=== PATIENT | male | born 1950 | race Caucasian/White ===

== ENCOUNTER 2024-06-19 10:14 | Outpatient (AMB) | payer MEDICARE, MEDICAID, SELFPAY ==
--- NOTE | 2024-06-19 10:26 | A.OFFVIS_ITS ---
Intake Visit Reasons: HX Microhematuria/Hydroneph Intake Note: Patient is present for HX MICOHEMATURIA/HYRONEPH Urology Medication:NONE Antibiotic Allergy:NONE Blood Thinner:NONE Arc Air Operator Required: No Allergies No Known Allergies [No Known Allergies*] Allergy (Verified 06/19/24 10:27) HPI Comments Details: Stew is a pleasant Somali speaking male. He is a patient of . 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 on CT imaging Has upcoming surgery at [facility] later this month UA with persistent microscopic hematuria Stopped smoking in 1993 proximally 20 year pack per day history No known exposure to workplace chemical Plan office cystoscopy to complete evaluation [facility] Medical History (Updated 06/19/24 @ 11:05 by Delfino Mccarthy MD) Chronic kidney disease, stage 3 unspecified Unspecified hydronephrosis Paroxysmal atrial fibrillation Essential hypertension Lung mass Microscopic hematuria Surgical History (Updated 06/12/24 @ 13:39 by BARNEY Sims) History of lung biopsy Review of Systems Const Denies chills and Denies fever(s) Card Reports no additional complaints and Denies syncope Resp Denies cough GI Denies abdominal pain and Denies heartburn Reports as per HPI and Denies change in libido Neuro Denies syncope Psych Denies change in libido Endo Denies change in libido Physical Exam Const General: cooperative, healthy appearing, comfortable and no acute distress Orientation/consciousness: patient oriented x3 HEENT Face and sinus: Yes normal facial exam Mouth: moist mucous membranes Neck Neck: Yes normal visual inspection, Yes full ROM and Yes trachea midline Chest Chest palpation & inspection: normal inspection of the chest Resp Effort & Inspection: normal respiratory effort, able to speak in complete sentences and no respiratory distress GI Inspection: Yes normal to inspection Back/Spine/Pelvis Cervical Spine: normal cervical lordosis Thoracic/Lumbar Spine: thoracic and lumbar spine normal to inspection Skin General skin exam: no rashes or lesions noted Neuro General: patient oriented x3, gait normal, tone normal and moves all extremities Extrem General: Yes normal to inspection and Yes capillary refill normal Results AMB Urinalysis, Automated UA Leukoctes 0 Lan/uL Last Edit by JAZZ Abraham on 06/19/24 10:38 UA Nitrite Negative Last Edit by JAZZ Abraham on 06/19/24 10:38 UA Urobilinogen 0.2 mg/dL Last Edit by JAZZ Abraham on 06/19/24 10:3 8 UA Protein 100 mg/dL Last Edit by JAZZ Abraham on 06/19/24 10:38 UA pH 6.0 Last Edit by Zach Heck CCM on 06/19/24 10:38 UA Blood 10 Frederick/uL Last Edit by Zach Heck [facility] on 06/19/24 10:38 UA Specific [place] 1.020 Last Edit by Zach Heck [facility] on 06/19/24 10: 38 UA Ketone Negative Last Edit by JAZZ Abraham on 06/19/24 10:38 UA Bilirubin 0 mg/dL Last Edit by Zach Heck [facility] on 06/19/24 10:38 UA Glucose 0 mg/dL Last Edit by Zach Heck [facility] on 06/19/24 10:38 Results Reviewed Results Reviewed: Laboratory Last Values Urine pH (Auto) 6.0 06/19/24 10:37 Specific [place] (Auto) 1.020 06/19/24 10:37 Urine Protein (Auto) 100 mg/dL 06/19/24 10:37 Glucose (UA)(Auto) 0 mg/dL 06/19/24 10:37 Urine Ketones (Auto) Negative 06/19/24 10:37 Urine Blood (Auto) 10 Frederick/uL 06/19/24 10:37 Urine Nitrite (Auto) Negative 06/19/24 10:37 Urine Bilirubin (Auto) 0 mg/dL 06/19/24 10:37 Urine Urobilinogen (Auto) 0.2 mg/dL 06/19/24 10:37 Leukocyte Esterase (Auto) 0 Lan/uL 06/19/24 10:37 Assessment & Plan Assessment & Plan (1) Microscopic hematuria: Code(s): R31.29 - Other microscopic hematuria Category: Medical Plan Plan office cystoscopy Orders: Orders AMB Urinalysis Automated Today Z13.9 - Encounter for screening, unspecified Patient Instructions: Imaging studies, laboratory and physical exam results were discussed and review ed in detail. No major barriers to patient understanding were identified. An opportunity to ask questions regarding the treatment plan was provided. All questions were answered. The patient expressed understanding and agreement with the above treatment plan. The patient is aware they should contact our office by phone for worsening of their current condition or the appearance of new urologic symptoms. Compliance is encouraged with any medications and followup testing that is ordered. It is a privilege to participate in the urologic care of your patient. If you have any questions or concerns regarding treatment for the above conditions, or other urologic issues, please do not hesitate to contact me. The office telephone contact is [phone]. This note is constructed using voice recognition software. While every effort has been made to ensure accuracy outside medical sales representative errors may have been included. Yours sincerely, Dr Delfino Mccarthy MD, [facility] - Urology Providers of Expert, Compassionate Care for the Genitourinary System Coding Level of Care Code New Pt Level 4 (19490) Diagnoses Microscopic hematuria R31.29
== END 2024-06-19 11:07 | disposition home or self-care (01) ==
PROVIDERS: PCP Physician Assistant; Visit Provider Urology
DX: R31.29 Other microscopic hematuria (principal); Z13.9 Encounter for screening, unspecified
CPT/HCPCS: 99204

== ENCOUNTER → 2024-06-19 10:14 | Outpatient (BNVA) | payer MEDICARE, MEDICAID, SELFPAY | PROVIDERS: PCP Physician Assistant; Visit Provider Urology | DX: R31.29 Other microscopic hematuria (principal) | CPT/HCPCS: 81003; 99202 ==

== ENCOUNTER 2024-08-07 12:47 | Outpatient (AMB) | payer MEDICARE, MEDICAID, SELFPAY ==
--- NOTE | 2024-08-07 13:10 | A.OFFVIS_ITS ---
Intake Visit Reasons: cysto(Hematuria) Intake Note: Patient is present for Hematuria Urology Medication:NONE Antibiotic Allergy:NONE Blood Thinner:NONE Supervisor Dials Required: Yes Supervisor Dials Services: Supervisor Dials Present Information Interpreted: clinical only Allergies No Known Allergies [No Known Allergies*] Allergy (Verified 08/07/24 13:10) HPI Comments Details: Stew is a pleasant Tuvaluan speaking male. He is a patient of . He is seen for the following urologic conditions - retroperitoneal sarcoma Tuvaluan Translation provided by qualified biomedical service engineer ([id number]) Underwent left retroperitoneal sarcoma resection [facility] Included left nephro ureterectomy No longer with hematuria Incision appears to be healing well All things considered he is doing very well from his surgery 4 month follow-up office [facility] Medical History (Updated 06/19/24 @ 11:05 by Delfino Mccarthy MD) Chronic kidney disease, stage 3 unspecified Unspecified hydronephrosis Paroxysmal atrial fibrillation Essential hypertension Lung mass Microscopic hematuria Surgical History (Updated 06/12/24 @ 13:39 by BARNEY Sims) History of lung biopsy Review of Systems Const Denies chills and Denies fever(s) Card Reports no additional complaints and Denies syncope Resp Denies cough GI Denies abdominal pain and Denies heartburn Reports as per HPI and Denies change in libido Neuro Denies syncope Psych Denies change in libido Endo Denies change in libido Physical Exam Const General: cooperative, healthy appearing, comfortable and no acute distress Orientation/consciousness: patient oriented x3 HEENT Face and sinus: Yes normal facial exam Mouth: moist mucous membranes Neck Neck: Yes normal visual inspection, Yes full ROM and Yes trachea midline Chest Chest palpation & inspection: normal inspection of the chest Resp Effort & Inspection: normal respiratory effort, able to speak in complete sentences and no respiratory distress GI Inspection: Yes normal to inspection Back/Spine/Pelvis Cervical Spine: normal cervical lordosis Thoracic/Lumbar Spine: thoracic and lumbar spine normal to inspection Skin General skin exam: no rashes or lesions noted Neuro General: patient oriented x3, gait normal, tone normal and moves all extremities Extrem General: Yes normal to inspection and Yes capillary refill normal Assessment & Plan Assessment & Plan (1) Microscopic hematuria: Code(s): R31.29 - Other microscopic hematuria Category: Medical Plan Four month follow-up Orders: Orders AMB Urinalysis Automated Today R31.29 - Other microscopic hematuria Patient Instructions: This note is constructed using voice recognition software. While every effort diallo s been made to ensure accuracy car rental sales assistant errors may have been included. Imaging studies, laboratory and physical exam results were discussed and reviewed in detail. No major barriers to patient understanding were identified. An opportunity to ask questions regarding the treatment plan was provided. All questions were answered. The patient expressed understanding and agreement with the above treatment plan. The patient is aware they should contact our office by phone for worsening of their current condition or the appearance of new urologic symptoms. Compliance is encouraged with any medications and followup testing that is ordered. It is a privilege to participate in the urologic care of your patient. If you have any questions or concerns regarding treatment for the above conditions, or other urologic issues, please do not hesitate to contact me. The office telephone contact is [phone]. Sincerely, Dr Delfino Mccarthy MD, [facility] - Urology Compassionate Specialist Care for the Genitourinary System Coding Level of Care Code Est Pt Level 3 (41527) Diagnoses Microscopic hematuria R31.29
--- OUTSIDE RECORDS SUMMARY | 2024-08-07 15:49 | XMS_ITS | Clinical Summary ---
Author Organization Unknown Care Team Providers Care Environmental Officer Name Role Phone JONN WILITE, PETE Unavailable Kalani foster ARMSTRONG RN, AMIE Unavailable Unavailab charan PFEIFFER LPN, CHULA Unavailable Unavail able CODI PT, JAYJAY Unavailable Unavailable CHEIKH GENERAL COUNSELOR, HAIM Unavailable Unavailable Payers Payer Name Policy Type Policy Number Effective Date Expira tion Date MEDICARE.NGS.PDGM [id number] Problems Condition Name Condition Details Condition Category Status Onset Date Resolution Date Last Treatment Date Treating Clinician Comments AFTERCARE FOLLOWING SURGERY FOR NEOPLASM Active 07-13 00:00: 00 MALIGNANT NEOPLASM OF CONNECTIVE AND SOFT TISSUE, UNSP Active 07-13 00:00: 00 ENCNTR FOR SURGICAL AFTCR FOLLOWING SURGERY ON THE CIRC SYS Active 06-22 00:00: 00 PRESENCE OF CARDIAC PACEMAKER Active 06-22 00:00: 00 HYP HRT AND CHR KDNY DIS W HRT FAIL AND STG 1-4/UNSP CHR KDNY Active 07-13 00:00: 00 CHRONIC SYSTOLIC (CONGESTIVE) HEART FAILURE Active 07-13 00:00: 00 TYPE 2 DIABETES MELLITUS W DIABETIC CHRONIC KIDNEY DISEASE Active 07-13 00:00: 00 CHRONIC KIDNEY DISEASE, STAGE 4 (SEVERE) Active 07-13 00:00: 00 UNSPECIFIED ATRIAL FLUTTER Active - 00:00: 00 UNSPECIFIED ATRIAL FIBRILLATION Active - 00:00: 00 MIXED HYPERLIPIDEM IA Active - 00:00: 00 DEFICIENCY OF OTHER SPECIFIED B GROUP VITAMINS Active 07-13 00:00: 00 MAJOR DEPRESSIVE DISORDER, RECURRENT, MODERATE Active 07-13 00:00: 00 UNSPECIFIED OSTEOARTHRIT IS, UNSPECIFIED SITE Active 07-13 00:00: 00 GASTRO-ESOPH AGEAL REFLUX DISEASE WITHOUT ESOPHAGITIS Active 07-13 00:00: 00 PEPTIC ULC, SITE UNSP, UNSP AC OR CHR, W/O HEMOR OR PERF Active 07-13 00:00: 00 ACUTE INFARCTION OF INTESTINE, PART AND EXTENT UNSPECIFIED Active 07-13 00:00: 00 OBSTRUCTIVE SLEEP APNEA (ADULT) (PEDIATRIC) Active 07-13 00:00: 00 Obesity, class 1 Active 07-13 00:00: 00 RRT (CURRENT) USE OF ANTICOAGULAN TS Active 07-13 00:00: 00 ACQUIRED ABSENCE OF OTHER SPECIFIED PARTS OF DIGESTIVE TRACT Active 07-13 00:00: 00 PERSONAL HISTORY OF NICOTINE DEPENDENCE Active 07-13 00:00: 00 LNG TRM (CRNT) USE INJECTABLE NON-INSULIN ANTIDIABETIC DRUGS Active 07-13 00:00: 00 BODY MASS INDEX [BMI] 29.0-29.9, ADULT Active 07-13 00:00: 00 Allergies, Adverse Reactions, Alerts Allergy Name Allergy Type Status Severity Reaction(s) Onset Date Inactive Date Treating Clinician Comments NO KNOWN ALLERGIES Propensity to adverse reactions Active 07-13 10:47: 08 Medications Ordered Medication Name Filled Medication Name Start Date Stop Date Current Medication? Ordering Clinician Indication Dosage Frequency Signature (SIG) Comments Components pantoprazol e 40 mg tablet,brii yed release 10-17 00:00: 00 07-08 23:59 :00 No [id number] PROTON PUMP INHIBITOR 1 tablet DAILY 1 tablet DAILY (route: oral) Med Classific ation: Gastroint estinal Therapy Agents calcitriol 0.25 mcg capsule 13 00:00: 00 07-08 23:59 :00 No [id number] CALCIUM LEVEL 1 capsule EVERY DAY 1 capsule EVERY DAY (route: oral) Med Classific ation: Electroly te Balance-N utritiona l Products torsemide 10 mg tablet 13 00:00: 00 07-08 23:59 :00 No [id number] DIURETIC 1 tablet TWICE DAILY 1 tablet TWICE DAILY (route: oral) Med Classific ation: Cardiovas cular Therapy Agents Eliquis 5 mg tablet 10-14 00:00: 00 07-08 23:59 :00 No [id number] BLOOD THINNER 1 tablet TWICE DAILY 1 tablet TWICE DAILY (route: oral) Med Classific ation: Hematolog ical Agents Ozempic 0.25 mg or 0.5 mg (2 mg/3 mL) subcutaneou s pen injector 10-14 00:00: 00 10-23 10:33 :17.8 47 No [id number] BLOOD GLUCOSE 0.5 mg EVERY WEEK 0.5 mg EVERY WEEK (route: subcutaneo us) Med Classific ation: Endocrine rosuvastati n 5 mg tablet 10-14 00:00: 00 07-08 23:59 :00 No [id number] CHOLESTEROL 1 tablet EVERY NIGHT AT BEDTIME 1 tablet EVERY NIGHT AT BEDTIME (route: oral) Med Classific ation: Cardiovas cular Therapy Agents Vitamin B-1 100 mg tablet 10-14 00:00: 00 07-08 23:59 :00 No [id number] VITAMIN 1 tablet EVERY DAY 1 tablet EVERY DAY (route: oral) Med Classific ation: Electroly te Balance-N utritiona l Products metoprolol tartrate 25 mg tablet 10-19 00:00: 00 07-08 23:59 :00 No [id number] BLOOD PRESSURE 0.5 tablet TWICE DAILY 0.5 tablet TWICE DAILY (route: oral) Med Classific ation: Cardiovas cular Therapy Agents Ozempic 0.25 mg or 0.5 mg (2 mg/3 mL) subcutaneou s pen injector 10-23 00:00: 00 07-08 23:59 :00 No [id number] blood glucose 0.25 mg WEEKLY 0.25 mg WEEKLY (route: subcutaneo us) Med Classific ation: Endocrine cyanocobala min (vit B-12) 1,000 mcg/mL injection solution 5-20 00:00: 00 07-08 23:59 :00 No [id number] suplement Per instruc tions MONTHLY Per instructio ns MONTHLY (route: injection) Med Classific ation: Electroly te Balance-N utritiona l Products cephalexin 500 mg tablet 6-13 00:00: 00 11-23 23:59 :00 No [id number] WOUND 1 tablet EVERY 8 HOURS 1 tablet EVERY 8 HOURS (route: oral) Med Classific ation: Anti-Infe ctive Agents calcitriol 0.25 mcg capsule 07-13 00:00: 00 Yes [id number] SUPPLEMENT 1 capsule DAILY 1 capsule DAILY (route: oral) Med Classific ation: Electroly te Balance-N utritiona l Products Eliquis 5 mg tablet 07-13 00:00: 00 Yes [id number] IRREGULAR HEARTBEAT 1 tablet EVERY 12 HOURS 1 tablet EVERY 12 HOURS (route: oral) Med Classific ation: Hematolog ical Agents pantoprazol e 40 mg tablet,brii yed release 1- 00:00: 00 07-13 00:00 :00 No [id number] Per instruc tions Per instructio ns (route: oral) Med Classific ation: Gastroint estinal Therapy Agents rosuvastati n 5 mg tablet 07-13 00:00: 00 Yes [id number] HIGH LIPIDS 1 tablet BEDTIME 1 tablet BEDTIME (route: oral) Med Classific ation: Cardiovas cular Therapy Agents lisinopril 10 mg tablet - 00:00: 00 Yes [id number] HIGH BLOOD PRESSURE 1 tablet DAILY 1 tablet DAILY (route: oral) Med Classific ation: Cardiovas cular Therapy Agents metronidazo le 250 mg tablet - 00:00: 00 07-13 00:00 :00 No [id number] Per instruc tions Per instructio ns (route: oral) Med Classific ation: Anti-Infe ctive Agents neomycin 500 mg tablet - 00:00: 00 07-13 00:00 :00 No [id number] Per instruc tions AT AT Per instructio ns AT AT (route: oral) Med Classific ation: Anti-Infe ctive Agents Nutrisource Fiber packet 07-13 00:00: 00 Yes [id number] SUPPLEMENT 1 packet DAILY 1 packet DAILY (route: oral) Med Classific ation: Gastroint estinal Therapy Agents Ozempic 0.25 mg or 0.5 mg (2 mg/3 mL) subcutaneou s pen injector 07-13 00:00: 00 Yes [id number] DIABETES 0.25 mg WEEKLY 0.25 mg WEEKLY (route: subcutaneo us) Med Classific ation: Endocrine pantoprazol e 20 mg tablet,brii yed release 07-13 00:00: 00 Yes [id number] GERD, PEPTIC ULCER DISEASE 1 tablet 2 TIMES DAILY 1 tablet 2 TIMES DAILY (route: oral) Med Classific ation: Gastroint estinal Therapy Agents thiamine HCl (vitamin B1) 100 mg tablet 07-13 00:00: 00 Yes [id number] SUPPLEMENT 1 tablet DAILY 1 tablet DAILY (route: oral) Med Classific ation: Electroly te Balance-N utritiona l Products Vital Signs Vital Name Observation Time Observation Value Commen ts Temperature 2024-08-02 12:01:00.000 97.7 [degF] Temperature 2024-08-01 11:15:00.000 96.8 [degF] Temperature 2024-07-25 10:32:00.000 98.2 [degF] Temperature 2024-07-25 09:03:00.000 97.1 [degF] Temperature 2024-07-18 10:52:00.000 98.4 [degF] Temperature 2024-07-16 12:56:00.000 97.2 [degF] Temperature 2024-07-13 11:39:00.000 97.4 [degF] BMI (%) 2024-07-13 11:16:32.000 28 kg/m2 Height 2024-07-13 11:16:18.000 66 [in_us] Pulse 2024-08-02 12:01:00.000 61 /min Pulse 2024-08-01 11:15:00.000 60 /min Pulse 2024-07-25 10:32:00.000 68 /min Pulse 2024-07-25 09:03:00.000 60 /min Pulse 2024-07-18 10:52:00.000 64 /min Pulse 2024-07-16 12:56:00.000 60 /min Pulse 2024-07-13 11:39:00.000 63 /min O2 Saturation (%) 2024-08-01 11:15:00.000 100 % O2 Saturation (%) 2024-07-25 10:33:00.000 97 % O2 Saturation (%) 2024-07-25 09:03:00.000 99 % O2 Saturation (%) 2024-07-16 12:56:00.000 99 % O2 Saturation (%) 2024-07-13 11:39:00.000 99 % Respirations 2024-08-02 12:01:00.000 17 /min Respirations 2024-08-01 11:15:00.000 18 /min Respirations 2024-07-25 10:32:00.000 17 /min Respirations 2024-07-25 09:03:00.000 16 /min Respirations 2024-07-18 10:52:00.000 16 /min Respirations 2024-07-16 12:56:00.000 17 /min Respirations 2024-07-13 11:39:00.000 18 /min Weight (lbs) 2024-08-02 12:11:00.000 170 [lb_av] Weight (lbs) 2024-07-25 10:32:00.000 187 [lb_av] Weight (lbs) 2024-07-13 11:16:32.000 179.1 [lb_av] Systolic Blood Pressure 2024-08-02 12:01:00.000 130 mm [Hg] Systolic Blood Pressure 2024-08-01 11:15:00.000 122 mm [Hg] Systolic Blood Pressure 2024-07-25 10:32:00.000 122 mm [Hg] Systolic Blood Pressure 2024-07-25 09:03:00.000 148 mm [Hg] Systolic Blood Pressure 2024-07-18 10:52:00.000 138 mm [Hg] Systolic Blood Pressure 2024-07-16 12:56:00.000 140 mm [Hg] Systolic Blood Pressure 2024-07-13 11:39:00.000 126 mm [Hg] Diastolic Blood Pressure 2024-08-02 12:01:00.000 62 mm [Hg] Diastolic Blood Pressure 2024-08-01 11:15:00.000 64 mm [Hg] Diastolic Blood Pressure 2024-07-25 10:32:00.000 67 mm [Hg] Diastolic Blood Pressure 2024-07-25 09:03:00.000 78 mm [Hg] Diastolic Blood Pressure 2024-07-18 10:52:00.000 68 mm [Hg] Diastolic Blood Pressure 2024-07-16 12:56:00.000 58 mm [Hg] Diastolic Blood Pressure 2024-07-13 11:39:00.000 50 mm [Hg] Plan of Treatment Planned Activity Planned Date Details Comments Future Scheduled Test RN TO OBSE RVE, ASSESS, EVALUATE, AND DEVELOP AN INDIVIDUALIZED PLAN OF CARE. AGENCY MAY ACCEPT ORDERS FROM CONSULTING PHYSICIANS. RN TO OBSERVE AND ASSESS, TREASURY ASSOCIATE/PEELED POTATO INSPECTOR TO OBSERVE FOR RISK FOR FALLS AND INSTRUCT IN FALL PREVENTION, HOME SAFETY, MEDICATION MANAGEMENT, INFECTION PREVENTION, AND NUTRITION MANAGEMENT. RN/TREASURY ASSOCIATE/PEELED POTATO INSPECTOR NURSE MAY PERFORM O2 SATURATION LEVEL ON ADMISSION AND PRN FOR RN TO ASSESS/TREASURY ASSOCIATE TO OBSERVE PATIENT, WITH NOTIFICATION TO THE PHYSICIAN IF SATURATION IS 90% IN THE ABSENCE OF MORE SPECIFIC PARAMETERS FROM THE PHYSICIAN. AGENCY MAY PERFORM A RESUMPTION OF CARE VISIT FOLLOWING ANY HOSPITAL ADMISSION. RN/TREASURY ASSOCIATE/PEELED POTATO INSPECTOR TO MONITOR CO-MORBID CONDITIONS LISTED ON THE PLAN OF CARE AND ANY NEW CONDITIONS THAT PRESENT THEMSELVES DURING THIS EPISODE TO IDENTIFY CHANGES AND INTERVENE TO MINIMIZE COMPLICATIONS. [code = RN TO OBSERVE, ASSESS, EVALUATE, AND DEVELOP AN INDIVIDUALIZED PLAN OF CARE. AGENCY MAY ACCEPT ORDERS FROM CONSULTING PHYSICIANS. RN TO OBSERVE AND ASSESS, TREASURY ASSOCIATE/PEELED POTATO INSPECTOR TO OBSERVE FOR RISK FOR FALLS AND INSTRUCT IN FALL PREVENTION, HOME SAFETY, MEDICATION MANAGEMENT, INFECTION PREVENTION, AND NUTRITION MANAGEMENT. RN/TREASURY ASSOCIATE/PEELED POTATO INSPECTOR NURSE MAY PERFORM O2 SATURATION LEVEL ON ADMISSION AND PRN FOR RN TO ASSESS/TREASURY ASSOCIATE TO OBSERVE PATIENT, WITH NOTIFICATION TO THE PHYSICIAN IF SATURATION IS 90% IN THE ABSENCE OF MORE SPECIFIC PARAMETERS FROM THE PHYSICIAN. AGENCY MAY PERFORM A RESUMPTION OF CARE VISIT FOLLOWING ANY HOSPITAL ADMISSION. RN/TREASURY ASSOCIATE/PEELED POTATO INSPECTOR TO MONITOR CO-MORBID CONDITIONS LISTED ON THE PLAN OF CARE AND ANY NEW CONDITIONS THAT PRESENT THEMSELVES DURING THIS EPISODE TO IDENTIFY CHANGES AND INTERVENE TO MINIMIZE COMPLICATIONS.] Future Scheduled Test MEDICATION MANAGEMENT; RN/TREASURY ASSOCIATE/PEELED POTATO INSPECTOR TO REVIEW MEDICATIONS FOR INTERACTIONS, EFFECTIVENESS OF DRUG THERAPY, AND SIGNS/SYMPTOMS OF ADVERSE REACTIONS. MAY INSTRUCT AND REINFORCE MEDICATION TEACHING RELATED TO THE USE OF MEDICATIONS, DOSAGE, FREQUENCY, PURPOSE, SIDE EFFECTS, AND TO REPORT COMPLICATIONS. [code = MEDICATION MANAGEMENT; RN/TREASURY ASSOCIATE/PEELED POTATO INSPECTOR TO REVIEW MEDICATIONS FOR INTERACTIONS, EFFECTIVENESS OF DRUG THERAPY, AND SIGNS/SYMPTOMS OF ADVERSE REACTIONS. MAY INSTRUCT AND REINFORCE MEDICATION TEACHING RELATED TO THE USE OF MEDICATIONS, DOSAGE, FREQUENCY, PURPOSE, SIDE EFFECTS, AND TO REPORT COMPLICATIONS.] Future Scheduled Test RISK FOR H OSPITALIZATION; RN TO ASSESS/TEACH, PEELED POTATO INSPECTOR/TREASURY ASSOCIATE TO OBSERVE/TEACH PATIENT/CAREGIVER ON RISK FOR HOSPITALIZATION/EMERGENCY ROOM VISITS, TEACH SIGNS AND SYMPTOMS THAT PUT PATIENT AT RISK, WHEN TO NOTIFY NURSE/PHYSICIAN OF COMPLICATIONS/DECLINE, AND WHEN TO CALL 911. [code = RISK FOR HOSPITALIZATION; RN TO ASSESS/TEACH, PEELED POTATO INSPECTOR/TREASURY ASSOCIATE TO OBSERVE/TEACH PATIENT/CAREGIVER ON RISK FOR HOSPITALIZATION/EMERGENCY ROOM VISITS, TEACH SIGNS AND SYMPTOMS THAT PUT PATIENT AT RISK, WHEN TO NOTIFY NURSE/PHYSICIAN OF COMPLICATIONS/DECLINE, AND WHEN TO CALL 911.] Future Scheduled Test CARDIOVASC ULAR SYSTEM; RN TO ASSESS/TEACH, TREASURY ASSOCIATE/PEELED POTATO INSPECTOR TO OBSERVE/TEACH RELATED TO ALTERED CARDIOVASCULAR STATUS TO MINIMIZE COMPLICATIONS AND REDUCE HOSPITALIZATION. [code = CARDIOVASCULAR SYSTEM; RN TO ASSESS/TEACH, TREASURY ASSOCIATE/PEELED POTATO INSPECTOR TO OBSERVE/TEACH RELATED TO ALTERED CARDIOVASCULAR STATUS TO MINIMIZE COMPLICATIONS AND REDUCE HOSPITALIZATION.] Future Scheduled Test PACEMAKER MANAGEMENT; RN/TREASURY ASSOCIATE/PEELED POTATO INSPECTOR TO PROVIDE SKILLED TEACHING AND ASSIST WITH MANAGEMENT OF PACEMAKER. NEWLY PLACED 06/22/24 [code = PACEMAKER MANAGEMENT; RN/TREASURY ASSOCIATE/PEELED POTATO INSPECTOR TO PROVIDE SKILLED TEACHING AND ASSIST WITH MANAGEMENT OF PACEMAKER. NEWLY PLACED 06/22/24] Future Scheduled Test HYPERTENSI ON MANAGEMENT; RN TO ASSESS AND TEACH, TREASURY ASSOCIATE/PEELED POTATO INSPECTOR TO OBSERVE AND TEACH WARNING SIGNS AND SYMPTOMS TO AVOID HOSPITALIZATION. [code = HYPERTENSION MANAGEMENT; RN TO ASSESS AND TEACH, TREASURY ASSOCIATE/PEELED POTATO INSPECTOR TO OBSERVE AND TEACH WARNING SIGNS AND SYMPTOMS TO AVOID HOSPITALIZATION.] Future Scheduled Test ARRHYTHMIA MANAGEMENT; RN TO ASSESS AND TEACH, TREASURY ASSOCIATE/PEELED POTATO INSPECTOR TO OBSERVE AND TEACH WARNING SIGNS AND SYMPTOMS TO AVOID HOSPITALIZATION. [code = ARRHYTHMIA MANAGEMENT; RN TO ASSESS AND TEACH, TREASURY ASSOCIATE/PEELED POTATO INSPECTOR TO OBSERVE AND TEACH WARNING SIGNS AND SYMPTOMS TO AVOID HOSPITALIZATION.] Future Scheduled Test HEART FAIL URE; RN TO ASSESS/TEACH, TREASURY ASSOCIATE/PEELED POTATO INSPECTOR TO OBSERVE/TEACH CARDIOPULMONARY SYSTEM TO IDENTIFY SIGNS OF DECOMPENSATION AND INTERVENE TO MINIMIZE THE SEVERITY OF FLUID OVERLOAD. OBSERVE PATIENT ABILITY TO MONITOR AND RECORD DAILY WEIGHTS AND VITAL SIGNS, INCLUDING PULSE AND BLOOD PRESSURE; RECORD PATIENT REPORTED WEIGHT, OR WEIGH PATIENT NEEDED. REPORT INCREASED EDEMA OR WEIGHT GAIN OF >2 LBS IN 1 DAY OR >5 LBS IN 1 WEEK OR 5LBS OR MORE OVER TARGET WEIGHT. MAY MEASURE ABDOMINAL GIRTH IF UNABLE TO WEIGH. [code = HEART FAILURE; RN TO ASSESS/TEACH, TREASURY ASSOCIATE/PEELED POTATO INSPECTOR TO OBSERVE/TEACH CARDIOPULMONARY SYSTEM TO IDENTIFY SIGNS OF DECOMPENSATION AND INTERVENE TO MINIMIZE THE SEVERITY OF FLUID OVERLOAD. OBSERVE PATIENT ABILITY TO MONITOR AND RECORD DAILY WEIGHTS AND VITAL SIGNS, INCLUDING PULSE AND BLOOD PRESSURE; RECORD PATIENT REPORTED WEIGHT, OR WEIGH PATIENT NEEDED. REPORT INCREASED EDEMA OR WEIGHT GAIN OF >2 LBS IN 1 DAY OR >5 LBS IN 1 WEEK OR 5LBS OR MORE OVER TARGET WEIGHT. MAY MEASURE ABDOMINAL GIRTH IF UNABLE TO WEIGH. ] Future Scheduled Test RESPIRATOR Y SYSTEM MANAGEMENT; RN TO ASSESS AND TEACH, TREASURY ASSOCIATE/PEELED POTATO INSPECTOR TO OBSERVE AND TEACH RELATED TO ALTERED RESPIRATORY STATUS TO MINIMIZE COMPLICATIONS AND REDUCE HOSPITALIZATION. CHRONIC RT PLEURAL EFFUSION [code = RESPIRATORY SYSTEM MANAGEMENT; RN TO ASSESS AND TEACH, TREASURY ASSOCIATE/PEELED POTATO INSPECTOR TO OBSERVE AND TEACH RELATED TO ALTERED RESPIRATORY STATUS TO MINIMIZE COMPLICATIONS AND REDUCE HOSPITALIZATION. CHRONIC RT PLEURAL EFFUSION] Future Scheduled Test SKIN INTEG RITY RN TO ASSESS AND TEACH, TREASURY ASSOCIATE/PEELED POTATO INSPECTOR TO OBSERVE AND TEACH INTEGUMENTARY STATUS TO IDENTIFY CHANGES AND INTERVENE TO MINIMIZE COMPLICATIONS. PROVIDE SKILLED TEACHING OF GENERAL WOUND AND SKIN CARE AND PREVENTION RELATED TO ACTUAL ALTERED SKIN INTEGRITY [code = SKIN INTEGRITY RN TO ASSESS AND TEACH, TREASURY ASSOCIATE/PEELED POTATO INSPECTOR TO OBSERVE AND TEACH INTEGUMENTARY STATUS TO IDENTIFY CHANGES AND INTERVENE TO MINIMIZE COMPLICATIONS. PROVIDE SKILLED TEACHING OF GENERAL WOUND AND SKIN CARE AND PREVENTION RELATED TO ACTUAL ALTERED SKIN INTEGRITY ] Future Scheduled Test RN/TREASURY ASSOCIATE/PEELED POTATO INSPECTOR TO PERFORM/TEACH INCISION CARE TO ABDOMINAL INCISION AREA: MONITOR INCIDION FOR SX OF INFECTION: REDNESS, WARMTH, DEHISCENCE AND DRAINAGE. NOTIFY DR LUNSFORD IMMEDIATELY [phone] [code = RN/TREASURY ASSOCIATE/PEELED POTATO INSPECTOR TO PERFORM/TEACH INCISION CARE TO ABDOMINAL INCISION AREA: MONITOR INCIDION FOR SX OF INFECTION: REDNESS, WARMTH, DEHISCENCE AND DRAINAGE. NOTIFY DR LUNSFORD IMMEDIATELY [phone]] Future Scheduled Test PAIN MANAG EMENT; RN TO ASSESS AND TEACH, PEELED POTATO INSPECTOR/TREASURY ASSOCIATE TO OBSERVE AND TEACH AND PROVIDE EDUCATION ON PAIN MANAGEMENT TECHNIQUES. [code = PAIN MANAGEMENT; RN TO ASSESS AND TEACH, PEELED POTATO INSPECTOR/TREASURY ASSOCIATE TO OBSERVE AND TEACH AND PROVIDE EDUCATION ON PAIN MANAGEMENT TECHNIQUES.] Future Scheduled Test DIABETES M ANAGEMENT; RN TO ASSESS AND TEACH, PEELED POTATO INSPECTOR/TREASURY ASSOCIATE TO OBSERVE AND TEACH INSTRUCTIONS OF DIABETIC CARE TO INCLUDE: DIET CCHO, HEART HEALTHY, LOW POTASSIUM SKIN CARE, SIGNS AND SYMPTOMS OF HYPO/HYPERGLYCEMIA, PROPER ADMINISTRATION OF DIABETIC MEDICATION. RN/PEELED POTATO INSPECTOR/TREASURY ASSOCIATE TO INSTRUCT ON DIABETIC FOOT CARE AND MONITOR FOR SKIN LESIONS ON LOWER EXTREMITIES. BLOOD GLUCOSE TESTING DAILY. RN TO ASSESS AND TEACH, PEELED POTATO INSPECTOR/TREASURY ASSOCIATE TO OBSERVE AND TEACH PATIENT/CAREGIVER ABILITY TO PERFORM AND RECORD BLOOD GLUCOSE TESTING ORDERED AND TO REPORT ABNORMAL FINDINGS TO PHYSICIAN. RN/PEELED POTATO INSPECTOR/TREASURY ASSOCIATE MAY PERFORM BLOOD GLUCOSE TEST NEEDED. RN/PEELED POTATO INSPECTOR/TREASURY ASSOCIATE TO REPORT TO PHYSICIAN BLOOD GLUCOSE READINGS GREATER THAN 200 OR LESS THAN 80 RN/PEELED POTATO INSPECTOR/TREASURY ASSOCIATE TO INSTRUCT PATIENT ON IMPORTANCE OF HGBA1C MONITORING, KIDNEY FUNCTION TEST, EYE AND FOOT EXAMS. [code = DIABETES MANAGEMENT; RN TO ASSESS AND TEACH, PEELED POTATO INSPECTOR/TREASURY ASSOCIATE TO OBSERVE AND TEACH INSTRUCTIONS OF DIABETIC CARE TO INCLUDE: DIET CCHO, HEART HEALTHY, LOW POTASSIUM SKIN CARE, SIGNS AND SYMPTOMS OF HYPO/HYPERGLYCEMIA, PROPER ADMINISTRATION OF DIABETIC MEDICATION. RN/PEELED POTATO INSPECTOR/TREASURY ASSOCIATE TO INSTRUCT ON DIABETIC FOOT CARE AND MONITOR FOR SKIN LESIONS ON LOWER EXTREMITIES. BLOOD GLUCOSE TESTING DAILY. RN TO ASSESS AND TEACH, PEELED POTATO INSPECTOR/TREASURY ASSOCIATE TO OBSERVE AND TEACH PATIENT/CAREGIVER ABILITY TO PERFORM AND RECORD BLOOD GLUCOSE TESTING ORDERED AND TO REPORT ABNORMAL FINDINGS TO PHYSICIAN. RN/PEELED POTATO INSPECTOR/TREASURY ASSOCIATE MAY PERFORM BLOOD GLUCOSE TEST NEEDED. RN/PEELED POTATO INSPECTOR/TREASURY ASSOCIATE TO REPORT TO PHYSICIAN BLOOD GLUCOSE READINGS GREATER THAN 200 OR LESS THAN 80 RN/PEELED POTATO INSPECTOR/TREASURY ASSOCIATE TO INSTRUCT PATIENT ON IMPORTANCE OF HGBA1C MONITORING, KIDNEY FUNCTION TEST, EYE AND FOOT EXAMS.] Future Scheduled Test CANCER MAN AGEMENT; RN TO ASSESS AND TEACH, PEELED POTATO INSPECTOR/TREASURY ASSOCIATE TO OBSERVE AND TEACH AND PROVIDE EDUCATION ON CANCER. [code = CANCER MANAGEMENT; RN TO ASSESS AND TEACH, PEELED POTATO INSPECTOR/TREASURY ASSOCIATE TO OBSERVE AND TEACH AND PROVIDE EDUCATION ON CANCER.] Future Scheduled Test FALL REDUC TION MANAGEMENT; RN TO ASSESS AND OBSERVE, TREASURY ASSOCIATE/PEELED POTATO INSPECTOR TO OBSERVE FALL RISK FACTORS AND EDUCATE PATIENT/CAREGIVER ON STRATEGIES TO MINIMIZE THE RISK OF FALLING. [code = FALL REDUCTION MANAGEMENT; RN TO ASSESS AND OBSERVE, TREASURY ASSOCIATE/PEELED POTATO INSPECTOR TO OBSERVE FALL RISK FACTORS AND EDUCATE PATIENT/CAREGIVER ON STRATEGIES TO MINIMIZE THE RISK OF FALLING.] Future Scheduled Test AGENCY MAY PERFORM A RESUMPTION OF CARE VISIT FOLLOWING ANY HOSPITAL ADMISSION. PT TO EVALUATE, OBSERVE / ASSESS, AND MONITOR, GENERAL COUNSELOR TO OBSERVE AND MONITOR, PROVIDE SKILLED THERAPEUTIC INTERVENTION, ACTIVITY, EDUCATION, AND TRAINING TO ADDRESS; PT/GENERAL COUNSELOR TO PROVIDE GAIT TRAINING FOR IMPROVED MOBILITY AND /OR TO NORMALIZE GAIT PATTERN NEUROMUSCULAR RE-EDUCATION / BALANCE / POSTURAL CONTROL (PT) THERAPEUTIC EXERCISES AND ESTABLISHING A HOME EXERCISE PROGRAM (PT/GENERAL COUNSELOR) PT/GENERAL COUNSELOR TO PROVIDE STAIR TRAINING SIT TO/FROM STAND TRANSFERS (PT/GENERAL COUNSELOR) PT / GENERAL COUNSELOR TO MONITOR AND EDUCATE ON OXYGEN SATURATION DURING ADLS/IADLS, NOTIFY PHYSICIAN AND/OR THE RN CLINICAL ENVIRONMENTAL SERVICES FLOOR TECH FOR PHYSICIAN NOTIFICATION AND IF O2 SATS BELOW PHYSICIAN ORDERED PARAMETERS AFTER 10 MIN OF REST PT / GENERAL COUNSELOR MAY EDUCATE ON PAIN MANAGEMENT CLINICALLY INDICATED, INCLUDING NON-PHARMACOLOGICAL PAIN REDUCTION TECHNIQUES [code = AGENCY MAY PERFORM A RESUMPTION OF CARE VISIT FOLLOWING ANY HOSPITAL ADMISSION. PT TO EVALUATE, OBSERVE / ASSESS, AND MONITOR, GENERAL COUNSELOR TO OBSERVE AND MONITOR, PROVIDE SKILLED THERAPEUTIC INTERVENTION, ACTIVITY, EDUCATION, AND TRAINING TO ADDRESS; PT/GENERAL COUNSELOR TO PROVIDE GAIT TRAINING FOR IMPROVED MOBILITY AND /OR TO NORMALIZE GAIT PATTERN NEUROMUSCULAR RE-EDUCATION / BALANCE / POSTURAL CONTROL (PT) THERAPEUTIC EXERCISES AND ESTABLISHING A HOME EXERCISE PROGRAM (PT/GENERAL COUNSELOR) PT/GENERAL COUNSELOR TO PROVIDE STAIR TRAINING SIT TO/FROM STAND TRANSFERS (PT/GENERAL COUNSELOR) PT / GENERAL COUNSELOR TO MONITOR AND EDUCATE ON OXYGEN SATURATION DURING ADLS/IADLS, NOTIFY PHYSICIAN AND/OR THE RN CLINICAL ENVIRONMENTAL SERVICES FLOOR TECH FOR PHYSICIAN NOTIFICATION AND IF O2 SATS BELOW PHYSICIAN ORDERED PARAMETERS AFTER 10 MIN OF REST PT / GENERAL COUNSELOR MAY EDUCATE ON PAIN MANAGEMENT CLINICALLY INDICATED, INCLUDING NON-PHARMACOLOGICAL PAIN REDUCTION TECHNIQUES ] Goal Patient Goal - GET STRONGER AND HEAL Goal Provider Goal - A PLAN OF CARE WILL BE ESTABLISHED THAT MEETS THE PATIENTS NEEDS. PATIENT WILL DEMONSTRATE OXYGEN SATURATION WITHIN NORMAL LIMITS OR PATIENTS OPTIMAL LEVEL ESTABLISHED BY THE PHYSICIAN THROUGHOUT CARE. CHANGES TO CO-MORBID CONDITIONS AND ANY NEW CONDITIONS WILL BE IDENTIFIED AND REPORTED TO THE PHYSICIAN. Goal Provider Goal - PATIENT/CAREGIVER TO VERBALIZE, AND CONSISTENTLY DEMONSTRATE EFFECTIVE, SAFE MANAGEMENT OF MEDICATION INCLUDING KNOWLEDGE OF EFFECTIVENESS, POTENTIAL SIDE EFFECTS AND DRUG REACTIONS AND WHEN TO CONTACT THE APPROPRIATE CARE PROVIDER. PATIENT/CAREGIVER WILL BE ABLE TO VERBALIZE UNDERSTANDING OF MEDICATION REGIMEN AND ACCURATELY TAKE MEDICATIONS PRESCRIBED WITHOUT ADVERSE EFFECTS BY EOE Goal Provider Goal - PATIENT/CAREGIVER WILL VERBALIZE UNDERSTANDING OF SIGNS AND SYMPTOMS THAT PUT THE PATIENT AT RISK FOR HOSPITALIZATION /EMERGENCY ROOM VISITS, WHEN TO NOTIFY NURSE/PHYSICIAN OF COMPLICATIONS/DECLINE AND WHEN TO CALL 911. Goal Provider Goal - PATIENT / CAREGIVER WILL VERBALIZE/DEMONSTRATE UNDERSTANDING OF MEASURES TO MANAGE ALTERED CARDIOVASCULAR STATUS BY EOE. Goal Provider Goal - PATIENT / CAREGIVER WILL VERBALIZE/DEMONSTRATE UNDERSTANDING OF CARE AND MANAGEMENT OF PACEMAKER BY END OF EPISODE. Goal Provider Goal - PATIENT / CAREGIVER WILL VERBALIZE/DEMONSTRATE AN ABILITY TO ADHERE TO SELF-MANAGEMENT OF HTN TO MINIMIZE COMPLICATIONS AND AVOID HOSPITALIZATION BY END OF EPISODE. Goal Provider Goal - PATIENT / CAREGIVER WILL VERBALIZE/DEMONSTRATE AN ABILITY TO ADHERE TO SELF-MANAGEMENT OF HEART ARRHYTHMIA TO MINIMIZE COMPLICATIONS AND AVOID HOSPITALIZATION BY END OF EPISODE. Goal Provider Goal - PATIENT / CAREGIVER WILL VERBALIZE/DEMONSTRATE AN ABILITY TO ADHERE TO SELF-MANAGEMENT OF HF TO MINIMIZE COMPLICATIONS AND AVOID HOSPITALIZATION BY END OF EPISODE. Goal Provider Goal - PATIENT / CAREGIVER WILL VERBALIZE/DEMONSTRATE UNDERSTANDING OF MEASURES TO MANAGE ALTERED RESPIRATORY STATUS BY END OF EPISODE. Goal Provider Goal - CHANGES IN SKIN [facility] STATUS WILL BE IDENTIFIED AND REPORTED TO THE PHYSICIAN FOR PROMPT INTERVENTION. PATIENT / CAREGIVER WILL VERBALIZE/DEMONSTRATE ADEQUATE KNOWLEDGE OF INTEGUMENTARY STATUS AND APPROPRIATE MEASURES TO PROMOTE SKIN INTEGRITY AND PREVENT INJURY BY EOE Goal Provider Goal - PATIENT / CAREGIVER WILL VERBALIZE / DEMONSTRATE ABILITY TO PERFORM WOUND CARE. WOUND STATUS WILL IMPROVE EVIDENCED BY A DECREASE IN SIZE, DRAINAGE, ABSENCE OF INFECTION, AND DECREASED PAIN BY EOE. Goal Provider Goal - PATIENT / CAREGIVER WILL VERBALIZE / DEMONSTRATE UNDERSTANDING OF PAIN CONTROL MEASURES BY EOE Goal Provider Goal - PATIENT / CAREGIVER WILL VERBALIZE / DEMONSTRATE AN ABILITY TO ADHERE TO SELF-MANAGEMENT OF DIABETES MANAGEMENT BY EOE. Goal Provider Goal - PATIENT / CAREGIVER WILL VERBALIZE/DEMONSTRATE UNDERSTANDING OF MEASURES TO MINIMIZE COMPLICATIONS AND REDUCE HOSPITALIZATION RELATED TO CANCER BY END OF EPISODE. Goal Provider Goal - PATIENT/CAREGIVER WILL VERBALIZE/DEMONSTRATE UNDERSTANDING OF FALL RISK FACTORS AND IMPLEMENT STRATEGIES TO MINIMIZE FALL RISK. PATIENT/CAREGIVER WILL VERBALIZE/DEMONSTRATE AN ABILITY TO ADHERE TO FALL REDUCTION SELF-MANAGEMENT AND LIFE-STYLE CHANGES BY EOE Goal Provider Goal - PT LTG: PATIENT WILL DEMONSTRATE REDUCED GAIT DEVIATIONS TO REDUCE THE RISK FOR FALLING AND MINIMIZE STRAIN ON KNEES/HIPS AND BACK EVIDENCED BY IMPROVED (HEEL STRIKE / STANCE PHASE / SWING PHASE ) USING LRAD TO WALK INDOORS INDEPENDENT INTO ORDER TO ACCESS [facility] OF HOME AND TRANSPORTATION WITHIN 9 WEEKS PT LTG: PATIENT WILL DEMONSTRATE IMPROVED POSTURAL CONTROL AND SENSORY INTEGRATION OF THEIR BALANCE SYSTEMS EVIDENCED BY MCTSIB IMPROVING FROM NOT TESTED TO 4/4 WITHIN 9 WEEKS. PT STG: PATIENT WILL BE INDEPENDENT WITH HEP FOR STRENGTHNING WITHIN 4 WEEKS PT LTG: PATIENT WILL DEMONSTRATE IMPROVED FUNCTIONAL STRENGTH EVIDENCED BY FIVE TIMES SIT TO STAND TEST (CUT SCORE >12 SECONDS INDICATES AN INCREASED FALL RISK) IMPROVING FROM NOT TESTED TO 18 SECONDS WITHIN 9 WEEKS PT LTG: PATIENT WILL DEMONSTRATE IMPROVED ABILITY TO SAFELY NEGOTIATE STAIRS FROM MIN ASSIST TO INDEPENDENT WITH FULL FLIGHT OF STAIRS USING RAILING IN ORDER TO INDEPENDENTLY ACCESS 2ND FLOOR BATHROOM WITHIN 9 WEEKS PT STG: PATIENT WILL DEMONSTRATE IMPROVED ABILITY TO PERFORM SIT TO/FROM STAND TRANSFERS FROM CGA TO INDEPENDENT TO REDUCE THE RISK OF SKIN BREAKDOWN AND REDUCE FALL RISK WITHIN 9 WEEKS PT LTG: PATIENT WILL MAINTAIN OXYGEN SATURATION WITHIN PHYSICIAN ORDERED PARAMETERS THROUGHOUT EPISODE OF CARE. PT GOAL: PATIENT WILL DEMONSTRATE UNDERSTANDING OF PAIN MANAGEMENT TECHNIQUES EVIDENCED BY REDUCED PAIN Encounters Start Date/Time End Date/Time Encounter Type Admission Type Attending [facility] Care Facility Care Department Encounter ID Discharge Date Discharge Status Discharge Condition Discharge Reason Percent Goals Met 2024-07-13 00:00:00 2024-09-10 00:00:00 Outpatient AMIE CARRERO [facility] [id number] 20.69
--- OUTSIDE RECORDS SUMMARY | 2024-08-07 15:50 | XMS_ITS | Clinical Summary ---
Author Organization [facility] Address [address] [place] [phone] Phone Care Team Providers Care Agile Scrum Coach Name Role Phone Brandi Eisenberg Primary Care Provider [phone] Allergies No known active allergies Medications apixaban (ELIQUIS) 5 mg tablet Take 1 tablet (5 mg total) by mouth every 12 (twelve) hours. Active calcitrioL (ROCALTROL) 0.25 mcg capsule Take 1 capsule (0.25 mcg total) by mouth daily. Active cyanocobalamin (VITAMIN B-12) 1,000 mcg tablet Take 100 mcg by mouth daily. Active metoprolol tartrate (LOPRESSOR) 25 mg tablet Route: Take 1 tablet (25 mg total) by mouth 2 (two) times a day. - Oral Patient not taking: Reported on 03/14/2024 Active pantoprazole (PROTONIX) 40 mg EC tablet Take 1 tablet (40 mg total) by mouth every morning on an empty stomach Active rosuvastatin (CRESTOR) 5 mg tablet Take 1 tablet (5 mg total) by mouth daily. Active semaglutide (OZEMPIC) 0.25 mg or 0.5 mg(2 mg/1.5 mL) injection pen Inject under the skin Active torsemide (DEMADEX) 20 mg tablet Take 1 tablet (20 mg total) by mouth daily. Active cyanocobalamin (VITAMIN B-12) 100 mcg tablet Take 0.5 tablets (50 mcg total) by mouth daily. 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/2024): MALIGNANT MESOTHELIOMA OF PLEURA Encounters Date Type Department Care Team Description 05/09/2024 11:45 AM EST Office Visit [facility] [address] [place] [phone] Rory Carmen MD Dedifferentiated liposarcoma (CMS/HCC) (Primary Dx); Mesothelioma (pleural) (CMS/HCC) from Last 3 Months Social History Tobacco Use Types Packs/Day Years Used Date Smoking Tobacco: Never Smokeless Tobacco: Never Alcohol Use Standard Drinks/Week Comments Never 0 (1 standard drink = 0.6 oz pur e alcohol) Sex and Gender Information Value Date Recorded Sex Assigned at Not on file Legal Sex Male 11:38 AM EST Gender Identity Not on file Sexual Orientation Not on file Obstetrics History Last Filed Vital Signs Vital Sign Reading Time Taken Comments Blood Pressure 153/48 03/14/2024 10:39 AM EDT Sitting Left arm Pulse 74 05/09/2024 11:42 AM EST Temperature 36.5 ??C (97.7 ??F) 05/09/2024 1 1:42 AM EST Respiratory Rate - - Oxygen Saturation 98% 05/09/2024 11: 42 AM EST Inhaled Oxygen Concentration - - Weight 88 kg (194 lb) 05/09/2024 11:42 AM EST Height 167.6 cm (5' 6 ) 02/01/2024 3:03 PM EDT Body Mass Index 31.31 02/01/2024 3:03 PM EDT Plan of Treatment Upcoming Encounters Date Type Department Care Team (Late st Contact Info) Description 08/09/2024 11:45 AM EST Office Visit [facility] [address] [place] [phone] Rory Carmen MD [address] [place] [phone] Health Maintenance Due Date Last Done Comments COVID-19 Vaccine (#1) 1954 Diabetes: Annual Foot Exam 09/09/1959 Diabetes: Annual Retina Eye Exam 09/09/1959 DTaP,Tdap,and Td Vaccines (1 - Tdap) 1968 Zoster Vaccines (1 of 2) 1968 RSV Immunization Patients 60+ Years Old (1 - Risk 60-74 years 1-dose series) 2009 Falls Risk Assessment 05/04/2022 Hepatitis C Screening 05/04/2022 Medicare Annual Wellness Visit 05/04/2022 Social Influencers of Health Screening 05/04/2022 Influenza Vaccine (#1) 2024 Diabetes: Annual Urine Albumin-Creatinine Ratio (uACR) 05/09/2024 10/27/2022, 10/27/2022, 07/02/2021, Additional history exists Diabetes: Blood Sugar Control Test (HGBA1C) 05/09/2024 07/21/2023, 07/20/2023 Diabetes: Annual GFR (Glomerular Filtration Rate) 01/05/2025 01/06/2024, 01/05/2024 Hypertension/CHF/CAD Annual BMP Blood Test 01/05/2025 01/06/2024, 01/05/2024 Depression Screening 04/23/2025 04/23/2024 Colorectal Cancer Screening: FIT-DNA (Cologuard) 04/05/2026 04/05/2023, 03/06/2023 Cholesterol Screening (Lipid Panel) 07/21/2028 07/21/2023, 07/20/2023, 07/20/2023, Additional history exists Pneumococcal Vaccine: 50+ Years Completed 01/25/2023, 06/05/2013 HIB Vaccines Aged Out No longer eligi ble based on patient's age to complete this topic HPV Vaccines Aged Out No longer eligi ble based on patient's age to complete this topic Hepatitis A Vaccines Aged Out No long er eligible based on patient's age to complete this topic Hepatitis B Vaccines Aged Out No long er eligible based on patient's age to complete this topic IPV Vaccines Aged Out No longer eligi ble based on patient's age to complete this topic MMR Vaccines Aged Out No longer eligi ble based on patient's age to complete this topic Meningococcal ACWY Vaccine Aged Out N o longer eligible based on patient's age to complete this topic Meningococcal B Vacine Aged Out No lo nger eligible based on patient's age to complete this topic RSV Immunization Patients Under 20 months Aged Out No longer eligible based on patient's age to complete this topic Varicella Vaccines Aged Out No longer eligible based on patient's age to complete this topic Procedures Procedure Name Priority Date/Time Associated Diagnosis Comments ANNUAL BMP BLOOD TEST Routine 01/06/2024 HEMOGLOBIN A1C Routine 07/21/2023 LIPID PANEL Routine 07/21/2023 FIT-DNA Routine 04/05/2023 URINE ALBUMIN CREATININE RATIO Routine 10/27/2022 from Last 3 Months or Most Recently Relevant to Health Maintenance Results * Annual BMP Blood Test (01/06/2024) [facility] Annual BMP Blood Test abstracted [facility] Provider HEALTH MAINTENANCE Final Result * Hemoglobin A1c (07/21/2023) [facility] Hemoglobin A1C 0.0 % Comment:no interpretation, a bstracted Blood Venous blood specimen / Unknown Result [facility] Provider LAB BLOOD ORDERABLES Dorothy l Result * Lipid panel (07/21/2023) [facility] LDL/HDL Ratio 0 Comment:no interpretation, a bstracted Triglycerides 0 mg/dL Comment:no interpretation, a bstracted Cholesterol 0 mg/dL Comment:no interpretation, a bstracted HDL 0 mg/dL Comment:no interpretation, a bstracted LDL Cholesterol 0 mg/dL Comment:no interpretation, a bstracted Blood Venous blood specimen / Unknown [facility] Provider LAB BLOOD ORDERABLES Dorothy l Result * FIT-DNA (Cologuard) (04/05/2023) [facility] Colorectal Cancer Screening: FIT-DNA (Cologuard) no interpretation , abstracted [facility] Provider HEALTH MAINTENANCE Final Result * Urine Albumin Creatinine Ratio (10/27/2022) [facility] Urine Albumin Creatinine Ratio abstracted us Historical Provider HEALTH MAINTENANCE Final Result from Last 3 Months or Most Recently Relevant to Health Maintenance Insurance MEDICARE MEDICAID - [place] Care Teams Agile Scrum Coach Relationship Specialty Start Date End Date Brandi Eisenberg PA [address] [place] [phone] PCP - General 11/23/23
--- OUTSIDE RECORDS SUMMARY | 2024-08-07 15:50 | XMS_ITS | Clinical Summary ---
Author Organization [facility] Address [address] [place] [address] Care Team Providers Care Men'S Designer Name Role Phone Brandi Eisenberg PA-C Primary Care Provider [phone] Allergies No known active allergies Medications Medication Sig Dispensed Refills Start Date End Date Status metoprolol tartrate (LOPRESSOR) 25 MG tablet Take 1 tablet (25 mg total) by mouth 2 (two) times a day. 0 Active apixaban (ELIQUIS) 5 MG TABS tablet Take 1 tablet (5 mg total) by mouth every 12 (twelve) hours. 0 Active calcitRIOL (ROCALTROL) capsule 0.25 mcg Take 1 capsule (0.25 mcg total) by mouth daily. 0 Active vitamin B-12 (CYANOCOBALAMIN) 100 MCG tablet Take 0.5 tablets (50 mcg total) by mouth daily. 0 Active cyanocobalamin 1000 MCG tablet Take 100 mcg by mouth daily. 0 Active torsemide (DEMADEX) 20 MG tablet Take 1 tablet (20 mg total) by mouth daily. 0 Active rosuvastatin (CRESTOR) tablet 5 mg Take 1 tablet (5 mg total) by mouth daily. 0 Active pantoprazole (PROTONIX) 40 MG tablet Take 1 tablet (40 mg total) by mouth every morning on an empty stomach. 0 Active Semaglutide,0.25 or 0.5MG/DOS, (Ozempic, 0.25 or 0.5 MG/DOSE,) 2 MG/1.5ML SOPN Inject under the skin. 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 Social History Tobacco Use Types Packs/Day Years Used Date Smoking Tobacco: Never Smokeless Tobacco: Never Tobacco Cessation:Counseling Given: Not Answered Alcohol Use Standard Drinks/Week Comments Never 0 (1 standard drink = 0.6 oz pur e alcohol) Sex and Gender Information Value Date Recorded Sex Assigned at Male 11/23/2023 11:43 AM EDT Gender Identity Not on file Sexual Orientation Not on file Job Start Date Occupation Industry Not on file Not on file Not on file Last Filed Vital Signs Vital Sign Reading Time Taken Comments Blood Pressure 153/48 03/14/2024 10:39 AM EDT Pulse 42 03/14/2024 10:39 AM EDT Temperature 36.6 ??C (97.9 ??F) 03/14/2024 10:39 AM E DT Respiratory Rate - - Oxygen Saturation 97% 03/14/2024 10:39 AM EDT Inhaled Oxygen Concentration - - Weight 86.6 kg (191 lb) 03/14/2024 10:39 AM EDT Height 167.6 cm (5' 6 ) 02/01/2024 3:03 PM EDT Body Mass Index 30.83 02/01/2024 3:03 PM EDT Plan of Treatment Health Maintenance Due Date Last Done Comments Hepatitis C Screening 1950 COVID-19 Vaccine (#1) 1954 Depression Screening 1961 Preventative Health Evaluation 09/09/1967 DTap / Tdap / Td (1 - Tdap) 1968 Shingrix-Zoster Vaccine (1 o f 2) 1968 Colon Cancer Screening (Colonoscopy) 1994 Fall Risk Assessment 2014 Influenza Vaccine (#1) 2024 RSV Adult > 60+ Yrs or (1 - 1-dose 75+ series) 2024 Pneumococcal Vaccine Completed 01/25/2023, 06/05/2013 Hepatitis B Vaccines Aged Out No long er eligible based on patient's age to complete this topic RSV Ped < 20 months Aged Out No longe r eligible based on patient's age to complete this topic Care Teams Men'S Designer Relationship Specialty Start Date End Date Brandi Eisenberg PA-C [address] [place] [address] PCP - General Physician Sociology Instructor 11/23/23
--- OUTSIDE RECORDS SUMMARY | 2024-08-07 15:50 | XMS_ITS | Clinical Summary ---
Author Organization [facility] Address [address] [place] [address] Phone Care Team Providers Care Medical Office Technician Name Role Phone Brandi Eisenberg PA-C Primary Care Provider Allergies No known active allergies Medications metoprolol tartrate 25 MG tablet Take 1 tablet by mouth 2 (two) times a day 9 Active cyanocobalamin (VITAMIN B-12) 1000 MCG/ML injection every 30 (thirty) days 2 Active rosuvastatin (CRESTOR) 5 MG tablet Take 5 mg by mouth at bed time 1 Active Semaglutide,0.2 5 or 0.5MG/DOS, (Ozempic, 0.25 or 0.5 MG/DOSE,) 2 MG/1.5ML solution pen-injector Ozempic 0.25 mg or 0.5 mg (2 mg/1.5 mL) subcutaneous pen injector 1 Active torsemide (DEMADEX) 20 MG tablet Take 20 mg by mouth in the morning and 20 mg in the evening. 2 Active thiamine (,VITAMIN B-1,) 100 MG tablet Take 100 mg by mouth 1 (one) time each day 2 Active sucralfate (CARAFATE) 1 g tablet Take 1 tablet by mouth at bed time 2 Active calcitriol (ROCALTROL) 0.25 MCG capsule Take 1 capsule by mouth 1 (one) time each day 2 Active Eliquis 5 MG tablet Take 5 mg by mouth 2 (two) times a day 2 Active midodrine (PROAMATINE) 10 MG tablet Take 10 mg by mouth in the morning and 10 mg at noon and 10 mg in the evening. 2 Active pantoprazole (PROTONIX) 40 MG EC tablet Take 40 mg by mouth in the morning and 40 mg in the evening. 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 Atrial fibrillation 06/24/2021 07/06/19 Chest pain 06/24/2021 07/06/2022 COVID-19 06/24/2021 07/06/2022 Electrocardiogram abnormal 06/24/2021 0 07/06/2022 Abnormal findings on diagnos tic imaging of urinary organs 07/23/2020 06/23/2021 Suspected COVID-19 09/27/2019 2 History of SARS-CoV-2 09/27/20192022 Bilateral hearing loss 01/15/201906/23 Other shoulder lesion of left shoulder 10/26/2017 06/23/2021 Mixed hyperlipidemia 03/11/2015 022 Obstructive sleep apnea syndrome 05/10/2014 06/23/2021 Overview (07/23/2020): Result type: Polysomnogram with CPAP Result date: 07 May 2014 17:40 Result status: Auth (Verified) Result title: Polysomnogram W/ CPAP Performed by: Matt Carmen MD on 07 May 2014 17:40 Verified by: Matt Carmen MD on 07 May 2014 19:39 Encounter info: [id number], [facility] [place] 04/29/2014 - 04/29/2014 Contributor system: NUANCE * Final Report * Polysomnogram W/ CPAP (Verified) POLYSOMNOGRAM DATE:04/29/2014 [facility] Accredited by the [place] [employer] CPAP STUDY Referring Provider: Matt Carmen M.D. Date of Study: 04/29/2014 Order ID: [id number] INTRODUCTION: This 63 year-old male with hypertension, diabetes, obesity is referred for a titration study with snoring and daytime fatigue. The sleep questionnaire noted snoring, witnessed apneas, wake gasping for air, urge to sleep, daytime fatigue/decreased energy, tired/unrefreshed on waking, nightmares, leg jerks during sleep, leg discomfort worse evening/improve with movement. Denies alcohol, reports 3 caffeinated drinks daily. Prior sleep study performed on 03/01/14, with Mild TONI, REM dominant, AHI of 5.4/hr, and lowest oxygenation of 85%. [place] sleepiness scale is 10/24. (Height: 5' 6 , Weight: 217.0 lbs, BMI: 35.3.) MASK TYPE: Standard/FX Nasal. MEDICATIONS: Sertraline, Naproxen, Metformin, Lisinopril, HCTZ, Amlodipine. DESCRIPTION: This overnight polysomnogram was done utilizing a [employer] digital polysomnograph machine. Four channels of EEG for sleep scoring, 2 channels for electrooculograms, left and right respectively, 1 for chin EMG, 2 channels for left and right anterior tibialis EMG, respectively, 1 for EKG, 1 for combined nasal and airflow monitoring, 1 for nasal pressure transducer, 1 for intercostal EMG, 1 channel for thoracic strain gauge, 1 for abdominal strain gauge, and oximetry on the last channel to monitor arterial oxygen saturation. The low linear filter setting was 1 Hz; high linear 70 Hz for the EEG channels and appropriate bandwidths were set for the other channels. Sleep was scored by 30-second epochs according to the AASM Manual for the Scoring of Sleep and Associated Events: Rules, Terminology, and Technical Specifications v. 2.0.3, 2014. The study was performed on CPAP titrated from 5 to 8. SLEEP ARCHITECTURE: Lights were turned out at 09:47:50 PM 04/29/2014. The total recording time was 470.2 minutes with a total sleep time of 382.5 minutes. The sleep efficiency was 81.4%. The sleep maintenance was 88.2%. The sleep latency was 8.3. The REM latency was 70.5 minutes. Sleep architecture revealed 14.9% of total sleep time in Stage 1, 63.5% in Stage 2, 0.7% in Stage 3, and 20.9% in REM sleep. POSITION: The patient spent 382.5 minutes of sleep time in supine position with 80.0 minutes of supine REM. RESPIRATORY MEASURES: PAP SUMMARY: CPAP Level: 5, Minutes of Sleep: 70.0, AHI: 0.0, REM AHI: 0.0, Lowest O2: 95.0 CPAP Level: 6, Minutes of Sleep: 149.0, AHI: 2.0, REM AHI: 6.3, Lowest O2: 90.0 CPAP Level: 7, Minutes of Sleep: 95.5, AHI: 3.8, REM AHI: 18.9, Lowest O2: 89.0 CPAP Level: 8, Minutes of Sleep: 68.0, AHI: 0.0, REM AHI: 0.0, Lowest O2: 93.0 Snoring: None noted. Bruxism: None. The average arterial saturation during wakefulness was 96.4% and during sleep was 95.9%. The lowest arterial oxygen saturation during sleep was 89.0%. The number of minutes with SaO2 less than 89% was 0.1 minutes. EKG: Sinus rhythm with an average heart rate of 70.2, range 56.9-96.1 bpm. Arrhythmia: Premature atrial contractions, supraventricular premature beats, and occasional PVC. LIMB MOVEMENTS: There were 0 periodic limb movements. PATIENT? S ASSESSMENT OF NIGHT: Did not fill out questionnaire. INTERPRETATION: The study was performed on CPAP titrated from 5 to 8. Sleep architecture and staging showed several awakenings of short duration, and little sleep after 4:50 AM. O2 saturations were generally 96 to 98% awake, dips to 92% on CPAP to 7 during REM, and 94-98% during supine REM on CPAP of 8. The heart rate was generally 65 to 80. The arousals were mainly related to obstructive respiratory events. The study demonstrated obstructive sleep apnea, mild from prior study, with some obstructive hypopneas during REM with lower CPAP on this study, well controlled with higher CPAP DIAGNOSTIC CLASSIFICATION: AXIS A: 1. Obstructive sleep apnea (327.23), mild, improved with CPAP. AXIS B: 1. Titration study. AXIS C: 1. Hypertension, diabetes, obesity. RECOMMENDATIONS: 1. Patient should be started on CPAP of 8 cm H2O with a heated humidifier. Recommend ordering a machine with compliance data capabilities and following residual AHI. I left message for patient 05/07/14 to call me to discuss results, then I will order PAP from [facility]. 2. Patient should sleep in non-supine position. A device such as Rematee or ZZoma could be considered if he does not use PAP. 3. Patient should avoid alcohol and sedative containing medications which may worsen sleep apnea. 4. Weight loss is recommended as weight loss of at least 10% can lead to significant improvements in sleep apnea. Dictated by: Matt Carmen M.D. Signing Clinician: Matt Carmen M.D. Dictated: 05/07/2014 17:40:01 Transcribed: 05/07/2014 18:37:55 Transcribed by: JANNETTE DocID: [id number] CC:Matt Carmen M.D. [facility] , Brandi Eisenberg [address], [phone] Osteoarthritis 03/29/2014 06/23/2021 Recurrent major depressive episodes, moderate 01/12/20 14 06/23/2021 Venous occlusion 06/05/2013 06/23/2021 Type 2 diabetes mellitus without complication 02/29/20 13 07/06/2022 Immunizations Name Administration Dates Next Due Pneumococcal Polysaccharide 06/05/2013 Social History Tobacco Use Types Packs/Day Years Used Date Smoking Tobacco: Never Smokeless Tobacco: Never Tobacco Cessation:Counseling Given: Not Answered Alcohol Use Standard Drinks/Week Comments No 0 (1 standard drink = 0.6 oz pur e alcohol) Sex and Gender Information Value Date Recorded Sex Assigned at Not on file Legal Sex Male 4:51 PM EST Gender Identity Not on file Sexual Orientation Not on file Last Filed Vital Signs Vital Sign Reading Time Taken Comments Blood Pressure 116/60 04/07/2022 3:07 PM EDT Pulse 51 04/07/2022 3:07 PM EDT Temperature - - Respiratory Rate - - Oxygen Saturation - - Inhaled Oxygen Concentration - - Weight 84.7 kg (186 lb 12.8 oz) 04/07/2022 3:07 PM EDT Height 167.6 cm (5' 6 ) 10/17/2019 12:0 0 PM EDT Body Mass Index 30.15 10/17/2019 12:00 PM EDT Plan of Treatment Health Maintenance Due Date Last Done Comments Colorectal Cancer Screening: Annual FOBT 1998 Colorectal Cancer Screening: Colonoscopy 1998 Colorectal Cancer Screening: Sigmoidoscopy 1998 Pneumococcal Vaccine: 65+ Ye ars (2 of 2 - PCV) 06/05/2014 06/05/2013 Influenza Vaccine (#1) 2024 Hepatitis B Vaccine Aged Out No longe r eligible based on patient's age to complete this topic Insurance [place] Care Teams Medical Office Technician Relationship Specialty Start Date End Date Brandi Eisenberg PA-C [address] [place] [phone] PCP - General 06/16/20
--- OUTSIDE RECORDS SUMMARY | 2024-08-07 15:50 | XMS_ITS | Encounter Summary ---
Author Organization [facility] Address [id number] [place] [id number] Care Team Providers Care Frame Changer Name Role Phone Brandi Eisenberg Primary Care Provider [phone] Encounter Details Date Type Department Care Team (Latest Contact Info) Description 03/30/2024 11:48 AM EDT Hospital Encounter TH HISTORIC ENCOUNTERS EASTERN CONVERSION ONLY Rory Walters MD [address] [place] [address] Other intra-abdominal and pelvic swelling, [...] Description 08/09/2024 11:45 AM EST Office Visit [facility] Hematology Oncology [address] [place] [address] Rory Walters MD [address] [place] [address] documented as of this encounter Procedures Procedure [...] exam (04/24/2024 12:00 AM EST) Case Results ? Reason: ? [id number]: This report is amended to change the diagnosis to reflect the ? result of the expert consultation. ? 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 Comment: The above diagnosis was rendered by Dr. Nigel Luther of [facility]. He additionally notes: ? Immunohistochemis try performed at [facility] demonstrates the following staining ? profile in lesional cells: ? Positive - MDM2, CDK4, SMA (multifocal), desmin (scattered cells) ? Negative - S100, WT-1, calretinin, AE1/AE3 ? FISH analysis performed at [facility] is positive for MDM2 amplification ? ([id number]). ? Dr. Cervantes will be notified of the expert consultaiton via secure text. ? - ? Prior diagnosis - please ignore ? 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 Comment: This malignant spindle cell neoplasm shows pleomorphic giant cells ? and atypical mitoses. The architecture appears somewhat storiform rather than ? fascicular. The neoplasm is distinctly different than the mesothelial ? proliferation noted in the patient's prior right pleural biopsy, [id number]. ? This case is being sent to Dr. Nigel Luther at [facility] ? for expert consultation. This report will be amended when the consult report ? is received. ? Immunohistochemica l staining with appropriate controls: ? Positive: Smooth muscle actin, desmin, calponin, D2-40 (patchy), WT1 (patchy), ? ERG (patchy), CD31 (patchy) ? Negative: Cytokeratin LORETTA, MCK AE1/AE3, PAX8, calretinin, SOX10, S100 ? Rachale Villareal M.D. , Pathologist ? (Case electronically signed 04 24 2024) ? Pre-Op/Clinical Diagnosis: ? Hx pleural mesothelioma ? Specimen and Site: ? SOFT TISSUE, LEFT RETROPERITONEAL-BI OPSY ? Gross Description: ? Labeled left retroperitoneal mass . ??Received in formalin are four soft, ? giang-white to pink-red tissue cores with minimal attached blood ranging from ? 0.25 x 0.1 cm to 1.55 x 0.1 cm, which are wrapped in paper and submitted in ? toto in two cassettes, two pieces each (one stained, +10 unstained slides and ? one stained; conserving tissue). ??A touch preparation is made. ? Left retroperitoneal mass, touch prep of core biopsy: ? -Blood and few atypical cells. ? Rachael Villareal 03/30/24 14:20 ? Dr. Rodriguez notified via Clinical Comms at 1422 on 03/30/2024 ? TS ? Physicians: ? DHEERAJ RODRIGUEZ M.D./[phone]/ ? RORY WALTERS MD/ x2/ ? HISTORICAL TESTING LAB RESULTING AGENCY 04/24/2024 us Laboratory Results Historical MD LAB PATHOLOGY O RDERABLES Final Result HISTORICAL TESTING LAB RESULTING AGENCY * Non-gynecologic cytology (04/09/2024 12:00 AM EST) Case Results ? Left retroperitoneal mass, fine needle aspiration (ThinPrep, direct smears and ? cell block): ?Malignant spindle cell neoplasm ? Comment: Please see the corresponding core biopsy, [id number], for the ? immunohistochemica l evaluation and expert consultation. ? Rachael Villareal M.D. , Pathologist ? (Case electronically signed 04 09 2024) ? CLINICAL INFORMATION: ? Hx pleural mesothelioma, lymphadenopathy, left flank mass. ? SOURCE: ? Retroperitoneal FNA, Left Mass ? Gross Description: ? Received in saline 30 ml pink cloudy fluid, 2 Alcohol Fixed and 2 Air Dried ? Direct Smears, 1 ThinPrep, Cell Block 03/30/24 ? CB in formalin @ 3:30-TFFT 53.5 hours ? Immediate read performed for adequacy. ? Preliminary diagnosis: ? Left retroperitoneal/ma ss, FNA: ? Malignant neoplasm. ? Rachael Villareal MD 03/30/24 14:20 ? Dr Rodriguez notified via Clinical Comms @ 14:22 on 03/30/24. ? Physicians ? DHEERAJ RDORIGUEZ M.D./[phone]/ ? RORY WALTERS MD/ x2/ ? HISTORICAL TESTING LAB RESULTING AGENCY 04/09/2024 us Laboratory Results Historical MD LAB CYTOLOGY OR DERABLES Final Result HISTORICAL TESTING LAB RESULTING AGENCY * Tissue exam (04/09/2024 12:00 AM EST) Case Results ? 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 Comment: This malignant spindle cell neoplasm shows pleomorphic giant cells ? and atypical mitoses. The architecture appears somewhat storiform rather than ? fascicular. The neoplasm is distinctly different than the mesothelial ? proliferation noted in the patient's prior right pleural biopsy, [id number]. ? This case is being sent to Dr. Nigel Luther at [facility] ? for expert consultation. This report will be amended when the consult report ? is received. ? Immunohistochemica l staining with appropriate controls: ? Positive: Smooth muscle actin, desmin, calponin, D2-40 (patchy), WT1 (patchy), ? ERG (patchy), CD31 (patchy) ? Negative: Cytokeratin LORETTA, MCK AE1/AE3, PAX8, calretinin, SOX10, S100 ? Rachael Villareal M.D. , Pathologist ? (Case electronically signed 04 09 2024) ? Pre-Op/Clinical Diagnosis: ? Hx pleural mesothelioma ? Specimen and Site: ? SOFT TISSUE, LEFT RETROPERITONEAL-BI OPSY ? Gross Description: ? Labeled left retroperitoneal mass . ??Received in formalin are four soft, ? giang-white to pink-red tissue cores with minimal attached blood ranging from ? 0.25 x 0.1 cm to 1.55 x 0.1 cm, which are wrapped in paper and submitted in ? toto in two cassettes, two pieces each (one stained, +10 unstained slides and ? one stained; conserving tissue). ??A touch preparation is made. ? Left retroperitoneal mass, touch prep of core biopsy: ? -Blood and few atypical cells. ? Rachael Villareal 03/30/24 14:20 ? Dr. Rodriguez notified via Clinical Comms at 1422 on 03/30/2024 ? TS ? Physicians: ? DHEERAJ RODRIGUEZ M.D./[phone]/ ? RORY WALTERS MD/ x2/ ? HISTORICAL TESTING LAB RESULTING AGENCY 04/09/2024 us Laboratory Results Historical MD LAB PATHOLOGY O RDERABLES Final Result HISTORICAL TESTING LAB RESULTING AGENCY * BX ABD RETRO MASS CT (04/02/2024 1:58 PM EDT) Anatomical Region Laterality Modality Interventional R adiology 03/30/2024 1:11 PM EDT Narrative 04/02/2024 1:58 PM EDT [facility] Diagnostic Imaging Department [address] [place] [id number] Patient: ??STEW WELLS ?/Age/Sex: 1950 - 73 - M Unit#: ??[id number] ? Location/Status: ??SPDIANGIO/REG CLI ? Mnemonic/Ordering Site: ??CTBXRETRO/SPIR Ordering Physician: ??RORY WALTERS MD BX ABD RETRO MASS CT - 03/30/24 - [id number] Report Status:Signed INDICATION: Previous pleural biopsy with atypical mesothelioma perforation suspicious but not diagnostic for mesothelioma. Metabolically active cervical and thoracic lymphadenopathy as well as pleural activity. Metabolically active mass in the left flank. CT-guided biopsy requested for further histological evaluation. PROCEDURE: Consent obtained for CT-guided biopsy of left flank/retroperitoneal mass corresponding to metabolic activity on prior PET scan. Consent obtained utilizing a [place]-speaking sign language interpreter. prior relevant studies: PET/CT from January [...] of fentanyl administered during the procedure. Scanner: Nourish [address] Dose reduction technique: AEC (automated exposure control) Dose: total exam DLP 467 mGY per cm TECHNIQUE: Patient placed prone ??on the CT table and multiple axial images [...] flank/retroperitoneal mass using coaxial technique. Dictating Physician: ??DHEERAJ RODRIGUEZ MD Electronically Signed by: ??DHEERAJ RODRIGUEZ MD Dic Date/Time: ??04/02/24 1337 Sign date/Time: ??04/02/24 1350 Procedure Note Dheeraj Rodriguez MD - 04/07/2024 [facility] Diagnostic Imaging Department [address] [place] [id number] Patient: VIOLETTASTEW /Age/Sex: 1950 - 73 - M Unit#: [id number] [facility] Mnemonic/Ordering Site: CTBXRETRO/[facility] Ordering Physician: RORY WALTERS MD BX ABD RETRO MASS CT - 03/30/24 - [id number] Report Status:Signed INDICATION: Previous pleural biopsy with atypical mesotheliomaperforation suspicious but not diagnostic for mesothelioma. Metabolically activecervical and thoracic lymphadenopathy as well as pleural activity. Metabolicallyactive mass in the left flank. CT-guided biopsy requested for furtherhistological evaluation. PROCEDURE: Consent obtained for CT-guided biopsy of leftflank/retroperitoneal mass corresponding to metabolic activity on prior PET scan. Consentobtained utilizing a [place]-speaking sign language interpreter. prior relevant studies: PET/CT from January 11, 2024 MEDICATIONS: Local anesthesia: 7 cc of 1% buffered lidocaine administeredsubcutaneously. Sedation: Moderate intravenous sedation was initiated and maintained for30 minutes while the patient was independently monitored by the radiologynurse under the supervision of the interventional radiologist. A total of 2 mgof Versed and 75 mcg of fentanyl administered during the procedure. Scanner: Nourish [address] Dose reduction technique: AEC [...] lump documented in this encounter Care Teams Frame Changer Relationship Specialty Start Date End Date Brandi Eisenberg PA [address] [place] [address] PCP - General 6/19/24 documented as of this encounter
--- OUTSIDE RECORDS SUMMARY | 2024-08-07 15:50 | XMS_ITS | Clinical Summary ---
Author Organization [facility] Address [address] [place] [address] Care Team Providers Care Tipple Tender Name Role Phone Brandi Eisenberg PA-C Primary Care Provider [phone] Source Comments PLEASE NOTE, if this patient is a minor, it may be UNLAWFUL to discuss sensitive information that is contained in these records (such as FAMILY PLANNING, MENTAL HEALTH or SUBSTANCE ABUSE) with the minor patient's parent or other person without the patient's specific authorization.[facility] Allergies No known active allergies Medications blood-glucose meter (FREESTYLE LITE METER) monitoring kitIndications:Ty pe 2 diabetes mellitus without complication, without long-term current use of insulin ([facility]) 2 (two) times daily Freestyle lite meter, use BID, Dx E11.9 1 Each 07/31/19 21 Active clotrimazole-beta methasone (LOTRISONE) 1-0.05 % creamIndications: Atopic dermatitis, unspecified type Apply topically 2 (two) times daily 30 g 2 11/21/19 21 Active carbamide peroxide (DEBROX) 6.5 % otic solutionIndicatio ns:Bilateral impacted cerumen Place 4 Drops into both ears 2 (two) times daily 15 mL 2 06/01/20 21 Active miscellaneous medical supply miscIndications:U ses wheelchair,Debili tated patient,Unintende d weight loss,Paroxysmal atrial fibrillation ([facility]) by miscellaneous route once daily Standard wheelchair, disp1,lifetime need, dx weakness s/p surgery, atrial fibrillation, anemia 1 Each 09/16/19 22 Active triamcinolone acetonide (KENALOG) 0.1 % creamIndications: Atopic dermatitis, unspecified type Apply topically once daily Combine with Eucerin Eczema Relief Cream 80 g 1 10/21/19 22 Active FREESTYLE LANCETS 28 gaugeIndications: Type 2 diabetes mellitus without complication, without long-term current use of insulin ([facility]) USE TO TEST ONCE DAILY 100 Each 10/25/19 22 Active calcium carbonate (OS-ISRAEL) 500 mg calcium (1,250 mg) tablet Take 1 Tablet by mouth once daily 90 Tablet 2 12/16/19 22 Active clotrimazole-beta methasone (LOTRISONE) 1-0.05 % cream Apply topically 2 (two) times daily 60 g 2 12/16/19 22 Active syringe with needle (BD LUER-NICOLE SYRINGE) 3 mL 25 gauge x 1 Indications:Low serum vitamin B12 USE 1 SYRINGE EVERY MONTH for b12 injection 1 Each 11 07/02/19 23 Active MISCELLANEOUS MEDICAL SUPPLY MISCIndications:R outine general medical examination at a health care facility by miscellaneous route once daily Abdominal binder, disp 1, lifetime need, diastasis recti 1 Each 07/02/19 23 Active silver sulfADIAZINE (SILVADENE) 1 % creamIndications: Venous insufficiency Apply topically once daily 20 g 01/26/20 23 Active semaglutide (OZEMPIC) 0.25 mg or 0.5 mg (2 mg/3 mL) pen injector INJECT 0.5MG UNDER THE SKIN DIRECTED 9 mL 6 08/16/19 24 Active ipratropium/albut raza sulfate (IPRATROPIUM-ALBU TEROL INHL) 1, vials, BAND Nebulizer, Every 6 hours, PRN, Refills 0, Maintenance, 12/04/21 16:59:00 EDT, Inhalation Solution 12/05/19 22 Active pantoprazole (PROTONIX) 40 mg EC tabletIndications :PUD (peptic ulcer disease) TAKE 1 TABLET BY MOUTH TWICE DAILY 180 Tablet 3 01/06/20 24 Active rosuvastatin (CRESTOR) 5 mg tabletIndications :Type 2 diabetes mellitus without complication, without long-term current use of insulin ([facility]) TAKE 1 TABLET BY MOUTH EVERY NIGHT AT BEDTIME 90 Tablet 2 04/07/20 24 Active calcitrioL (ROCALTROL) 0.25 mcg capsule TAKE 1 CAPSULE BY MOUTH EVERY DAY 90 Capsule 1 04/07/20 24 Active cyanocobalamin (VITAMIN B-12) 1,000 mcg tabletIndications :B12 deficiency due to diet Take 1 Tablet by mouth once daily 90 Tablet 3 04/23/20 24 Active torsemide (DEMADEX) 10 mg tabletIndications :Paroxysmal atrial fibrillation (HCC-CMS) Take 1 Tablet by mouth once daily 90 Tablet 1 04/23/20 24 Active ELIQUIS 5 mg tabIndications:Pa roxysmal atrial fibrillation (HCC-CMS) TAKE 1 TABLET BY MOUTH TWICE DAILY 180 Tablet 1 07/04/19 25 Active thiamine (VITAMIN B-1) 100 mg tablet Take 1 Tablet by mouth once daily 90 Tablet 2 08/01/19 25 Active VITAMIN B-1 100 mg tablet TAKE 1 TABLET BY MOUTH EVERY DAY 90 Tablet 2 03/03/20 23 025 Discontin ued(Reord er (E-Cancel Not Sent)) Active Problems Problem Noted Date Diagnosed Date B12 deficiency due to diet 04/23/2024 Pleural effusion 07/19/2023 Overview (01/10/2024): Recurrent pleural effusion on right s/p right VATS pleural biopsies, pleurodesis, and placement of Pleurx catheter- bronchoscopy with aspiration - [facility] CYTOPATHOLOGY REPORT Date: 10/25/2023 report: Pleural fluid, right washing (ThinPrep, cell block): NEGATIVE FOR MALIGNANT CELLS . PLEURA, RIGHT-BIOPSY: FLORID MESOTHELIAL PROLIFERATION Hematology and Oncology Note 12/28/2023: He underwent a right VATS with pleural biopsies, pleurodesis, placement of a Pleurx catheter on 10/18/[address] Santana and a biopsy of the right pleura was obtained and the pathology showed markedly atypical mesothelial proliferation, suspicious for but not diagnostic of mesothelioma, WT1-positive, [id number], calretinin- positive, MBF-1-iyhqvlum. 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 I recommended a mediastinoscopy and sampling of the subcarinal node to obtain a tissue diagnosis and for staging. I ordered a PET/CT for staging. A treatment plan will depend upon obtaining a tissue diagnosis and staging. Positive colorectal cancer s creening using Cologuard test 03/09/2023 03/30/2023 History of instinct hemoclip placement 01/2022 (METAL/eval MRI safety) 03/17/2022 History of echocardiogram 08/05/2021 11/12/2021 Overview (11/12/2021): Result type: Echocardiogram - Complete Result date: August 04, 2021 9:06 EST Result status: Modified Result title: Echo Complet Performed by: Kirsten Gibbons MD on August 04, 2021 9:06 EST Verified by: Kisrten Gibbons MD on August 04, 2021 9:06 EST Encounter info: [id number], [facility], Disch IP, 07/27/2021 - 08/16/2021 Contributor system: Xiimo Echo Complete-Doppler, Colorflow, M-Mode Transthoracic Echocardiography Report (TTE) Patient Demographics Patient Name VIOLETTA, Date of Study 08/04/2021 [facility] [place] Gender Male Facility Race Ethnicity Date of 1950 Height: 65.75 inches Age 70 year(s) Weight: 231.49 pounds Accession Number [id number] BSA: 2.12 m2 Room Number [id number] BMI: 37.65 kg/m2 Referring Physician Chadwick Gracia Interpreting Kirsten Gibbons MD, MD Physician Network Systems Administrator Dia Hannah [facility] Indications Atrial fibrillation. Clinical History Atrial fibrillation. Abnormal EKG. Hx of COVID Hypertension. Obesity Study Data Type of Study TTE procedure:Echo Complete-(Doppler, Colorflow) with Contrast. Procedure Information:Definity was administered by Paul WILLSON Study Date08/04/2021 Start Time: 09:06 AM Study Location: [facility] Adult Echo Study Status: Bedside Patient Status: Routine Technical Quality: Technically difficult due to body habitus. Blood Pressure:146/43 mmHg EKG: Atrial fibrillation HR: 88 bpm Contrast Medium: Definity to R/O clot. Amount - 2 ml 2D Measurements LV Diastolic Dimension: 5 cm LV Systolic Dimension: 3.1 cm LV Septum Diastolic: 1.02 cm LV PW Diastolic: 1.07 cm AO Root Dimension: 3.2 cm LA ESV (BP):88.7 ml LVOT Stroke Volume: 91.36 ml LA ESV Index: 42 ml/m2 Stroke Volume Index43.09 ml/m2 LVOT: 2.3 cm Cardiac Index:3.79 l/min/m2 Ascending Aorta:3.5 cm Doppler Measurements AV Peak Velocity: 202 cm/s MV Peak E-Wave: 119 cm/s AV Peak Gradient: 16.32 mmHg MV Peak A-Wave: 43.5 cm/s AV Mean Gradient: 8 mmHg MV E/A Ratio: 2.74 AV VTI:32.9 cm MV P1/2t: 52 msec LVOT Peak Velocity: 131 cm/s LVOT VTI22 cm MV Deceleration Time: 172 msec AV Area (Continuity):2.78 cm2 MV Area (PHT): 4.23 cm2 TR Velocity:282 cm/s PV Peak Velocity: 119 cm/s TR Gradient:31.81 mmHg PV Peak Gradient: 5.66 mmHg Cardiac Anatomy Left Ventricle/Interventricular Septum The left ventricular size is normal. The left ventricular wall thickness is mildly increased. False tendon is noted (normal variant). The left ventricular ejection fraction is 55-60 %. Focal inferoapical akinesis and small aneurysm, distal anteroseptal hypokinesis. Unable to assess diastolic function due to atrial fibrillation . There is no evidence of left ventricular thrombus. Left Atrium/Interatrial Septum The left atrium is mildly to moderately dilated. Aortic Valve Trileaflet aortic valve. The aortic valve appears mildly calcified. There is no aortic stenosis. There is no aortic regurgitation. Mitral Valve The mitral valve appears mildly thickened. There is trace to mild mitral regurgitation. Aorta The ascending aorta and aortic root are normal in size. Right Ventricle The right ventricle is normal in size and function. Right Atrium The right atrium is mildly dilated. Pulmonic Valve The pulmonic valve velocity is normal. Tricuspid Valve The tricuspid valve is grossly normal. Pumonary Artery An accurate pulmonary artery pressure could not be obtained. Venous Structures The inferior vena cava appears grossly normal. Pericardium/Extracardiac There is no significant pericardial effusion. Summary The left ventricular size is normal. The left ventricular wall thickness is mildly increased. False tendon is noted (normal variant). The left ventricular ejection fraction is 55-60 %. Focal inferoapical akinesis and small aneurysm, distal anteroseptal hypokinesis. Unable to assess diastolic function due to atrial fibrillation . Trileaflet aortic valve. The aortic valve appears mildly calcified. There is no aortic stenosis. There is no aortic regurgitation. There is no significant pericardial effusion. Comparison Comparison is made to the study of August 27, 2020. Images not available for review. 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 Peña 07/06/2017 Overview (01/16/2018): Result type: US Retroperitoneum Comp Result date: July 05, 2017 9:30 Result status: Auth (Verified) Result title: US Retroperitoneum Comp Performed by: Beatriz WHITTEN, Deonte on July 05, 2017 9:44 Verified by: Chico Villagran MD on July 05, 2017 9:49 Encounter info: [id number], [facility] [place], One Time OP, 07/05/2017 - * Final Report * Reason For Exam Worsening kidney function and HTN RESULT: US Retroperitoneum Comp US Retroperitoneum Comp INDICATION/CLINICAL QUESTION: Worsening kidney function and HTN / Other:. Patient Age 66 years COMPARISON: None. FINDINGS: Right kidney: 12.3 cm in length. No hydronephrosis, stone, scarring or mass. Normal parenchymal thickness and echotexture. Left kidney: 9.8 cm in length. There is moderate hydronephrosis with intrarenal ap pelvic diameter measuring up to 1.9 cm. Mild cortical thinning in the mid upper left kidney is noted. No stone, scarring or mass is identified. Bladder: Underdistended bladder limiting its evaluation. No stone, mass, wall thickening or debris. The bilateral ureteral jets were visualized. IMPRESSION: The left kidney measures small than the right kidney, and demonstrates at least moderate hydronephrosis with cortical thinning along the mid and upper kidney. No stone or focal lesion is identified. Clinical correlation recommended. Normal right kidney. A [place] message has been communicated via the Aibo system on 07/05/2017 9:43 AM, Message ID [id number]. I have personally reviewed the images and I agree with this report. WSN: [id number] Signature Line Dictated By: Deonte Henderson MD Dictated Date/Time: 07/05/17 9:44 am Reviewed By: Chico Villagran MD Signed By: Chico Villagran MD Signed Date/Time: 07/05/17 9:49 am Transcribed By: DESTINI Transcribed Date/Time: 07/05/17 9:44 am US Retroperitoneum Comp This document has an image CKD (chronic kidney disease) stage 3, GFR 30-59 ml/min ([facility]) 06/08/2017 Hyperlipidemia, mixed 03/11/2015 TONI (obstructive sleep apnea) 05/10/2014 Overview (05/10/2014): Result type: Polysomnogram with CPAP Result date: 07 May 2014 17:40 Result status: Auth (Verified) Result title: Polysomnogram W/ CPAP Performed by: Matt Carmen MD on 07 May 2014 17:40 Verified by: Matt Carmen MD on 07 May 2014 19:39 Encounter info: [id number], [facility] [place], One Time OP, 04/29/2014 - 04/29/2014 Contributor system: NUANCE * Final Report * Polysomnogram W/ CPAP (Verified) POLYSOMNOGRAM DATE:04/29/2014 [facility] SLEEP [facility] Accredited by the [place] [employer] CPAP STUDY Referring Provider: Matt Carmen M.D. Date of Study: 04/29/2014 Order ID: [id number] INTRODUCTION: This 63 year-old male with hypertension, [...] of 5.4/hr, and lowest oxygenation of 85%. [place] sleepiness scale is 10/24. (Height: 5' 6 , Weight: 217.0 lbs, BMI: 35.3.) MASK TYPE: Standard/FX Nasal. MEDICATIONS: Sertraline, Naproxen, Metformin, Lisinopril, HCTZ, Amlodipine. DESCRIPTION: This overnight polysomnogram was done utilizing a Any.DO digital polysomnograph machine. Four channels of EEG [...] results, then I will order PAP from [facility]. 2. Patient should sleep in non-supine position. [...] Transcribed: 05/07/2014 18:37:55 Transcribed by: JANNETTE DocID: [id number] CC:Matt Carmen M.D. [facility] , Brandi Eisenberg [address], [address] DJD (degenerative joint disease) 03/29/2014 Major depressive disorder, r ecurrent episode, moderate ([facility]) 01/11/2014 Essential hypertension, benign 06/05/2013 Left great saphenous vein reflux 06/05/2013 Diabetes mellitus type 2, uncomplicated ([facility] ) 02/28/2013 Immunizations Name Administration Dates Next Due PNEUMOCOCCAL CONJUGATE PCV 20 (Prevnar) 01/26/20 23 PNEUMOCOCCAL POLYSACCHARIDE PPV23 06/05/2013 Social History Tobacco Use Types Packs/Day Years Used Date Smoking Tobacco: Never Smokeless Tobacco: Never Tobacco Cessation:Counseling Given: Not Answered Alcohol Use Standard Drinks/Week Comments No 0 (1 standard drink = 0.6 oz pur e alcohol) Social Connections Answer Date Recorded Connectedness 1 04/23/2024 Financial Resource Strain Answer Date R ecorded Financial Resource Strain 1 2023 Stress Answer Date Recorded Stress 1 04/23/2024 Physical Activity Answer Date Recorded Physical Activity 0 01/27/2019 Food Insecurity Answer Date Recorded Food 1 04/23/2024 Transportation Needs Answer Date Record ed Transportation 1 04/23/2024 Housing Stability Answer Date Recorded Housing 1 04/23/2024 Safety and Environment Answer Date Vaibhav rded Safety 0 01/27/2019 Utilities Answer Date Recorded Utilities 1 04/23/2024 Employment Answer Date Recorded Stress 0 01/25/2023 Sex and Gender Information Value Date Recorded Sex Assigned at Male 04/11/2017 5:49 PM PST Legal Sex Male 11:36 AM PDT Gender Identity Male 04/11/2017 5:49 PM PST Sexual Orientation Straight 04/11/2017 5: 49 PM PST Last Filed Vital Signs Vital Sign Reading Time Taken Comments Blood Pressure 138/64 01/31/2024 2:51 PM EDT Pulse 48 01/31/2024 2:51 PM EDT Temperature 36.4 ??C (97.5 ??F) 01/31/2024 2:51 PM ED T Respiratory Rate 16 01/31/2024 2:51 PM EDT Oxygen Saturation 98% 01/31/2024 2:51 PM EDT Inhaled Oxygen Concentration - - Weight 86.2 kg (190 lb) 01/31/2024 2:51 PM EDT Height 167.6 cm (5' 6 ) 01/09/2024 11:12 AM EDT Body Mass Index 30.67 01/09/2024 11:12 AM EDT Plan of Treatment Health Maintenance Due Date Last Done Comments Imm-DTaP/Tdap/Td (1 - Tdap) 1968 CT Colonography 1994 Colonoscopy 1994 Flexible Sigmoidoscopy 1994 Falls Prevention 06/01/2022 06/01/2021 (Man aged by Outside Provider) Diabetes Microalbumin (w/Creatinine) 10/28/2023 10/27/2022, 07/02/2021, 11/20/2019, Additional history exists Retinopathy Screening 12/25/2023 12/24/2022 , 06/01/2021 (Managed by Outside Provider), 08/14/2018, Additional history exists Diabetes HbA1c 01/19/2024 07/21/2023, 07/07, 07/20/2023, Additional history exists [id number] ( season) 2024 FIT/gFOBT 03/06/2024 03/06/2023, 07/08 (Declined), 06/05/2013 (Declined) Alcohol and Drug Screen 06/06/2024 04/23/20, 01/09/2024, 07/19/2023, Additional history exists Lipid Screening 07/21/2024 07/21/2023, 07/07, 01/24/2023, Additional history exists Depression Monitoring 07/24/2024 04/23/2024 , 07/19/2023, 01/25/2023, Additional history exists Serum Creatinine 01/04/2025 01/05/2024, , 05/05/2023, Additional history exists Diabetes Foot Exam 01/30/2025 01/31/2024, 0 07/04/2022, 03/18/2022, Additional history exists Medicare Annual Wellness Visit 01/30/2025 01/31/2024 , 07/02/2022 Dental Examination 02/01/2025 01/31/2024 (M anaged by Outside Provider), 06/01/2021 (Managed by Outside Provider) Tobacco Screening 04/23/2025 04/23/2024 Colorectal Cancer Screening 03/06/2026 Fecal DNA 03/06/2026 03/06/2023 Hepatitis C Screening Completed 05/10/2014 Imm-Influenza Discontinued 05/10/2014 (Decl ined), 06/05/2013 (Declined) Imm-Pneumococcal 65+ Completed 01/25/2023, 06/05/20 13 Imm-Zoster, Recombinant Discontinued Procedures Procedure Name Priority Date/Time Associated Diagnosis Comments REFERRAL TO UROLOGY Urgent 06/19/2024 3 :00 AM EST Microhematuria REFERRAL SCANNED DOCUMENT 06/08/2024 3:00 AM EST REFERRAL SCANNED DOCUMENT 05/09/2024 3:00 AM EST COMPREHENSIVE METABOLIC PANEL Routine 01/05/2024 10:54 AM EDT Bradycardia LIPID PANEL Routine 07/20/2023 10:37 AM EST Type 2 diabetes mellitus without complication, without long-term current use of insulin ([facility]) Essential hypertension, benign Stage 3 chronic kidney disease, unspecified whether stage 3a or 3b CKD ([facility]) Hyperlipidemia, mixed Paroxysmal atrial fibrillation ([facility]) 08/2021 Pleural effusion HEMOGLOBIN GLYCOSYLATED A1C Routine 07/20/2023 10:37 AM EST Type 2 diabetes mellitus without complication, without long-term current use of insulin ([facility]) Essential hypertension, benign Stage 3 chronic kidney disease, unspecified whether stage 3a or 3b CKD ([facility]) Hyperlipidemia, mixed Paroxysmal atrial fibrillation ([facility]) 08/2021 Pleural effusion COLOGUARD Routine 03/06/2023 3:00 AM EDT Colon cancer screening EYE EXAM 12/24/2022 3:00 AM EDT MICROALBUMIN/CREATINI NE RATIO, URINE, RANDOM Routine 10/27/2022 9:09 AM EDT Type 2 diabetes mellitus without complication, without long-term current use of insulin ([facility]) Essential hypertension, benign Hyperlipidemia, mixed Stage 3 chronic kidney disease, unspecified whether stage 3a or 3b CKD ([facility]) Paroxysmal atrial fibrillation ([facility]) 08/2021 Leg edema PUD (peptic ulcer disease) HEPATITIS A,B,C PANEL Routine 05/10/2014 5:45 PM EST Diabetes mellitus, type II from Last 3 Months or Most Recently Relevant to Health Maintenance Results * REFERRAL TO UROLOGY (06/19/2024 3:00 AM EST) 06/19/2024 3:00 AM EST Brandi Eisenberg PA-C REFERRAL Final Result * REFERRAL SCANNED DOCUMENT (06/08/2024 3:00 AM EST) Only the most recent of2 resultswithin the time period is included. 06/08/2024 3:00 AM EST Brandi Eisenberg PA-C SCAN REFERRAL Final Result * (ABNORMAL) COMPREHENSIVE METABOLIC PANEL (01/05/2024 10:54 AM EDT) GLUCOSE 160(H) 65 - 139 mg/dL [employer] [facility] Comment: ?Non-fasting reference interval UREA NITROGEN (BUN) 42(H) 7 - 25 mg/dL [employer] CREATININE (blood) 2.16(H) 0.70 - 1.28 mg/dL [employer] [facility] EGFR 31(L) > OR = 60 mL/min/1. 73m2 [facility] BUN/CREATININE RATIO 19 6 - 22 (calc) [facility] SODIUM 136 135 - 146 mmol/L [facility] POTASSIUM 5.2 3.5 - 5.3 mmol/L [facility] CHLORIDE 107 98 - 110 mmol/L [facility] CARBON DIOXIDE 22 20 - 32 mmol/L [facility] CALCIUM 8.8 8.6 - 10.3 mg/dL [facility] PROTEIN, TOTAL 7.5 6.1 - 8.1 g/dL [facility] ALBUMIN 3.6 3.6 - 5.1 g/dL [facility] GLOBULIN 3.9(H) 1.9 - 3.7 g/dL (calc) [facility] ALBUMIN/GLOBULI N RATIO 0.9(L) 1.0 - 2.5 (calc) [facility] BILIRUBIN, TOTAL 0.6 0.2 - 1.2 mg/dL [facility] ALKALINE PHOSPHATASE 75 35 - 144 U/L [facility] AST 12 10 - 35 U/L [facility] ALT 8(L) 9 - 46 U/L [facility] Blood Blood / Unknown 01/05/2024 1 0:54 AM EDT 01/05/2024 10:54 AM EDT Narrative [employer] [facility] - 01/06/2024 3:53 AM EDT FASTING:NO us Justin Malloy PA-C LAB - BLOOD DRAW Final Result [facility] [address] [address], [facility] [address] [address] * (ABNORMAL) HEMOGLOBIN GLYCOSYLATED A1C (07/20/2023 10:37 AM EST) HEMOGLOBIN A1C 6.2(H) <5.7 % of total Hgb [facility] Comment: For someone without known diabetes, a hemoglobin A1c value between 5.7% and 6.4% is consistent with prediabetes and should be confirmed with a follow-up test. For someone with known diabetes, a value <7% indicates that their diabetes is well controlled. A1c targets should be individualized based on duration of diabetes, age, comorbid conditions, and other considerations. This assay result is consistent with an increased risk of diabetes. Currently, no consensus exists regarding use of hemoglobin A1c for diagnosis of diabetes for children. Blood Blood / Unknown 07/20/2023 1 0:37 AM EST 07/20/2023 10:40 AM EST Narrative [facility] [facility] - 07/21/2023 9:20 AM EST FASTING:YES PATIENT REFUSED SOME TESTING; PATIENT ENCOURAGED TO RETURN. us Brandi Eisenberg PA-C LAB - BLOOD DRAW Final Resul t [facility] [address] [address], [facility] [address] [address] * (ABNORMAL) LIPID PANEL (07/20/2023 10:37 AM EST) [facility] CHOLESTEROL, TOTAL 92 <200 mg/dL [facility] HDL CHOLESTEROL 28(L) > OR = 40 mg/dL [employer] [facility] TRIGLYCERIDES 101 <150 mg/dL [employer] [facility] LDL-CHOLESTEROL 46 99 mg/dL (calc) [facility] Comment: Reference range: <100 Desirable range <100 mg/dL for primary prevention; ?? <70 mg/dL for patients with CHD or diabetic patients with > or = 2 CHD risk factors. LDL-C is now calculated using the Neal-Zach calculation, which is a validated novel method providing better accuracy than the Friedewald equation in the estimation of LDL-C. Neal GONZALEZ et al. MI. 2013;310(19): 5399-5670 (http://education.[employer]Particle.[employer]/faq/YZP442) CHOL/HDLC RATIO 3.3 <5.0 (calc) [employer] NON-HDL CHOLESTEROL 64 <130 mg/dL (calc) [employer] [facility] Comment: For patients with diabetes plus 1 major ASCVD risk factor, treating to a non-HDL-C goal of <100 mg/dL (LDL-C of <70 mg/dL) is considered a therapeutic option. Blood Blood / Unknown 07/20/2023 1 0:37 AM EST 07/20/2023 10:40 AM EST Narrative [facility] - 07/21/2023 9:20 AM EST FASTING:YES PATIENT REFUSED SOME TESTING; PATIENT ENCOURAGED TO RETURN. Brandi Eisenberg PA-C LAB - BLOOD DRAW Final Resul t Performing Organization Address City/[facility]/ZIP Co de Phone Number [facility] [address] [address], [facility] [address] [phone] * [facility] (03/06/2023 3:00 AM EDT) Stool Stool specimen / Unknown 03/06/2023 3:00 AM EDT Brandi Eisenberg PA-C LAB - NO BLOOD DRAW Edited R esult - Final Performing Organization Address City/[facility]/ZIP Co de Phone Number [facility] [address] [place] [address], [address] [facility] [id number] [place] [address], * EYE EXAM (12/24/2022 3:00 AM EDT) 12/24/2022 3:00 AM EDT Brandi Sotomayor BRANDS EDITOR OTHER Final Result * (ABNORMAL) MICROALBUMIN/CREATININE RATIO, URINE, RANDOM (10/27/2022 9:09 AM EDT) CREATININE, RANDOM URINE 62 20 - 320 mg/dL [facility] MICROALBUMIN 26.5 mg/dL [facility] Comment: Reference Range Not established MICROALBUMIN/CREA TININE RATIO, RANDOM URINE 427(H) <30 mcg/mg creat [facility] Comment: The ADA defines abnormalities in albumin excretion as follows: Albuminuria Category ?Result (mcg/mg creatinine) Normal to Mildly increased ?? <30 Moderately increased ? 30-299 Severely increased ? > OR = 300 The ADA recommends that at least two of three specimens collected within a 3-6 month period be abnormal before considering a patient to be within a diagnostic category. Urine Urine specimen / Unknown 10/27/2022 9:09 AM EDT 10/27/2022 9:13 AM EDT Narrative [facility] - 10/27/2022 9:27 PM EDT FASTING:YES Brandi Eisenberg PA-C LAB - NO BLOOD DRAW Final Re sult [facility] [address] [address], [facility] [address] [phone] * (ABNORMAL) HEPATITIS A,B,C PANEL (05/10/2014 5:45 PM EST) HEPATITIS B SURFACE ANTIBODY POSITIVE(A) NEGATIVE [facility] HEPATITIS B SURFACE ANTIGEN NEGATIVE NEGATIVE [facility] HEPATITIS C VIRUS ANTIBODY NEGATIVE NEGATIVE [facility] HEPATITIS B CORE ANTIBODY NEGATIVE NEGATIVE [facility] HEPATITIS A ANTIBODY TOTAL POSITIVE(A) NEGATIVE [facility] Blood specimen (specimen) Blood / Unknown 05/10/2014 5:45 PM EST 05/10/2014 6:11 PM EST Narrative [facility] - 05/11/2014 5:12 PM EST [facility] [address] [place] [id number] [place] [id number] ORD# [id number] Brandi Eisenberg PA-C LAB - BLOOD DRAW Edited Resu lt - Final Performing Organization Address City/[facility]/ZIP Co de Phone Number [address] [address], from Last 3 Months or Most Recently Relevant to Health Maintenance Insurance [place] Care Teams Tipple Tender Relationship Specialty Start Date End Date Brandi Eisenberg PA-C [address] [place] [phone] PCP - General 02/28/13
== END 2024-08-07 14:12 | disposition home or self-care (01) ==
PROVIDERS: PCP Physician Assistant; Visit Provider Urology
DX: R31.29 Other microscopic hematuria (principal)
CPT/HCPCS: 99213

== ENCOUNTER → 2024-08-07 12:47 | Outpatient (BNVA) | payer MEDICARE, MEDICAID, SELFPAY | PROVIDERS: PCP Physician Assistant; Visit Provider Urology | DX: R31.29 Other microscopic hematuria (principal) | CPT/HCPCS: 81003; 99212 ==

== ENCOUNTER 2024-08-15 14:43 | Outpatient (REF) | payer MEDICARE, MEDICAID, SELFPAY ==
[2024-08-15 15:39] LABS: MANUAL DIFF FLAG NO
[2024-08-15 15:52] LABS: Basophils Absolute Auto 0.1 X10*3/uL (0.0-0.2); Basophils Percent Auto 0.9 % (0-2); Eosinophils Absolute Auto 0.3 X10*3/uL (0.0-0.4); Eosinophils Percent Auto 5.4 % (0-4); Hematocrit 36.7 % (42.0-52.0); Imm Gran Abs Auto 0.02 X10*3/uL (0.00-0.03); Imm Gran Pct Auto 0.4 % (0.0-0.4); Lymphocytes Absolute Auto 1.4 X10*3/uL (1.2-4.9); Lymphocytes Percent Auto 23.9 % (20-40); Mean Corpuscular HGB Conc 32.7 g/dl (31.0-36.0); Mean Corpuscular Hemoglobin 29.6 pg (27.0-33.0); Mean Corpuscular Volume 90.4 fL (80.0-98.0); Mean Platelet Volume 10.4 fL (9.4-12.4); Monocytes Absolute Auto 0.4 X10*3/uL (0.1-1.2); Monocytes Percent Auto 7.5 % (2-11); Neutrophils Absolute Auto 3.5 x10*3/uL (2.0-8.3); Neutrophils Percent Auto 61.9 % (45-73); Platelet Count 186 X10*3/uL (160-400); Red Blood Count 4.06 X10*6/uL (4.60-5.80); Red Cell Distribution Width 15.2 % (11.0-16.0); White Blood Count 5.7 X10*3/uL (4.8-10.8)
[2024-08-15 16:19] LABS: Anion Gap 12 (12-20); Blood Urea Nitrogen 25 mg/dL (9-16); Calcium 9.3 mg/dL (8.4-10.2); Carbon Dioxide 28 mmol/L (22-29); Chloride 107 mmol/L (96-108); Estimated Glomerular Filt Rate 39; Phosphorus 3.6 mg/dL (2.7-4.5); Potassium 4.7 mmol/L (3.3-5.1); Sodium 142 mmol/L (135-145)
[2024-08-15 16:36] LABS: Vitamin D 25-OH Total 13.4 ng/mL (>30)
--- OUTSIDE RECORDS SUMMARY | 2024-08-15 18:08 | XMS_ITS | Clinical Summary ---
Author Organization Unknown Care Team Providers Care Peeled Potato Inspector Name Role Phone JONN WILITE, PETE Unavailable Kalani foster ARMSTRONG RN, AMIE Unavailable Unavailab charan PFEIFFER LPN, CHULA Unavailable Unavail able CODI PT, JAYJAY Unavailable Unavailable CHEIKH NATIONAL SALES EXECUTIVE, HAIM Unavailable Unavailable Payers Payer Name Policy Type Policy Number Effective Date Expira tion Date MEDICARE.NGS.PDGM [id number] Problems Condition Name Condition Details Condition Category [...] Obesity, class 1 Active 07-13 00:00: 00 GROUP HOME (CURRENT) USE OF ANTICOAGULAN TS Active 07-13 [...] 10-17 00:00: 00 07-08 23:59 :00 No [id number] PROTON PUMP INHIBITOR 1 tablet DAILY 1 tablet DAILY (route: oral) Med Classific ation: Gastroint estinal Therapy Agents calcitriol 0.25 mcg capsule 13 00:00: 00 07-08 23:59 :00 No [id number] CALCIUM LEVEL 1 capsule EVERY DAY 1 capsule EVERY DAY (route: oral) Med Classific ation: Electroly te Balance-N utritiona l Products torsemide 10 mg tablet 13 00:00: 00 07-08 23:59 :00 No [id number] DIURETIC 1 tablet TWICE DAILY 1 tablet TWICE DAILY (route: oral) Med Classific ation: Cardiovas cular Therapy Agents Eliquis 5 mg tablet 10-14 00:00: 00 07-08 23:59 :00 No [id number] BLOOD THINNER 1 tablet TWICE DAILY 1 tablet TWICE DAILY (route: oral) Med Classific ation: Hematolog ical Agents Ozempic 0.25 mg or 0.5 mg (2 mg/3 mL) subcutaneou s pen injector 10-14 00:00: 00 10-23 10:33 :17.8 47 No [id number] BLOOD GLUCOSE 0.5 mg EVERY WEEK 0.5 mg EVERY WEEK (route: subcutaneo us) Med Classific ation: Endocrine rosuvastati n 5 mg tablet 10-14 00:00: 00 07-08 23:59 :00 No [id number] CHOLESTEROL 1 tablet EVERY NIGHT AT BEDTIME 1 tablet EVERY NIGHT AT BEDTIME (route: oral) Med Classific ation: Cardiovas cular Therapy Agents Vitamin B-1 100 mg tablet 10-14 00:00: 00 07-08 23:59 :00 No [id number] VITAMIN 1 tablet EVERY DAY 1 tablet EVERY DAY (route: oral) Med Classific ation: Electroly te Balance-N utritiona l Products metoprolol tartrate 25 mg tablet 10-19 00:00: 00 07-08 23:59 :00 No [id number] BLOOD PRESSURE 0.5 tablet TWICE DAILY 0.5 tablet TWICE DAILY (route: oral) Med Classific ation: Cardiovas cular Therapy Agents Ozempic 0.25 mg or 0.5 mg (2 mg/3 mL) subcutaneou s pen injector 10-23 00:00: 00 07-08 23:59 :00 No [id number] blood glucose 0.25 mg WEEKLY 0.25 mg WEEKLY (route: subcutaneo us) Med Classific ation: Endocrine cyanocobala min (vit B-12) 1,000 mcg/mL injection solution 5-20 00:00: 00 07-08 23:59 :00 No [id number] suplement Per instruc tions MONTHLY Per instructio ns MONTHLY (route: injection) Med Classific ation: Electroly te Balance-N utritiona l Products cephalexin 500 mg tablet 6-13 00:00: 00 11-23 23:59 :00 No [id number] WOUND 1 tablet EVERY 8 HOURS 1 tablet EVERY 8 HOURS (route: oral) Med Classific ation: Anti-Infe ctive Agents calcitriol 0.25 mcg capsule 07-13 00:00: 00 Yes [id number] SUPPLEMENT 1 capsule DAILY 1 capsule DAILY (route: oral) Med Classific ation: Electroly te Balance-N utritiona l Products Eliquis 5 mg tablet 07-13 00:00: 00 Yes [id number] IRREGULAR HEARTBEAT 1 tablet EVERY 12 HOURS 1 tablet EVERY 12 HOURS (route: oral) Med Classific ation: Hematolog ical Agents pantoprazol e 40 mg tablet,brii yed release 1- 00:00: 00 07-13 00:00 :00 No [id number] Per instruc tions Per instructio ns (route: oral) Med Classific ation: Gastroint estinal Therapy Agents rosuvastati n 5 mg tablet 07-13 00:00: 00 Yes [id number] HIGH LIPIDS 1 tablet BEDTIME 1 tablet BEDTIME (route: oral) Med Classific ation: Cardiovas cular Therapy Agents lisinopril 10 mg tablet - 00:00: 00 Yes [id number] HIGH BLOOD PRESSURE 1 tablet DAILY 1 tablet DAILY (route: oral) Med Classific ation: Cardiovas cular Therapy Agents metronidazo le 250 mg tablet - 00:00: 00 07-13 00:00 :00 No [id number] Per instruc tions Per instructio ns (route: oral) Med Classific ation: Anti-Infe ctive Agents neomycin 500 mg tablet - 00:00: 00 07-13 00:00 :00 No [id number] Per instruc tions AT AT Per instructio ns AT AT (route: oral) Med Classific ation: Anti-Infe ctive Agents Nutrisource Fiber packet 07-13 00:00: 00 Yes [id number] SUPPLEMENT 1 packet DAILY 1 packet DAILY (route: oral) Med Classific ation: Gastroint estinal Therapy Agents Ozempic 0.25 mg or 0.5 mg (2 mg/3 mL) subcutaneou s pen injector 07-13 00:00: 00 Yes [id number] DIABETES 0.25 mg WEEKLY 0.25 mg WEEKLY (route: subcutaneo us) Med Classific ation: Endocrine pantoprazol e 20 mg tablet,brii yed release 07-13 00:00: 00 Yes [id number] GERD, PEPTIC ULCER DISEASE 1 tablet 2 TIMES DAILY 1 tablet 2 TIMES DAILY (route: oral) Med Classific ation: Gastroint estinal Therapy Agents thiamine HCl (vitamin B1) 100 mg tablet 07-13 00:00: 00 Yes [id number] SUPPLEMENT 1 tablet DAILY 1 tablet DAILY [...] CONSULTING PHYSICIANS. RN TO OBSERVE AND ASSESS, ENTERPRISE DATA ARCHITECT/DIRECTOR OF EMPLOYEE DEVELOPMENT TO OBSERVE FOR RISK FOR FALLS AND INSTRUCT IN FALL PREVENTION, HOME SAFETY, MEDICATION MANAGEMENT, INFECTION PREVENTION, AND NUTRITION MANAGEMENT. RN/ENTERPRISE DATA ARCHITECT/DIRECTOR OF EMPLOYEE DEVELOPMENT NURSE MAY PERFORM O2 SATURATION LEVEL ON ADMISSION AND PRN FOR RN TO ASSESS/ENTERPRISE DATA ARCHITECT TO OBSERVE PATIENT, WITH NOTIFICATION TO THE PHYSICIAN IF SATURATION IS 90% IN THE ABSENCE OF MORE SPECIFIC PARAMETERS FROM THE PHYSICIAN. AGENCY MAY PERFORM A RESUMPTION OF CARE VISIT FOLLOWING ANY HOSPITAL ADMISSION. RN/ENTERPRISE DATA ARCHITECT/DIRECTOR OF EMPLOYEE DEVELOPMENT TO MONITOR CO-MORBID CONDITIONS LISTED ON THE PLAN OF CARE AND ANY NEW CONDITIONS THAT PRESENT THEMSELVES DURING THIS EPISODE TO IDENTIFY CHANGES AND INTERVENE TO MINIMIZE COMPLICATIONS. [code = RN TO OBSERVE, ASSESS, EVALUATE, AND DEVELOP AN INDIVIDUALIZED PLAN OF CARE. AGENCY MAY ACCEPT ORDERS FROM CONSULTING PHYSICIANS. RN TO OBSERVE AND ASSESS, ENTERPRISE DATA ARCHITECT/DIRECTOR OF EMPLOYEE DEVELOPMENT TO OBSERVE FOR RISK FOR FALLS AND INSTRUCT IN FALL PREVENTION, HOME SAFETY, MEDICATION MANAGEMENT, INFECTION PREVENTION, AND NUTRITION MANAGEMENT. RN/ENTERPRISE DATA ARCHITECT/DIRECTOR OF EMPLOYEE DEVELOPMENT NURSE MAY PERFORM O2 SATURATION LEVEL ON ADMISSION AND PRN FOR RN TO ASSESS/ENTERPRISE DATA ARCHITECT TO OBSERVE PATIENT, WITH NOTIFICATION TO THE PHYSICIAN IF SATURATION IS 90% IN THE ABSENCE OF MORE SPECIFIC PARAMETERS FROM THE PHYSICIAN. AGENCY MAY PERFORM A RESUMPTION OF CARE VISIT FOLLOWING ANY HOSPITAL ADMISSION. RN/ENTERPRISE DATA ARCHITECT/DIRECTOR OF EMPLOYEE DEVELOPMENT TO MONITOR CO-MORBID CONDITIONS LISTED ON THE PLAN OF CARE AND ANY NEW CONDITIONS THAT PRESENT THEMSELVES DURING THIS EPISODE TO IDENTIFY CHANGES AND INTERVENE TO MINIMIZE COMPLICATIONS.] Future Scheduled Test MEDICATION MANAGEMENT; RN/ENTERPRISE DATA ARCHITECT/DIRECTOR OF EMPLOYEE DEVELOPMENT TO REVIEW MEDICATIONS FOR INTERACTIONS, EFFECTIVENESS OF DRUG THERAPY, AND SIGNS/SYMPTOMS OF ADVERSE REACTIONS. MAY INSTRUCT AND REINFORCE MEDICATION TEACHING RELATED TO THE USE OF MEDICATIONS, DOSAGE, FREQUENCY, PURPOSE, SIDE EFFECTS, AND TO REPORT COMPLICATIONS. [code = MEDICATION MANAGEMENT; RN/ENTERPRISE DATA ARCHITECT/DIRECTOR OF EMPLOYEE DEVELOPMENT TO REVIEW MEDICATIONS FOR INTERACTIONS, EFFECTIVENESS OF DRUG THERAPY, AND SIGNS/SYMPTOMS OF ADVERSE REACTIONS. MAY INSTRUCT AND REINFORCE MEDICATION TEACHING RELATED TO THE USE OF MEDICATIONS, DOSAGE, FREQUENCY, PURPOSE, SIDE EFFECTS, AND TO REPORT COMPLICATIONS.] Future Scheduled Test RISK FOR H OSPITALIZATION; RN TO ASSESS/TEACH, DIRECTOR OF EMPLOYEE DEVELOPMENT/ENTERPRISE DATA ARCHITECT TO OBSERVE/TEACH PATIENT/CAREGIVER ON RISK FOR HOSPITALIZATION/EMERGENCY ROOM VISITS, TEACH SIGNS AND SYMPTOMS THAT PUT PATIENT AT RISK, WHEN TO NOTIFY NURSE/PHYSICIAN OF COMPLICATIONS/DECLINE, AND WHEN TO CALL 911. [code = RISK FOR HOSPITALIZATION; RN TO ASSESS/TEACH, DIRECTOR OF EMPLOYEE DEVELOPMENT/ENTERPRISE DATA ARCHITECT TO OBSERVE/TEACH PATIENT/CAREGIVER ON RISK FOR HOSPITALIZATION/EMERGENCY ROOM VISITS, TEACH SIGNS AND SYMPTOMS THAT PUT PATIENT AT RISK, WHEN TO NOTIFY NURSE/PHYSICIAN OF COMPLICATIONS/DECLINE, AND WHEN TO CALL 911.] Future Scheduled Test CARDIOVASC ULAR SYSTEM; RN TO ASSESS/TEACH, ENTERPRISE DATA ARCHITECT/DIRECTOR OF EMPLOYEE DEVELOPMENT TO OBSERVE/TEACH RELATED TO ALTERED CARDIOVASCULAR STATUS TO MINIMIZE COMPLICATIONS AND REDUCE HOSPITALIZATION. [code = CARDIOVASCULAR SYSTEM; RN TO ASSESS/TEACH, ENTERPRISE DATA ARCHITECT/DIRECTOR OF EMPLOYEE DEVELOPMENT TO OBSERVE/TEACH RELATED TO ALTERED CARDIOVASCULAR STATUS TO MINIMIZE COMPLICATIONS AND REDUCE HOSPITALIZATION.] Future Scheduled Test PACEMAKER MANAGEMENT; RN/ENTERPRISE DATA ARCHITECT/DIRECTOR OF EMPLOYEE DEVELOPMENT TO PROVIDE SKILLED TEACHING AND ASSIST WITH MANAGEMENT OF PACEMAKER. NEWLY PLACED 06/22/24 [code = PACEMAKER MANAGEMENT; RN/ENTERPRISE DATA ARCHITECT/DIRECTOR OF EMPLOYEE DEVELOPMENT TO PROVIDE SKILLED TEACHING AND ASSIST WITH MANAGEMENT OF PACEMAKER. NEWLY PLACED 06/22/24] Future Scheduled Test HYPERTENSI ON MANAGEMENT; RN TO ASSESS AND TEACH, ENTERPRISE DATA ARCHITECT/DIRECTOR OF EMPLOYEE DEVELOPMENT TO OBSERVE AND TEACH WARNING SIGNS AND SYMPTOMS TO AVOID HOSPITALIZATION. [code = HYPERTENSION MANAGEMENT; RN TO ASSESS AND TEACH, ENTERPRISE DATA ARCHITECT/DIRECTOR OF EMPLOYEE DEVELOPMENT TO OBSERVE AND TEACH WARNING SIGNS AND SYMPTOMS TO AVOID HOSPITALIZATION.] Future Scheduled Test ARRHYTHMIA MANAGEMENT; RN TO ASSESS AND TEACH, ENTERPRISE DATA ARCHITECT/DIRECTOR OF EMPLOYEE DEVELOPMENT TO OBSERVE AND TEACH WARNING SIGNS AND SYMPTOMS TO AVOID HOSPITALIZATION. [code = ARRHYTHMIA MANAGEMENT; RN TO ASSESS AND TEACH, ENTERPRISE DATA ARCHITECT/DIRECTOR OF EMPLOYEE DEVELOPMENT TO OBSERVE AND TEACH WARNING SIGNS AND SYMPTOMS TO AVOID HOSPITALIZATION.] Future Scheduled Test HEART FAIL URE; RN TO ASSESS/TEACH, ENTERPRISE DATA ARCHITECT/DIRECTOR OF EMPLOYEE DEVELOPMENT TO OBSERVE/TEACH CARDIOPULMONARY SYSTEM TO IDENTIFY SIGNS [...] [code = HEART FAILURE; RN TO ASSESS/TEACH, ENTERPRISE DATA ARCHITECT/DIRECTOR OF EMPLOYEE DEVELOPMENT TO OBSERVE/TEACH CARDIOPULMONARY SYSTEM TO IDENTIFY SIGNS [...] SYSTEM MANAGEMENT; RN TO ASSESS AND TEACH, ENTERPRISE DATA ARCHITECT/DIRECTOR OF EMPLOYEE DEVELOPMENT TO OBSERVE AND TEACH RELATED TO ALTERED RESPIRATORY STATUS TO MINIMIZE COMPLICATIONS AND REDUCE HOSPITALIZATION. CHRONIC RT PLEURAL EFFUSION [code = RESPIRATORY SYSTEM MANAGEMENT; RN TO ASSESS AND TEACH, ENTERPRISE DATA ARCHITECT/DIRECTOR OF EMPLOYEE DEVELOPMENT TO OBSERVE AND TEACH RELATED TO ALTERED RESPIRATORY STATUS TO MINIMIZE COMPLICATIONS AND REDUCE HOSPITALIZATION. CHRONIC RT PLEURAL EFFUSION] Future Scheduled Test SKIN INTEG RITY RN TO ASSESS AND TEACH, ENTERPRISE DATA ARCHITECT/DIRECTOR OF EMPLOYEE DEVELOPMENT TO OBSERVE AND TEACH INTEGUMENTARY STATUS TO IDENTIFY CHANGES AND INTERVENE TO MINIMIZE COMPLICATIONS. PROVIDE SKILLED TEACHING OF GENERAL WOUND AND SKIN CARE AND PREVENTION RELATED TO ACTUAL ALTERED SKIN INTEGRITY [code = SKIN INTEGRITY RN TO ASSESS AND TEACH, ENTERPRISE DATA ARCHITECT/DIRECTOR OF EMPLOYEE DEVELOPMENT TO OBSERVE AND TEACH INTEGUMENTARY STATUS TO IDENTIFY CHANGES AND INTERVENE TO MINIMIZE COMPLICATIONS. PROVIDE SKILLED TEACHING OF GENERAL WOUND AND SKIN CARE AND PREVENTION RELATED TO ACTUAL ALTERED SKIN INTEGRITY ] Future Scheduled Test RN/ENTERPRISE DATA ARCHITECT/DIRECTOR OF EMPLOYEE DEVELOPMENT TO PERFORM/TEACH INCISION CARE TO ABDOMINAL INCISION AREA: MONITOR INCIDION FOR SX OF INFECTION: REDNESS, WARMTH, DEHISCENCE AND DRAINAGE. NOTIFY DR LUNSFORD IMMEDIATELY [phone] [code = RN/ENTERPRISE DATA ARCHITECT/DIRECTOR OF EMPLOYEE DEVELOPMENT TO PERFORM/TEACH INCISION CARE TO ABDOMINAL INCISION AREA: MONITOR INCIDION FOR SX OF INFECTION: REDNESS, WARMTH, DEHISCENCE AND DRAINAGE. NOTIFY DR LUNSFORD IMMEDIATELY [phone]] Future Scheduled Test PAIN MANAG EMENT; RN TO ASSESS AND TEACH, DIRECTOR OF EMPLOYEE DEVELOPMENT/ENTERPRISE DATA ARCHITECT TO OBSERVE AND TEACH AND PROVIDE EDUCATION ON PAIN MANAGEMENT TECHNIQUES. [code = PAIN MANAGEMENT; RN TO ASSESS AND TEACH, DIRECTOR OF EMPLOYEE DEVELOPMENT/ENTERPRISE DATA ARCHITECT TO OBSERVE AND TEACH AND PROVIDE EDUCATION ON PAIN MANAGEMENT TECHNIQUES.] Future Scheduled Test DIABETES M ANAGEMENT; RN TO ASSESS AND TEACH, DIRECTOR OF EMPLOYEE DEVELOPMENT/ENTERPRISE DATA ARCHITECT TO OBSERVE AND TEACH INSTRUCTIONS OF DIABETIC CARE TO INCLUDE: DIET CCHO, HEART HEALTHY, LOW POTASSIUM SKIN CARE, SIGNS AND SYMPTOMS OF HYPO/HYPERGLYCEMIA, PROPER ADMINISTRATION OF DIABETIC MEDICATION. RN/DIRECTOR OF EMPLOYEE DEVELOPMENT/ENTERPRISE DATA ARCHITECT TO INSTRUCT ON DIABETIC FOOT CARE AND MONITOR FOR SKIN LESIONS ON LOWER EXTREMITIES. BLOOD GLUCOSE TESTING DAILY. RN TO ASSESS AND TEACH, DIRECTOR OF EMPLOYEE DEVELOPMENT/ENTERPRISE DATA ARCHITECT TO OBSERVE AND TEACH PATIENT/CAREGIVER ABILITY TO PERFORM AND RECORD BLOOD GLUCOSE TESTING ORDERED AND TO REPORT ABNORMAL FINDINGS TO PHYSICIAN. RN/DIRECTOR OF EMPLOYEE DEVELOPMENT/ENTERPRISE DATA ARCHITECT MAY PERFORM BLOOD GLUCOSE TEST NEEDED. RN/DIRECTOR OF EMPLOYEE DEVELOPMENT/ENTERPRISE DATA ARCHITECT TO REPORT TO PHYSICIAN BLOOD GLUCOSE READINGS GREATER THAN 200 OR LESS THAN 80 RN/DIRECTOR OF EMPLOYEE DEVELOPMENT/ENTERPRISE DATA ARCHITECT TO INSTRUCT PATIENT ON IMPORTANCE OF HGBA1C MONITORING, KIDNEY FUNCTION TEST, EYE AND FOOT EXAMS. [code = DIABETES MANAGEMENT; RN TO ASSESS AND TEACH, DIRECTOR OF EMPLOYEE DEVELOPMENT/ENTERPRISE DATA ARCHITECT TO OBSERVE AND TEACH INSTRUCTIONS OF DIABETIC CARE TO INCLUDE: DIET CCHO, HEART HEALTHY, LOW POTASSIUM SKIN CARE, SIGNS AND SYMPTOMS OF HYPO/HYPERGLYCEMIA, PROPER ADMINISTRATION OF DIABETIC MEDICATION. RN/DIRECTOR OF EMPLOYEE DEVELOPMENT/ENTERPRISE DATA ARCHITECT TO INSTRUCT ON DIABETIC FOOT CARE AND MONITOR FOR SKIN LESIONS ON LOWER EXTREMITIES. BLOOD GLUCOSE TESTING DAILY. RN TO ASSESS AND TEACH, DIRECTOR OF EMPLOYEE DEVELOPMENT/ENTERPRISE DATA ARCHITECT TO OBSERVE AND TEACH PATIENT/CAREGIVER ABILITY TO PERFORM AND RECORD BLOOD GLUCOSE TESTING ORDERED AND TO REPORT ABNORMAL FINDINGS TO PHYSICIAN. RN/DIRECTOR OF EMPLOYEE DEVELOPMENT/ENTERPRISE DATA ARCHITECT MAY PERFORM BLOOD GLUCOSE TEST NEEDED. RN/DIRECTOR OF EMPLOYEE DEVELOPMENT/ENTERPRISE DATA ARCHITECT TO REPORT TO PHYSICIAN BLOOD GLUCOSE READINGS GREATER THAN 200 OR LESS THAN 80 RN/DIRECTOR OF EMPLOYEE DEVELOPMENT/ENTERPRISE DATA ARCHITECT TO INSTRUCT PATIENT ON IMPORTANCE OF HGBA1C MONITORING, KIDNEY FUNCTION TEST, EYE AND FOOT EXAMS.] Future Scheduled Test CANCER MAN AGEMENT; RN TO ASSESS AND TEACH, DIRECTOR OF EMPLOYEE DEVELOPMENT/ENTERPRISE DATA ARCHITECT TO OBSERVE AND TEACH AND PROVIDE EDUCATION ON CANCER. [code = CANCER MANAGEMENT; RN TO ASSESS AND TEACH, DIRECTOR OF EMPLOYEE DEVELOPMENT/ENTERPRISE DATA ARCHITECT TO OBSERVE AND TEACH AND PROVIDE EDUCATION ON CANCER.] Future Scheduled Test FALL REDUC TION MANAGEMENT; RN TO ASSESS AND OBSERVE, ENTERPRISE DATA ARCHITECT/DIRECTOR OF EMPLOYEE DEVELOPMENT TO OBSERVE FALL RISK FACTORS AND EDUCATE PATIENT/CAREGIVER ON STRATEGIES TO MINIMIZE THE RISK OF FALLING. [code = FALL REDUCTION MANAGEMENT; RN TO ASSESS AND OBSERVE, ENTERPRISE DATA ARCHITECT/DIRECTOR OF EMPLOYEE DEVELOPMENT TO OBSERVE FALL RISK FACTORS AND EDUCATE PATIENT/CAREGIVER ON STRATEGIES TO MINIMIZE THE RISK OF FALLING.] Future Scheduled Test AGENCY MAY PERFORM A RESUMPTION OF CARE VISIT FOLLOWING ANY HOSPITAL ADMISSION. PT TO EVALUATE, OBSERVE / ASSESS, AND MONITOR, NATIONAL SALES EXECUTIVE TO OBSERVE AND MONITOR, PROVIDE SKILLED THERAPEUTIC INTERVENTION, ACTIVITY, EDUCATION, AND TRAINING TO ADDRESS; PT/NATIONAL SALES EXECUTIVE TO PROVIDE GAIT TRAINING FOR IMPROVED MOBILITY AND /OR TO NORMALIZE GAIT PATTERN NEUROMUSCULAR RE-EDUCATION / BALANCE / POSTURAL CONTROL (PT) THERAPEUTIC EXERCISES AND ESTABLISHING A HOME EXERCISE PROGRAM (PT/NATIONAL SALES EXECUTIVE) PT/NATIONAL SALES EXECUTIVE TO PROVIDE STAIR TRAINING SIT TO/FROM STAND TRANSFERS (PT/NATIONAL SALES EXECUTIVE) PT / NATIONAL SALES EXECUTIVE TO MONITOR AND EDUCATE ON OXYGEN SATURATION DURING ADLS/IADLS, NOTIFY PHYSICIAN AND/OR THE RN CLINICAL PAYABLE MANAGER FOR PHYSICIAN NOTIFICATION AND IF O2 SATS BELOW PHYSICIAN ORDERED PARAMETERS AFTER 10 MIN OF REST PT / NATIONAL SALES EXECUTIVE MAY EDUCATE ON PAIN MANAGEMENT CLINICALLY INDICATED, INCLUDING NON-PHARMACOLOGICAL PAIN REDUCTION TECHNIQUES [code = AGENCY MAY PERFORM A RESUMPTION OF CARE VISIT FOLLOWING ANY HOSPITAL ADMISSION. PT TO EVALUATE, OBSERVE / ASSESS, AND MONITOR, NATIONAL SALES EXECUTIVE TO OBSERVE AND MONITOR, PROVIDE SKILLED THERAPEUTIC INTERVENTION, ACTIVITY, EDUCATION, AND TRAINING TO ADDRESS; PT/NATIONAL SALES EXECUTIVE TO PROVIDE GAIT TRAINING FOR IMPROVED MOBILITY AND /OR TO NORMALIZE GAIT PATTERN NEUROMUSCULAR RE-EDUCATION / BALANCE / POSTURAL CONTROL (PT) THERAPEUTIC EXERCISES AND ESTABLISHING A HOME EXERCISE PROGRAM (PT/NATIONAL SALES EXECUTIVE) PT/NATIONAL SALES EXECUTIVE TO PROVIDE STAIR TRAINING SIT TO/FROM STAND TRANSFERS (PT/NATIONAL SALES EXECUTIVE) PT / NATIONAL SALES EXECUTIVE TO MONITOR AND EDUCATE ON OXYGEN SATURATION DURING ADLS/IADLS, NOTIFY PHYSICIAN AND/OR THE RN CLINICAL PAYABLE MANAGER FOR PHYSICIAN NOTIFICATION AND IF O2 SATS BELOW PHYSICIAN ORDERED PARAMETERS AFTER 10 MIN OF REST PT / NATIONAL SALES EXECUTIVE MAY EDUCATE ON PAIN MANAGEMENT CLINICALLY INDICATED, [...] WALK INDOORS INDEPENDENT INTO ORDER TO ACCESS [facility] HOME AND TRANSPORTATION WITHIN 9 [...] 2024-07-13 00:00:00 2024-09-10 00:00:00 Outpatient AMIE CARRERO [facility] [id number] 87.50
--- OUTSIDE RECORDS SUMMARY | 2024-08-15 18:09 | XMS_ITS | Encounter Summary ---
Author Organization [facility] Address [address] [place] [address] Care Team Providers Care Project Management Name Role Phone Brandi Eisenberg Primary Care Provider [phone] Encounter Details Date Type Department Care Team (Latest Contact Info) Description 03/30/2024 11:48 AM EDT Hospital Encounter TH HISTORIC ENCOUNTERS EASTERN CONVERSION ONLY Rory Walters MD [address] [place] [id number] Other intra-abdominal and pelvic swelling, mass [...] AM EST) Case Results ? Reason: ? [id number]: This report is amended to change the diagnosis to reflect the ? result of the expert consultation. ? 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 Comment: The above diagnosis was rendered by Dr. Nigel Luther of [facility] and ? [facility]. He additionally notes: ? Immunohistochemis try performed at [facility] demonstrates the following staining ? profile in lesional cells: ? Positive - MDM2, CDK4, SMA (multifocal), desmin (scattered cells) ? Negative - S100, WT-1, calretinin, AE1/AE3 ? FISH analysis performed at [facility] is positive for MDM2 amplification ? ([id number]). ? Dr. Cervantes will be notified of [...] in the patient's prior right pleural biopsy, [id number]. ? This case is being sent to Dr. Nigel Luther at [facility] and [facility] ? for expert consultation. This report will [...] ? TS ? Physicians: ? DHEERAJ RODRIGUEZ M.D./[phone] ? RORY WALTERS MD/ x2/ ? HISTORICAL TESTING LAB RESULTING AGENCY 04/24/2024 us Laboratory Results Historical MD LAB PATHOLOGY O RDERABLES Final Result HISTORICAL TESTING LAB RESULTING AGENCY * Non-gynecologic cytology (04/09/2024 12:00 AM EST) Case Results ? Left retroperitoneal mass, fine needle aspiration (ThinPrep, direct smears and ? cell block): ?Malignant spindle cell neoplasm ? Comment: Please see the corresponding core biopsy, [id number], for the ? immunohistochemica l evaluation and [...] on 03/30/24. ? Physicians ? DHEERAJ RODRIGUEZ M.D./[phone]/ ? RORY WALTERS MD/ x2/ ? HISTORICAL [...] in the patient's prior right pleural biopsy, [id number]. ? This case is being sent to [...] ? TS ? Physicians: ? DHEERAJ RODRIGUEZ M.D./[phone]/ ? RORY WALTERS MD/ x2/ ? HISTORICAL TESTING LAB RESULTING AGENCY 04/09/2024 us Laboratory Results Historical MD LAB PATHOLOGY O RDERABLES Final Result HISTORICAL TESTING LAB RESULTING AGENCY * BX ABD RETRO MASS CT (04/02/2024 1:58 PM EDT) Anatomical Region Laterality Modality Interventional R adiology 03/30/2024 1:11 PM EDT Narrative 04/02/2024 1:58 PM EDT [facility] Diagnostic Imaging Department [address] [place] [address] Patient: ??STEW WELLS ?/Age/Sex: 1950 - 73 - M Unit#: ??[id number] ? Location/Status: ??SPDIANGIO/REG CLI ? 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 Metabolically active cervical and thoracic lymphadenopathy as well as pleural activity. Metabolically active mass in the left flank. CT-guided biopsy requested for further histological evaluation. PROCEDURE: Consent obtained for CT-guided biopsy of left flank/retroperitoneal mass corresponding to metabolic activity on prior PET scan. Consent obtained utilizing a Niuean-speaking blood typer. prior relevant studies: PET/CT from January 11, [...] of fentanyl administered during the procedure. Scanner: Its Time Compliance [address] Dose reduction technique: AEC [...] MD Date/Time: ??04/02/24 1337 Sign date/Time: ??04/02/24 1352 Procedure Note Dheeraj Rodriguez MD - 04/07/2024 [facility] Diagnostic Imaging Department [address] [place] [id number] Patient: NILSA WELLSGEI /Age/Sex: 1950 73 - M Unit#: [id number] Location/Status: SPDIANGIO/REG CLI Mnemonic/Ordering Site: CTBXRETRO/SPIR Ordering Physician: RORY WALTERS MD BX ABD RETRO MASS CT - 03/30/24 - [id number] Report Status:Signed INDICATION: Previous pleural biopsy with atypical mesotheliomaperforation suspicious but not diagnostic for mesothelioma. Metabolically activecervical and thoracic lymphadenopathy as well as pleural activity. Metabolicallyactive mass in the left flank. CT-guided biopsy requested for furtherhistological evaluation. PROCEDURE: Consent obtained for CT-guided biopsy of leftflank/retroperitoneal mass corresponding to metabolic activity on prior PET scan. Consentobtained utilizing a Niuean-speaking blood typer. prior relevant studies: PET/CT from January 11, 2024 MEDICATIONS: Local anesthesia: 7 cc of 1% buffered lidocaine administeredsubcutaneously. Sedation: Moderate intravenous sedation was initiated and maintained for30 minutes while the patient was independently monitored by the radiologynurse under the supervision of the interventional radiologist. A total of 2 mgof Versed and 75 mcg of fentanyl administered during the procedure. Scanner: Its Time Compliance [address] Dose reduction technique: AEC [...] lump documented in this encounter Care Teams Project Management Relationship Specialty Start Date End Date Brandi Eisenberg PA [address] [place] [phone] PCP - General 11/23/23 documented as of this encounter
--- OUTSIDE RECORDS SUMMARY | 2024-08-15 18:09 | XMS_ITS | Clinical Summary ---
Author Organization Unknown Care Team Providers Care Rugby Union Footballer Name Role Phone JONN WILITE, PETE Unavailable Kalani foster ARMSTRONG RN, AMIE Unavailable Unavailab charan PFEIFFER LPN, CHULA Unavailable Unavail able CODI PT, JAYJAY Unavailable Unavailable CHEIKH FRANCHISE MANAGER, HAIM Unavailable Unavailable Payers Payer Name Policy Type Policy Number Effective Date Expira tion Date MEDICARE.NGS.PDGM [id number] Problems Condition Name Condition Details Condition Category [...] Obesity, class 1 Active 07-13 00:00: 00 SENIOR CARE (CURRENT) USE OF ANTICOAGULAN TS Active 07-13 [...] 10-17 00:00: 00 07-08 23:59 :00 No [id number] PROTON PUMP INHIBITOR 1 tablet DAILY 1 tablet DAILY (route: oral) Med Classific ation: Gastroint estinal Therapy Agents calcitriol 0.25 mcg capsule 13 00:00: 00 07-08 23:59 :00 No [id number] CALCIUM LEVEL 1 capsule EVERY DAY 1 capsule EVERY DAY (route: oral) Med Classific ation: Electroly te Balance-N utritiona l Products torsemide 10 mg tablet 13 00:00: 00 07-08 23:59 :00 No [id number] DIURETIC 1 tablet TWICE DAILY 1 tablet TWICE DAILY (route: oral) Med Classific ation: Cardiovas cular Therapy Agents Eliquis 5 mg tablet 10-14 00:00: 00 07-08 23:59 :00 No [id number] BLOOD THINNER 1 tablet TWICE DAILY 1 tablet TWICE DAILY (route: oral) Med Classific ation: Hematolog ical Agents Ozempic 0.25 mg or 0.5 mg (2 mg/3 mL) subcutaneou s pen injector 10-14 00:00: 00 10-23 10:33 :17.8 47 No [id number] BLOOD GLUCOSE 0.5 mg EVERY WEEK 0.5 mg EVERY WEEK (route: subcutaneo us) Med Classific ation: Endocrine rosuvastati n 5 mg tablet 10-14 00:00: 00 07-08 23:59 :00 No [id number] CHOLESTEROL 1 tablet EVERY NIGHT AT BEDTIME 1 tablet EVERY NIGHT AT BEDTIME (route: oral) Med Classific ation: Cardiovas cular Therapy Agents Vitamin B-1 100 mg tablet 10-14 00:00: 00 07-08 23:59 :00 No [id number] VITAMIN 1 tablet EVERY DAY 1 tablet EVERY DAY (route: oral) Med Classific ation: Electroly te Balance-N utritiona l Products metoprolol tartrate 25 mg tablet 10-19 00:00: 00 07-08 23:59 :00 No [id number] BLOOD PRESSURE 0.5 tablet TWICE DAILY 0.5 tablet TWICE DAILY (route: oral) Med Classific ation: Cardiovas cular Therapy Agents Ozempic 0.25 mg or 0.5 mg (2 mg/3 mL) subcutaneou s pen injector 10-23 00:00: 00 07-08 23:59 :00 No [id number] blood glucose 0.25 mg WEEKLY 0.25 mg WEEKLY (route: subcutaneo us) Med Classific ation: Endocrine cyanocobala min (vit B-12) 1,000 mcg/mL injection solution 5-20 00:00: 00 07-08 23:59 :00 No [id number] suplement Per instruc tions MONTHLY Per instructio ns MONTHLY (route: injection) Med Classific ation: Electroly te Balance-N utritiona l Products cephalexin 500 mg tablet 6-13 00:00: 00 11-23 23:59 :00 No [id number] WOUND 1 tablet EVERY 8 HOURS 1 tablet EVERY 8 HOURS (route: oral) Med Classific ation: Anti-Infe ctive Agents calcitriol 0.25 mcg capsule 07-13 00:00: 00 Yes [id number] SUPPLEMENT 1 capsule DAILY 1 capsule DAILY (route: oral) Med Classific ation: Electroly te Balance-N utritiona l Products Eliquis 5 mg tablet 07-13 00:00: 00 Yes [id number] IRREGULAR HEARTBEAT 1 tablet EVERY 12 HOURS 1 tablet EVERY 12 HOURS (route: oral) Med Classific ation: Hematolog ical Agents pantoprazol e 40 mg tablet,brii yed release 1- 00:00: 00 07-13 00:00 :00 No [id number] Per instruc tions Per instructio ns (route: oral) Med Classific ation: Gastroint estinal Therapy Agents rosuvastati n 5 mg tablet 07-13 00:00: 00 Yes [id number] HIGH LIPIDS 1 tablet BEDTIME 1 tablet BEDTIME (route: oral) Med Classific ation: Cardiovas cular Therapy Agents lisinopril 10 mg tablet - 00:00: 00 Yes [id number] HIGH BLOOD PRESSURE 1 tablet DAILY 1 tablet DAILY (route: oral) Med Classific ation: Cardiovas cular Therapy Agents metronidazo le 250 mg tablet - 00:00: 00 07-13 00:00 :00 No [id number] Per instruc tions Per instructio ns (route: oral) Med Classific ation: Anti-Infe ctive Agents neomycin 500 mg tablet - 00:00: 00 07-13 00:00 :00 No [id number] Per instruc tions AT AT Per instructio ns AT AT (route: oral) Med Classific ation: Anti-Infe ctive Agents Nutrisource Fiber packet 07-13 00:00: 00 Yes [id number] SUPPLEMENT 1 packet DAILY 1 packet DAILY (route: oral) Med Classific ation: Gastroint estinal Therapy Agents Ozempic 0.25 mg or 0.5 mg (2 mg/3 mL) subcutaneou s pen injector 07-13 00:00: 00 Yes [id number] DIABETES 0.25 mg WEEKLY 0.25 mg WEEKLY (route: subcutaneo us) Med Classific ation: Endocrine pantoprazol e 20 mg tablet,brii yed release 07-13 00:00: 00 Yes [id number] GERD, PEPTIC ULCER DISEASE 1 tablet 2 TIMES DAILY 1 tablet 2 TIMES DAILY (route: oral) Med Classific ation: Gastroint estinal Therapy Agents thiamine HCl (vitamin B1) 100 mg tablet 07-13 00:00: 00 Yes [id number] SUPPLEMENT 1 tablet DAILY 1 tablet DAILY [...] CONSULTING PHYSICIANS. RN TO OBSERVE AND ASSESS, WIRE ROLLER/FIELD SEISMOLOGIST TO OBSERVE FOR RISK FOR FALLS AND INSTRUCT IN FALL PREVENTION, HOME SAFETY, MEDICATION MANAGEMENT, INFECTION PREVENTION, AND NUTRITION MANAGEMENT. RN/WIRE ROLLER/FIELD SEISMOLOGIST NURSE MAY PERFORM O2 SATURATION LEVEL ON ADMISSION AND PRN FOR RN TO ASSESS/WIRE ROLLER TO OBSERVE PATIENT, WITH NOTIFICATION TO THE PHYSICIAN IF SATURATION IS 90% IN THE ABSENCE OF MORE SPECIFIC PARAMETERS FROM THE PHYSICIAN. AGENCY MAY PERFORM A RESUMPTION OF CARE VISIT FOLLOWING ANY HOSPITAL ADMISSION. RN/WIRE ROLLER/FIELD SEISMOLOGIST TO MONITOR CO-MORBID CONDITIONS LISTED ON THE PLAN OF CARE AND ANY NEW CONDITIONS THAT PRESENT THEMSELVES DURING THIS EPISODE TO IDENTIFY CHANGES AND INTERVENE TO MINIMIZE COMPLICATIONS. [code = RN TO OBSERVE, ASSESS, EVALUATE, AND DEVELOP AN INDIVIDUALIZED PLAN OF CARE. AGENCY MAY ACCEPT ORDERS FROM CONSULTING PHYSICIANS. RN TO OBSERVE AND ASSESS, WIRE ROLLER/FIELD SEISMOLOGIST TO OBSERVE FOR RISK FOR FALLS AND INSTRUCT IN FALL PREVENTION, HOME SAFETY, MEDICATION MANAGEMENT, INFECTION PREVENTION, AND NUTRITION MANAGEMENT. RN/WIRE ROLLER/FIELD SEISMOLOGIST NURSE MAY PERFORM O2 SATURATION LEVEL ON ADMISSION AND PRN FOR RN TO ASSESS/WIRE ROLLER TO OBSERVE PATIENT, WITH NOTIFICATION TO THE PHYSICIAN IF SATURATION IS 90% IN THE ABSENCE OF MORE SPECIFIC PARAMETERS FROM THE PHYSICIAN. AGENCY MAY PERFORM A RESUMPTION OF CARE VISIT FOLLOWING ANY HOSPITAL ADMISSION. RN/WIRE ROLLER/FIELD SEISMOLOGIST TO MONITOR CO-MORBID CONDITIONS LISTED ON THE PLAN OF CARE AND ANY NEW CONDITIONS THAT PRESENT THEMSELVES DURING THIS EPISODE TO IDENTIFY CHANGES AND INTERVENE TO MINIMIZE COMPLICATIONS.] Future Scheduled Test MEDICATION MANAGEMENT; RN/WIRE ROLLER/FIELD SEISMOLOGIST TO REVIEW MEDICATIONS FOR INTERACTIONS, EFFECTIVENESS OF DRUG THERAPY, AND SIGNS/SYMPTOMS OF ADVERSE REACTIONS. MAY INSTRUCT AND REINFORCE MEDICATION TEACHING RELATED TO THE USE OF MEDICATIONS, DOSAGE, FREQUENCY, PURPOSE, SIDE EFFECTS, AND TO REPORT COMPLICATIONS. [code = MEDICATION MANAGEMENT; RN/WIRE ROLLER/FIELD SEISMOLOGIST TO REVIEW MEDICATIONS FOR INTERACTIONS, EFFECTIVENESS OF DRUG THERAPY, AND SIGNS/SYMPTOMS OF ADVERSE REACTIONS. MAY INSTRUCT AND REINFORCE MEDICATION TEACHING RELATED TO THE USE OF MEDICATIONS, DOSAGE, FREQUENCY, PURPOSE, SIDE EFFECTS, AND TO REPORT COMPLICATIONS.] Future Scheduled Test RISK FOR H OSPITALIZATION; RN TO ASSESS/TEACH, FIELD SEISMOLOGIST/WIRE ROLLER TO OBSERVE/TEACH PATIENT/CAREGIVER ON RISK FOR HOSPITALIZATION/EMERGENCY ROOM VISITS, TEACH SIGNS AND SYMPTOMS THAT PUT PATIENT AT RISK, WHEN TO NOTIFY NURSE/PHYSICIAN OF COMPLICATIONS/DECLINE, AND WHEN TO CALL 911. [code = RISK FOR HOSPITALIZATION; RN TO ASSESS/TEACH, FIELD SEISMOLOGIST/WIRE ROLLER TO OBSERVE/TEACH PATIENT/CAREGIVER ON RISK FOR HOSPITALIZATION/EMERGENCY ROOM VISITS, TEACH SIGNS AND SYMPTOMS THAT PUT PATIENT AT RISK, WHEN TO NOTIFY NURSE/PHYSICIAN OF COMPLICATIONS/DECLINE, AND WHEN TO CALL 911.] Future Scheduled Test CARDIOVASC ULAR SYSTEM; RN TO ASSESS/TEACH, WIRE ROLLER/FIELD SEISMOLOGIST TO OBSERVE/TEACH RELATED TO ALTERED CARDIOVASCULAR STATUS TO MINIMIZE COMPLICATIONS AND REDUCE HOSPITALIZATION. [code = CARDIOVASCULAR SYSTEM; RN TO ASSESS/TEACH, WIRE ROLLER/FIELD SEISMOLOGIST TO OBSERVE/TEACH RELATED TO ALTERED CARDIOVASCULAR STATUS TO MINIMIZE COMPLICATIONS AND REDUCE HOSPITALIZATION.] Future Scheduled Test PACEMAKER MANAGEMENT; RN/WIRE ROLLER/FIELD SEISMOLOGIST TO PROVIDE SKILLED TEACHING AND ASSIST WITH MANAGEMENT OF PACEMAKER. NEWLY PLACED 06/22/24 [code = PACEMAKER MANAGEMENT; RN/WIRE ROLLER/FIELD SEISMOLOGIST TO PROVIDE SKILLED TEACHING AND ASSIST WITH MANAGEMENT OF PACEMAKER. NEWLY PLACED 06/22/24] Future Scheduled Test HYPERTENSI ON MANAGEMENT; RN TO ASSESS AND TEACH, WIRE ROLLER/FIELD SEISMOLOGIST TO OBSERVE AND TEACH WARNING SIGNS AND SYMPTOMS TO AVOID HOSPITALIZATION. [code = HYPERTENSION MANAGEMENT; RN TO ASSESS AND TEACH, WIRE ROLLER/FIELD SEISMOLOGIST TO OBSERVE AND TEACH WARNING SIGNS AND SYMPTOMS TO AVOID HOSPITALIZATION.] Future Scheduled Test ARRHYTHMIA MANAGEMENT; RN TO ASSESS AND TEACH, WIRE ROLLER/FIELD SEISMOLOGIST TO OBSERVE AND TEACH WARNING SIGNS AND SYMPTOMS TO AVOID HOSPITALIZATION. [code = ARRHYTHMIA MANAGEMENT; RN TO ASSESS AND TEACH, WIRE ROLLER/FIELD SEISMOLOGIST TO OBSERVE AND TEACH WARNING SIGNS AND SYMPTOMS TO AVOID HOSPITALIZATION.] Future Scheduled Test HEART FAIL URE; RN TO ASSESS/TEACH, WIRE ROLLER/FIELD SEISMOLOGIST TO OBSERVE/TEACH CARDIOPULMONARY SYSTEM TO IDENTIFY SIGNS [...] [code = HEART FAILURE; RN TO ASSESS/TEACH, WIRE ROLLER/FIELD SEISMOLOGIST TO OBSERVE/TEACH CARDIOPULMONARY SYSTEM TO IDENTIFY SIGNS [...] SYSTEM MANAGEMENT; RN TO ASSESS AND TEACH, WIRE ROLLER/FIELD SEISMOLOGIST TO OBSERVE AND TEACH RELATED TO ALTERED RESPIRATORY STATUS TO MINIMIZE COMPLICATIONS AND REDUCE HOSPITALIZATION. CHRONIC RT PLEURAL EFFUSION [code = RESPIRATORY SYSTEM MANAGEMENT; RN TO ASSESS AND TEACH, WIRE ROLLER/FIELD SEISMOLOGIST TO OBSERVE AND TEACH RELATED TO ALTERED RESPIRATORY STATUS TO MINIMIZE COMPLICATIONS AND REDUCE HOSPITALIZATION. CHRONIC RT PLEURAL EFFUSION] Future Scheduled Test SKIN INTEG RITY RN TO ASSESS AND TEACH, WIRE ROLLER/FIELD SEISMOLOGIST TO OBSERVE AND TEACH INTEGUMENTARY STATUS TO IDENTIFY CHANGES AND INTERVENE TO MINIMIZE COMPLICATIONS. PROVIDE SKILLED TEACHING OF GENERAL WOUND AND SKIN CARE AND PREVENTION RELATED TO ACTUAL ALTERED SKIN INTEGRITY [code = SKIN INTEGRITY RN TO ASSESS AND TEACH, WIRE ROLLER/FIELD SEISMOLOGIST TO OBSERVE AND TEACH INTEGUMENTARY STATUS TO IDENTIFY CHANGES AND INTERVENE TO MINIMIZE COMPLICATIONS. PROVIDE SKILLED TEACHING OF GENERAL WOUND AND SKIN CARE AND PREVENTION RELATED TO ACTUAL ALTERED SKIN INTEGRITY ] Future Scheduled Test RN/WIRE ROLLER/FIELD SEISMOLOGIST TO PERFORM/TEACH INCISION CARE TO ABDOMINAL INCISION AREA: MONITOR INCIDION FOR SX OF INFECTION: REDNESS, WARMTH, DEHISCENCE AND DRAINAGE. NOTIFY DR LUNSFORD IMMEDIATELY [phone] [code = RN/WIRE ROLLER/FIELD SEISMOLOGIST TO PERFORM/TEACH INCISION CARE TO ABDOMINAL INCISION AREA: MONITOR INCIDION FOR SX OF INFECTION: REDNESS, WARMTH, DEHISCENCE AND DRAINAGE. NOTIFY DR LUNSFORD IMMEDIATELY [phone]] Future Scheduled Test PAIN MANAG EMENT; RN TO ASSESS AND TEACH, FIELD SEISMOLOGIST/WIRE ROLLER TO OBSERVE AND TEACH AND PROVIDE EDUCATION ON PAIN MANAGEMENT TECHNIQUES. [code = PAIN MANAGEMENT; RN TO ASSESS AND TEACH, FIELD SEISMOLOGIST/WIRE ROLLER TO OBSERVE AND TEACH AND PROVIDE EDUCATION ON PAIN MANAGEMENT TECHNIQUES.] Future Scheduled Test DIABETES M ANAGEMENT; RN TO ASSESS AND TEACH, FIELD SEISMOLOGIST/WIRE ROLLER TO OBSERVE AND TEACH INSTRUCTIONS OF DIABETIC CARE TO INCLUDE: DIET CCHO, HEART HEALTHY, LOW POTASSIUM SKIN CARE, SIGNS AND SYMPTOMS OF HYPO/HYPERGLYCEMIA, PROPER ADMINISTRATION OF DIABETIC MEDICATION. RN/FIELD SEISMOLOGIST/WIRE ROLLER TO INSTRUCT ON DIABETIC FOOT CARE AND MONITOR FOR SKIN LESIONS ON LOWER EXTREMITIES. BLOOD GLUCOSE TESTING DAILY. RN TO ASSESS AND TEACH, FIELD SEISMOLOGIST/WIRE ROLLER TO OBSERVE AND TEACH PATIENT/CAREGIVER ABILITY TO PERFORM AND RECORD BLOOD GLUCOSE TESTING ORDERED AND TO REPORT ABNORMAL FINDINGS TO PHYSICIAN. RN/FIELD SEISMOLOGIST/WIRE ROLLER MAY PERFORM BLOOD GLUCOSE TEST NEEDED. RN/FIELD SEISMOLOGIST/WIRE ROLLER TO REPORT TO PHYSICIAN BLOOD GLUCOSE READINGS GREATER THAN 200 OR LESS THAN 80 RN/FIELD SEISMOLOGIST/WIRE ROLLER TO INSTRUCT PATIENT ON IMPORTANCE OF HGBA1C MONITORING, KIDNEY FUNCTION TEST, EYE AND FOOT EXAMS. [code = DIABETES MANAGEMENT; RN TO ASSESS AND TEACH, FIELD SEISMOLOGIST/WIRE ROLLER TO OBSERVE AND TEACH INSTRUCTIONS OF DIABETIC CARE TO INCLUDE: DIET CCHO, HEART HEALTHY, LOW POTASSIUM SKIN CARE, SIGNS AND SYMPTOMS OF HYPO/HYPERGLYCEMIA, PROPER ADMINISTRATION OF DIABETIC MEDICATION. RN/FIELD SEISMOLOGIST/WIRE ROLLER TO INSTRUCT ON DIABETIC FOOT CARE AND MONITOR FOR SKIN LESIONS ON LOWER EXTREMITIES. BLOOD GLUCOSE TESTING DAILY. RN TO ASSESS AND TEACH, FIELD SEISMOLOGIST/WIRE ROLLER TO OBSERVE AND TEACH PATIENT/CAREGIVER ABILITY TO PERFORM AND RECORD BLOOD GLUCOSE TESTING ORDERED AND TO REPORT ABNORMAL FINDINGS TO PHYSICIAN. RN/FIELD SEISMOLOGIST/WIRE ROLLER MAY PERFORM BLOOD GLUCOSE TEST NEEDED. RN/FIELD SEISMOLOGIST/WIRE ROLLER TO REPORT TO PHYSICIAN BLOOD GLUCOSE READINGS GREATER THAN 200 OR LESS THAN 80 RN/FIELD SEISMOLOGIST/WIRE ROLLER TO INSTRUCT PATIENT ON IMPORTANCE OF HGBA1C MONITORING, KIDNEY FUNCTION TEST, EYE AND FOOT EXAMS.] Future Scheduled Test CANCER MAN AGEMENT; RN TO ASSESS AND TEACH, FIELD SEISMOLOGIST/WIRE ROLLER TO OBSERVE AND TEACH AND PROVIDE EDUCATION ON CANCER. [code = CANCER MANAGEMENT; RN TO ASSESS AND TEACH, FIELD SEISMOLOGIST/WIRE ROLLER TO OBSERVE AND TEACH AND PROVIDE EDUCATION ON CANCER.] Future Scheduled Test FALL REDUC TION MANAGEMENT; RN TO ASSESS AND OBSERVE, WIRE ROLLER/FIELD SEISMOLOGIST TO OBSERVE FALL RISK FACTORS AND EDUCATE PATIENT/CAREGIVER ON STRATEGIES TO MINIMIZE THE RISK OF FALLING. [code = FALL REDUCTION MANAGEMENT; RN TO ASSESS AND OBSERVE, WIRE ROLLER/FIELD SEISMOLOGIST TO OBSERVE FALL RISK FACTORS AND EDUCATE PATIENT/CAREGIVER ON STRATEGIES TO MINIMIZE THE RISK OF FALLING.] Future Scheduled Test AGENCY MAY PERFORM A RESUMPTION OF CARE VISIT FOLLOWING ANY HOSPITAL ADMISSION. PT TO EVALUATE, OBSERVE / ASSESS, AND MONITOR, FRANCHISE MANAGER TO OBSERVE AND MONITOR, PROVIDE SKILLED THERAPEUTIC INTERVENTION, ACTIVITY, EDUCATION, AND TRAINING TO ADDRESS; PT/FRANCHISE MANAGER TO PROVIDE GAIT TRAINING FOR IMPROVED MOBILITY AND /OR TO NORMALIZE GAIT PATTERN NEUROMUSCULAR RE-EDUCATION / BALANCE / POSTURAL CONTROL (PT) THERAPEUTIC EXERCISES AND ESTABLISHING A HOME EXERCISE PROGRAM (PT/FRANCHISE MANAGER) PT/FRANCHISE MANAGER TO PROVIDE STAIR TRAINING SIT TO/FROM STAND TRANSFERS (PT/FRANCHISE MANAGER) PT / FRANCHISE MANAGER TO MONITOR AND EDUCATE ON OXYGEN SATURATION DURING ADLS/IADLS, NOTIFY PHYSICIAN AND/OR THE RN CLINICAL SUPERINTENDENT MECHANICAL FOR PHYSICIAN NOTIFICATION AND IF O2 SATS BELOW PHYSICIAN ORDERED PARAMETERS AFTER 10 MIN OF REST PT / FRANCHISE MANAGER MAY EDUCATE ON PAIN MANAGEMENT CLINICALLY INDICATED, INCLUDING NON-PHARMACOLOGICAL PAIN REDUCTION TECHNIQUES [code = AGENCY MAY PERFORM A RESUMPTION OF CARE VISIT FOLLOWING ANY HOSPITAL ADMISSION. PT TO EVALUATE, OBSERVE / ASSESS, AND MONITOR, FRANCHISE MANAGER TO OBSERVE AND MONITOR, PROVIDE SKILLED THERAPEUTIC INTERVENTION, ACTIVITY, EDUCATION, AND TRAINING TO ADDRESS; PT/FRANCHISE MANAGER TO PROVIDE GAIT TRAINING FOR IMPROVED MOBILITY AND /OR TO NORMALIZE GAIT PATTERN NEUROMUSCULAR RE-EDUCATION / BALANCE / POSTURAL CONTROL (PT) THERAPEUTIC EXERCISES AND ESTABLISHING A HOME EXERCISE PROGRAM (PT/FRANCHISE MANAGER) PT/FRANCHISE MANAGER TO PROVIDE STAIR TRAINING SIT TO/FROM STAND TRANSFERS (PT/FRANCHISE MANAGER) PT / FRANCHISE MANAGER TO MONITOR AND EDUCATE ON OXYGEN SATURATION DURING ADLS/IADLS, NOTIFY PHYSICIAN AND/OR THE RN CLINICAL SUPERINTENDENT MECHANICAL FOR PHYSICIAN NOTIFICATION AND IF O2 SATS BELOW PHYSICIAN ORDERED PARAMETERS AFTER 10 MIN OF REST PT / FRANCHISE MANAGER MAY EDUCATE ON PAIN MANAGEMENT CLINICALLY INDICATED, [...] INDOORS INDEPENDENT INTO ORDER TO ACCESS [facility] HOME AND TRANSPORTATION WITHIN [...] 2024-09-10 00:00:00 Outpatient AMIE CARRERO [facility] [id number] 87.50
--- OUTSIDE RECORDS SUMMARY | 2024-08-15 18:09 | XMS_ITS | Encounter Summary ---
Author Organization [facility] [place] [address] Care Team Providers Care Machine Shop Worker Name Role Phone Brandi Eisenberg Primary Care Provider [phone] Reason for Visit * Reason Comments Follow-up Encounter Details Date Type Department Care Team (Late st Contact Info) Description 08/09/2024 11:45 AM EST Office Visit [facility] Hematology Oncology [address] [place] [address] Rory Carmen MD [address] [place] [address] Social History Tobacco Use Types [...] on filedocumented in this encounter Care Teams Machine Shop Worker Relationship Specialty Start Date End Date Brandi Eisenberg PA [address] [place] [address] PCP - General 11/23/23 documented as of this encounter
--- OUTSIDE RECORDS SUMMARY | 2024-08-15 18:09 | XMS_ITS | Clinical Summary ---
Author Organization [facility] Address [address] [place] [address] Care Team Providers Care Purchasing Assistant Name Role Phone Brandi Eisenberg PA-C Primary [...] age to complete this topic Care Teams Purchasing Assistant Relationship Specialty Start Date End Date Brandi Eisenberg PA-C [address] [place] [address] PCP - General Physician Bag Press Operator 11/23/23
--- OUTSIDE RECORDS SUMMARY | 2024-08-15 18:09 | XMS_ITS | Clinical Summary ---
Author Organization [facility] Address [address] [place] [address] Care Team Providers Care House Furnishings Supervisor Name Role Phone Brandi Eisenberg PA-C Primary Care Provider [phone] Source Comments PLEASE NOTE, if this patient [...] complication, without long-term current use of insulin ([facility]) 2 (two) times daily Freestyle lite [...] tated patient,Unintende d weight loss,Paroxysmal atrial fibrillation ([facility]) by miscellaneous route once daily Standard wheelchair, disp1,lifetime need, dx weakness s/p surgery, atrial fibrillation, anemia 1 Each 09/16/19 22 Active triamcinolone acetonide (KENALOG) 0.1 % creamIndications: Atopic dermatitis, unspecified type Apply topically once daily Combine with Eucerin Eczema Relief Cream 80 g 1 10/21/19 22 Active FREESTYLE LANCETS 28 gaugeIndications: Type 2 diabetes mellitus without complication, without long-term current use of insulin ([facility]) USE TO TEST ONCE DAILY 100 Each [...] complication, without long-term current use of insulin ([facility]) TAKE 1 TABLET BY MOUTH EVERY NIGHT [...] of Pleurx catheter- bronchoscopy with aspiration - [facility] CYTOPATHOLOGY REPORT Date: 10/25/2023 report: Pleural [...] for but not diagnostic of mesothelioma, WT1-positive, T0-89-efhznojj, calretinin- positive, FSH-6-lupvwbch. Impression/recommendation: The patient is a 73-year-old gentleman [...] August 04, 2021 9:06 EST Encounter info: [id number], [facility] [place]ch [place], 07/27/2021 - 08/16/2021 Contributor system: XIPWIRE Echo Complete-Doppler, Colorflow, M-Mode Transthoracic Echocardiography Report (TTE) Patient Demographics Patient Name VIOLETTA, Date of Study 08/04/2021 [employer] Gender Male Facility Race Ethnicity Date of 1950 Height: 65.75 inches Age 70 year(s) Weight: 231.49 pounds Accession Number [id number] BSA: 2.12 m2 Room Number SW62 BMI: 37.65 kg/m2 Referring Physician Chadwick Gracia Interpreting Kirsten Gibbons MD, MD Physician Financial Analysis Consultant Dia Hannah [facility] Indications Atrial fibrillation. Clinical History Atrial fibrillation. Abnormal EKG. Hx of COVID Hypertension. Obesity Study Data Type of Study TTE procedure:Echo Complete-(Doppler, Colorflow) with Contrast. Procedure Information:Definity was administered by Paul WILLSON Study Date08/04/2021 Start Time: 09:06 AM Study Location: [facility] [place] Echo Study Status: Bedside Patient Status: [...] of superior mesent rj artery (HCC-CMS) 07/2021 [facility] 08/26/2021 Paroxysmal atrial fibrillation (HCC-CMS) 08/202108/10/2021 Non [...] on July 05, 2017 9:49 Encounter info: [id number], [facility] [place], One Time OP, 07/05/2017 - * Final [...] Clinical correlation recommended. Normal right kidney. A [place] message has been communicated via the Tabblo system on 07/05/2017 9:43 AM, Message ID [id number]. I have personally reviewed the images and I agree with this report. WSN: [id number] Signature Line Dictated By: Deonte Henderson MD Dictated Date/Time: 07/05/17 9:44 am Reviewed By: Chico Villagran MD Signed By: Chcio Villagran MD Signed Date/Time: 07/05/17 9:49 am Transcribed By: DESTINI Transcribed Date/Time: 07/05/17 9:44 am US Retroperitoneum Comp This document has an image CKD (chronic kidney disease) stage 3, GFR 30-59 ml/min ([facility]) 06/08/2017 Hyperlipidemia, mixed 03/11/2015 TONI (obstructive sleep apnea) 05/10/2014 Overview (05/10/2014): Result type: Polysomnogram with CPAP Result date: 07 May 2014 17:40 Result status: Auth (Verified) Result title: Polysomnogram W/ CPAP Performed by: Matt Carmen MD on 07 May 2014 17:40 Verified by: Matt Carmen MD on 07 May 2014 19:39 Encounter info: [id number], [facility] [place], One Time OP, 04/29/2014 - 04/29/2014 Contributor system: NUANCE * Final Report * Polysomnogram W/ CPAP (Verified) POLYSOMNOGRAM DATE:04/29/2014 [facility] SLEEP PROGRAM [facility] Accredited by the [employer] [employer] CPAP STUDY Referring Provider: Matt Carmen M.D. Date of Study: 04/29/2014 Order ID: [id number] INTRODUCTION: This 63 year-old male with hypertension, [...] of 5.4/hr, and lowest oxygenation of 85%. [place] sleepiness scale is 10/24. (Height: 5' 6 , Weight: 217.0 lbs, BMI: 35.3.) MASK TYPE: Standard/FX Nasal. MEDICATIONS: Sertraline, Naproxen, Metformin, Lisinopril, HCTZ, Amlodipine. DESCRIPTION: This overnight polysomnogram was done utilizing a Algramo digital polysomnograph machine. Four channels of EEG [...] results, then I will order PAP from [facility]. 2. Patient should sleep in [...] Transcribed: 05/07/2014 18:37:55 Transcribed by: JANNETTE DocID: [id number] CC:Matt Carmen M.D. [facility] Pulmonary , Brandi Eisenberg [address], [address] DJD (degenerative joint disease) 03/29/2014 Major depressive disorder, r ecurrent episode, moderate ([facility]) 01/11/2014 Essential hypertension, benign 06/05/2013 Left great saphenous vein reflux 06/05/2013 Diabetes mellitus type 2, uncomplicated ([facility] ) 02/28/2013 Immunizations Name Administration Dates [...] 01/19/2024 07/21/2023, 07/07, 07/20/2023, Additional history exists [id number] ( season) 2024 FIT/gFOBT 03/06/2024 03/06/2023, 07/08 [...] complication, without long-term current use of insulin ([facility]) Essential hypertension, benign Stage 3 chronic kidney disease, unspecified whether stage 3a or 3b CKD ([facility]) Hyperlipidemia, mixed Paroxysmal atrial fibrillation ([facility]) 08/2021 Pleural effusion HEMOGLOBIN GLYCOSYLATED A1C Routine 07/20/2023 10:37 AM EST Type 2 diabetes mellitus without complication, without long-term current use of insulin ([facility]) Essential hypertension, benign Stage 3 chronic kidney disease, unspecified whether stage 3a or 3b CKD ([facility]) Hyperlipidemia, mixed Paroxysmal atrial fibrillation ([facility]) 08/2021 Pleural effusion COLOGUARD Routine 03/06/2023 3:00 AM EDT Colon cancer screening EYE EXAM 12/24/2022 3:00 AM EDT MICROALBUMIN/CREATINI NE RATIO, URINE, RANDOM Routine 10/27/2022 9:09 AM EDT Type 2 diabetes mellitus without complication, without long-term current use of insulin ([facility]) Essential hypertension, benign Hyperlipidemia, mixed Stage 3 chronic kidney disease, unspecified whether stage 3a or 3b CKD ([facility]) Paroxysmal atrial fibrillation ([facility]) 08/2021 Leg edema PUD (peptic ulcer [...] EDT) GLUCOSE 160(H) 65 - 139 mg/dL [facility] Comment: ?Non-fasting reference interval UREA NITROGEN (BUN) 42(H) 7 - 25 mg/dL [facility] CREATININE (blood) 2.16(H) 0.70 - 1.28 mg/dL [facility] EGFR 31(L) > OR = 60 mL/min/1. 73m2 [facility] BUN/CREATININE RATIO 19 6 - 22 (calc) [facility] SODIUM 136 135 - 146 mmol/L [facility] POTASSIUM 5.2 3.5 - 5.3 mmol/L [facility] CHLORIDE 107 98 - 110 mmol/L [facility] CARBON DIOXIDE 22 20 - 32 mmol/L [facility] CALCIUM 8.8 8.6 - 10.3 mg/dL [facility] PROTEIN, TOTAL 7.5 6.1 - 8.1 g/dL [facility] ALBUMIN 3.6 3.6 - 5.1 g/dL [facility] GLOBULIN 3.9(H) 1.9 - 3.7 g/dL (calc) [facility] ALBUMIN/GLOBULI N RATIO 0.9(L) 1.0 - 2.5 (calc) [facility] BILIRUBIN, TOTAL 0.6 0.2 - 1.2 mg/dL [facility] ALKALINE PHOSPHATASE 75 35 - 144 U/L [facility] AST 12 10 - 35 U/L [facility] ALT 8(L) 9 - 46 U/L [facility] Blood Blood / Unknown 01/05/2024 1 0:54 AM EDT 01/05/2024 10:54 AM EDT Narrative [employer] [facility] - 01/06/2024 3:53 AM EDT FASTING:NO us Justin Malloy PA-C LAB - BLOOD DRAW Final Result [facility] [address] [address], [facility] [address] [address] * (ABNORMAL) HEMOGLOBIN GLYCOSYLATED A1C (07/20/2023 10:37 AM EST) HEMOGLOBIN A1C 6.2(H) <5.7 % of total Hgb [facility] Comment: For someone without known diabetes, [...] AM EST 07/20/2023 10:40 AM EST Narrative [facility] - 07/21/2023 9:20 AM EST FASTING:YES PATIENT REFUSED SOME TESTING; PATIENT ENCOURAGED TO RETURN. us Brandi Eisenberg PA-C LAB - BLOOD DRAW Final Resul t [facility] [address] [place] [phone], [facility] [address] [address] * (ABNORMAL) LIPID PANEL (07/20/2023 10:37 AM EST) [facility] CHOLESTEROL, TOTAL 92 <200 mg/dL [facility] HDL CHOLESTEROL 28(L) > OR = 40 mg/dL [facility] TRIGLYCERIDES 101 <150 mg/dL [facility] LDL-CHOLESTEROL 46 99 mg/dL (calc) [facility] Comment: Reference range: <100 Desirable range <100 mg/dL for primary prevention; ?? <70 mg/dL for patients with CHD or diabetic patients with > or = 2 CHD risk factors. LDL-C is now calculated using the Neal-Zcah calculation, which is a validated novel method providing better accuracy than the Friedewald equation in the estimation of LDL-C. Neal SS et al. MI. 2013;310(19): 0750-0080 (http://education.NewCell/faq/ZAF498) CHOL/HDLC RATIO 3.3 <5.0 (calc) [facility] NON-HDL CHOLESTEROL 64 <130 mg/dL (calc) [facility] Comment: For patients with diabetes plus 1 major ASCVD risk factor, treating to a non-HDL-C goal of <100 mg/dL (LDL-C of <70 mg/dL) is considered a therapeutic option. Blood Blood / Unknown 07/20/2023 1 0:37 AM EST 07/20/2023 10:40 AM EST Narrative [facility] - 07/21/2023 9:20 AM EST FASTING:YES PATIENT REFUSED SOME TESTING; PATIENT ENCOURAGED TO RETURN. us Brandi Eisenberg PA-C LAB - BLOOD DRAW Final Resul t [facility] [place] [email or web address] [address] [address], [facility] [address] [place] [address] * COLOGUARD (03/06/2023 3:00 AM EDT) Stool Stool specimen / Unknown 03/06/2023 3:00 AM EDT Brandi Eisenberg PA-C LAB - NO BLOOD DRAW Edited R esult - Final Performing Organization Address City/[facility] Co de Phone Number [employer] [address] [place] [address] [phone] [place] [address], * EYE EXAM (12/24/2022 3:00 AM EDT) 12/24/2022 3:00 AM EDT Brandi Sotomayor DIRECTOR CARDIOVASCULAR OTHER Final Result * (ABNORMAL) MICROALBUMIN/CREATININE RATIO, URINE, RANDOM (10/27/2022 9:09 AM EDT) CREATININE, RANDOM URINE 62 20 - 320 mg/dL [facility] MICROALBUMIN 26.5 mg/dL [facility] Comment: Reference Range Not established MICROALBUMIN/CREA TININE RATIO, RANDOM URINE 427(H) <30 mcg/mg creat [facility] Comment: The ADA defines abnormalities in [...] AM EDT 10/27/2022 9:13 AM EDT Narrative [facility] - 10/27/2022 9:27 PM EDT FASTING:YES Brandi Eisenberg PA-C LAB - NO BLOOD DRAW Final Re sult Performing Organization Address City/[facility]/ZIP Co de Phone Number [facility] [address] [address], [facility] [address] [place] [address] * (ABNORMAL) HEPATITIS A,B,C PANEL (05/10/2014 5:45 PM EST) HEPATITIS B SURFACE ANTIBODY POSITIVE(A) NEGATIVE [facility] HEPATITIS B SURFACE ANTIGEN NEGATIVE NEGATIVE [facility] HEPATITIS C VIRUS ANTIBODY NEGATIVE NEGATIVE [facility] HEPATITIS B CORE ANTIBODY NEGATIVE NEGATIVE [facility] HEPATITIS A ANTIBODY TOTAL POSITIVE(A) NEGATIVE [facility] Blood specimen (specimen) Blood / Unknown 05/10/2014 5:45 PM EST 05/10/2014 6:11 PM EST Narrative [facility] - 05/11/2014 5:12 PM EST [facility] [address] [place] [address] [place] [id number] ORD# [id number] Brandi Eisenberg PA-C LAB - BLOOD DRAW Edited Resu lt - Final Performing Organization Address [facility] Co de Phone Number [facility] [address] [place] [address], from Last 3 Months or Most Recently Relevant to Health Maintenance Insurance [place] - [place] Care Teams House Furnishings Supervisor Relationship Specialty Start Date End Date Brandi Eisenberg PA-C [address] [place] [phone] PCP - General 02/28/13
--- OUTSIDE RECORDS SUMMARY | 2024-08-15 18:09 | XMS_ITS | Clinical Summary ---
Author Organization [facility] Address [address] [place] [address] Phone Care Team Providers Care Cloth Seconds Sorter Name Role Phone Brandi Eisenberg PA-C Primary [...] on 07 May 2014 19:39 Encounter info: [id number], [facility] [place] One [place] OP, 04/29/2014 - 04/29/2014 Contributor system: NUANCE * Final Report * Polysomnogram W/ CPAP (Verified) POLYSOMNOGRAM DATE:04/29/2014 [facility] SLEEP PROGRAM [facility] Accredited by the [place] [employer] CPAP STUDY Referring Provider: Matt Carmen M.D. Date of Study: 04/29/2014 Order ID: [id number] INTRODUCTION: This 63 year-old male with hypertension, [...] of 5.4/hr, and lowest oxygenation of 85%. [place] sleepiness scale is 10/24. (Height: 5' 6 , Weight: 217.0 lbs, BMI: 35.3.) MASK TYPE: Standard/FX Nasal. MEDICATIONS: Sertraline, Naproxen, Metformin, Lisinopril, HCTZ, Amlodipine. DESCRIPTION: This overnight polysomnogram was done utilizing a [employer] digital polysomnograph machine. Four channels of EEG [...] results, then I will order PAP from [facility]. 2. Patient should sleep in [...] Transcribed: 05/07/2014 18:37:55 Transcribed by: JANNETTE DocID: [id number] CC:Matt Carmen M.D. [facility] Pulmonary , Brandi Eisenberg [address], [address] Osteoarthritis 03/29/2014 06/23/2021 Recurrent major depressive episodes, [...] [place] Care Teams Cloth Seconds Sorter Relationship Specialty Start Date End Date Brandi Eisenberg PA-C [address] [place] [phone] PCP - General 06/16/20
--- OUTSIDE RECORDS SUMMARY | 2024-08-15 18:09 | XMS_ITS | Clinical Summary ---
Author Organization [facility] Address [address] [place] [phone] Phone Care Team Providers Care Legal Aide Name Role Phone Brandi Eisenberg Primary Care Provider [phone] Allergies No known active allergies Medications apixaban [...] Description 08/09/2024 11:45 AM EST Office Visit [facility] Hematology Oncology [address] [place] [address] Rory Carmen MD from Last [...] Maintenance Results * Hemoglobin A1c (07/21/2023) Pathologist [facility] Hemoglobin A1C 0.0 % Comment:no interpretation, a bstracted Blood Venous blood specimen / Unknown [facility] Provider LAB BLOOD ORDERABLES Dorothy l Result * Lipid panel (07/21/2023) [facility] LDL/HDL Ratio 0 Comment:no interpretation, a bstracted Triglycerides 0 mg/dL Comment:no interpretation, a bstracted Cholesterol 0 mg/dL Comment:no interpretation, a bstracted HDL 0 mg/dL Comment:no interpretation, a bstracted LDL Cholesterol 0 mg/dL Comment:no interpretation, a bstracted Blood Venous blood specimen / Unknown [facility] Provider LAB BLOOD ORDERABLES Dorothy l Result * FIT-DNA (Cologuard) (04/05/2023) [facility] Colorectal Cancer Screening: FIT-DNA (Cologuard) no interpretation , abstracted [facility] Provider HEALTH MAINTENANCE Final Result from Last 3 Months or Most Recently Relevant to Health Maintenance Insurance MEDICARE MEDICAID - [place] Care Teams Legal Aide Relationship Specialty Start Date End Date Brandi Eisenberg PA [address] [place] [address] PCP - General 11/23/23
== END 2024-08-15 14:44 | disposition home or self-care (01) ==
LOC: HO.LAB 14:43
PROVIDERS: PCP Physician Assistant; Visit Provider Internal Medicine Nephrology
DX: N18.31 Chronic kidney disease, stage 3a (principal); I10 Essential (primary) hypertension; N25.81 Secondary hyperparathyroidism of renal origin; Z90.5 Acquired absence of kidney
CPT/HCPCS: 36415; 80051; 82306; 82310; 82565; 83970; 84100; 84520; 85025; 99212

== ENCOUNTER 2024-08-15 14:43 | Outpatient (AMB) | payer MEDICARE, MEDICAID, SELFPAY ==
--- NOTE | 2024-08-15 14:52 | HO.NEPHOV_ITS ---
Vital Signs 08/15/24 14:56 Height 5 ft 6 in Weight 174 lb 6 oz BMI 28.1 BP 120/60 Blood Pressure Location Rt brachial Position Sitting Pulse 60 Pulse Source Pulse Oximeter Pulse Oximetry (%) 100 Oxygen Delivery Method Room Air Intake Visit Reasons: Previous Pt from [facility] w/ Local Superintendent Required: Yes Local Superintendent Language: Cymraes Local Superintendent Name: Pepe [phone] Accompanied by: Spouse Allergies No Known Allergies [No Known Allergies*] Allergy (Verified 08/15/24 14:56) HPI Comments Details: I had the delight of seeing Stew in follow-up of his chronic kidney disease and hypertension. 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 Hernandez). 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 it was diagnosed following investigations for hematuria which he no longer has. His accompanied him during this visit and [employer] outside plant engineer was used.( Even remotely he had very little function of the left kidney prior to nephrectomy). His blood pressure is currently at goal. His weight is stable. He denies nausea, vomiting, diarrhea, abdominal pain, chest pain, shortness of breath, pedal edema or orthostatic symptoms. He does not take any nonsteroidal anti-inflammatories. He is tolerating TRICIA-inhibitor. There were no new specific complaints at the time of this office visit. [facility] Medical History (Updated 08/16/24 @ 09:31 by Edgar Kearney MD) Chronic kidney disease, stage 3 unspecified Unspecified hydronephrosis Paroxysmal atrial fibrillation Essential hypertension Lung mass Microscopic hematuria Surgical History History of lung biopsy Social History (Updated 08/15/24 @ 14:55 by Odalys Nick MA) Alcohol intake: never Patient Tobacco Use Status: Former Tobacco user Review of Systems Const All systems reviewed & are unremarkable except as noted in HPI and below Physical Exam Vital Signs: Last Vital Signs Pulse 60 08/15/24 14:56 BP 120/60 08/15/24 14:56 Pulse Ox 100 08/15/24 14:56 Oxygen Delivery Method Room Air 08/15/24 14:56 BMI result Body Mass Index 28.1 Const General: comfortable and no acute distress Orientation/consciousness: patient oriented x3 HEENT Head: Yes normocephalic Mouth: Normal oral and palatal mucosa present Eyes EOM: EOMs intact bilaterally Neck Neck: Yes supple Resp Auscultation: clear to auscultation bilaterally Cardio Jugular venous distension: no JVD Rate: regular rate GI Palpation (GI): Soft to palpation Auscultation: normal bowel sounds Skin General skin exam: no rashes or lesions noted Neuro General: patient oriented x3 and moves all extremities Extrem General: Yes no pedal edema Results Reviewed Nephrology Results: Hgb 12.0 g/dl (14.0-18.0) L 08/15/24 WBC 5.7 X10*3/uL (4.8-10.8) 08/15/24 Plt Count 186 X10*3/uL (160-400) 08/15/24 Sodium 142 mmol/L (135-145) 08/15/24 Potassium 4.7 mmol/L (3.3-5.1) 08/15/24 Chloride 107 mmol/L (96-108) 08/15/24 Carbon Dioxide 28 mmol/L (22-29) 08/15/24 BUN 25 mg/dL (9-16) H 08/15/24 Creatinine 1.74 mg/dL (0.5-1.4) H 08/15/24 Calcium 9.3 mg/dL (8.4-10.2) 08/15/24 Phosphorus 3.6 mg/dL (2.7-4.5) 08/15/24 PTH Intact 72.0 pg/mL (8.7-77.1) 08/15/24 Assessment & Plan Assessment & Plan (1) Chronic kidney disease, stage 3 unspecified: Code(s): N18.30 - Chronic kidney disease, stage 3 unspecified Category: Medical Qualifiers: Chronic kidney disease stage 3 subtype: stage 3a (GFR 45-59) Qualified Code(s): N18.31 - Chronic kidney disease, stage 3a (2) Hypertension: Code(s): I10 - Essential (primary) hypertension Category: Medical Qualifiers: Hypertension type: primary hypertension Qualified Code(s): I10 - Essential (primary) hypertension (3) Secondary hyperparathyroidism (of renal origin): Code(s): N25.81 - Secondary hyperparathyroidism of renal origin Category: Medical (4) Acquired solitary kidney: Code(s): Z90.5 - Acquired absence of kidney Category: Medical Plan Stew has acquired solitary kidney following nephrectomy. His serum creatinine is stable. His blood pressure is at goal. His urine output is good. He is tolerating TRICIA-inhibitor. He maintains good hydration and avoids nonsteroidal anti-inflammatories. He has no history of significant proteinuria. He will benefit from weight loss. I did not make any medication changes today. He follows up closely with Dr. Mccarthy. Further management is pending evolving data. Answered his and his 's questions. Orders: Orders Creatinine 08/15/24 N18.30 - Chronic kidney disease, stage 3 unspecified Calcium 08/15/24 N18.30 - Chronic kidney disease, stage 3 unspecified Complete Blood Count Auto Diff 08/15/24 N18.30 - Chronic kidney disease, stage 3 unspecified Blood Urea Nitrogen 08/15/24 N18.30 - Chronic kidney disease, stage 3 unspecified Electrolytes 08/15/24 N18.30 - Chronic kidney disease, stage 3 unspecified Phosphorus 08/15/24 N18.30 - Chronic kidney disease, stage 3 unspecified Vitamin D 25-OH Total 08/15/24 N18.30 - Chronic kidney disease, stage 3 unspecified Parathyroid Hormone Intact 08/15/24 N18.30 - Chronic kidney disease, stage 3 unspecified Coding Level of Care Code Est Pt Level 4 (06001) Diagnoses Stage 3a chronic kidney disease N18.31 Chronic kidney disease stage 3 subtype: stage 3a (GFR 45-59) Primary hypertension I10 Hypertension type: primary hypertension Secondary hyperparathyroidism (of renal origin) N25.81 Acquired solitary kidney Z90.5
[2024-08-15 14:56] VITALS: BP 120/60; PULSE 60; O2SAT 100; BMI 28.1
--- OUTSIDE RECORDS SUMMARY | 2024-08-15 17:23 | XMS_ITS | Clinical Summary ---
Author Organization Unknown Care Team Providers Care Library Services Dean Name Role Phone JONN WILITE, PETE Unavailable Kalani foster ARMSTRONG RN, AMIE Unavailable Unavailab charan PFEIFFER LPN, CHULA Unavailable Unavail able CODI PT, JAYJAY Unavailable Unavailable CHEIKH VETERINARIAN POULTRY, HAIM Unavailable Unavailable Payers Payer Name Policy Type Policy Number Effective Date Expira tion Date MEDICARE.NGS.PDGM [id number] Problems Condition Name Condition Details Condition Category [...] - 00:00: 00 UNSPECIFIED ATRIAL FIBRILLATION Active 2- 00:00: 00 MIXED HYPERLIPIDEM IA Active - [...] Obesity, class 1 Active 07-13 00:00: 00 DETENTION (CURRENT) USE OF ANTICOAGULAN TS Active 07-13 [...] 10-17 00:00: 00 07-08 23:59 :00 No [id number] PROTON PUMP INHIBITOR 1 tablet DAILY 1 tablet DAILY (route: oral) Med Classific ation: Gastroint estinal Therapy Agents calcitriol 0.25 mcg capsule 13 00:00: 00 07-08 23:59 :00 No [id number] CALCIUM LEVEL 1 capsule EVERY DAY 1 capsule EVERY DAY (route: oral) Med Classific ation: Electroly te Balance-N utritiona l Products torsemide 10 mg tablet 13 00:00: 00 07-08 23:59 :00 No [id number] DIURETIC 1 tablet TWICE DAILY 1 tablet TWICE DAILY (route: oral) Med Classific ation: Cardiovas cular Therapy Agents Eliquis 5 mg tablet 10-14 00:00: 00 07-08 23:59 :00 No [id number] BLOOD THINNER 1 tablet TWICE DAILY 1 tablet TWICE DAILY (route: oral) Med Classific ation: Hematolog ical Agents Ozempic 0.25 mg or 0.5 mg (2 mg/3 mL) subcutaneou s pen injector 10-14 00:00: 00 10-23 10:33 :17.8 47 No [id number] BLOOD GLUCOSE 0.5 mg EVERY WEEK 0.5 mg EVERY WEEK (route: subcutaneo us) Med Classific ation: Endocrine rosuvastati n 5 mg tablet 10-14 00:00: 00 07-08 23:59 :00 No [id number] CHOLESTEROL 1 tablet EVERY NIGHT AT BEDTIME 1 tablet EVERY NIGHT AT BEDTIME (route: oral) Med Classific ation: Cardiovas cular Therapy Agents Vitamin B-1 100 mg tablet 10-14 00:00: 00 07-08 23:59 :00 No [id number] VITAMIN 1 tablet EVERY DAY 1 tablet EVERY DAY (route: oral) Med Classific ation: Electroly te Balance-N utritiona l Products metoprolol tartrate 25 mg tablet 10-19 00:00: 00 07-08 23:59 :00 No [id number] BLOOD PRESSURE 0.5 tablet TWICE DAILY 0.5 tablet TWICE DAILY (route: oral) Med Classific ation: Cardiovas cular Therapy Agents Ozempic 0.25 mg or 0.5 mg (2 mg/3 mL) subcutaneou s pen injector 10-23 00:00: 00 07-08 23:59 :00 No [id number] blood glucose 0.25 mg WEEKLY 0.25 mg WEEKLY (route: subcutaneo us) Med Classific ation: Endocrine cyanocobala min (vit B-12) 1,000 mcg/mL injection solution 5-20 00:00: 00 07-08 23:59 :00 No [id number] suplement Per instruc tions MONTHLY Per instructio ns MONTHLY (route: injection) Med Classific ation: Electroly te Balance-N utritiona l Products cephalexin 500 mg tablet 6-13 00:00: 00 11-23 23:59 :00 No [id number] WOUND 1 tablet EVERY 8 HOURS 1 tablet EVERY 8 HOURS (route: oral) Med Classific ation: Anti-Infe ctive Agents calcitriol 0.25 mcg capsule 07-13 00:00: 00 Yes [id number] SUPPLEMENT 1 capsule DAILY 1 capsule DAILY (route: oral) Med Classific ation: Electroly te Balance-N utritiona l Products Eliquis 5 mg tablet 07-13 00:00: 00 Yes [id number] IRREGULAR HEARTBEAT 1 tablet EVERY 12 HOURS 1 tablet EVERY 12 HOURS (route: oral) Med Classific ation: Hematolog ical Agents pantoprazol e 40 mg tablet,biri yed release 1- 00:00: 00 07-13 00:00 :00 No [id number] Per instruc tions Per instructio ns (route: oral) Med Classific ation: Gastroint estinal Therapy Agents rosuvastati n 5 mg tablet 07-13 00:00: 00 Yes [id number] HIGH LIPIDS 1 tablet BEDTIME 1 tablet BEDTIME (route: oral) Med Classific ation: Cardiovas cular Therapy Agents lisinopril 10 mg tablet - 00:00: 00 Yes [id number] HIGH BLOOD PRESSURE 1 tablet DAILY 1 tablet DAILY (route: oral) Med Classific ation: Cardiovas cular Therapy Agents metronidazo le 250 mg tablet - 00:00: 00 07-13 00:00 :00 No [id number] Per instruc tions Per instructio ns (route: oral) Med Classific ation: Anti-Infe ctive Agents neomycin 500 mg tablet - 00:00: 00 07-13 00:00 :00 No [id number] Per instruc tions AT AT Per instructio ns AT AT (route: oral) Med Classific ation: Anti-Infe ctive Agents Nutrisource Fiber packet 07-13 00:00: 00 Yes [id number] SUPPLEMENT 1 packet DAILY 1 packet DAILY (route: oral) Med Classific ation: Gastroint estinal Therapy Agents Ozempic 0.25 mg or 0.5 mg (2 mg/3 mL) subcutaneou s pen injector 07-13 00:00: 00 Yes [id number] DIABETES 0.25 mg WEEKLY 0.25 mg WEEKLY (route: subcutaneo us) Med Classific ation: Endocrine pantoprazol e 20 mg tablet,brii yed release 07-13 00:00: 00 Yes [id number] GERD, PEPTIC ULCER DISEASE 1 tablet 2 TIMES DAILY 1 tablet 2 TIMES DAILY (route: oral) Med Classific ation: Gastroint estinal Therapy Agents thiamine HCl (vitamin B1) 100 mg tablet 07-13 00:00: 00 Yes [id number] SUPPLEMENT 1 tablet DAILY 1 tablet DAILY (route: oral) Med Classific ation: Electroly te Balance-N utritiona l Products Vital Signs Vital Name Observation Time Observation Value Commen ts Temperature 2024-08-14 09:07:00.000 97.3 [degF] Temperature 2024-08-09 10:34:00.000 97.2 [degF] Temperature 2024-08-08 12:00:00.000 97 [degF] Temperature 2024-08-02 12:01:00.000 97.7 [degF] Temperature 2024-08-01 11:15:00.000 96.8 [degF] Temperature 2024-07-25 10:32:00.000 98.2 [degF] Temperature 2024-07-25 09:03:00.000 97.1 [degF] Temperature 2024-07-18 10:52:00.000 98.4 [degF] Temperature 2024-07-16 12:56:00.000 97.2 [degF] Temperature 2024-07-13 11:39:00.000 97.4 [degF] BMI (%) 2024-07-13 11:16:32.000 28 kg/m2 Height 2024-07-13 11:16:18.000 66 [in_us] Pulse 2024-08-14 09:07:00.000 61 /min Pulse 2024-08-09 10:34:00.000 60 /min Pulse 2024-08-08 12:00:00.000 60 /min Pulse 2024-08-02 12:01:00.000 61 /min Pulse 2024-08-01 11:15:00.000 60 /min Pulse 2024-07-25 10:32:00.000 68 /min Pulse 2024-07-25 09:03:00.000 60 /min Pulse 2024-07-18 10:52:00.000 64 /min Pulse 2024-07-16 12:56:00.000 60 /min Pulse 2024-07-13 11:39:00.000 63 /min O2 Saturation (%) 2024-08-14 09:07:00.000 99 % O2 Saturation (%) 2024-08-09 10:34:00.000 98 % O2 Saturation (%) 2024-08-01 11:15:00.000 100 % O2 Saturation (%) 2024-07-25 10:33:00.000 97 % O2 Saturation (%) 2024-07-25 09:03:00.000 99 % O2 Saturation (%) 2024-07-16 12:56:00.000 99 % O2 Saturation (%) 2024-07-13 11:39:00.000 99 % Respirations 2024-08-14 09:07:00.000 17 /min Respirations 2024-08-09 10:34:00.000 17 /min Respirations 2024-08-08 12:00:00.000 17 /min Respirations 2024-08-02 12:01:00.000 17 /min Respirations 2024-08-01 11:15:00.000 18 /min Respirations 2024-07-25 10:32:00.000 17 /min Respirations 2024-07-25 09:03:00.000 16 /min Respirations 2024-07-18 10:52:00.000 16 /min Respirations 2024-07-16 12:56:00.000 17 /min Respirations 2024-07-13 11:39:00.000 18 /min Weight (lbs) 2024-08-14 09:11:00.000 171 [lb_av] Weight (lbs) 2024-08-02 12:11:00.000 170 [lb_av] Weight (lbs) 2024-07-25 10:32:00.000 187 [lb_av] Weight (lbs) 2024-07-13 11:16:32.000 179.1 [lb_av] Systolic Blood Pressure 2024-08-14 09:07:00.000 124 mm [Hg] Systolic Blood Pressure 2024-08-09 10:34:00.000 120 mm [Hg] Systolic Blood Pressure 2024-08-08 12:00:00.000 140 mm [Hg] Systolic Blood Pressure 2024-08-02 12:01:00.000 130 mm [Hg] Systolic Blood Pressure 2024-08-01 11:15:00.000 122 mm [Hg] Systolic Blood Pressure 2024-07-25 10:32:00.000 122 mm [Hg] Systolic Blood Pressure 2024-07-25 09:03:00.000 148 mm [Hg] Systolic Blood Pressure 2024-07-18 10:52:00.000 138 mm [Hg] Systolic Blood Pressure 2024-07-16 12:56:00.000 140 mm [Hg] Systolic Blood Pressure 2024-07-13 11:39:00.000 126 mm [Hg] Diastolic Blood Pressure 2024-08-14 09:07:00.000 60 mm [Hg] Diastolic Blood Pressure 2024-08-09 10:34:00.000 60 mm [Hg] Diastolic Blood Pressure 2024-08-08 12:00:00.000 64 mm [Hg] Diastolic Blood Pressure 2024-08-02 12:01:00.000 [...] CONSULTING PHYSICIANS. RN TO OBSERVE AND ASSESS, ALMOND PAN FINISHER/PRESS PULLER TO OBSERVE FOR RISK FOR FALLS AND INSTRUCT IN FALL PREVENTION, HOME SAFETY, MEDICATION MANAGEMENT, INFECTION PREVENTION, AND NUTRITION MANAGEMENT. RN/ALMOND PAN FINISHER/PRESS PULLER NURSE MAY PERFORM O2 SATURATION LEVEL ON ADMISSION AND PRN FOR RN TO ASSESS/ALMOND PAN FINISHER TO OBSERVE PATIENT, WITH NOTIFICATION TO THE PHYSICIAN IF SATURATION IS 90% IN THE ABSENCE OF MORE SPECIFIC PARAMETERS FROM THE PHYSICIAN. AGENCY MAY PERFORM A RESUMPTION OF CARE VISIT FOLLOWING ANY HOSPITAL ADMISSION. RN/ALMOND PAN FINISHER/PRESS PULLER TO MONITOR CO-MORBID CONDITIONS LISTED ON THE PLAN OF CARE AND ANY NEW CONDITIONS THAT PRESENT THEMSELVES DURING THIS EPISODE TO IDENTIFY CHANGES AND INTERVENE TO MINIMIZE COMPLICATIONS. [code = RN TO OBSERVE, ASSESS, EVALUATE, AND DEVELOP AN INDIVIDUALIZED PLAN OF CARE. AGENCY MAY ACCEPT ORDERS FROM CONSULTING PHYSICIANS. RN TO OBSERVE AND ASSESS, ALMOND PAN FINISHER/PRESS PULLER TO OBSERVE FOR RISK FOR FALLS AND INSTRUCT IN FALL PREVENTION, HOME SAFETY, MEDICATION MANAGEMENT, INFECTION PREVENTION, AND NUTRITION MANAGEMENT. RN/ALMOND PAN FINISHER/PRESS PULLER NURSE MAY PERFORM O2 SATURATION LEVEL ON ADMISSION AND PRN FOR RN TO ASSESS/ALMOND PAN FINISHER TO OBSERVE PATIENT, WITH NOTIFICATION TO THE PHYSICIAN IF SATURATION IS 90% IN THE ABSENCE OF MORE SPECIFIC PARAMETERS FROM THE PHYSICIAN. AGENCY MAY PERFORM A RESUMPTION OF CARE VISIT FOLLOWING ANY HOSPITAL ADMISSION. RN/ALMOND PAN FINISHER/PRESS PULLER TO MONITOR CO-MORBID CONDITIONS LISTED ON THE PLAN OF CARE AND ANY NEW CONDITIONS THAT PRESENT THEMSELVES DURING THIS EPISODE TO IDENTIFY CHANGES AND INTERVENE TO MINIMIZE COMPLICATIONS.] Future Scheduled Test MEDICATION MANAGEMENT; RN/ALMOND PAN FINISHER/PRESS PULLER TO REVIEW MEDICATIONS FOR INTERACTIONS, EFFECTIVENESS OF DRUG THERAPY, AND SIGNS/SYMPTOMS OF ADVERSE REACTIONS. MAY INSTRUCT AND REINFORCE MEDICATION TEACHING RELATED TO THE USE OF MEDICATIONS, DOSAGE, FREQUENCY, PURPOSE, SIDE EFFECTS, AND TO REPORT COMPLICATIONS. [code = MEDICATION MANAGEMENT; RN/ALMOND PAN FINISHER/PRESS PULLER TO REVIEW MEDICATIONS FOR INTERACTIONS, EFFECTIVENESS OF DRUG THERAPY, AND SIGNS/SYMPTOMS OF ADVERSE REACTIONS. MAY INSTRUCT AND REINFORCE MEDICATION TEACHING RELATED TO THE USE OF MEDICATIONS, DOSAGE, FREQUENCY, PURPOSE, SIDE EFFECTS, AND TO REPORT COMPLICATIONS.] Future Scheduled Test RISK FOR H OSPITALIZATION; RN TO ASSESS/TEACH, PRESS PULLER/ALMOND PAN FINISHER TO OBSERVE/TEACH PATIENT/CAREGIVER ON RISK FOR HOSPITALIZATION/EMERGENCY ROOM VISITS, TEACH SIGNS AND SYMPTOMS THAT PUT PATIENT AT RISK, WHEN TO NOTIFY NURSE/PHYSICIAN OF COMPLICATIONS/DECLINE, AND WHEN TO CALL 911. [code = RISK FOR HOSPITALIZATION; RN TO ASSESS/TEACH, PRESS PULLER/ALMOND PAN FINISHER TO OBSERVE/TEACH PATIENT/CAREGIVER ON RISK FOR HOSPITALIZATION/EMERGENCY ROOM VISITS, TEACH SIGNS AND SYMPTOMS THAT PUT PATIENT AT RISK, WHEN TO NOTIFY NURSE/PHYSICIAN OF COMPLICATIONS/DECLINE, AND WHEN TO CALL 911.] Future Scheduled Test CARDIOVASC ULAR SYSTEM; RN TO ASSESS/TEACH, ALMOND PAN FINISHER/PRESS PULLER TO OBSERVE/TEACH RELATED TO ALTERED CARDIOVASCULAR STATUS TO MINIMIZE COMPLICATIONS AND REDUCE HOSPITALIZATION. [code = CARDIOVASCULAR SYSTEM; RN TO ASSESS/TEACH, ALMOND PAN FINISHER/PRESS PULLER TO OBSERVE/TEACH RELATED TO ALTERED CARDIOVASCULAR STATUS TO MINIMIZE COMPLICATIONS AND REDUCE HOSPITALIZATION.] Future Scheduled Test PACEMAKER MANAGEMENT; RN/ALMOND PAN FINISHER/PRESS PULLER TO PROVIDE SKILLED TEACHING AND ASSIST WITH MANAGEMENT OF PACEMAKER. NEWLY PLACED 06/22/24 [code = PACEMAKER MANAGEMENT; RN/ALMOND PAN FINISHER/PRESS PULLER TO PROVIDE SKILLED TEACHING AND ASSIST WITH MANAGEMENT OF PACEMAKER. NEWLY PLACED 06/22/24] Future Scheduled Test HYPERTENSI ON MANAGEMENT; RN TO ASSESS AND TEACH, ALMOND PAN FINISHER/PRESS PULLER TO OBSERVE AND TEACH WARNING SIGNS AND SYMPTOMS TO AVOID HOSPITALIZATION. [code = HYPERTENSION MANAGEMENT; RN TO ASSESS AND TEACH, ALMOND PAN FINISHER/PRESS PULLER TO OBSERVE AND TEACH WARNING SIGNS AND SYMPTOMS TO AVOID HOSPITALIZATION.] Future Scheduled Test ARRHYTHMIA MANAGEMENT; RN TO ASSESS AND TEACH, ALMOND PAN FINISHER/PRESS PULLER TO OBSERVE AND TEACH WARNING SIGNS AND SYMPTOMS TO AVOID HOSPITALIZATION. [code = ARRHYTHMIA MANAGEMENT; RN TO ASSESS AND TEACH, ALMOND PAN FINISHER/PRESS PULLER TO OBSERVE AND TEACH WARNING SIGNS AND SYMPTOMS TO AVOID HOSPITALIZATION.] Future Scheduled Test HEART FAIL URE; RN TO ASSESS/TEACH, ALMOND PAN FINISHER/PRESS PULLER TO OBSERVE/TEACH CARDIOPULMONARY SYSTEM TO IDENTIFY SIGNS [...] [code = HEART FAILURE; RN TO ASSESS/TEACH, ALMOND PAN FINISHER/PRESS PULLER TO OBSERVE/TEACH CARDIOPULMONARY SYSTEM TO IDENTIFY SIGNS [...] SYSTEM MANAGEMENT; RN TO ASSESS AND TEACH, ALMOND PAN FINISHER/PRESS PULLER TO OBSERVE AND TEACH RELATED TO ALTERED RESPIRATORY STATUS TO MINIMIZE COMPLICATIONS AND REDUCE HOSPITALIZATION. CHRONIC RT PLEURAL EFFUSION [code = RESPIRATORY SYSTEM MANAGEMENT; RN TO ASSESS AND TEACH, ALMOND PAN FINISHER/PRESS PULLER TO OBSERVE AND TEACH RELATED TO ALTERED RESPIRATORY STATUS TO MINIMIZE COMPLICATIONS AND REDUCE HOSPITALIZATION. CHRONIC RT PLEURAL EFFUSION] Future Scheduled Test SKIN INTEG RITY RN TO ASSESS AND TEACH, ALMOND PAN FINISHER/PRESS PULLER TO OBSERVE AND TEACH INTEGUMENTARY STATUS TO IDENTIFY CHANGES AND INTERVENE TO MINIMIZE COMPLICATIONS. PROVIDE SKILLED TEACHING OF GENERAL WOUND AND SKIN CARE AND PREVENTION RELATED TO ACTUAL ALTERED SKIN INTEGRITY [code = SKIN INTEGRITY RN TO ASSESS AND TEACH, ALMOND PAN FINISHER/PRESS PULLER TO OBSERVE AND TEACH INTEGUMENTARY STATUS TO IDENTIFY CHANGES AND INTERVENE TO MINIMIZE COMPLICATIONS. PROVIDE SKILLED TEACHING OF GENERAL WOUND AND SKIN CARE AND PREVENTION RELATED TO ACTUAL ALTERED SKIN INTEGRITY ] Future Scheduled Test RN/ALMOND PAN FINISHER/PRESS PULLER TO PERFORM/TEACH INCISION CARE TO ABDOMINAL INCISION AREA: MONITOR INCIDION FOR SX OF INFECTION: REDNESS, WARMTH, DEHISCENCE AND DRAINAGE. NOTIFY DR LUNSFORD IMMEDIATELY [phone] [code = RN/ALMOND PAN FINISHER/PRESS PULLER TO PERFORM/TEACH INCISION CARE TO ABDOMINAL INCISION AREA: MONITOR INCIDION FOR SX OF INFECTION: REDNESS, WARMTH, DEHISCENCE AND DRAINAGE. NOTIFY DR LUNSFORD IMMEDIATELY [phone]] Future Scheduled Test PAIN MANAG EMENT; RN TO ASSESS AND TEACH, PRESS PULLER/ALMOND PAN FINISHER TO OBSERVE AND TEACH AND PROVIDE EDUCATION ON PAIN MANAGEMENT TECHNIQUES. [code = PAIN MANAGEMENT; RN TO ASSESS AND TEACH, PRESS PULLER/ALMOND PAN FINISHER TO OBSERVE AND TEACH AND PROVIDE EDUCATION ON PAIN MANAGEMENT TECHNIQUES.] Future Scheduled Test DIABETES M ANAGEMENT; RN TO ASSESS AND TEACH, PRESS PULLER/ALMOND PAN FINISHER TO OBSERVE AND TEACH INSTRUCTIONS OF DIABETIC CARE TO INCLUDE: DIET CCHO, HEART HEALTHY, LOW POTASSIUM SKIN CARE, SIGNS AND SYMPTOMS OF HYPO/HYPERGLYCEMIA, PROPER ADMINISTRATION OF DIABETIC MEDICATION. RN/PRESS PULLER/ALMOND PAN FINISHER TO INSTRUCT ON DIABETIC FOOT CARE AND MONITOR FOR SKIN LESIONS ON LOWER EXTREMITIES. BLOOD GLUCOSE TESTING DAILY. RN TO ASSESS AND TEACH, PRESS PULLER/ALMOND PAN FINISHER TO OBSERVE AND TEACH PATIENT/CAREGIVER ABILITY TO PERFORM AND RECORD BLOOD GLUCOSE TESTING ORDERED AND TO REPORT ABNORMAL FINDINGS TO PHYSICIAN. RN/PRESS PULLER/ALMOND PAN FINISHER MAY PERFORM BLOOD GLUCOSE TEST NEEDED. RN/PRESS PULLER/ALMOND PAN FINISHER TO REPORT TO PHYSICIAN BLOOD GLUCOSE READINGS GREATER THAN 200 OR LESS THAN 80 RN/PRESS PULLER/ALMOND PAN FINISHER TO INSTRUCT PATIENT ON IMPORTANCE OF HGBA1C MONITORING, KIDNEY FUNCTION TEST, EYE AND FOOT EXAMS. [code = DIABETES MANAGEMENT; RN TO ASSESS AND TEACH, PRESS PULLER/ALMOND PAN FINISHER TO OBSERVE AND TEACH INSTRUCTIONS OF DIABETIC CARE TO INCLUDE: DIET CCHO, HEART HEALTHY, LOW POTASSIUM SKIN CARE, SIGNS AND SYMPTOMS OF HYPO/HYPERGLYCEMIA, PROPER ADMINISTRATION OF DIABETIC MEDICATION. RN/PRESS PULLER/ALMOND PAN FINISHER TO INSTRUCT ON DIABETIC FOOT CARE AND MONITOR FOR SKIN LESIONS ON LOWER EXTREMITIES. BLOOD GLUCOSE TESTING DAILY. RN TO ASSESS AND TEACH, PRESS PULLER/ALMOND PAN FINISHER TO OBSERVE AND TEACH PATIENT/CAREGIVER ABILITY TO PERFORM AND RECORD BLOOD GLUCOSE TESTING ORDERED AND TO REPORT ABNORMAL FINDINGS TO PHYSICIAN. RN/PRESS PULLER/ALMOND PAN FINISHER MAY PERFORM BLOOD GLUCOSE TEST NEEDED. RN/PRESS PULLER/ALMOND PAN FINISHER TO REPORT TO PHYSICIAN BLOOD GLUCOSE READINGS GREATER THAN 200 OR LESS THAN 80 RN/PRESS PULLER/ALMOND PAN FINISHER TO INSTRUCT PATIENT ON IMPORTANCE OF HGBA1C MONITORING, KIDNEY FUNCTION TEST, EYE AND FOOT EXAMS.] Future Scheduled Test CANCER MAN AGEMENT; RN TO ASSESS AND TEACH, PRESS PULLER/ALMOND PAN FINISHER TO OBSERVE AND TEACH AND PROVIDE EDUCATION ON CANCER. [code = CANCER MANAGEMENT; RN TO ASSESS AND TEACH, PRESS PULLER/ALMOND PAN FINISHER TO OBSERVE AND TEACH AND PROVIDE EDUCATION ON CANCER.] Future Scheduled Test FALL REDUC TION MANAGEMENT; RN TO ASSESS AND OBSERVE, ALMOND PAN FINISHER/PRESS PULLER TO OBSERVE FALL RISK FACTORS AND EDUCATE PATIENT/CAREGIVER ON STRATEGIES TO MINIMIZE THE RISK OF FALLING. [code = FALL REDUCTION MANAGEMENT; RN TO ASSESS AND OBSERVE, ALMOND PAN FINISHER/PRESS PULLER TO OBSERVE FALL RISK FACTORS AND EDUCATE PATIENT/CAREGIVER ON STRATEGIES TO MINIMIZE THE RISK OF FALLING.] Future Scheduled Test AGENCY MAY PERFORM A RESUMPTION OF CARE VISIT FOLLOWING ANY HOSPITAL ADMISSION. PT TO EVALUATE, OBSERVE / ASSESS, AND MONITOR, VETERINARIAN POULTRY TO OBSERVE AND MONITOR, PROVIDE SKILLED THERAPEUTIC INTERVENTION, ACTIVITY, EDUCATION, AND TRAINING TO ADDRESS; PT/VETERINARIAN POULTRY TO PROVIDE GAIT TRAINING FOR IMPROVED MOBILITY AND /OR TO NORMALIZE GAIT PATTERN NEUROMUSCULAR RE-EDUCATION / BALANCE / POSTURAL CONTROL (PT) THERAPEUTIC EXERCISES AND ESTABLISHING A HOME EXERCISE PROGRAM (PT/VETERINARIAN POULTRY) PT/VETERINARIAN POULTRY TO PROVIDE STAIR TRAINING SIT TO/FROM STAND TRANSFERS (PT/VETERINARIAN POULTRY) PT / VETERINARIAN POULTRY TO MONITOR AND EDUCATE ON OXYGEN SATURATION DURING ADLS/IADLS, NOTIFY PHYSICIAN AND/OR THE RN CLINICAL HYDRAULIC ENGINEER FOR PHYSICIAN NOTIFICATION AND IF O2 SATS BELOW PHYSICIAN ORDERED PARAMETERS AFTER 10 MIN OF REST PT / VETERINARIAN POULTRY MAY EDUCATE ON PAIN MANAGEMENT CLINICALLY INDICATED, INCLUDING NON-PHARMACOLOGICAL PAIN REDUCTION TECHNIQUES [code = AGENCY MAY PERFORM A RESUMPTION OF CARE VISIT FOLLOWING ANY HOSPITAL ADMISSION. PT TO EVALUATE, OBSERVE / ASSESS, AND MONITOR, VETERINARIAN POULTRY TO OBSERVE AND MONITOR, PROVIDE SKILLED THERAPEUTIC INTERVENTION, ACTIVITY, EDUCATION, AND TRAINING TO ADDRESS; PT/VETERINARIAN POULTRY TO PROVIDE GAIT TRAINING FOR IMPROVED MOBILITY AND /OR TO NORMALIZE GAIT PATTERN NEUROMUSCULAR RE-EDUCATION / BALANCE / POSTURAL CONTROL (PT) THERAPEUTIC EXERCISES AND ESTABLISHING A HOME EXERCISE PROGRAM (PT/VETERINARIAN POULTRY) PT/VETERINARIAN POULTRY TO PROVIDE STAIR TRAINING SIT TO/FROM STAND TRANSFERS (PT/VETERINARIAN POULTRY) PT / VETERINARIAN POULTRY TO MONITOR AND EDUCATE ON OXYGEN SATURATION DURING ADLS/IADLS, NOTIFY PHYSICIAN AND/OR THE RN CLINICAL HYDRAULIC ENGINEER FOR PHYSICIAN NOTIFICATION AND IF O2 SATS BELOW PHYSICIAN ORDERED PARAMETERS AFTER 10 MIN OF REST PT / VETERINARIAN POULTRY MAY EDUCATE ON PAIN MANAGEMENT CLINICALLY INDICATED, [...] WALK INDOORS INDEPENDENT INTO ORDER TO ACCESS [facility] HOME AND TRANSPORTATION WITHIN 9 WEEKS [...] End Date/Time Encounter Type Admission Type Attending Clinicians Care Facility Care Department Encounter ID Discharge Date Discharge Status Discharge Condition Discharge Reason Percent Goals Met 2024-07-13 00:00:00 2024-09-10 00:00:00 Outpatient AMIE CARRERO [facility] [id number]
--- OUTSIDE RECORDS SUMMARY | 2024-08-15 17:23 | XMS_ITS | Clinical Summary ---
Author Organization [facility] Address [address] [place] [address] Care Team Providers Care Monkey Breeder Name Role Phone Brandi Eisenberg PA-C Primary Care Provider [phone] Source Comments PLEASE NOTE, if this patient [...] complication, without long-term current use of insulin ([facility]) 2 (two) times daily Freestyle lite [...] tated patient,Unintende d weight loss,Paroxysmal atrial fibrillation ([facility]) by miscellaneous route once daily Standard wheelchair, disp1,lifetime need, dx weakness s/p surgery, atrial fibrillation, anemia 1 Each 09/16/19 22 Active triamcinolone acetonide (KENALOG) 0.1 % creamIndications: Atopic dermatitis, unspecified type Apply topically once daily Combine with Eucerin Eczema Relief Cream 80 g 1 10/21/19 22 Active FREESTYLE LANCETS 28 gaugeIndications: Type 2 diabetes mellitus without complication, without long-term current use of insulin ([facility]) USE TO TEST ONCE DAILY 100 Each [...] complication, without long-term current use of insulin ([facility]) TAKE 1 TABLET BY MOUTH EVERY NIGHT [...] of Pleurx catheter- bronchoscopy with aspiration - [facility] CYTOPATHOLOGY REPORT Date: 10/25/2023 report: Pleural [...] for but not diagnostic of mesothelioma, WT1-positive, [id number], calretinin- positive, [id number]-7-ypzzsioa. Impression/recommendation: The patient is a 73-year-old gentleman [...] August 04, 2021 9:06 EST Verified by: Kirsten Gibbons MD on August 04, 2021 9:06 EST Encounter info: [id number], [facility], Disch IP, 07/27/2021 - 08/16/2021 Contributor system: MommyCoach Echo Complete-Doppler, Colorflow, M-Mode Transthoracic Echocardiography Report (TTE) Patient Demographics Patient Name VIOLETTA, Date of Study 08/04/2021 [employer] Gender Male Facility Race Ethnicity Date of 1950 Height: 65.75 inches Age 70 year(s) Weight: 231.49 pounds Accession Number [id number] BSA: 2.12 m2 Room Number SW62 BMI: 37.65 kg/m2 Referring Physician Chadwick Gracia Interpreting Kirsten Gibbons MD, MD Physician [employer] Dia Hannah [facility] Indications Atrial fibrillation. Clinical History Atrial fibrillation. Abnormal EKG. Hx of COVID Hypertension. Obesity Study Data Type of Study TTE procedure:Echo Complete-(Doppler, Colorflow) with Contrast. Procedure Information:Definity was administered by Paul WILLSON Study Date08/04/2021 Start Time: 09:06 AM Study Location: [facility] Adult Echo Study Status: Bedside Patient Status: [...] of superior mesent rj artery (HCC-CMS) 07/2021 [facility] 08/26/2021 Paroxysmal atrial fibrillation ([facility]CC-CMS) 08/202108/10/2021 Non [...] on July 05, 2017 9:49 Encounter info: [id number], [facility], One Time OP, 07/05/2017 - * Final [...] Clinical correlation recommended. Normal right kidney. A Friendship message has been communicated via the Nostalgia Bingo system on 07/05/2017 9:43 AM, Message ID [id number]. I have personally reviewed the images and I agree with this report. WSN: [id number] Signature Line Dictated By: Deonte Henderson MD Dictated Date/Time: 07/05/17 9:44 am Reviewed By: Chico Villagran MD Signed By: Chico Villagran MD Signed Date/Time: 07/05/17 9:49 am Transcribed By: DESTINI Transcribed Date/Time: 07/05/17 9:44 am US Retroperitoneum Comp This document has an image CKD (chronic kidney disease) stage 3, GFR 30-59 ml/min ([facility]) 06/08/2017 Hyperlipidemia, mixed 03/11/2015 TONI (obstructive sleep apnea) 05/10/2014 Overview (05/10/2014): Result type: Polysomnogram with CPAP Result date: 07 May 2014 17:40 Result status: Auth (Verified) Result title: Polysomnogram W/ CPAP Performed by: Matt Carmen MD on 07 May 2014 17:40 Verified by: Matt Carmen MD on 07 May 2014 19:39 Encounter info: [id number], [facility], One Time OP, 04/29/2014 - 04/29/2014 Contributor system: NUANCE * Final Report * Polysomnogram W/ CPAP (Verified) POLYSOMNOGRAM DATE:04/29/2014 [facility] SLEEP PROGRAM [facility] Accredited by the [place] [employer] CPAP STUDY Referring Provider: Mtat Carmen M.D. Date of Study: 04/29/2014 Order ID: [id number] INTRODUCTION: This 63 year-old male with hypertension, [...] of 5.4/hr, and lowest oxygenation of 85%. [place] sleepiness scale is 10/24. (Height: 5' 6 , Weight: 217.0 lbs, BMI: 35.3.) MASK TYPE: Standard/FX Nasal. MEDICATIONS: Sertraline, Naproxen, Metformin, Lisinopril, HCTZ, Amlodipine. DESCRIPTION: This overnight polysomnogram was done utilizing a [employer] digital polysomnograph machine. Four channels of EEG [...] I will order PAP from [facility]. 2. Patient should sleep in non-supine [...] Transcribed: 05/07/2014 18:37:55 Transcribed by: JANNETTE DocID: [id number] CC:Matt Carmen M.D. [facility] , Brandi Eisenberg [address], [address] DJD (degenerative joint disease) 03/29/2014 Major depressive disorder, r ecurrent episode, moderate ([facility]) 01/11/2014 Essential hypertension, benign 06/05/2013 Left great saphenous vein reflux 06/05/2013 Diabetes mellitus type 2, uncomplicated ([facility] ) 02/28/2013 Immunizations Name Administration Dates Next [...] 01/19/2024 07/21/2023, 07/07, 07/20/2023, Additional history exists Mar-RLITC-02 ( season) 2024 FIT/gFOBT 03/06/2024 03/06/2023, 07/08 [...] REFERRAL SCANNED DOCUMENT 06/08/2024 3:00 AM EST COMPREHENSIVE METABOLIC PANEL Routine 01/05/2024 10:54 AM EDT Bradycardia LIPID PANEL Routine 07/20/2023 10:37 AM EST Type 2 diabetes mellitus without complication, without long-term current use of insulin ([facility]) Essential hypertension, benign Stage 3 chronic kidney disease, unspecified whether stage 3a or 3b CKD ([facility]) Hyperlipidemia, mixed Paroxysmal atrial fibrillation ([facility]) 08/2021 Pleural effusion HEMOGLOBIN GLYCOSYLATED A1C Routine 07/20/2023 10:37 AM EST Type 2 diabetes mellitus without complication, without long-term current use of insulin ([facility]) Essential hypertension, benign Stage 3 chronic kidney disease, unspecified whether stage 3a or 3b CKD ([facility]) Hyperlipidemia, mixed Paroxysmal atrial fibrillation ([facility]) 08/2021 Pleural effusion COLOGUARD Routine 03/06/2023 3:00 AM EDT Colon cancer screening EYE EXAM 12/24/2022 3:00 AM EDT MICROALBUMIN/CREATINI NE RATIO, URINE, RANDOM Routine 10/27/2022 9:09 AM EDT Type 2 diabetes mellitus without complication, without long-term current use of insulin ([facility]) Essential hypertension, benign Hyperlipidemia, mixed Stage 3 chronic kidney disease, unspecified whether stage 3a or 3b CKD ([facility]) Paroxysmal atrial fibrillation ([facility]) 08/2021 Leg edema PUD (peptic ulcer disease) HEPATITIS A,B,C PANEL Routine 05/10/2014 5:45 PM EST Diabetes mellitus, type II from Last 3 Months or Most Recently Relevant to Health Maintenance Results * REFERRAL TO UROLOGY (06/19/2024 3:00 AM EST) 06/19/2024 3:00 AM EST us Brandi Eisenberg PA-C REFERRAL Final Result * REFERRAL SCANNED DOCUMENT (06/08/2024 3:00 AM EST) 06/08/2024 3:00 AM EST us Brandi Eisenberg PA-C SCAN REFERRAL Final Result * (ABNORMAL) COMPREHENSIVE METABOLIC PANEL (01/05/2024 10:54 AM EDT) GLUCOSE 160(H) 65 - 139 mg/dL [employer] [facility] Comment: ?Non-fasting reference interval UREA NITROGEN (BUN) 42(H) 7 - 25 mg/dL [employer] CREATININE (blood) 2.16(H) 0.70 - 1.28 mg/dL [employer] EGFR 31(L) > OR = 60 mL/min/1. 73m2 [employer] BUN/CREATININE RATIO 19 6 - 22 (calc) [facility] SODIUM 136 135 - 146 mmol/L [facility] POTASSIUM 5.2 3.5 - 5.3 mmol/L [facility] CHLORIDE 107 98 - 110 mmol/L [facility] CARBON DIOXIDE 22 20 - 32 mmol/L [facility] CALCIUM 8.8 8.6 - 10.3 mg/dL [facility] PROTEIN, TOTAL 7.5 6.1 - 8.1 g/dL [facility] ALBUMIN 3.6 3.6 - 5.1 g/dL [facility] GLOBULIN 3.9(H) 1.9 - 3.7 g/dL (calc) [facility] ALBUMIN/GLOBULI N RATIO 0.9(L) 1.0 - 2.5 (calc) [facility] BILIRUBIN, TOTAL 0.6 0.2 - 1.2 mg/dL [facility] ALKALINE PHOSPHATASE 75 35 - 144 U/L [facility] AST 12 10 - 35 U/L [facility] ALT 8(L) 9 - 46 U/L [facility] Blood Blood / Unknown 01/05/2024 1 0:54 AM EDT 01/05/2024 10:54 AM EDT Narrative [employer] [facility] - 01/06/2024 3:53 AM EDT FASTING:NO us Justin Malloy PA-C LAB - BLOOD DRAW Final Result [facility] [address] [address], [facility] [address] [address] * (ABNORMAL) HEMOGLOBIN GLYCOSYLATED A1C (07/20/2023 10:37 AM EST) HEMOGLOBIN A1C 6.2(H) <5.7 % of total Hgb [facility] Comment: For someone without known diabetes, a [...] AM EST 07/20/2023 10:40 AM EST Narrative [facility] - 07/21/2023 9:20 AM EST FASTING:YES PATIENT REFUSED SOME TESTING; PATIENT ENCOURAGED TO RETURN. us Brandi Eisenberg PA-C LAB - BLOOD DRAW Final Resul t [facility] [address] [place] [address], [facility] [address] [address] * (ABNORMAL) LIPID PANEL (07/20/2023 10:37 AM EST) [facility] CHOLESTEROL, TOTAL 92 <200 mg/dL [employer] [facility] HDL CHOLESTEROL 28(L) > OR = 40 mg/dL [employer] TRIGLYCERIDES 101 <150 mg/dL [employer] LDL-CHOLESTEROL 46 99 mg/dL (calc) [employer] Comment: Reference range: <100 Desirable range <100 mg/dL for primary prevention; ?? <70 mg/dL for patients with CHD or diabetic patients with > or = 2 CHD risk factors. LDL-C is now calculated using the Neal-Zach calculation, which is a validated novel method providing better accuracy than the Friedewald equation in the estimation of LDL-C. Neal SS et al. [place]. 2013;310(19): 4406-3443 (http://education.[employer]/faq/WLS471) CHOL/HDLC RATIO 3.3 <5.0 (calc) [facility] NON-HDL CHOLESTEROL 64 <130 mg/dL (calc) [employer] Comment: For patients with diabetes plus 1 major ASCVD risk factor, treating to a non-HDL-C goal of <100 mg/dL (LDL-C of <70 mg/dL) is considered a therapeutic option. Blood Blood / Unknown 07/20/2023 1 0:37 AM EST 07/20/2023 10:40 AM EST Narrative [facility] - 07/21/2023 9:20 AM EST FASTING:YES PATIENT REFUSED SOME TESTING; PATIENT ENCOURAGED TO RETURN. us Brandi Eisenberg PA-C LAB - BLOOD DRAW Final Resul t [facility] [place] [facility] [address] [address], [facility] [address] [place] [address] * COLOGUARD (03/06/2023 3:00 AM EDT) Stool Stool specimen / Unknown 03/06/2023 3:00 AM EDT Brandi Eisenberg PA-C LAB - NO BLOOD DRAW Edited R esult - Final Performing Organization Address City/[facility] Co de Phone Number [employer] [address] [place] [address] [id number] [place] [address], * EYE EXAM (12/24/2022 3:00 AM EDT) 12/24/2022 3:00 AM EDT Brandi Sotomayor ICE HOCKEY COACH OTHER Final Result * (ABNORMAL) MICROALBUMIN/CREATININE RATIO, URINE, RANDOM (10/27/2022 9:09 AM EDT) CREATININE, RANDOM URINE 62 20 - 320 mg/dL [employer] [facility] MICROALBUMIN 26.5 mg/dL [employer] [facility] Comment: Reference Range Not established MICROALBUMIN/CREA TININE RATIO, RANDOM URINE 427(H) <30 mcg/mg creat [employer] [facility] Comment: The ADA defines abnormalities in albumin [...] AM EDT 10/27/2022 9:13 AM EDT Narrative [facility] - 10/27/2022 9:27 PM EDT FASTING:YES Brandi Eisenberg PA-C LAB - NO BLOOD DRAW Final Re sult Performing Organization Address City/[facility]/ZIP Co de Phone Number [facility] [address] [address], [facility] [address] [place] [address] * (ABNORMAL) HEPATITIS A,B,C PANEL (05/10/2014 5:45 PM EST) HEPATITIS B SURFACE ANTIBODY POSITIVE(A) NEGATIVE [facility] HEPATITIS B SURFACE ANTIGEN NEGATIVE NEGATIVE [facility] HEPATITIS C VIRUS ANTIBODY NEGATIVE NEGATIVE [facility] HEPATITIS B CORE ANTIBODY NEGATIVE NEGATIVE [facility] HEPATITIS A ANTIBODY TOTAL POSITIVE(A) NEGATIVE [facility] Blood specimen (specimen) Blood / Unknown 05/10/2014 5:45 PM EST 05/10/2014 6:11 PM EST Narrative [facility] - 05/11/2014 5:12 PM EST [employer] [address] [place] [address] [place] [id number] ORD# [id number] Brandi Eisenberg PA-C LAB - BLOOD DRAW Edited Resu lt - Final Performing Organization Address [facility] Co de Phone Number [facility] [address] [place] [address], from Last 3 Months or Most Recently Relevant to Health Maintenance [place] - [place] Care Teams Monkey Breeder Relationship Specialty Start Date End Date Brandi Eisenberg PA-C [address] [place] [phone] PCP - General 02/28/13
--- OUTSIDE RECORDS SUMMARY | 2024-08-15 17:23 | XMS_ITS | Clinical Summary ---
Author Organization [facility] Address [address] [place] [address] Phone Care Team Providers Care Yarder Engineer Name Role Phone Brandi Eisenberg PA-C Primary Care Provider [phone] Allergies No known active allergies Medications metoprolol [...] on 07 May 2014 19:39 Encounter info: [id number], [facility], One Time OP, 04/29/2014 - 04/29/2014 Contributor system: NUANCE * Final Report * Polysomnogram W/ CPAP (Verified) POLYSOMNOGRAM DATE:04/29/2014 [facility] SLEEP PROGRAM [facility] Accredited by the [place] [employer] CPAP STUDY Referring Provider: Matt Carmen M.D. Date of Study: 04/29/2014 Order ID: [id number] INTRODUCTION: This 63 year-old male with hypertension, [...] of 5.4/hr, and lowest oxygenation of 85%. [place] sleepiness scale is 10/24. (Height: 5' 6 , Weight: 217.0 lbs, BMI: 35.3.) MASK TYPE: Standard/FX Nasal. MEDICATIONS: Sertraline, Naproxen, Metformin, Lisinopril, HCTZ, Amlodipine. DESCRIPTION: This overnight polysomnogram was done utilizing a [employer] digital polysomnograph machine. Four channels of EEG [...] results, then I will order PAP from [facility]. 2. Patient should sleep in non-supine [...] Transcribed: 05/07/2014 18:37:55 Transcribed by: JANNETTE DocID: [id number] CC:Matt Carmen M.D. [facility] , Brandi Eisenberg [address], [address] Osteoarthritis 03/29/2014 06/23/2021 Recurrent major depressive episodes, [...] [place] Care Teams Yarder Engineer Relationship Specialty Start Date End Date Brandi Eisenberg PA-C [address] [place] [phone] PCP - General 06/16/20
--- OUTSIDE RECORDS SUMMARY | 2024-08-15 17:23 | XMS_ITS | Clinical Summary ---
Author Organization [facility] Address [address] [place] [phone] Phone Care Team Providers Care Route Relief Driver Name Role Phone Brandi Eisenberg Primary Care Provider [phone] Allergies No known active allergies Medications apixaban [...] Encounters Date Type Department Care Team Description 08/09/2024 11:45 AM EST Office Visit [facility] Hematology Oncology [address] [place] [address] Rory Carmen MD from Last 3 Months Social History Tobacco [...] 10:39 AM EDT Sitting Left arm Pulse 59 08/09/2024 11:55 AM EST Temperature 36.4 ??C (97.6 ??F) 08/09/2024 1 1:55 AM EST Respiratory Rate - - Oxygen Saturation 100% 08/09/2024 11: 55 AM EST Inhaled Oxygen Concentration - - Weight 77.6 kg (171 lb) 08/09/2024 11:5 5 AM EST Height 167.6 cm (5' 6 ) 02/01/2024 3:03 PM EDT Body Mass Index 27.6 02/01/2024 3:03 PM EDT Plan of Treatment [...] Screening 05/04/2022 Influenza Vaccine (#1) 2024 Diabetes: Blood Sugar Control Test (HGBA1C) 05/09/2024 07/21/2023, 07/20/2023 Depression Screening 04/23/2025 04/23/2024 Diabetes: Annual GFR (Glomerular Filtration Rate) 06/12/2025 06/12/2024, 01/06/2024, 01/05/2024 Hypertension/CHF/CAD Annual BMP Blood Test 06/12/2025 06/12/2024, 01/06/2024, 01/05/2024 Diabetes: Annual Urine Albumin-Creatinine Ratio (uACR) 07/08/2025 07/08/2024, 06/24/2024, 06/24/2024, Additional history exists Colorectal Cancer Screening: FIT-DNA (Cologuard) 04/05/2026 04/05/2023, 03/06/2023 Cholesterol Screening (Lipid Panel) 06/20/2029 06/20/2024, 07/21/2023, 07/20/2023, Additional history exists Pneumococcal Vaccine: 50+ [...] Recently Relevant to Health Maintenance Results * Hemoglobin A1c (07/21/2023) Pathologist [facility] Hemoglobin A1C 0.0 % Comment:no interpretation, a bstracted Blood Venous blood specimen / Unknown [facility] Provider LAB BLOOD ORDERABLES Dorothy l Result * Lipid panel (07/21/2023) [facility] LDL/HDL Ratio 0 Comment:no interpretation, a bstracted Triglycerides 0 mg/dL Comment:no interpretation, a bstracted Cholesterol 0 mg/dL Comment:no interpretation, a bstracted HDL 0 mg/dL Comment:no interpretation, a bstracted LDL Cholesterol 0 mg/dL Comment:no interpretation, a bstracted Blood Venous blood specimen / Unknown [facility] Provider LAB BLOOD ORDERABLES Dorothy l Result * FIT-DNA (Cologuard) (04/05/2023) [facility] Colorectal Cancer Screening: FIT-DNA (Cologuard) no interpretation , abstracted [facility] Provider HEALTH MAINTENANCE Final Result from Last 3 Months or Most Recently Relevant to Health Maintenance Insurance MEDICARE MEDICAID - [place] Care Teams Route Relief Driver Relationship Specialty Start Date End Date Brandi Eisenberg PA [address] [place] [address] PCP - General 11/23/23
--- OUTSIDE RECORDS SUMMARY | 2024-08-15 17:23 | XMS_ITS | Clinical Summary ---
Author Organization [facility] Address [address] [place] [address] Care Team Providers Care Gas Meter Repair Supervisor Name Role Phone Brandi Eisenberg PA-C Primary Care Provider Allergies No known active allergies Medications Medication [...] age to complete this topic Care Teams Gas Meter Repair Supervisor Relationship Specialty Start Date End Date Brandi Eisenberg PA-C [address] [place] [address] PCP - General Physician Vice President Of Communications 11/23/23
--- OUTSIDE RECORDS SUMMARY | 2024-08-15 17:23 | XMS_ITS | Encounter Summary ---
Author Organization [facility] [place] [address] Care Team Providers Care Road Contractor Name Role Phone Brandi Eisenberg Primary Care Provider [phone] Reason for Visit * Reason Comments Follow-up Encounter Details Date Type Department Care Team (Late st Contact Info) Description 08/09/2024 11:45 AM EST Office Visit [facility] Hematology Oncology [address] [place] [address] Rory Carmen MD [address] [place] [address] Social History Tobacco Use Types Packs/Day Years [...] on file documented as of this encounter Last Filed Vital Signs Vital Sign Reading Time Taken Comments Blood Pressure - - Pulse 59 08/09/2024 11:55 AM EST Temperature 36.4 ??C (97.6 ??F) 08/09/2024 11:[address] Respiratory Rate - - Oxygen Saturation 100% 08/09/2024 11:55 AM EST Inhaled Oxygen Concentration - - Weight 77.6 kg (171 lb) 08/09/2024 11:55 AM EST Height - - Body Mass Index 27.6 02/01/2024 3:03 PM EDT documented in this encounter Plan of Treatment Not on file documented as of this encounter Visit Diagnoses Not on filedocumented in this encounter Care Teams Road Contractor Relationship Specialty Start Date End Date Brandi Eisenberg PA [address] [place] [phone] PCP - General 11/23/23 documented as of this encounter
--- OUTSIDE RECORDS SUMMARY | 2024-08-15 17:23 | XMS_ITS | Clinical Summary ---
Author Organization Unknown Care Team Providers Care Glass Wool Blanket Machine Feeder Name Role Phone JONN WILITE, PETE Unavailable Kalani foster ARMSTRONG RN, AMIE Unavailable Unavailab charan PFEIFFER LPN, CHULA Unavailable Unavail able CODI PT, JAYJAY Unavailable Unavailable CHEIKH MARBLE COPER, HAIM Unavailable Unavailable Payers Payer Name Policy Type Policy Number Effective Date Expira tion Date MEDICARE.NGS.PDGM [id number] Problems Condition Name Condition Details Condition Category [...] 10-17 00:00: 00 07-08 23:59 :00 No [id number] PROTON PUMP INHIBITOR 1 tablet DAILY 1 tablet DAILY (route: oral) Med Classific ation: Gastroint estinal Therapy Agents calcitriol 0.25 mcg capsule 13 00:00: 00 07-08 23:59 :00 No [id number] CALCIUM LEVEL 1 capsule EVERY DAY 1 capsule EVERY DAY (route: oral) Med Classific ation: Electroly te Balance-N utritiona l Products torsemide 10 mg tablet 13 00:00: 00 07-08 23:59 :00 No [id number] DIURETIC 1 tablet TWICE DAILY 1 tablet TWICE DAILY (route: oral) Med Classific ation: Cardiovas cular Therapy Agents Eliquis 5 mg tablet 10-14 00:00: 00 07-08 23:59 :00 No [id number] BLOOD THINNER 1 tablet TWICE DAILY 1 tablet TWICE DAILY (route: oral) Med Classific ation: Hematolog ical Agents Ozempic 0.25 mg or 0.5 mg (2 mg/3 mL) subcutaneou s pen injector 10-14 00:00: 00 10-23 10:33 :17.8 47 No [id number] BLOOD GLUCOSE 0.5 mg EVERY WEEK 0.5 mg EVERY WEEK (route: subcutaneo us) Med Classific ation: Endocrine rosuvastati n 5 mg tablet 10-14 00:00: 00 07-08 23:59 :00 No [id number] CHOLESTEROL 1 tablet EVERY NIGHT AT BEDTIME 1 tablet EVERY NIGHT AT BEDTIME (route: oral) Med Classific ation: Cardiovas cular Therapy Agents Vitamin B-1 100 mg tablet 10-14 00:00: 00 07-08 23:59 :00 No [id number] VITAMIN 1 tablet EVERY DAY 1 tablet EVERY DAY (route: oral) Med Classific ation: Electroly te Balance-N utritiona l Products metoprolol tartrate 25 mg tablet 10-19 00:00: 00 07-08 23:59 :00 No [id number] BLOOD PRESSURE 0.5 tablet TWICE DAILY 0.5 tablet TWICE DAILY (route: oral) Med Classific ation: Cardiovas cular Therapy Agents Ozempic 0.25 mg or 0.5 mg (2 mg/3 mL) subcutaneou s pen injector 10-23 00:00: 00 07-08 23:59 :00 No [id number] blood glucose 0.25 mg WEEKLY 0.25 mg WEEKLY (route: subcutaneo us) Med Classific ation: Endocrine cyanocobala min (vit B-12) 1,000 mcg/mL injection solution 5-20 00:00: 00 07-08 23:59 :00 No [id number] suplement Per instruc tions MONTHLY Per instructio ns MONTHLY (route: injection) Med Classific ation: Electroly te Balance-N utritiona l Products cephalexin 500 mg tablet 6-13 00:00: 00 11-23 23:59 :00 No [id number] WOUND 1 tablet EVERY 8 HOURS 1 tablet EVERY 8 HOURS (route: oral) Med Classific ation: Anti-Infe ctive Agents calcitriol 0.25 mcg capsule 07-13 00:00: 00 Yes [id number] SUPPLEMENT 1 capsule DAILY 1 capsule DAILY (route: oral) Med Classific ation: Electroly te Balance-N utritiona l Products Eliquis 5 mg tablet 07-13 00:00: 00 Yes [id number] IRREGULAR HEARTBEAT 1 tablet EVERY 12 HOURS 1 tablet EVERY 12 HOURS (route: oral) Med Classific ation: Hematolog ical Agents pantoprazol e 40 mg tablet,brii yed release 1- 00:00: 00 07-13 00:00 :00 No [id number] Per instruc tions Per instructio ns (route: oral) Med Classific ation: Gastroint estinal Therapy Agents rosuvastati n 5 mg tablet 07-13 00:00: 00 Yes [id number] HIGH LIPIDS 1 tablet BEDTIME 1 tablet BEDTIME (route: oral) Med Classific ation: Cardiovas cular Therapy Agents lisinopril 10 mg tablet - 00:00: 00 Yes [id number] HIGH BLOOD PRESSURE 1 tablet DAILY 1 tablet DAILY (route: oral) Med Classific ation: Cardiovas cular Therapy Agents metronidazo le 250 mg tablet - 00:00: 00 07-13 00:00 :00 No [id number] Per instruc tions Per instructio ns (route: oral) Med Classific ation: Anti-Infe ctive Agents neomycin 500 mg tablet - 00:00: 00 07-13 00:00 :00 No [id number] Per instruc tions AT AT Per instructio ns AT AT (route: oral) Med Classific ation: Anti-Infe ctive Agents Nutrisource Fiber packet 07-13 00:00: 00 Yes [id number] SUPPLEMENT 1 packet DAILY 1 packet DAILY (route: oral) Med Classific ation: Gastroint estinal Therapy Agents Ozempic 0.25 mg or 0.5 mg (2 mg/3 mL) subcutaneou s pen injector 07-13 00:00: 00 Yes [id number] DIABETES 0.25 mg WEEKLY 0.25 mg WEEKLY (route: subcutaneo us) Med Classific ation: Endocrine pantoprazol e 20 mg tablet,brii yed release 07-13 00:00: 00 Yes [id number] GERD, PEPTIC ULCER DISEASE 1 tablet 2 TIMES DAILY 1 tablet 2 TIMES DAILY (route: oral) Med Classific ation: Gastroint estinal Therapy Agents thiamine HCl (vitamin B1) 100 mg tablet 07-13 00:00: 00 Yes [id number] SUPPLEMENT 1 tablet DAILY 1 tablet DAILY [...] CONSULTING PHYSICIANS. RN TO OBSERVE AND ASSESS, GAS TORCH BRAZIER/SURVEYING TEACHER TO OBSERVE FOR RISK FOR FALLS AND INSTRUCT IN FALL PREVENTION, HOME SAFETY, MEDICATION MANAGEMENT, INFECTION PREVENTION, AND NUTRITION MANAGEMENT. RN/GAS TORCH BRAZIER/SURVEYING TEACHER NURSE MAY PERFORM O2 SATURATION LEVEL ON ADMISSION AND PRN FOR RN TO ASSESS/GAS TORCH BRAZIER TO OBSERVE PATIENT, WITH NOTIFICATION TO THE PHYSICIAN IF SATURATION IS 90% IN THE ABSENCE OF MORE SPECIFIC PARAMETERS FROM THE PHYSICIAN. AGENCY MAY PERFORM A RESUMPTION OF CARE VISIT FOLLOWING ANY HOSPITAL ADMISSION. RN/GAS TORCH BRAZIER/SURVEYING TEACHER TO MONITOR CO-MORBID CONDITIONS LISTED ON THE PLAN OF CARE AND ANY NEW CONDITIONS THAT PRESENT THEMSELVES DURING THIS EPISODE TO IDENTIFY CHANGES AND INTERVENE TO MINIMIZE COMPLICATIONS. [code = RN TO OBSERVE, ASSESS, EVALUATE, AND DEVELOP AN INDIVIDUALIZED PLAN OF CARE. AGENCY MAY ACCEPT ORDERS FROM CONSULTING PHYSICIANS. RN TO OBSERVE AND ASSESS, GAS TORCH BRAZIER/SURVEYING TEACHER TO OBSERVE FOR RISK FOR FALLS AND INSTRUCT IN FALL PREVENTION, HOME SAFETY, MEDICATION MANAGEMENT, INFECTION PREVENTION, AND NUTRITION MANAGEMENT. RN/GAS TORCH BRAZIER/SURVEYING TEACHER NURSE MAY PERFORM O2 SATURATION LEVEL ON ADMISSION AND PRN FOR RN TO ASSESS/GAS TORCH BRAZIER TO OBSERVE PATIENT, WITH NOTIFICATION TO THE PHYSICIAN IF SATURATION IS 90% IN THE ABSENCE OF MORE SPECIFIC PARAMETERS FROM THE PHYSICIAN. AGENCY MAY PERFORM A RESUMPTION OF CARE VISIT FOLLOWING ANY HOSPITAL ADMISSION. RN/GAS TORCH BRAZIER/SURVEYING TEACHER TO MONITOR CO-MORBID CONDITIONS LISTED ON THE PLAN OF CARE AND ANY NEW CONDITIONS THAT PRESENT THEMSELVES DURING THIS EPISODE TO IDENTIFY CHANGES AND INTERVENE TO MINIMIZE COMPLICATIONS.] Future Scheduled Test MEDICATION MANAGEMENT; RN/GAS TORCH BRAZIER/SURVEYING TEACHER TO REVIEW MEDICATIONS FOR INTERACTIONS, EFFECTIVENESS OF DRUG THERAPY, AND SIGNS/SYMPTOMS OF ADVERSE REACTIONS. MAY INSTRUCT AND REINFORCE MEDICATION TEACHING RELATED TO THE USE OF MEDICATIONS, DOSAGE, FREQUENCY, PURPOSE, SIDE EFFECTS, AND TO REPORT COMPLICATIONS. [code = MEDICATION MANAGEMENT; RN/GAS TORCH BRAZIER/SURVEYING TEACHER TO REVIEW MEDICATIONS FOR INTERACTIONS, EFFECTIVENESS OF DRUG THERAPY, AND SIGNS/SYMPTOMS OF ADVERSE REACTIONS. MAY INSTRUCT AND REINFORCE MEDICATION TEACHING RELATED TO THE USE OF MEDICATIONS, DOSAGE, FREQUENCY, PURPOSE, SIDE EFFECTS, AND TO REPORT COMPLICATIONS.] Future Scheduled Test RISK FOR H OSPITALIZATION; RN TO ASSESS/TEACH, SURVEYING TEACHER/GAS TORCH BRAZIER TO OBSERVE/TEACH PATIENT/CAREGIVER ON RISK FOR HOSPITALIZATION/EMERGENCY ROOM VISITS, TEACH SIGNS AND SYMPTOMS THAT PUT PATIENT AT RISK, WHEN TO NOTIFY NURSE/PHYSICIAN OF COMPLICATIONS/DECLINE, AND WHEN TO CALL 911. [code = RISK FOR HOSPITALIZATION; RN TO ASSESS/TEACH, SURVEYING TEACHER/GAS TORCH BRAZIER TO OBSERVE/TEACH PATIENT/CAREGIVER ON RISK FOR HOSPITALIZATION/EMERGENCY ROOM VISITS, TEACH SIGNS AND SYMPTOMS THAT PUT PATIENT AT RISK, WHEN TO NOTIFY NURSE/PHYSICIAN OF COMPLICATIONS/DECLINE, AND WHEN TO CALL 911.] Future Scheduled Test CARDIOVASC ULAR SYSTEM; RN TO ASSESS/TEACH, GAS TORCH BRAZIER/SURVEYING TEACHER TO OBSERVE/TEACH RELATED TO ALTERED CARDIOVASCULAR STATUS TO MINIMIZE COMPLICATIONS AND REDUCE HOSPITALIZATION. [code = CARDIOVASCULAR SYSTEM; RN TO ASSESS/TEACH, GAS TORCH BRAZIER/SURVEYING TEACHER TO OBSERVE/TEACH RELATED TO ALTERED CARDIOVASCULAR STATUS TO MINIMIZE COMPLICATIONS AND REDUCE HOSPITALIZATION.] Future Scheduled Test PACEMAKER MANAGEMENT; RN/GAS TORCH BRAZIER/SURVEYING TEACHER TO PROVIDE SKILLED TEACHING AND ASSIST WITH MANAGEMENT OF PACEMAKER. NEWLY PLACED 06/22/24 [code = PACEMAKER MANAGEMENT; RN/GAS TORCH BRAZIER/SURVEYING TEACHER TO PROVIDE SKILLED TEACHING AND ASSIST WITH MANAGEMENT OF PACEMAKER. NEWLY PLACED 06/22/24] Future Scheduled Test HYPERTENSI ON MANAGEMENT; RN TO ASSESS AND TEACH, GAS TORCH BRAZIER/SURVEYING TEACHER TO OBSERVE AND TEACH WARNING SIGNS AND SYMPTOMS TO AVOID HOSPITALIZATION. [code = HYPERTENSION MANAGEMENT; RN TO ASSESS AND TEACH, GAS TORCH BRAZIER/SURVEYING TEACHER TO OBSERVE AND TEACH WARNING SIGNS AND SYMPTOMS TO AVOID HOSPITALIZATION.] Future Scheduled Test ARRHYTHMIA MANAGEMENT; RN TO ASSESS AND TEACH, GAS TORCH BRAZIER/SURVEYING TEACHER TO OBSERVE AND TEACH WARNING SIGNS AND SYMPTOMS TO AVOID HOSPITALIZATION. [code = ARRHYTHMIA MANAGEMENT; RN TO ASSESS AND TEACH, GAS TORCH BRAZIER/SURVEYING TEACHER TO OBSERVE AND TEACH WARNING SIGNS AND SYMPTOMS TO AVOID HOSPITALIZATION.] Future Scheduled Test HEART FAIL URE; RN TO ASSESS/TEACH, GAS TORCH BRAZIER/SURVEYING TEACHER TO OBSERVE/TEACH CARDIOPULMONARY SYSTEM TO IDENTIFY SIGNS [...] [code = HEART FAILURE; RN TO ASSESS/TEACH, GAS TORCH BRAZIER/SURVEYING TEACHER TO OBSERVE/TEACH CARDIOPULMONARY SYSTEM TO IDENTIFY SIGNS [...] SYSTEM MANAGEMENT; RN TO ASSESS AND TEACH, GAS TORCH BRAZIER/SURVEYING TEACHER TO OBSERVE AND TEACH RELATED TO ALTERED RESPIRATORY STATUS TO MINIMIZE COMPLICATIONS AND REDUCE HOSPITALIZATION. CHRONIC RT PLEURAL EFFUSION [code = RESPIRATORY SYSTEM MANAGEMENT; RN TO ASSESS AND TEACH, GAS TORCH BRAZIER/SURVEYING TEACHER TO OBSERVE AND TEACH RELATED TO ALTERED RESPIRATORY STATUS TO MINIMIZE COMPLICATIONS AND REDUCE HOSPITALIZATION. CHRONIC RT PLEURAL EFFUSION] Future Scheduled Test SKIN INTEG RITY RN TO ASSESS AND TEACH, GAS TORCH BRAZIER/SURVEYING TEACHER TO OBSERVE AND TEACH INTEGUMENTARY STATUS TO IDENTIFY CHANGES AND INTERVENE TO MINIMIZE COMPLICATIONS. PROVIDE SKILLED TEACHING OF GENERAL WOUND AND SKIN CARE AND PREVENTION RELATED TO ACTUAL ALTERED SKIN INTEGRITY [code = SKIN INTEGRITY RN TO ASSESS AND TEACH, GAS TORCH BRAZIER/SURVEYING TEACHER TO OBSERVE AND TEACH INTEGUMENTARY STATUS TO IDENTIFY CHANGES AND INTERVENE TO MINIMIZE COMPLICATIONS. PROVIDE SKILLED TEACHING OF GENERAL WOUND AND SKIN CARE AND PREVENTION RELATED TO ACTUAL ALTERED SKIN INTEGRITY ] Future Scheduled Test RN/GAS TORCH BRAZIER/SURVEYING TEACHER TO PERFORM/TEACH INCISION CARE TO ABDOMINAL INCISION AREA: MONITOR INCIDION FOR SX OF INFECTION: REDNESS, WARMTH, DEHISCENCE AND DRAINAGE. NOTIFY DR LUNSFORD IMMEDIATELY [phone] [code = RN/GAS TORCH BRAZIER/SURVEYING TEACHER TO PERFORM/TEACH INCISION CARE TO ABDOMINAL INCISION AREA: MONITOR INCIDION FOR SX OF INFECTION: REDNESS, WARMTH, DEHISCENCE AND DRAINAGE. NOTIFY DR LUNSFORD IMMEDIATELY [phone]] Future Scheduled Test PAIN MANAG EMENT; RN TO ASSESS AND TEACH, SURVEYING TEACHER/GAS TORCH BRAZIER TO OBSERVE AND TEACH AND PROVIDE EDUCATION ON PAIN MANAGEMENT TECHNIQUES. [code = PAIN MANAGEMENT; RN TO ASSESS AND TEACH, SURVEYING TEACHER/GAS TORCH BRAZIER TO OBSERVE AND TEACH AND PROVIDE EDUCATION ON PAIN MANAGEMENT TECHNIQUES.] Future Scheduled Test DIABETES M ANAGEMENT; RN TO ASSESS AND TEACH, SURVEYING TEACHER/GAS TORCH BRAZIER TO OBSERVE AND TEACH INSTRUCTIONS OF DIABETIC CARE TO INCLUDE: DIET CCHO, HEART HEALTHY, LOW POTASSIUM SKIN CARE, SIGNS AND SYMPTOMS OF HYPO/HYPERGLYCEMIA, PROPER ADMINISTRATION OF DIABETIC MEDICATION. RN/SURVEYING TEACHER/GAS TORCH BRAZIER TO INSTRUCT ON DIABETIC FOOT CARE AND MONITOR FOR SKIN LESIONS ON LOWER EXTREMITIES. BLOOD GLUCOSE TESTING DAILY. RN TO ASSESS AND TEACH, SURVEYING TEACHER/GAS TORCH BRAZIER TO OBSERVE AND TEACH PATIENT/CAREGIVER ABILITY TO PERFORM AND RECORD BLOOD GLUCOSE TESTING ORDERED AND TO REPORT ABNORMAL FINDINGS TO PHYSICIAN. RN/SURVEYING TEACHER/GAS TORCH BRAZIER MAY PERFORM BLOOD GLUCOSE TEST NEEDED. RN/SURVEYING TEACHER/GAS TORCH BRAZIER TO REPORT TO PHYSICIAN BLOOD GLUCOSE READINGS GREATER THAN 200 OR LESS THAN 80 RN/SURVEYING TEACHER/GAS TORCH BRAZIER TO INSTRUCT PATIENT ON IMPORTANCE OF HGBA1C MONITORING, KIDNEY FUNCTION TEST, EYE AND FOOT EXAMS. [code = DIABETES MANAGEMENT; RN TO ASSESS AND TEACH, SURVEYING TEACHER/GAS TORCH BRAZIER TO OBSERVE AND TEACH INSTRUCTIONS OF DIABETIC CARE TO INCLUDE: DIET CCHO, HEART HEALTHY, LOW POTASSIUM SKIN CARE, SIGNS AND SYMPTOMS OF HYPO/HYPERGLYCEMIA, PROPER ADMINISTRATION OF DIABETIC MEDICATION. RN/SURVEYING TEACHER/GAS TORCH BRAZIER TO INSTRUCT ON DIABETIC FOOT CARE AND MONITOR FOR SKIN LESIONS ON LOWER EXTREMITIES. BLOOD GLUCOSE TESTING DAILY. RN TO ASSESS AND TEACH, SURVEYING TEACHER/GAS TORCH BRAZIER TO OBSERVE AND TEACH PATIENT/CAREGIVER ABILITY TO PERFORM AND RECORD BLOOD GLUCOSE TESTING ORDERED AND TO REPORT ABNORMAL FINDINGS TO PHYSICIAN. RN/SURVEYING TEACHER/GAS TORCH BRAZIER MAY PERFORM BLOOD GLUCOSE TEST NEEDED. RN/SURVEYING TEACHER/GAS TORCH BRAZIER TO REPORT TO PHYSICIAN BLOOD GLUCOSE READINGS GREATER THAN 200 OR LESS THAN 80 RN/SURVEYING TEACHER/GAS TORCH BRAZIER TO INSTRUCT PATIENT ON IMPORTANCE OF HGBA1C MONITORING, KIDNEY FUNCTION TEST, EYE AND FOOT EXAMS.] Future Scheduled Test CANCER MAN AGEMENT; RN TO ASSESS AND TEACH, SURVEYING TEACHER/GAS TORCH BRAZIER TO OBSERVE AND TEACH AND PROVIDE EDUCATION ON CANCER. [code = CANCER MANAGEMENT; RN TO ASSESS AND TEACH, SURVEYING TEACHER/GAS TORCH BRAZIER TO OBSERVE AND TEACH AND PROVIDE EDUCATION ON CANCER.] Future Scheduled Test FALL REDUC TION MANAGEMENT; RN TO ASSESS AND OBSERVE, GAS TORCH BRAZIER/SURVEYING TEACHER TO OBSERVE FALL RISK FACTORS AND EDUCATE PATIENT/CAREGIVER ON STRATEGIES TO MINIMIZE THE RISK OF FALLING. [code = FALL REDUCTION MANAGEMENT; RN TO ASSESS AND OBSERVE, GAS TORCH BRAZIER/SURVEYING TEACHER TO OBSERVE FALL RISK FACTORS AND EDUCATE PATIENT/CAREGIVER ON STRATEGIES TO MINIMIZE THE RISK OF FALLING.] Future Scheduled Test AGENCY MAY PERFORM A RESUMPTION OF CARE VISIT FOLLOWING ANY HOSPITAL ADMISSION. PT TO EVALUATE, OBSERVE / ASSESS, AND MONITOR, MARBLE COPER TO OBSERVE AND MONITOR, PROVIDE SKILLED THERAPEUTIC INTERVENTION, ACTIVITY, EDUCATION, AND TRAINING TO ADDRESS; PT/MARBLE COPER TO PROVIDE GAIT TRAINING FOR IMPROVED MOBILITY AND /OR TO NORMALIZE GAIT PATTERN NEUROMUSCULAR RE-EDUCATION / BALANCE / POSTURAL CONTROL (PT) THERAPEUTIC EXERCISES AND ESTABLISHING A HOME EXERCISE PROGRAM (PT/MARBLE COPER) PT/MARBLE COPER TO PROVIDE STAIR TRAINING SIT TO/FROM STAND TRANSFERS (PT/MARBLE COPER) PT / MARBLE COPER TO MONITOR AND EDUCATE ON OXYGEN SATURATION DURING ADLS/IADLS, NOTIFY PHYSICIAN AND/OR THE RN CLINICAL LOG HANDLING EQUIPMENT OPERATOR FOR PHYSICIAN NOTIFICATION AND IF O2 SATS BELOW PHYSICIAN ORDERED PARAMETERS AFTER 10 MIN OF REST PT / MARBLE COPER MAY EDUCATE ON PAIN MANAGEMENT CLINICALLY INDICATED, INCLUDING NON-PHARMACOLOGICAL PAIN REDUCTION TECHNIQUES [code = AGENCY MAY PERFORM A RESUMPTION OF CARE VISIT FOLLOWING ANY HOSPITAL ADMISSION. PT TO EVALUATE, OBSERVE / ASSESS, AND MONITOR, MARBLE COPER TO OBSERVE AND MONITOR, PROVIDE SKILLED THERAPEUTIC INTERVENTION, ACTIVITY, EDUCATION, AND TRAINING TO ADDRESS; PT/MARBLE COPER TO PROVIDE GAIT TRAINING FOR IMPROVED MOBILITY AND /OR TO NORMALIZE GAIT PATTERN NEUROMUSCULAR RE-EDUCATION / BALANCE / POSTURAL CONTROL (PT) THERAPEUTIC EXERCISES AND ESTABLISHING A HOME EXERCISE PROGRAM (PT/MARBLE COPER) PT/MARBLE COPER TO PROVIDE STAIR TRAINING SIT TO/FROM STAND TRANSFERS (PT/MARBLE COPER) PT / MARBLE COPER TO MONITOR AND EDUCATE ON OXYGEN SATURATION DURING ADLS/IADLS, NOTIFY PHYSICIAN AND/OR THE RN CLINICAL LOG HANDLING EQUIPMENT OPERATOR FOR PHYSICIAN NOTIFICATION AND IF O2 SATS BELOW PHYSICIAN ORDERED PARAMETERS AFTER 10 MIN OF REST PT / MARBLE COPER MAY EDUCATE ON PAIN MANAGEMENT CLINICALLY INDICATED, [...] WALK INDOORS INDEPENDENT INTO ORDER TO ACCESS [facility] WITHIN 9 WEEKS [...] CARRERO ROPER [facility] [id number] [phone]
--- OUTSIDE RECORDS SUMMARY | 2024-08-15 17:23 | XMS_ITS | Encounter Summary ---
Author Organization [facility] Address [address] [place] [address] Care Team Providers Care Manager Behavioral Name Role Phone Brandi Eisenberg Primary Care Provider [phone] Encounter Details Date Type Department Care Team (Latest Contact Info) Description 03/30/2024 11:48 AM EDT Hospital Encounter TH HISTORIC ENCOUNTERS EASTERN CONVERSION ONLY Rory Walters MD [address] [place] [phone] Other intra-abdominal and pelvic swelling, mass [...] AM EST) Case Results ? Reason: ? [id number]: This report is amended to change the diagnosis to reflect the ? result of the expert consultation. ? 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 Comment: The above diagnosis was rendered by Dr. Nigel Luther of [facility] and [facility]. He additionally notes: ? Immunohistochemis try performed at [facility] demonstrates the following staining ? profile in lesional cells: ? Positive - MDM2, CDK4, SMA (multifocal), desmin (scattered cells) ? Negative - S100, WT-1, calretinin, AE1/AE3 ? FISH analysis performed at [facility] is positive for MDM2 amplification ? ([id number]). ? Dr. Cervantes will be notified of [...] in the patient's prior right pleural biopsy, [id number]. ? This case is being sent to Dr. Nigel Luther at [facility] and [facility] ? for expert consultation. This report will [...] ? TS ? Physicians: ? DHEERAJ RODRIGUEZ M.D./[phone]/ ? RORY WALTERS MD/ x2/ ? HISTORICAL TESTING LAB RESULTING AGENCY 04/24/2024 us Laboratory Results Historical MD LAB PATHOLOGY O RDERABLES Final Result HISTORICAL TESTING LAB RESULTING AGENCY * Non-gynecologic cytology (04/09/2024 12:00 AM EST) Case Results ? Left retroperitoneal mass, fine needle aspiration (ThinPrep, direct smears and ? cell block): ?Malignant spindle cell neoplasm ? Comment: Please see the corresponding core biopsy, [id number], for the ? immunohistochemica l evaluation and [...] 14:22 on 03/30/24. ? Physicians ? DHEERAJ RODRIGUEZ M.D./[phone]/ ? RORY WALTERS MD/ x2/ ? HISTORICAL TESTING LAB RESULTING AGENCY 04/09/2024 us Laboratory Results Historical LAB CYTOLOGY OR DERABLES Final Result HISTORICAL [...] in the patient's prior right pleural biopsy, [id number]. ? This case is being sent to [...] ? TS ? Physicians: ? DHEERAJ RODRIGUEZ M.D./[phone]/ ? RORY WALTERS MD/ x2/ ? HISTORICAL TESTING LAB RESULTING AGENCY 04/09/2024 us Laboratory Results Historical MD LAB PATHOLOGY O RDERABLES Final Result HISTORICAL TESTING LAB RESULTING AGENCY * BX ABD RETRO MASS CT (04/02/2024 1:58 PM EDT) Anatomical Region Laterality Modality Interventional R adiology 03/30/2024 1:11 PM EDT Narrative 04/02/2024 1:58 PM EDT [facility] Diagnostic Imaging Department [address] [place] [address] Patient: ??STEW WELLS ?/Age/Sex: 1950 - 73 - M Unit#: ??[id number] ? Location/Status: ??SPDIANGIO/REG CLI ? 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 Metabolically active cervical and thoracic lymphadenopathy as well as pleural activity. Metabolically active mass in the left flank. CT-guided biopsy requested for further histological evaluation. PROCEDURE: Consent obtained for CT-guided biopsy of left flank/retroperitoneal mass corresponding to metabolic activity on prior PET scan. Consent obtained utilizing a Mongolian-speaking senior electrical estimator. prior relevant studies: PET/CT from January 11, [...] of fentanyl administered during the procedure. Scanner: [employer] [address] Dose reduction technique: AEC [...] MD Electronically Signed by: ??DHEERAJ RODRIGUEZ MD Date/Time: ??04/02/24 1337 Sign date/Time: ??04/02/24 1351 Procedure Note Dheeraj Rodriguez MD - 04/07/2024 [facility] Diagnostic Imaging Department [address] [place] [id number] Patient: NILSA WELLSGEI /Age/Sex: 1950 73 - M Unit#: [id number] Location/Status: SPDIANGIO/REG CLI Mnemonic/Ordering Site: CTBXRETRO/SPIR Ordering Physician: RORY WALTERS MD BX ABD RETRO MASS CT - 03/30/24 - [id number] Report Status:Signed INDICATION: Previous pleural biopsy with atypical mesotheliomaperforation suspicious but not diagnostic for mesothelioma. Metabolically activecervical and thoracic lymphadenopathy as well as pleural activity. Metabolicallyactive mass in the left flank. CT-guided biopsy requested for furtherhistological evaluation. PROCEDURE: Consent obtained for CT-guided biopsy of leftflank/retroperitoneal mass corresponding to metabolic activity on prior PET scan. Consentobtained utilizing a Mongolian-speaking senior electrical estimator. prior relevant studies: PET/CT from January 11, 2024 MEDICATIONS: Local anesthesia: 7 cc of 1% buffered lidocaine administeredsubcutaneously. Sedation: Moderate intravenous sedation was initiated and maintained for30 minutes while the patient was independently monitored by the radiologynurse under the supervision of the interventional radiologist. A total of 2 mgof Versed and 75 mcg of fentanyl administered during the procedure. Scanner: [employer] [address] Dose reduction technique: AEC [...] lump documented in this encounter Care Teams Manager Behavioral Relationship Specialty Start Date End Date Brandi Eisenberg PA [address] [place] [address] PCP - General 11/23/23 documented as of this encounter
== END 2024-08-15 15:13 | disposition home or self-care (01) ==
LOC: HO.HKA 14:44
PROVIDERS: PCP Physician Assistant; Visit Provider Internal Medicine Nephrology
DX: N18.31 Chronic kidney disease, stage 3a (principal); I10 Essential (primary) hypertension; N25.81 Secondary hyperparathyroidism of renal origin; Z90.5 Acquired absence of kidney
CPT/HCPCS: 99214

== ENCOUNTER 2024-11-07 15:01 | Outpatient (AMB) | payer MEDICARE, MEDICAID, SELFPAY ==
--- OUTSIDE RECORDS SUMMARY | 2024-11-07 15:11 | XMS_ITS | Encounter Summary ---
Author Organization [facility] Address [address] [place] [address] Care Team Providers Care Flag Football Coach Name Role Phone Xiomara Eisenberg PA-C Primary Care Provider + [phone] Reason for Referral * Otolaryngology (Routine) - Pending Review Specialty Diagnoses / Procedures Referred By Naheed t Referred To Contact Diagnoses Voice hoarseness Xiomara Eisenberg PA-C [address] [place] [phone] Phone: tel: fax: [place] [address] Phone: tel: fax: Referral ID Status Reason Start Date Expiration Date Visits Requested Visits Authorized [id number] Pending Review Evaluate and Treat 08/20/2024 08/20/2025 1 1 Comments Reason for Visit * Reason Comments Telehealth (Audio) Encounter Details Date Type Department Care Team (Latest Contact Info) Description 08/20/2024 9:00 AM EDT Telemedicine Visit [facility] [address] [place] [phone] Xiomara Eisenberg PA-C [address] [place] [phone] Voice hoarseness (Primary Dx); Liposarcoma (HCC-CMS); Type 2 diabetes mellitus without complication, without long-term current use of insulin (HCC-CMS); Essential hypertension, benign; Hyperkalemia Social History Tobacco Use Types Packs/Day Years Used Date Smoking Tobacco: Never Smokeless Tobacco: Never Alcohol Use Standard Drinks/Week Comments No 0 (1 standard drink = 0.6 oz pur e alcohol) Social Connections Answer Date Recorded Connectedness 1 08/20/2024 Financial Resource Strain Answer Date R ecorded Financial Resource Strain 1 2024 Stress Answer Date Recorded Stress 1 08/20/2024 Physical Activity Answer Date Recorded Physical Activity 0 01/27/2019 Food Insecurity Answer Date Recorded Food 1 08/20/2024 Transportation Needs Answer Date Record ed Transportation 1 08/20/2024 Housing Stability Answer Date Recorded Housing 1 08/20/2024 Safety and Environment Answer Date Vabihav rded Safety 0 01/27/2019 Utilities Answer Date Recorded Utilities 1 08/20/2024 Employment Answer Date Recorded Stress 0 01/25/2023 Sex and Gender Information Value Date Recorded Sex Assigned at Male 04/11/2017 5:49 PM PST Legal Sex Male 11:36 AM PDT Gender Identity Male 04/11/2017 5:49 PM PST Sexual Orientation Straight 04/11/2017 5: 49 PM PST documented as of this encounter Progress Notes * Xiomara Eisenberg PA-C - 11/06/2024 11:44 AM EDTAddended by: XIOMARA EISENBERG on: 11/06/2024 11:44 AM Modules accepted: Orders * Xiomara Eisenberg PA-C - 08/20/2024 9:41 AM EDT Images from the original note were not included. 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 He underwent a left RPS on 07/06/2024. The tumor extended to specimen edges including deep to schedule muscle. He is recovering well from surgery. He will undergo CTs in 10/2023 in [place]. Adjuvant radiation will be considered. [facility] 08/20/2024 9:44 AM Little interest or pleasure in doing things Not at all Feeling down, depressed or hopeless [include irritable if under 18] Not at all Trouble falling or staying asleep, or sleeping too much Not at all Feeling tired or having little energy Not at all Poor appetite or overeating Not at all Feeling bad about yourself - or that you are a failure or have let yourself or your family down Notat all Trouble concentrating on things like school work, reading or watching TV? Not at all Moving or speaking so slowly that other people could have noticed? Or the opposite - being so fidgety or restless that you have been moving around a lot more than usual Not at all Thoughts you would be better off or of hurting yourself in some way Not at all If you checked off any problems, how difficult have these problems made it for you to do your work,take care of things at home, or get along with other people? Not difficult at all PHQ-9 Total Score (Auto Calculated) 0 Depression Severity: None-minimal Objective Vitals: Last 3 Vitals Flowsheet Row Office Visit from 01/31/2024 in [facility] Office Visit from 01/09/2024 in [facility] Office Visit from 01/05/2024 in [facility] Temp 97.5 ??F (36.4 ??C) 97.5 ??F (36.4 ??C) 98.5 ??F (36.9 ??C) Pulse 48 77 48 BP 138/64 140/60 148/63 Resp 16 18 18 Weight 190 lb (86.2 kg) 181 lb (82.1 kg) 178 lb (80.7 kg) Assessment and Plan R49.0 Voice hoarseness (primary encounter diagnosis) Plan : REFERRAL TO EAR, NOSE AND THROAT C49.9 Liposarcoma ([facility]) --cont specialty follow up The patient is a 73-year-old gentleman who presented in 03/2024 with a 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 He underwent a left RPS on 07/06/2024. The tumor extended to specimen edges including deep to schedule muscle. He is recovering well from surgery. He will undergo CTsin 10/2023 in [place]. Adjuvant radiation will be considered. Lifestyle measures:BMI follow up plan: The patient was counseled regarding nutrition and physical activity. Depression screening:DEPRESSION FU PROVIDED ( CMS-2): Counseling / education in visit Health Maintenance Due Topic Date Due Diabetes Microalbumin (w/Creatinine) 10/28/2023 TELEHEALTH visit I identified myself as Xiomara Eisenberg PA-C from [facility]. The patient was identified using their name, , and insurance ID number. The following visit was conducted via TELEPHONE. I educated the patient on the terms of telehealth.The patient was located in a home setting in the [facility] during this telephone visit and gave consent to conduct the visit via telehealth. Provider was located in a home settingin the [facility]. This visit was conducted in a private space to protect HIPPA sensitive information. Precautions were taken to provide confidentiality, security and patient was made aware of privacy considerations. Time of direct telehealth encounter/medical discussion: 15 minutes. PHYSICAL EXAM is deferred due to visit being conducted over the telephone. Any patient reported physical exam findings are listed in the subjective portion of this note. ALL questions were answered to the patient's satisfaction. The patient was notified that they can see a clinician in person in the event of an emergency or if otherwise needed. Also encouraged to call back if any new health concerns arise. Persons other than patient involved in televisit included: none No care transition coordinator was used for this visit as I speak the patient's takotna language. documented in this encounter Plan of Treatment Scheduled Orders Name Type Priority Associated Diagnoses Orde r Schedule HEMOGLOBIN GLYCOSYLATED A1C Routine Lab Routine Voice hoarseness Liposarcoma (HCC-CMS) Type 2 diabetes mellitus without complication, without long-term current use of insulin (HCC-CMS) Essential hypertension, benign Hyperkalemia 1 Occurrences starting 11/06/2024 until 05/05/2025 TSH W/RFLX FREE T4 Routine Lab Routine Voice hoarseness Liposarcoma (HCC-CMS) Type 2 diabetes mellitus without complication, without long-term current use of insulin (HCC-CMS) Essential hypertension, benign Hyperkalemia 1 Occurrences starting 11/06/2024 until 05/05/2025 LIPID PANEL Routine Lab Routine Voice hoarseness Liposarcoma (HCC-CMS) Type 2 diabetes mellitus without complication, without long-term current use of insulin (HCC-CMS) Essential hypertension, benign Hyperkalemia 1 Occurrences starting 11/06/2024 until 05/05/2025 COMPREHENSIVE METABOLIC PANEL Routine Lab Routine Voice hoarseness Liposarcoma (HCC-CMS) Type 2 diabetes mellitus without complication, without long-term current use of insulin (HCC-CMS) Essential hypertension, benign Hyperkalemia 1 Occurrences starting 11/06/2024 until 05/05/2025 BLOOD COUNT COMPLETE AUTO&AUTO DIFRNTL WBC Routine Lab Routine Voice hoarseness Liposarcoma (HCC-CMS) Type 2 diabetes mellitus without complication, without long-term current use of insulin (HCC-CMS) Essential hypertension, benign Hyperkalemia 1 Occurrences starting 11/06/2024 until 05/05/2025 ASSAY OF MAGNESIUM Routine Lab Routine Voice hoarseness Liposarcoma (HCC-CMS) Type 2 diabetes mellitus without complication, without long-term current use of insulin (HCC-CMS) Essential hypertension, benign Hyperkalemia 1 Occurrences starting 11/06/2024 until 05/05/2025 Scheduled Referrals Name Type Priority Associated Diagnoses Orde r Schedule REFERRAL TO ENT Referral Routine Voice hoarseness Ordered: 08/20/2024 documented as of this encounter Visit Diagnoses Diagnosis Voice hoarseness- Primary Dysphonia Liposarcoma (HCC-CMS) Malignant neoplasm of connective and other soft tissue, site unspecified Type 2 diabetes mellitus without complication, without long-term current use of insulin (HCC-CMS) Essential hypertension, benign Hyperkalemia Hyperpotassemia documented in this encounter Additional Health Concerns Assessment Noted Time PHQ-9 Depression Total Score: 0 08/21/19 25 9:44 AM PDT documented as of this encounter Care Teams Flag Football Coach Relationship Specialty Start Date End Date Xiomara Eisenberg PA-C [facility] [place] [phone] PCP - General 02/28/13 documented as of this encounter
--- NOTE | 2024-11-07 15:19 | HO.NEPHOV ---
Vital Signs 11/07/24 15:20 Height 5 ft 6 in Weight 169 lb 8 oz BMI 27.4 BP 114/52 L Blood Pressure Location Lt brachial Position Sitting Pulse 60 Pulse Source Pulse Oximeter Pulse Oximetry (%) 96 Oxygen Delivery Method Room Air Intake Visit Reasons: 3 MO FU Grinder Set Up Operator Universal Required: Yes Grinder Set Up Operator Universal Language: Senegalese Grinder Set Up Operator Universal Services: Grinder Set Up Operator Universal Present Grinder Set Up Operator Universal Name: Onofre [id number] Information Interpreted: clinical only Accompanied by: Spouse Allergies No Known Allergies [No Known Allergies*] Allergy (Verified 11/07/24 15:20) HPI Comments Details: Stew was seen in follow-up of his chronic kidney disease and hypertension. 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 Hernandez). 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 It was diagnosed following investigations for hematuria . He recently had hyperkalemia and was treated in [facility] ER. His accompanied him during this visit and Senegalese md allergy immunology was used.( Even remotely he had very little function of the left kidney prior to nephrectomy). His blood pressure is currently at goal. His weight is stable. He denies nausea, vomiting, diarrhea, abdominal pain, chest pain, shortness of breath, pedal edema or orthostatic symptoms. He does not take any nonsteroidal anti-inflammatories. He is tolerating TRICIA-inhibitor. There were no new specific complaints at the time of this office visit. [facility] Medical History (Updated 11/07/24 @ 22:58 by Edgar Kearney MD) Chronic kidney disease, stage 3 unspecified Unspecified hydronephrosis Paroxysmal atrial fibrillation Essential hypertension Lung mass Microscopic hematuria Surgical History History of lung biopsy Social History Alcohol intake: never Patient Tobacco Use Status: Former Tobacco user Review of Systems Const All systems reviewed & are unremarkable except as noted in HPI and below Physical Exam Vital Signs: Last Vital Signs Pulse 60 11/07/24 15:20 BP 114/52 L 11/07/24 15:20 Pulse Ox 96 11/07/24 15:20 Oxygen Delivery Method Room Air 11/07/24 15:20 BMI result Body Mass Index 27.4 Const General: comfortable and no acute distress Orientation/consciousness: patient oriented x3 HEENT Head: Yes normocephalic Mouth: Normal oral and palatal mucosa present Eyes EOM: EOMs intact bilaterally Neck Neck: Yes supple Resp Auscultation: clear to auscultation bilaterally Cardio Jugular venous distension: no JVD Rate: regular rate GI Palpation (GI): Soft to palpation Auscultation: normal bowel sounds General: Yes no CVA tenderness Back/Spine/Pelvis Back: no CVA tenderness Skin General skin exam: no rashes or lesions noted Neuro General: patient oriented x3 and moves all extremities Extrem General: Yes no pedal edema Results Reviewed Nephrology Results: Hgb 12.0 g/dl (14.0-18.0) L 08/15/24 WBC 5.7 X10*3/uL (4.8-10.8) 08/15/24 Plt Count 186 X10*3/uL (160-400) 08/15/24 Sodium 140 mmol/L (135-145) 11/07/24 Potassium 5.5 mmol/L (3.3-5.1) H 11/07/24 Chloride 113 mmol/L (96-108) H 11/07/24 Carbon Dioxide 20 mmol/L (22-29) L 11/07/24 BUN 46 mg/dL (9-16) H 11/07/24 Creatinine 1.69 mg/dL (0.5-1.4) H 11/07/24 Calcium 9.3 mg/dL (8.4-10.2) 08/15/24 Phosphorus 3.6 mg/dL (2.7-4.5) 08/15/24 PTH Intact 72.0 pg/mL (8.7-77.1) 08/15/24 Assessment & Plan Assessment & Plan (1) Chronic kidney disease, stage 3 unspecified: Code(s): N18.30 - Chronic kidney disease, stage 3 unspecified Category: Medical Qualifiers: Chronic kidney disease stage 3 subtype: stage 3a (GFR 45-59) Qualified Code(s): N18.31 - Chronic kidney disease, stage 3a (2) Acquired solitary kidney: Code(s): Z90.5 - Acquired absence of kidney Category: Medical (3) Secondary hyperparathyroidism (of renal origin): Code(s): N25.81 - Secondary hyperparathyroidism of renal origin Category: Medical (4) Hypertension: Code(s): I10 - Essential (primary) hypertension Category: Medical Qualifiers: Hypertension type: primary hypertension Qualified Code(s): I10 - Essential (primary) hypertension (5) Hyperkalemia: Code(s): E87.5 - Hyperkalemia Category: Medical Plan Stew has acquired solitary kidney following nephrectomy. His serum creatinine is stable. His blood pressure is at goal. His urine output is good. He is tolerating TRICIA-inhibitor but has been having hyperkalemia. He should be on a low K diet. He maintains good hydration and avoids nonsteroidal anti-inflammatories. He has no history of significant proteinuria. He will benefit from weight loss. I started him on Kionex 30 Gram once a week. If his hyperkalemia is not settling down, I may back off or D/C ACEI and add Jardiance. He follows up closely with Dr. Mccarthy. Further management is pending evolving data. Answered his and his 's questions. Orders: Orders Creatinine Today N18.31 - Chronic kidney disease, stage 3a, Z90.5 - Acquired absence of kidney Blood Urea Nitrogen Today N18.31 - Chronic kidney disease, stage 3a, Z90.5 - Acquired absence of kidney Blood Urea Nitrogen 1 Month N18.31 - Chronic kidney disease, stage 3a, Z90.5 - Acquired absence of kidney Phosphorus 1 Month N18.31 - Chronic kidney disease, stage 3a, Z90.5 - Acquired absence of kidney Parathyroid Hormone Intact 1 Month N18.31 - Chronic kidney disease, stage 3a, Z90.5 - Acquired absence of kidney Electrolytes Today N18.31 - Chronic kidney disease, stage 3a, Z90.5 - Acquired absence of kidney Electrolytes 1 Month N18.31 - Chronic kidney disease, stage 3a, Z90.5 - Acquired absence of kidney Calcium 1 Month N18.31 - Chronic kidney disease, stage 3a, Z90.5 - Acquired absence of kidney Creatinine 1 Month N18.31 - Chronic kidney disease, stage 3a, Z90.5 - Acquired absence of kidney Vitamin D 25-OH Total 1 Month N18.31 - Chronic kidney disease, stage 3a, Z90.5 - Acquired absence of kidney Medications: New sodium polystyrene sulfonate 30 grams orally once a week; 453.6 grams 3RF Coding Level of Care Code Est Pt Level 4 (22791) Diagnoses Stage 3a chronic kidney disease N18.31 Chronic kidney disease stage 3 subtype: stage 3a (GFR 45-59) Acquired solitary kidney Z90.5 Secondary hyperparathyroidism (of renal origin) N25.81 Primary hypertension I10 Hypertension type: primary hypertension Hyperkalemia E87.5
[2024-11-07 15:20] VITALS: BP 114/52; PULSE 60; O2SAT 96; BMI 27.4
== END 2024-11-07 15:55 | disposition home or self-care (01) ==
LOC: HO.HKA 15:02
PROVIDERS: PCP Physician Assistant; Visit Provider Internal Medicine Nephrology
DX: N18.31 Chronic kidney disease, stage 3a (principal); Z90.5 Acquired absence of kidney; N25.81 Secondary hyperparathyroidism of renal origin; I10 Essential (primary) hypertension; E87.5 Hyperkalemia
CPT/HCPCS: 99214

== ENCOUNTER 2024-11-07 15:01 | Outpatient (REF) | payer MEDICARE, MEDICAID, SELFPAY ==
[2024-11-07 17:30] LABS: Anion Gap 13 (12-20); Blood Urea Nitrogen 46 mg/dL (9-16); Carbon Dioxide 20 mmol/L (22-29); Chloride 113 mmol/L (96-108); Estimated Glomerular Filt Rate 40; Potassium 5.5 mmol/L (3.3-5.1); Sodium 140 mmol/L (135-145)
== END 2024-11-07 15:02 | disposition home or self-care (01) ==
LOC: HO.LAB 15:01
PROVIDERS: PCP Physician Assistant; Visit Provider Internal Medicine Nephrology
DX: N18.31 Chronic kidney disease, stage 3a (principal); I10 Essential (primary) hypertension; N25.81 Secondary hyperparathyroidism of renal origin; E87.5 Hyperkalemia; Z90.5 Acquired absence of kidney; Z94.0 Kidney transplant status
CPT/HCPCS: 36415; 80051; 82565; 84520; 99212

== ENCOUNTER 2024-12-11 09:51 | Outpatient (AMB) | payer MEDICARE, MEDICAID, SELFPAY ==
--- OUTSIDE RECORDS SUMMARY | 2024-03-30 11:48 | XMS_ITS | Encounter Summary ---
Author Organization [facility] Address [address] [place] [address] Care Team Providers Care Film Technician Name Role Phone Brandi Eisenberg Primary Care Provider [phone] Encounter Details Date Type Department Care Team (Latest Contact Info) Description 03/30/2024 11:48 AM EDT Hospital Encounter TH HISTORIC ENCOUNTERS EASTERN CONVERSION ONLY Rory Walters MD [address] [place] [phone] Other intra-abdominal and pelvic swelling, mass [...] (04/24/2024 12:00 AM EST) Case Results Reason: [id number]: This report is amended to change the diagnosis to reflect the result of the expert consultation. Left retoperitoneal mass, core biopsy: Dedifferentiated liposarcoma Comment: The above diagnosis was rendered by Dr. Nigel Luther of [facility]. He additionally notes: Immunohistochemis try performed at [facility] demonstrates the following staining profile in lesional cells: Positive - MDM2, CDK4, SMA (multifocal), desmin (scattered cells) Negative - S100, WT-1, calretinin, AE1/AE3 FISH analysis performed at [facility] is positive for MDM2 amplification ([id number]). Dr. Cervantes will be notified of the [...] in the patient's prior right pleural biopsy, [id number]. This case is being sent to Dr. Nigel Luther at [facility] for expert consultation. This report will [...] 1422 on 03/30/2024 TS Physicians: DHEERAJ RODRIGUEZ M.D./[phone]/ RORY WALTERS MD/ x2/ HISTORICAL TESTING LAB RESULTING AGENCY 04/24/2024 us Laboratory Results Historical MD LAB PATHOLOGY O RDERABLES Final Result HISTORICAL TESTING LAB RESULTING AGENCY * Non-gynecologic cytology (04/09/2024 12:00 AM EST) Case Results Left retroperitoneal mass, fine needle aspiration (ThinPrep, direct smears and cell block): Malignant spindle cell neoplasm Comment: Please see the corresponding core biopsy, [id number], for the immunohistochemica l evaluation and expert [...] @ 14:22 on 03/30/24. Physicians DHEERAJ RODRIGUEZ M.D./[phone]/ RORY WALTERS MD/ x2/ HISTORICAL TESTING LAB [...] in the patient's prior right pleural biopsy, [id number]. This case is being sent to Dr. [...] 1422 on 03/30/2024 TS Physicians: DHEERAJ RODRIGUEZ M.D./[phone]/ RORY WALTERS MD/ x2/ HISTORICAL TESTING LAB RESULTING AGENCY 04/09/2024 us Laboratory Results Historical MD LAB PATHOLOGY O RDERABLES Final Result HISTORICAL TESTING LAB RESULTING AGENCY * BX ABD RETRO MASS CT (04/02/2024 1:58 PM EDT) Anatomical Region Laterality Modality Interventional R adiology 03/30/2024 1:11 PM EDT Narrative 04/02/2024 1:58 PM EDT [facility] Diagnostic Imaging Department [address] [place] [id number] Patient: STEW WELLS./Age/Sex: 1950 - 73 - M Unit#: [id number] Location/Status: SPDIANGIO/REG CLI Mnemonic/Ordering Site: CTBXRETRO/SPIR Ordering [...] prior PET scan. Consent obtained utilizing a Botswanan-speaking tractor trailer driver. prior relevant studies: PET/CT from January 11, [...] of fentanyl administered during the procedure. Scanner: [employer] [address] Dose reduction technique: AEC [...] Procedure Note Dheeraj Rodriguez MD - 04/07/2024 [facility] Diagnostic Imaging Department [address] [place] [address] Patient: SETW WELLS./Age/Sex: 1950 - 73 - M Unit#: [id number] Location/Status: SPDIANGIO/REG CLI Mnemonic/Ordering Site: CTBXRETRO/SPIR Ordering Physician: RORY WALTERS MD BX ABD RETRO MASS CT - 03/30/24 - 1585 Report Status:Signed INDICATION: Previous pleural biopsy with atypical mesotheliomaperforation suspicious but not diagnostic for mesothelioma. Metabolically activecervical and thoracic lymphadenopathy as well as pleural activity. Metabolicallyactive mass in the left flank. CT-guided biopsy requested for furtherhistological evaluation. PROCEDURE: Consent obtained for CT-guided biopsy of leftflank/retroperitoneal mass corresponding to metabolic activity on prior PET scan. Consentobtained utilizing a Botswanan-speaking tractor trailer driver. prior relevant studies: PET/CT from January 11, 2024 MEDICATIONS: Local anesthesia: 7 cc of 1% buffered lidocaine administeredsubcutaneously. Sedation: Moderate intravenous sedation was initiated and maintained for30 minutes while the patient was independently monitored by the radiologynurse under the supervision of the interventional radiologist. A total of 2 mgof Versed and 75 mcg of fentanyl administered during the procedure. Scanner: [employer] [address] Dose reduction technique: AEC [...] lump documented in this encounter Care Teams Film Technician Relationship Specialty Start Date End Date Brandi Eisenberg PA [address] [place] [address] PCP - General 11/23/23 documented as of this encounter
--- NOTE | 2024-12-11 09:52 | MHC.OFFVIS ---
Intake Visit Reasons: 4M follow up Intake Note: Patient is present for Hematuria Urology Medication:NONE Antibiotic Allergy:NONE Blood Thinner:Maria Tquis Battery Tester And Repairer Required: Yes Battery Tester And Repairer Services: Battery Tester And Repairer Present Information Interpreted: clinical only Accompanied by: Spouse Allergies No Known Allergies (No Known Allergies*) Allergy (Verified 12/11/24 09:53) HPI Comments Details: Stew is a pleasant Trinidadian speaking male. He is a patient of . 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 [facility] - Included left nephro ureterectomy [facility] Medical History (Updated 12/11/24 @ 10:19 by Delfino Mccarthy MD) Chronic kidney disease, stage 3 unspecified Unspecified hydronephrosis Paroxysmal atrial fibrillation Essential hypertension Lung mass Microscopic hematuria Surgical History History of lung biopsy Social History Alcohol intake: never Patient Tobacco Use Status: Former Tobacco user Review of Systems Const Denies chills and Denies fever(s) Card Reports no additional complaints and Denies syncope Resp Denies cough GI Denies abdominal pain and Denies heartburn Reports as per HPI and Denies change in libido Neuro Denies syncope Psych Denies change in libido Endo Denies change in libido Physical Exam Const General: cooperative, healthy appearing, comfortable and no acute distress Orientation/consciousness: patient oriented x3 HEENT Face and sinus: Yes normal facial exam Mouth: moist mucous membranes Neck Neck: Yes normal visual inspection, Yes full ROM and Yes trachea midline Chest Chest palpation & inspection: normal inspection of the chest Resp Effort & Inspection: normal respiratory effort, able to speak in complete sentences and no respiratory distress GI Inspection: Yes normal to inspection Back/Spine/Pelvis Cervical Spine: normal cervical lordosis Thoracic/Lumbar Spine: thoracic and lumbar spine normal to inspection Skin General skin exam: no rashes or lesions noted Neuro General: patient oriented x3, gait normal, tone normal and moves all extremities Extrem General: Yes normal to inspection and Yes capillary refill normal Assessment & Plan Assessment & Plan (1) Erectile dysfunction: Code(s): N52.9 - Male erectile dysfunction, unspecified Category: Medical Plan trial sildenafil Six-month follow-up office Medications: New sildenafil administer 60 minutes before intended activity [id number] [facility] [id number] Member [id number] 100 mg PO ONCE PRN 30 tabs 0RF sexual activity 30 days N52.9 - Male erectile dysfunction, unspecified Patient Instructions: This note is constructed using voice recognition software. While every effort has been made to ensure accuracy florist's decorator errors may have been included. Imaging studies, laboratory and physical exam results were discussed and reviewed in detail. No major barriers to patient understanding were identified. An opportunity to ask questions regarding the treatment plan was provided. All questions were answered. The patient expressed understanding and agreement with the above treatment plan. The patient is aware they should contact our office by phone for worsening of their current condition or the appearance of new urologic symptoms. Compliance is encouraged with any medications and followup testing that is ordered. It is a privilege to participate in the urologic care of your patient. If you have any questions or concerns regarding treatment for the above conditions, or other urologic issues, please do not hesitate to contact me. The office telephone contact is [phone]. Sincerely, Dr Delfino Mccarthy MD, [facility] - Urology Compassionate Specialist Care for the Genitourinary System Coding Level of Care Code Est Pt Level 4 (82089) Diagnoses Erectile dysfunction N52.9
--- OUTSIDE RECORDS SUMMARY | 2024-12-11 10:29 | XMS_ITS | Clinical Summary ---
Author Organization [facility] Address [address] [place] [address] Phone Care Team Providers Care Gum Machine Operator Name Role Phone Brandi Eisenberg PA-C Primary [...] on 07 May 2014 19:39 Encounter info: [id number], [facility], One Time OP, 04/29/2014 - 04/29/2014 Contributor system: NUANCE * Final Report * Polysomnogram W/ CPAP (Verified) POLYSOMNOGRAM DATE:04/29/2014 [facility] SLEEP PROGRAM [facility] Accredited by the [place] [employer] CPAP STUDY Referring Provider: Matt Carmen M.D. Date of Study: 04/29/2014 Order ID: [id number] INTRODUCTION: This 63 year-old male with hypertension, [...] of 5.4/hr, and lowest oxygenation of 85%. [place] sleepiness scale is 10/24. (Height: 5' 6 , Weight: 217.0 lbs, BMI: 35.3.) MASK TYPE: Standard/FX Nasal. MEDICATIONS: Sertraline, Naproxen, Metformin, Lisinopril, HCTZ, Amlodipine. DESCRIPTION: This overnight polysomnogram was done utilizing a [employer] ([employer]) digital polysomnograph machine. Four channels of EEG [...] MOVEMENTS: There were 0 periodic limb movements. PATIENT S ASSESSMENT OF NIGHT: Did not fill [...] results, then I will order PAP from [facility]. 2. Patient should sleep in [...] Transcribed: 05/07/2014 18:37:55 Transcribed by: JANNETTE DocID: [id number] CC:Matt Carmen M.D. [facility] , Brandi Eisenberg [address], [phone] Osteoarthritis 03/29/2014 06/23/2021 Recurrent major depressive episodes, moderate 01/12/20 14 06/23/2021 Venous occlusion 06/05/2013 06/23/2021 Type 2 diabetes mellitus without complication 02/29/20 13 07/06/2022 Immunizations Immunization Administration Dates Next Due Pneumococcal Polysaccharide 06/05/2013 [...] Colorectal Cancer Screening: Sigmoidoscopy 1998 Pneumococcal Vaccine: 50+ Ye ars (2 of 2 - PCV) 06/05/2014 06/05/2013 Influenza Vaccine (#1) 2025 Pneumococcal Vaccine: Peds ( 0 to 5 Years) and At-Risk Patients (6 to 49 Years) Discontinued 06/05/2013 Hepatitis B Vaccine Aged Out No longe r eligible based on patient's age to complete this topic Insurance Medicare Medicaid [place] Care Teams Gum Machine Operator Relationship Specialty Start Date End Date Brandi Eisenberg PA-C [address] [place] [phone] PCP - General 06/16/20
--- OUTSIDE RECORDS SUMMARY | 2024-12-11 10:29 | XMS_ITS | Clinical Summary ---
Author Organization [facility] Address [address] [place] [address] Care Team Providers Care Manager Water Wastewater Name Role Phone Brandi Eisenberg PA-C Primary [...] 42 03/14/2024 10:39 AM EDT Temperature 36.6 C (97.9 F) 03/14/2024 10:39 AM EDT Respiratory Rate - - Oxygen Saturation 97% [...] Screening (Colonoscopy) 1994 Fall Risk Assessment 2014 RSV Adult > 60+ Yrs or (1 - 1-dose 75+ series) 2024 Influenza Vaccine (#1) 2025 Pneumococcal Vaccine Completed 01/25/2023, 06/05/2013 Hepatitis B Vaccines Aged Out No long er eligible based on patient's age to complete this topic RSV Ped < 20 months Aged Out No longe r eligible based on patient's age to complete this topic Care Teams Manager Water Wastewater Relationship Specialty Start Date End Date Brandi Eisenberg PA-C [address] [place] [address] PCP - General Physician Stunner And Shackler 11/23/23
== END 2024-12-11 10:34 | disposition home or self-care (01) ==
LOC: HO.HUSH 09:52
PROVIDERS: PCP Physician Assistant; Visit Provider Urology
DX: N52.9 Male erectile dysfunction, unspecified (principal); Z13.9 Encounter for screening, unspecified
CPT/HCPCS: 99214

== ENCOUNTER → 2024-12-11 09:51 | Outpatient (BNVA) | payer MEDICARE, MEDICAID, SELFPAY | PROVIDERS: PCP Physician Assistant; Visit Provider Urology | DX: N52.9 Male erectile dysfunction, unspecified (principal); R31.9 Hematuria, unspecified; Z79.01 Long term (current) use of anticoagulants | CPT/HCPCS: 81003; 99212 ==

== ENCOUNTER 2024-12-14 14:27 | Outpatient (AMB) | payer MEDICARE, MEDICAID, SELFPAY ==
--- OUTSIDE RECORDS SUMMARY | 2024-12-14 14:32 | XMS_ITS | Clinical Summary ---
Author Organization [facility] Address [address] [place] [address] Care Team Providers Care Bareback Rider Name Role Phone Brandi Eisenberg PA-C Primary [...] age to complete this topic Care Teams Bareback Rider Relationship Specialty Start Date End Date Brandi Eisenberg PA-C [address] [place] [address] PCP - General Physician Family Consultant 11/23/23
--- OUTSIDE RECORDS SUMMARY | 2024-12-14 14:32 | XMS_ITS | Encounter Summary ---
Author Organization [facility] Address [id number] [place] [address] Care Team Providers Care Canvas Baster Name Role Phone Brandi Eisenberg Primary Care Provider [phone] Encounter Details Date Type Department Care Team (Late st Contact Info) Description 10/03/2024 Lab Requisition [facility] - Main Lab [address] [facility] [place] [id number] Hudson Santana MD [address] [address] Pleural effusion in other conditions classified elsewhere Social History Tobacco Use Types Packs/Day Years [...] as of this encounter Plan of Treatment Pending Results Name Type Priority Associated Diagnoses Date/Time Historical Pathology Case Pathology and Cytology Routine Pleural effusion in other conditions classified elsewhere 10/03/2024 9:23 AM EDT documented as of this encounter Visit Diagnoses Diagnosis Pleural effusion in other conditions classified elsewhere documented in this encounter Care Teams Canvas Baster Relationship Specialty Start Date End Date Brandi Eisenberg PA [address] [place] [phone] PCP - General 11/23/23 documented as of this encounter
--- OUTSIDE RECORDS SUMMARY | 2024-12-14 14:32 | XMS_ITS | Clinical Summary ---
Author Organization [facility] Address [address] [place] [address] Phone Care Team Providers Care Standards Engineer Name Role Phone Brandi Eisenberg PA-C [...] on 07 May 2014 19:39 Encounter info: [id number], [facility], One Time OP, 04/29/2014 - 04/29/2014 Contributor system: NUANCE * Final Report * Polysomnogram W/ CPAP (Verified) POLYSOMNOGRAM DATE:04/29/2014 [facility] SLEEP [facility] Accredited by the [place] [employer] CPAP STUDY Referring Provider: Matt Carmen M.D. Date of Study: 04/29/2014 Order ID: [id number] INTRODUCTION: This 63 year-old male with hypertension, [...] of 5.4/hr, and lowest oxygenation of 85%. [place] sleepiness scale is 10/24. (Height: 5' 6 , Weight: 217.0 lbs, BMI: 35.3.) MASK TYPE: Standard/FX Nasal. MEDICATIONS: Sertraline, Naproxen, Metformin, Lisinopril, HCTZ, Amlodipine. DESCRIPTION: This overnight polysomnogram was done utilizing a [employer]Kart digital polysomnograph machine. Four channels of EEG [...] then I will order PAP from [facility]. 2. Patient should sleep in non-supine [...] Transcribed: 05/07/2014 18:37:55 Transcribed by: JANNETTE DocID: [id number] CC:Matt Carmen M.D. [facility] , Brandi Eisenberg [address], [address] Osteoarthritis 03/29/2014 06/23/2021 Recurrent major depressive episodes, [...] Medicaid [place] Care Teams Standards Engineer Relationship Specialty Start Date End Date Brandi Eisenberg PA-C [address] [place] [phone] PCP - General 06/16/20
--- NOTE | 2024-12-14 14:38 | HO.NEPHOV_ITS ---
Vital Signs 12/14/24 14:44 Height 5 ft 6 in Weight 171 lb BMI 27.6 BP 110/50 L Blood Pressure Location Rt brachial Position Sitting Pulse 60 Pulse Source Pulse Oximeter Pulse Oximetry (%) 97 Oxygen Delivery Method Room Air Intake Visit Reasons: 1 MO FU-Conf Big Machine Consultant Required: Yes Big Machine Consultant Language: Chilean Big Machine Consultant Services: Big Machine Consultant Offered & Declined ([facility] Big Machine Consultant services refused. Pt accompanied by Grandson) Accompanied by: Grand Child Allergies No Known Allergies (No Known Allergies*) Allergy (Verified 12/14/24 14:44) HPI Comments Details: Stew was seen in follow-up of his chronic kidney disease and hypertension. 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 Hernandez). 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 It was diagnosed following investigations for hematuria . He recently had hyperkalemia and was treated in [facility] ER. His accompanied him during this visit and Chilean interpreter and translator was used.( Even remotely he had very little function of the left kidney prior to nephrectomy). His blood pressure is currently at goal. His weight is stable. He denies nausea, vomiting, diarrhea, abdominal pain, chest pain, shortness of breath, pedal edema or orthostatic symptoms. He does not take any nonsteroidal anti-inflammatories. He is tolerating TRICIA-inhibitor. There were no new specific complaints at the time of this office visit. [facility] Medical History (Updated 12/11/24 @ 10:19 by Delfino Mccarthy MD) Chronic kidney disease, stage 3 unspecified Unspecified hydronephrosis Paroxysmal atrial fibrillation Essential hypertension Lung mass Microscopic hematuria Surgical History History of lung biopsy Social History Alcohol intake: never Patient Tobacco Use Status: Former Tobacco user Review of Systems Const All systems reviewed & are unremarkable except as noted in HPI and below Physical Exam Const General: comfortable and no acute distress Orientation/consciousness: patient oriented x3 HEENT Head: Yes normocephalic Mouth: Normal oral and palatal mucosa present Eyes EOM: EOMs intact bilaterally Neck Neck: Yes supple Resp Auscultation: clear to auscultation bilaterally Cardio Jugular venous distension: no JVD Rate: regular rate GI Palpation (GI): Soft to palpation Auscultation: normal bowel sounds General: Yes no CVA tenderness Back/Spine/Pelvis Back: no CVA tenderness Skin General skin exam: no rashes or lesions noted Neuro General: patient oriented x3 and moves all extremities Extrem General: Yes no pedal edema Results Reviewed Nephrology Results: Hgb, (14.0-18.0) 12.0 g/dl L 08/15/24 WBC, (4.8-10.8) 5.7 X10*3/uL 08/15/24 Plt Count, (160-400) 186 X10*3/uL 08/15/24 Sodium, (135-145) 140 mmol/L 11/07/24 Potassium, (3.3-5.1) 5.5 mmol/L H 11/07/24 Chloride, (96-108) 113 mmol/L H 11/07/24 Carbon Dioxide, (22-29) 20 mmol/L L 11/07/24 BUN, (9-16) 46 mg/dL H 11/07/24 Creatinine, (0.5-1.4) 1.69 mg/dL H 11/07/24 Calcium, (8.4-10.2) 9.3 mg/dL 08/15/24 Phosphorus, (2.7-4.5) 3.6 mg/dL 08/15/24 PTH Intact, (8.7-77.1) 72.0 pg/mL 08/15/24 Assessment & Plan Assessment & Plan (1) Hypertension: Code(s): I10 - Essential (primary) hypertension Category: Medical Qualifiers: Hypertension type: primary hypertension Qualified Code(s): I10 - Essential (primary) hypertension (2) Secondary hyperparathyroidism (of renal origin): Code(s): N25.81 - Secondary hyperparathyroidism of renal origin Category: Medical (3) Chronic kidney disease, stage 3 unspecified: Code(s): N18.30 - Chronic kidney disease, stage 3 unspecified Category: Medical Qualifiers: Chronic kidney disease stage 3 subtype: stage 3a (GFR 45-59) Qualified Code(s): N18.31 - Chronic kidney disease, stage 3a (4) Acquired solitary kidney: Code(s): Z90.5 - Acquired absence of kidney Category: Medical (5) Hyperkalemia: Code(s): E87.5 - Hyperkalemia Category: Medical Plan Stew has acquired solitary kidney following nephrectomy. His serum creatinine is stable. His blood pressure is at goal. His urine output is good. He is tolerating TRICIA-inhibitor but has been having hyperkalemia. He should be on a low K diet. He maintains good hydration and avoids nonsteroidal anti- inflammatories. He has no history of significant proteinuria. He will benefit from weight loss. I started him on Kionex 30 Gram once a week. If his hyperkalemia is not settling down, I may back off or D/C ACEI and add Jardiance. He follows up closely with Dr. Mccarthy. Further management is pending evolving data. Answered his and his 's questions. Orders: Orders Creatinine 3 Months E87.5 - Hyperkalemia Blood Urea Nitrogen Today E87.5 - Hyperkalemia, I10 - Essential (primary) hypertension, N18.31 - Chronic kidney disease, stage 3a, N25.81 - Secondary hyperparathyroidism of renal origin, Z90.5 - Acquired absence of kidney Electrolytes Today E87.5 - Hyperkalemia, I10 - Essential (primary) hypertension, N18.31 - Chronic kidney disease, stage 3a, N25.81 - Secondary hyperparathyroidism of renal origin, Z90.5 - Acquired absence of kidney Blood Urea Nitrogen 3 Months E87.5 - Hyperkalemia Electrolytes 3 Months E87.5 - Hyperkalemia Creatinine Today E87.5 - Hyperkalemia, I10 - Essential (primary) hypertension, N18.31 - Chronic kidney disease, stage 3a, N25.81 - Secondary hyperparathyroidism of renal origin, Z90.5 - Acquired absence of kidney Coding Level of Care Code Est Pt Level 4 (76280) Diagnoses Primary hypertension I10 Hypertension type: primary hypertension Secondary hyperparathyroidism (of renal origin) N25.81 Stage 3a chronic kidney disease N18.31 Chronic kidney disease stage 3 subtype: stage 3a (GFR 45-59) Acquired solitary kidney Z90.5 Hyperkalemia E87.5
[2024-12-14 14:44] VITALS: BP 110/50; PULSE 60; O2SAT 97; BMI 27.6
== END 2024-12-14 14:55 | disposition home or self-care (01) ==
LOC: HO.HKA 14:28
PROVIDERS: PCP Physician Assistant; Visit Provider Internal Medicine Nephrology
DX: I10 Essential (primary) hypertension (principal); N25.81 Secondary hyperparathyroidism of renal origin; N18.31 Chronic kidney disease, stage 3a; Z90.5 Acquired absence of kidney; E87.5 Hyperkalemia
CPT/HCPCS: 99214

== ENCOUNTER → 2024-12-14 14:27 | Outpatient (BNVA) | payer MEDICARE, MEDICAID, SELFPAY | PROVIDERS: PCP Physician Assistant; Visit Provider Internal Medicine Nephrology | DX: I12.9 Hypertensive chronic kidney disease with stage 1 through stage 4 chronic kidney disease, or unspecified chronic kidney disease (principal); N18.31 Chronic kidney disease, stage 3a; E87.5 Hyperkalemia; N25.81 Secondary hyperparathyroidism of renal origin; Z90.5 Acquired absence of kidney | CPT/HCPCS: 99212 ==

== ENCOUNTER 2024-12-14 15:05 | Outpatient (REF) | payer MEDICARE, MEDICAID, SELFPAY ==
[2024-12-14 16:47] LABS: Parathyroid Hormone Intact 64.1 pg/mL (8.7-77.1)
[2024-12-14 16:49] LABS: Anion Gap 10 (12-20); Blood Urea Nitrogen 48 mg/dL (9-16); Calcium 8.8 mg/dL (8.4-10.2); Carbon Dioxide 20 mmol/L (22-29); Chloride 115 mmol/L (96-108); Estimated Glomerular Filt Rate 38; Potassium 5.7 mmol/L (3.3-5.1); Sodium 139 mmol/L (135-145)
== END 2024-12-14 15:06 | disposition home or self-care (01) ==
LOC: HO.LAB 15:05
PROVIDERS: PCP Physician Assistant; Visit Provider Internal Medicine Nephrology
DX: N18.31 Chronic kidney disease, stage 3a (principal); Z90.5 Acquired absence of kidney
CPT/HCPCS: 36415; 80051; 82306; 82310; 82565; 83970; 84100; 84520

== ENCOUNTER 2025-03-08 09:24 | Outpatient (REF) | payer MEDICARE, MEDICAID, SELFPAY ==
--- OUTSIDE RECORDS SUMMARY | 2024-03-30 11:48 | XMS_ITS | Encounter Summary ---
Author Organization [facility] [place] [address] Care Team Providers Care Sheet Fed Printer Name Role Phone Brandi Eisenberg Primary Care Provider [phone] Encounter Details Date Type Department Care Team (Latest Contact Info) Description 03/30/2024 11:48 AM EDT Hospital Encounter TH HISTORIC ENCOUNTERS EASTERN CONVERSION ONLY Rory Walters MD [address] [place] [phone] Other intra-abdominal and pelvic swelling, mass [...] (04/24/2024 12:00 AM EST) Case Results Reason: [id number]: This report is amended to change the diagnosis to reflect the result of the expert consultation. Left retoperitoneal mass, core biopsy: Dedifferentiated liposarcoma Comment: The above diagnosis was rendered by Dr. Nigel Luther of [facility]. He additionally notes: Immunohistochemis try performed at [facility] demonstrates the following staining profile in lesional cells: Positive - MDM2, CDK4, SMA (multifocal), desmin (scattered cells) Negative - S100, WT-1, calretinin, AE1/AE3 FISH analysis performed at [facility] is positive for MDM2 amplification ([id number]). Dr. Cervantes will be notified of the [...] in the patient's prior right pleural biopsy, [id number]. This case is being sent to Dr. Nigel Luther at [facility] for expert consultation. This report will [...] 1422 on 03/30/2024 TS Physicians: DHEERAJ RODRIGUEZ M.D./[phone]/ RORY WALTERS MD/ x2/ HISTORICAL TESTING LAB RESULTING AGENCY 04/24/2024 us Laboratory Results Historical MD LAB PATHOLOGY O RDERABLES Final Result HISTORICAL TESTING LAB RESULTING AGENCY * Non-gynecologic cytology (04/09/2024 12:00 AM EST) Case Results Left retroperitoneal mass, fine needle aspiration (ThinPrep, direct smears and cell block): Malignant spindle cell neoplasm Comment: Please see the corresponding core biopsy, [id number], for the immunohistochemica l evaluation and expert [...] @ 14:22 on 03/30/24. Physicians DHEERAJ RODRIGUEZ M.D./[phone]/ RORY WALTERS MD/ x2/ HISTORICAL TESTING LAB [...] in the patient's prior right pleural biopsy, [id number]. This case is being sent to Dr. Nigel Ltuher at [facility] for expert [...] 1422 on 03/30/2024 TS Physicians: DHEERAJ RODRIGUEZ M.D./[phone] RORY WALTERS MD/ x2/ HISTORICAL TESTING LAB RESULTING AGENCY 04/09/2024 us Laboratory Results Historical MD LAB PATHOLOGY O RDERABLES Final Result HISTORICAL TESTING LAB RESULTING AGENCY * BX ABD RETRO MASS CT (04/02/2024 1:58 PM EDT) Anatomical Region Laterality Modality Interventional R adiology 03/30/2024 1:11 PM EDT Narrative 04/02/2024 1:58 PM EDT [facility] Diagnostic Imaging Department [address] [place] [id number] Patient: STEW WELLS./Age/Sex: 1950 - 73 - M Unit#: [id number] Location/Status: SPDIANGIO/REG CLI Mnemonic/Ordering Site: CTBXRETRO/SPIR Ordering [...] prior PET scan. Consent obtained utilizing a Chilean-speaking recycling sorter. prior relevant studies: PET/CT from January 11, [...] of fentanyl administered during the procedure. Scanner: [employer] [address] Dose reduction technique: AEC [...] Procedure Note Dheeraj Rodriguez MD - 04/07/2024 [facility] Diagnostic Imaging Department [address] [place] [address] Patient: STEW WELLS./Age/Sex: 1950 - 73 - M Unit#: [id number] Location/Status: SPDIANGIO/REG CLI Mnemonic/Ordering Site: CTBXRETRO/SPIR Ordering Physician: RORY WALTERS MD BX ABD RETRO MASS CT - 03/30/24 - 2925 Report Status:Signed INDICATION: Previous pleural biopsy with atypical mesotheliomaperforation suspicious but not diagnostic for mesothelioma. Metabolically activecervical and thoracic lymphadenopathy as well as pleural activity. Metabolicallyactive mass in the left flank. CT-guided biopsy requested for furtherhistological evaluation. PROCEDURE: Consent obtained for CT-guided biopsy of leftflank/retroperitoneal mass corresponding to metabolic activity on prior PET scan. Consentobtained utilizing a Chilean-speaking recycling sorter. prior relevant studies: PET/CT from January 11, 2024 MEDICATIONS: Local anesthesia: 7 cc of 1% buffered lidocaine administeredsubcutaneously. Sedation: Moderate intravenous sedation was initiated and maintained for30 minutes while the patient was independently monitored by the radiologynurse under the supervision of the interventional radiologist. A total of 2 mgof Versed and 75 mcg of fentanyl administered during the procedure. Scanner: [employer] [address] Dose reduction technique: AEC [...] lump documented in this encounter Care Teams Sheet Fed Printer Relationship Specialty Start Date End Date Brandi Eisenberg PA [address] [place] [address] PCP - General 11/23/23 documented as of this encounter
--- OUTSIDE RECORDS SUMMARY | 2025-03-08 09:57 | XMS_ITS | Encounter Summary ---
Author Organization [facility] Address [address] [place] [address] Phone Care Team Providers Care Fire Dispatcher Name Role Phone Brandi Eisenberg PA-C Primary Care Provider Odalys Dozier MD Unavailable [phone] Ayaz Pat MD Unavailable [phone] Samia Corrales MD, MPH Unavailable + [phone] Delfino Mccarthy MD Unavailable [phone] Edgar Kearney MD Unavailable Encounter Details Date Type Department Care Team (Late st Contact Info) Description 10/30/2024 Procedure Pass [facility], [facility] [place], [place] [address] [facility] [address] [place] [address] Social History Tobacco Use Types Packs/Day Years Used Date Smoking Tobacco: Former Cigarettes 0.8 27 1 967 - 1993 Smokeless Tobacco: Never Comments:Quit 31 years ago ~ 27 year history. Alcohol Use Standard Drinks/Week Comments Not Currently 0 (1 standard drink = 0.6 oz pur e alcohol) Child or Family Care Answer Date Record ed Do you have problems with on e of the following making it difficult for you to work, study, or receive health care? No 05/22/2024 Education Answer Date Recorded Are you interested in more education? Not on clementina e 05/17/2024 Are you concerned about learning? Not on file 05/17/2024 No 05/17/2024 No 05/17/2024 Food Answer Date Recorded Within the past 6 months we worried whether our food would run out before we got money to buy more. Never True 07/09/2024 Within the past 6 months the food we bought just didn't last and we didn't have enough money to get more. Never True Residential Stability Answer Date Recor ded What is your housing situation today? I have jordy sing 07/09/2024 How many times have you move d in the past 12 months? Zero (I did not move) 07/09/2024 Paying for Meds Answer Date Recorded Do you have trouble paying for medicines? No 07/09/2024 Paying Utility Bills Answer Date Record ed Do you have trouble paying your heating or elect ricity bill? No 07/09/2024 Transportation Answer Date Recorded Has the lack of transportati on kept you from medical appointments or from getting medications? No 07/09/2024 Digital Access Answer Date Recorded No 07/09/2024 Yes 07/09/2024 Do you have reliable internet access at home? Ye s 07/09/2024 Do you have a device (e.g., phone, tablet, computer) with a working camera? Yes 07/09/2024 Intimate Partner Violence Answer Date R ecorded Are you denied basic needs s uch as food, clothing, or medical care? No 07/05/2024 In the past 12 months have y ou been in a relationship with a person who hurts, threatens, or tries to control you? No 07/05/2024 Are you denied basic needs s uch as food, clothing, or medical care? No 07/05/2024 In the past 12 months have y ou been in a relationship with a person who hurts, threatens, or tries to control you? No 07/05/2024 Sex and Gender Information Value Date Recorded Sex Assigned at Male 05/15/2024 1:03 PM EST Legal Sex Male 1:01 PM EST Gender Identity Male 05/15/2024 1:03 PM EST Sexual Orientation Straight 05/15/2024 1: 03 PM EST documented as of this encounter Plan of Treatment Upcoming Encounters Date Type Department Care Team (Late st Contact Info) Description 01/15/2025 Procedure Pass [facility] Imaging Department, [facility], [place] [address] [place] [address] 01/15/2025 Procedure Pass [facility] Imaging Department, [facility], [place] [address], [address] [place] [address] 04/16/2025 9:30 AM EST Blood Draw [facility] Imaging Department, [facility], Imaging [id number] [address], [facility] [address] [place] [address] Odalys Dozier MD [address] [place] [phone] [email or web address] 04/16/2025 11:40 AM EST Appointment [facility] Imaging Department, [facility], [place] [address], [address] [place] [address] Odalys Dozier MD [address] [place] [phone] [email or web address] 04/16/2025 3:00 PM EST Office [facility], [address], [address] [place] [address] Odalys Dozier MD [address] [place] [phone] [email or web address] 04/16/2025 3:30 PM EST Office Visit [facility], [address], [address] [place] [phone] Ayaz Pat MD [address] [place] [phone] [email or web address] documented as of this encounter Visit Diagnoses Not on filedocumented in this encounter Additional Health Concerns Assessment Noted Time PHQ-2 Depression Total Score: 0 06/08/19 25 7:28 AM EST documented as of this encounter Care Teams Fire Dispatcher Relationship Specialty Start Date End Date Brandi Eisenberg PA-C [address] [place] [address] PCP - General Physician Caul Puller 05/15/24 Odalys Dozier MD [address] [place] [phone] [email or web address] Medical Oncology 06/13/24 Ayaz Pat MD [address] [place] [phone] [email or web address] Surgical Oncology 06/13/24 Samia Corrales MD, MPH [address] [place] [phone] [email or web address] Radiation Oncology 06/13/24 Delfino Mccarthy MD [address] [place] [address] [place] [address] Urology 01/15/25 Edgar Kearney MD [address] [place] [address] Nephrology 01/15/25 documented as of this encounter Additional Source Comments The information contained in this document represents components of the legal health record. It is not the complete legal health record.[facility]
--- OUTSIDE RECORDS SUMMARY | 2025-03-08 09:57 | XMS_ITS | Encounter Summary ---
Author Organization [facility] Address [address] [place] [address] Phone Care Team Providers Care Realty Specialist Name Role Phone Brandi Eisenberg PA-C Primary Care Provider Odalys Dozier MD Unavailable [phone] Ayaz Pat MD Unavailable [phone] Samia Corrales MD, MPH Unavailable + [phone] Delfino Mccarthy MD Unavailable Edgar Kearney MD Unavailable Encounter Details Date Type Department Care Team (Late st Contact Info) Description 06/20/2024 Procedure Pass [facility] [address] [place] [address] Social History Tobacco Use Types Packs/Day Years Used Date Smoking Tobacco: Former Cigarettes 0.8 27 1 967 - 1994 Smokeless Tobacco: Never Comments:Quit 31 years ago [...] before we got money to buy more. I choose not to answer 05/22/2024 Within the past 6 months the food we bought just didn't last and we didn't have enough money to get more. I choose not to answer 05/22/2024 Residential Stability Answer Date Recor ded What is your housing situation today? I choose n ot to answer 05/22/2024 How many times have you move d in the past 12 months? Zero (I did not move) 05/22/2024 Paying for Meds Answer Date Recorded Do you have trouble paying for medicines? No 05/22/2024 Paying Utility Bills Answer Date Record ed Do you have trouble paying y our heating or electricity bill? I choose not to answer 05/22/2024 Transportation Answer Date Recorded Has the lack of transportati on kept you from medical appointments or from getting medications? No 05/22/2024 Digital Access Answer Date Recorded No 05/17/2024 No 05/17/2024 Reliable internet access at home? Not on file 05/17/2024 Device with a working camera? Not on file Intimate Partner Violence Answer Date R ecorded Are you denied basic needs s uch as food, clothing, or medical care? No 06/22/2024 In the past 12 months have y ou been in a relationship with a person who hurts, threatens, or tries to control you? No 06/22/2024 Are you denied basic needs s uch as food, clothing, or medical care? No 06/22/2024 In the past 12 months have y ou been in a relationship with a person who hurts, threatens, or tries to control you? No 06/22/2024 Sex and Gender Information Value Date Recorded Sex Assigned at Male 05/15/2024 1:03 PM EST Legal Sex Male 1:01 PM EST Gender Identity Male 05/15/2024 1:03 PM EST Sexual Orientation Straight 05/15/2024 1: 03 PM EST documented as of this encounter Functional Status * Calculated C-SSRS Risk Score (Lifetime/Recent) Answer Date of Assessment Author No Risk Indicated 06/22/2024 1:00 AM EST Josefa Hawk RN * [place] Suicide Severity Rating Scale (Screener/Recent Self-Report) Question Answer Date of Assessment Author 1. Wish to be (Past 1 Month) No 025 1:00 AM Josefa Lao RN 2. Non-Specific Active Suici mark Thoughts (Past 1 Month) No 06/22/2024 1:00 AM EST Jose M Santiago RN 6. Suicidal Behavior (Lifetime) No 1:00 AM Josefa Lao RN documented as of this encounter Plan of Treatment Upcoming Encounters Date Type Department Care Team (Late st Contact Info) Description 01/15/2025 Procedure Pass [facility] Imaging Department, [facility], [place] [address] [facility], [address] [address] 01/15/2025 Procedure Pass [facility] Imaging Department, [facility] [place] [address] [facility], [address] [address] 04/16/2025 9:30 AM EST Blood Draw [facility] Imaging Department, [facility], Imaging [id number] [address] [place] [address], [facility] [address] [place] [address] Odalys Dozier MD [address] [place] [phone] [email or web address] 04/16/2025 11:40 AM EST Appointment [facility] Imaging Department, [facility], [place] [address] [facility], [facility] [address] [place] [address] Odalys Dozier MD [address] [place] [phone] [email or web address] 04/16/2025 3:00 PM EST Office Visit [facility], [address], [address] [place] [address] Odalys Dozier MD [address] [place] [phone] [email or web address] 04/16/2025 3:30 PM EST Office Visit [facility], [address], [address] [place] [phone] Ayaz Pat MD [address] [place] [phone] [email or web address] documented as of this encounter Visit Diagnoses Not on filedocumented in this encounter Additional Health Concerns Assessment Noted Time PHQ-2 Depression Total Score: 0 06/08/19 25 7:28 AM EST documented as of this encounter Care Teams Realty Specialist Relationship Specialty Start Date End Date Brandi Eisenberg PA-C [facility] [place] [address] PCP - General Physician Tripe Washer 05/15/24 Odalys Dozier MD [address] [place] [phone] [email or web address] Medical Oncology 06/13/24 Ayaz Pat MD [address] [place] [phone] [email or web address] Surgical Oncology 06/13/24 Samia Corrales MD, MPH [address] [place] [phone] [email or web address] Radiation Oncology 06/13/24 Delfino Mccarthy MD [address] [place] [address] [place] [address] Urology 01/15/25 Edgar Kearney MD [address] [place] [address] [place] [address] Nephrology 01/15/25 documented as of this encounter Additional Source Comments The information contained in this document represents components of the legal health record. It is not the complete legal health record.[facility]
--- OUTSIDE RECORDS SUMMARY | 2025-03-08 09:57 | XMS_ITS | Encounter Summary ---
Author Organization [facility] Address [address] [employer] [facility] [address] [place] [address] Phone Care Team Providers Care Road Gang Supervisor Name Role Phone Brandi Eisenberg PA-C Primary Care Provider Odalys Dozier MD Unavailable [phone] Ayaz Pat MD Unavailable [phone] Samia Corrales MD, MPH Unavailable + [phone] Delfino Mccarthy MD Unavailable Edgar Kearney MD Unavailable Encounter Details Date Type Department Care Team (Late st Contact Info) Description 06/20/2024 Procedure Pass [facility] Echocardiography [address] [place] [address] Social History Tobacco Use Types Packs/Day Years [...] 1:00 AM EST Josefa Hawk RN * [place] Suicide Severity Rating Scale (Screener/Recent Self-Report) Question Answer Date of Assessment Author 1. Wish to be (Past 1 Month) No 025 1:00 AM Josefa Lao RN 2. Non-Specific Active Suici mark Thoughts (Past 1 Month) No 06/22/2024 1:00 AM EST Jose M Santiago RN 6. Suicidal Behavior (Lifetime) No 1:00 AM EST Josefa Santiago RN documented as of this encounter Plan of Treatment Upcoming Encounters Date Type Department Care Team (Late st Contact Info) Description 01/15/2025 Procedure Pass [facility] Imaging Department, [facility], [place] [facility], [facility] L1 [place] [address] 01/15/2025 Procedure Pass [facility] Imaging Department, [facility] [place] [facility], [address] [address] 04/16/2025 9:30 AM EST Blood Draw [facility] Imaging Department, [facility], Imaging Hbmhp-iz-Jgya [address] [place] [address], [facility] L1 [place] [address] Odalys Dozier MD [address] [place] [address] Kandis@[facility] 04/16/2025 11:40 AM EST Appointment [facility] Imaging Department, [facility], [place] [facility], [facility] L[address] [place] [address] Odalys Dozier MD [address] [place] [address] Kandis@[facility] 04/16/2025 3:00 PM EST Office [facility], [address], [address] [place] [address] Odalys Dozier MD [address] [place] [address] Kandis@[facility] 04/16/2025 3:30 PM EST Office Visit [facility], [address], [address] [place] [address] Ayaz Pat MD [address] [place] [address] SUSIE@[facility] documented as of this encounter Visit Diagnoses Not on filedocumented in this encounter Additional Health Concerns Assessment Noted Time PHQ-2 Depression Total Score: 0 06/08/19 25 7:28 AM EST documented as of this encounter Care Teams Road Gang Supervisor Relationship Specialty Start Date End Date Brandi Eisenberg PA-C [facility]9 [place] [address] PCP - General Physician Paste Up Worker 05/15/24 Odalys Dozier MD [address] [place] [address] Kandis@[facility] Medical Oncology 06/13/24 Ayaz Pat MD [address] [place] [address] SUSIE@[facility] Surgical Oncology 06/13/24 Samia Corrales MD, MPH [address] [place] [phone] Chong@[facility] Radiation Oncology 06/13/24 Delfino Mccarthy MD [address] [place] [address] [facility] [place] [address] Urology 01/15/25 Edgar Kearney MD [address] [place] [address] [place] [address] Nephrology 01/15/25 documented as of this encounter Additional Source Comments The information contained in this document represents components of the legal health record. It is not the complete legal health record.[facility]
--- OUTSIDE RECORDS SUMMARY | 2025-03-08 09:57 | XMS_ITS | Encounter Summary ---
Author Organization [facility] Address [address] [place] [address] Phone Care Team Providers Care Feed Blender Name Role Phone Brandi Eisenberg PA-C Primary Care Provider Odalys Dozier MD Unavailable [phone] Ayaz Pat MD Unavailable [phone] Samia Corrales MD, MPH Unavailable + [phone] Delfino Mccarthy MD Unavailable Edgar Kearney MD Unavailable Encounter Details Date Type Department Care Team (Late st Contact Info) Description 06/20/2024 Procedure Pass [facility] [address] [place] [address] Social History Tobacco Use Types Packs/Day Years [...] 1:00 AM EST Josefa Hawk RN * [place] Suicide Severity Rating Scale (Screener/Recent Self-Report) Question [...] st Contact Info) Description 01/15/2025 Procedure Pass [facility] Imaging Department, [facility], [place] [facility], [address] [address] 01/15/2025 Procedure Pass [facility] Imaging Department, [facility] [place] [facility], [address] [address] 04/16/2025 9:30 AM EST Blood Draw [facility] Imaging Department, [facility], Imaging Yljkh-gq-Liaq [address] [place] [address], [facility] L1 [place] [address] Odalys Dozier MD [address] [place] [address] Kandis@[facility] 04/16/2025 11:40 AM EST Appointment [facility] Imaging Department, [facility], [place] [facility], [facility] L1 [place] [address] Odalys Dozier MD [address] [place] [address] Kandis@[facility] 04/16/2025 3:00 PM EST Office Visit [facility], [address], [address] [place] [address] Odalys Dozier MD [address] [place] [address] Kandis@[facility] 04/16/2025 3:30 PM EST Office Visit [facility], [address], [address] [place] [address] Ayaz Pat MD [address] [place] [address] SUSIE@[facility] documented as of this encounter Visit Diagnoses Not on filedocumented in this encounter Additional Health Concerns Assessment Noted Time PHQ-2 Depression Total Score: 0 06/08/19 25 7:28 AM EST documented as of this encounter Care Teams Feed Blender Relationship Specialty Start Date End Date Brandi Eisenberg PA-C [facility]9 [place] [address] PCP - General Physician Site Promotion Agent 05/15/24 Odalys Dozier MD [address] [place] [address] Kandis@[facility] Medical Oncology 06/13/24 Ayaz Pat MD [address] [place] [address] SUSIE@[facility] Surgical Oncology 06/13/24 Samia Corrales MD, MPH [address] [place] [address] Chong@[facility] Radiation Oncology 06/13/24 Delfino Mccarthy MD [address] [place] [address] [place] [address] Urology 01/15/25 Edgar Kearney MD [address] [place] [address] [place] [address] Nephrology 01/15/25 documented as of this encounter Additional Source Comments The information contained in this document represents components of the legal health record. It is not the complete legal health record.[facility]
--- OUTSIDE RECORDS SUMMARY | 2025-03-08 09:57 | XMS_ITS | Encounter Summary ---
Author Organization [facility] Address [address] [place] [address] Phone Care Team Providers Care Fuselage Framer Name Role Phone Brandi Eisenberg PA-C Primary Care Provider Odalys Dozier MD Unavailable [phone] Ayaz Pat MD Unavailable [phone] Samia Corrales MD, MPH Unavailable + [phone] Delfino Mccarthy MD Unavailable [phone] Edgar Kearney MD Unavailable Encounter Details Date Type Department Care Team (Late st Contact Info) Description 06/21/2024 Procedure Pass [facility] 75 [place] [address] Social History Tobacco Use Types Packs/Day Years [...] 1:00 AM EST Josefa Hawk RN * [place] Suicide Severity Rating Scale (Screener/Recent Self-Report) Question Answer Date of Assessment Author 1. Wish to be (Past 1 Month) No 025 1:00 AM Josefa aLo RN 2. Non-Specific Active Suici mark Thoughts (Past 1 Month) No 06/22/2024 1:00 AM EST Jose M Santiago RN 6. Suicidal Behavior (Lifetime) No 1:00 AM Josefa Lao RN documented as of this encounter Plan of Treatment Upcoming Encounters Date Type Department Care Team (Late st Contact Info) Description 01/15/2025 Procedure Pass [facility] Imaging Department, [facility], [place] [facility], [address] [address] 01/15/2025 Procedure Pass [facility] Imaging Department, [facility], [place] [facility], [address] [address] 04/16/2025 9:30 AM EST Blood Draw [facility] Imaging Department, [facility], Imaging Yssok-gu-Bivi [address] [place] [address], [facility] L1 [place] [address] Odalys Dozier MD [address] [place] [phone] Kandis@[facility] 04/16/2025 11:40 AM EST Appointment [facility] Imaging Department, [facility], [place] [facility], [facility] L1 [place] [address] Odalys Dozier MD [address] [place] [address] Kandis@[facility] 04/16/2025 3:00 PM EST Office Visit [facility], [address], [address] [place] [address] Odalys Dozier MD [address] [place] [address] Kandis@[facility] 04/16/2025 3:30 PM EST Office Visit [facility], [address], [address] [place] [address] Ayaz Pat MD [address] [place] [address] SUSIE@[facility] documented as of this encounter Visit Diagnoses Not on filedocumented in this encounter Additional Health Concerns Assessment Noted Time PHQ-2 Depression Total Score: 0 06/08/19 25 7:28 AM EST documented as of this encounter Care Teams Fuselage Framer Relationship Specialty Start Date End Date Brandi Eisenberg PA-C [facility]9 [place] [address] PCP - General Physician Risk Management Analyst 05/15/24 Odalys Dozier MD [address] [place] [address] Kandis@[facility] Medical Oncology 06/13/24 Ayaz Pat MD [address] [place] [address] SUSIE@[facility] Surgical Oncology 06/13/24 Samia Corrales MD, MPH [address] [place] [phone] Chong@[facility] Radiation Oncology 06/13/24 Delfino Mccarthy MD [address] [place] [address] [place] [address] Urology 01/15/25 Edgar Kearney MD [address] [place] [address] [place] [address] Nephrology 01/15/25 documented as of this encounter Additional Source Comments The information contained in this document represents components of the legal health record. It is not the complete legal health record.[facility]
--- OUTSIDE RECORDS SUMMARY | 2025-03-08 09:57 | XMS_ITS | Encounter Summary ---
Author Organization [facility] Address 399 [facility] [address] [place] [address] Phone Care Team Providers Care Nursing Scheduler Name Role Phone Brandi Eisenberg PA-C Primary Care Provider Odalys Dozier MD Unavailable [phone] Ayaz Pat MD Unavailable [phone] Samia Corrales MD, MPH Unavailable + [phone] Delfino Mccarthy MD Unavailable Edgar Kearney MD Unavailable Encounter Details Date Type Department Care Team (Late st Contact Info) Description 10/30/2024 Procedure Pass [facility], [facility], [place] [facility], Floor L1 [place] [address] Social History Tobacco Use Types Packs/Day Years [...] st Contact Info) Description 01/15/2025 Procedure Pass [facility] Imaging Department, [facility], [place] [facility], Floor L1 [place] [address] 01/15/2025 Procedure Pass [facility] Imaging Department, [facility], [place] [facility], Floor L1 [place] [address] 04/16/2025 9:30 AM EST Blood Draw [facility] Imaging Department, [facility], Imaging Kbrum-pb-Isnt [facility], [facility] L1 [place] [address] Odalys Dozier MD [address] [place] [address] Kandis@[facility] 04/16/2025 11:40 AM EST Appointment [facility] Imaging Department, [facility], [place] [facility], Floor L1 [place] [address] Odalys Dozier MD [address] [place] [address] Kandis@[facility] 04/16/2025 3:00 PM EST Office Visit [facility], [address], [address] [place] [address] Odalys Dozier MD [address] [place] [address] Kandis@[facility] 04/16/2025 3:30 PM EST Office Visit [facility], [address], [address] [place] [address] Ayaz Pat MD [address] [place] [address] SUSIE@[facility] documented as of this encounter Visit Diagnoses Not on filedocumented in this encounter Additional Health Concerns Assessment Noted Time PHQ-2 Depression Total Score: 0 06/08/19 25 7:28 AM EST documented as of this encounter Care Teams Nursing Scheduler Relationship Specialty Start Date End Date Brandi Eisenberg PA-C [address] [place] [address] PCP - General Physician Water Filterer 05/15/24 Odalys Dozier MD [address] [place] [address] Kandis@[facility] Medical Oncology 06/13/24 Ayaz Pat MD [address] [place] [address] SUSIE@[facility] Surgical Oncology 06/13/24 Samia Corrales MD, MPH [address] [place] [phone] Chong@[facility] Radiation Oncology 06/13/24 Delfino Mccarthy MD [address] [place] [address] [place] [address] Urology 01/15/25 Edgar Kearney MD [address] [place] [address] Nephrology 01/15/25 documented as of this encounter Additional Source Comments The information contained in this document represents components of the legal health record. It is not the complete legal health record.[facility]
--- OUTSIDE RECORDS SUMMARY | 2025-03-08 09:59 | XMS_ITS | Encounter Summary ---
Author Organization [facility] Address [address] [facility] [address] [place] [address] Phone Care Team Providers Care Acid Correction Hand Name Role Phone Brandi Eisenberg PA-C Primary Care Provider Odalys Dozier MD Unavailable [phone] Ayaz Pat MD Unavailable [phone] Samia Corrales MD, MPH Unavailable + [phone] Delfino Mccarthy MD Unavailable [phone] Edgar Kearney MD Unavailable Encounter Details Date Type Department Care Team (Late st Contact Info) Description 06/14/2024 Procedure Pass [facility] Periop [address] [place] [address] Social History Tobacco Use Types Packs/Day Years [...] as food, clothing, or medical care? No 06/14/2024 In the past 12 months have y ou been in a relationship with a person who hurts, threatens, or tries to control you? No 06/14/2024 Are you denied basic needs s uch as food, clothing, or medical care? No 06/14/2024 In the past 12 months have y ou been in a relationship with a person who hurts, threatens, or tries to control you? No 06/14/2024 Sex and Gender Information Value Date Recorded Sex Assigned at Male 05/15/2024 1:03 PM EST Legal Sex Male 1:01 PM EST Gender Identity Male 05/15/2024 1:03 PM EST Sexual Orientation Straight 05/15/2024 1: 03 PM EST documented as of this encounter Plan of Treatment Upcoming Encounters Date Type Department Care Team (Late st Contact Info) Description 01/15/2025 Procedure Pass [facility] Imaging Department, [facility], [place] [facility], Floor L1 [place] [address] 01/15/2025 Procedure Pass [facility] Imaging Department, [facility], [place] [facility], Floor L1 [place] [address] 04/16/2025 9:30 AM EST Blood Draw [facility] Imaging Department, [facility], Imaging Yawmp-ov-Zkmh [facility], Floor L1 [place] [address] Odalys Dozier MD [address] [place] [address] Kandis@[facility] 04/16/2025 11:40 AM EST Appointment [facility] Imaging Department, [facility], [place] [facility], Floor L1 [place] [address] Odalys Dozier MD [address] [place] [address] Kandis@[facility] 04/16/2025 3:00 PM EST Office Visit [facility], [address], [address] [place] [address] Odalys Dozier MD [address] [place] [address] Kandis@[facility] 04/16/2025 3:30 PM EST Office Visit [facility], [address], [address] [place] [address] Ayaz Pat MD [address] [place] [address] SUSIE@[facility] documented as of this encounter Visit Diagnoses Not on filedocumented in this encounter Additional Health Concerns Assessment Noted Time PHQ-2 Depression Total Score: 0 06/08/19 25 7:28 AM EST documented as of this encounter Care Teams Acid Correction Hand Relationship Specialty Start Date End Date Brandi Eisenberg PA-C [address] [place] [address] PCP - General Physician Concierge Receptionist 05/15/24 Odalys Dozier MD [address] [place] [address] Kandis@[facility] Medical Oncology 06/13/24 Ayaz Pat MD [address] [place] [address] SUSIE@[facility] Surgical Oncology 06/13/24 Samia Corrales MD, MPH [address] [place] [phone] Chong@[facility] Radiation Oncology 06/13/24 Delfino Mccarthy MD [address] [place] [address] Dr Lozano [address] [place] [address] Urology 01/15/25 Edgar Kearney MD [address] [place] [address] Nephrology 01/15/25 documented as of this encounter Additional Source Comments The information contained in this document represents components of the legal health record. It is not the complete legal health record.[facility]
--- OUTSIDE RECORDS SUMMARY | 2025-03-08 09:59 | XMS_ITS | Encounter Summary ---
Author Organization [facility] Address 399 [facility] [address] [place] [address] Phone Care Team Providers Care Java Software Engineer Name Role Phone Brandi Eisenberg PA-C Primary Care Provider Odalys Dozier MD Unavailable [phone] Ayaz Pat MD Unavailable [phone] Samia Corrales MD, MPH Unavailable + [phone] Delfino Mccarthy MD Unavailable [phone] Edgar Kearney MD Unavailable Encounter Details Date Type Department Care Team (Latest Contact Info) Description 06/26/2024 Transcribe Orders [facility] [address] [place] [address] Ashley Martins [place] [email or web address] Bradycardia (Primary Dx) Social History Tobacco Use Types Packs/Day Years [...] st Contact Info) Description 01/15/2025 Procedure Pass [facility] Imaging Department, [facility] [place] [facility], Floor L1 [place] [address] 01/15/2025 Procedure Pass [facility] Imaging Department, [facility] [place] [address] [facility], Floor L1 [place] [address] 04/16/2025 9:30 AM EST Blood Draw [facility] Imaging Department, [facility], Imaging Wnwzl-wm-Fgrm [address] [facility], Floor L1 [place] [address] Odalys Dozier MD [address] [place] [address] Kandis@[facility] 04/16/2025 11:40 AM EST Appointment [facility] Imaging Department, [facility], [place] [address] [facility], Floor L1 [place] [address] Odalys Dozier MD [address] [place] [address] Kandis@[facility] 04/16/2025 3:00 PM EST Office [facility], [address], [address] [place] [address] Odalys Dozier MD [address] [place] [address] Kandis@[facility] 04/16/2025 3:30 PM EST Office Visit [facility], [address], [address] [place] [address] Ayaz Pat MD [address] [place] [address] SUSIE@[facility] Scheduled Orders Name Type Priority Associated Diagnoses Orde r Schedule EP Device Check / Follow Up Cardiac Monitors Routine Bradycardia Other for 60 Occurrences starting 06/26/2024 until 06/26/2026 documented as of this encounter Visit Diagnoses Diagnosis Bradycardia- Primary Other specified cardiac dysrhythmias documented in this encounter Additional Health Concerns Assessment Noted Time PHQ-2 Depression Total Score: 0 06/08/19 7:28 AM EST documented as of this encounter Care Teams Java Software Engineer Relationship Specialty Start Date End Date Brandi Eisenberg PA-C [address] [place] [address] PCP - General Physician Stamp Pad Finisher 05/15/24 Odalys Dozier MD [address] [place] [address] Kandis@[email or web address] Medical Oncology 06/13/24 Ayaz Pat MD [address] [place] [address] SUSIE@[facility] Surgical Oncology 06/13/24 Samia Corrales MD, MPH [address] [place] [address] Chong@[facility] Radiation Oncology 06/13/24 Delfino Mccarthy MD [address] [place] [address] [place] [address] Urology 01/15/25 Edgar Kearney MD [address] [place] [address] [place] [address] Nephrology 01/15/25 documented as of this encounter Additional Source Comments The information contained in this document represents components of the legal health record. It is not the complete legal health record.[facility]
--- OUTSIDE RECORDS SUMMARY | 2025-03-08 09:59 | XMS_ITS | Clinical Summary ---
Author Organization [facility] Address [address] [place] [address] Care Team Providers Care Starch Factory Laborer Name Role Phone Brandi Eisenberg PA-C Primary [...] age to complete this topic Care Teams Starch Factory Laborer Relationship Specialty Start Date End Date Brandi Eisenberg PA-C [address] [place] [address] PCP - General Physician Signals Collector/Analyst 11/23/23
--- OUTSIDE RECORDS SUMMARY | 2025-03-08 09:59 | XMS_ITS | Encounter Summary ---
Author Organization [facility] Address [address] [facility] [address] [place] [address] Phone Care Team Providers Care Supervisor Network Control Operators Name Role Phone Brandi Eisenberg PA-C Primary Care Provider Odalys Dozier MD Unavailable [phone] Ayaz Pat MD Unavailable Samia Corrales MD, MPH Unavailable + [phone] Delfino Mccarthy MD Unavailable Edgar Kearney MD Unavailable Encounter Details Date Type Department Care Team (Late st Contact Info) Description 05/22/2024 Procedure Pass [facility] [address] [place] [address] Social History Tobacco Use Types Packs/Day Years Used Date Smoking Tobacco: Former Cigarettes Smokeless Tobacco: Never Comments:Quit 31 years ago Alcohol Use Standard Drinks/Week Comments Not Currently [...] with a working camera? Not on file Sex and Gender Information Value Date Recorded Sex Assigned at Male 05/15/2024 1:03 PM EST Legal Sex Male 1:01 PM EST Gender Identity Male 05/15/2024 1:03 PM EST Sexual Orientation Straight 05/15/2024 1: 03 PM EST documented as of this encounter Plan of Treatment Upcoming Encounters Date Type Department Care Team (Late st Contact Info) Description 01/15/2025 Procedure Pass [facility] Imaging [facility], [facility], [place] [address] [facility], Floor [address]1 [place] [address] 01/15/2025 Procedure Pass [facility] Imaging [facility], [facility] [place] [address] [facility], Floor [address]1 [place] [address] 04/16/2025 9:30 AM EST Blood Draw [facility] Imaging Department, [facility], Imaging Jfhgb-ke-Qtic [address] [facility], Floor [address] [place] [address] Odalys Dozier MD [address] [place] [address] Kandis@[facility] 04/16/2025 11:40 AM EST Appointment [facility] Imaging [facility], [facility], [place] [address] [facility], Floor [address] [place] [address] Odalys Dozier MD [address] [place] [address] Kandis@[facility] 04/16/2025 3:00 PM EST Office [facility], [address] [place] [address] Odalys Doizer MD [address] [place] [address] Kandis@[facility] 04/16/2025 3:30 PM EST Office Visit [facility], [address], [address] [place] [address] Ayaz Pat MD [address] [place] [phone] SUSIE@[email or web address] documented as of this encounter Visit Diagnoses Not on filedocumented in this encounter Care Teams Supervisor Network Control Operators Relationship Specialty Start Date End Date Brandi Eisenberg PA-C [address] [place] [address] PCP - General Physician Roll Up Helper 05/15/24 Odalys Dozier MD [address] [place] [address] [email or web address] Medical Oncology 06/13/24 Ayaz Pat MD [address] [place] [address] [email or web address]@[email or web address] Surgical Oncology 06/13/24 Samia Corrales MD, MPH [address] [place] [address] [email or web address] Radiation Oncology 06/13/24 Delfino Mccarthy MD [address] [place] [address] [address] Urology 01/15/25 Edgar Kearney MD [address] [place] [address] Nephrology 01/15/25 documented as of this encounter Additional Source Comments The information contained in this document represents components of the legal health record. It is not the complete legal health record.[facility]
--- OUTSIDE RECORDS SUMMARY | 2025-03-08 09:59 | XMS_ITS | Encounter Summary ---
Author Organization [facility] Address [address] [place] [address] Care Team Providers Care Floor Finisher Name Role Phone Brandi Eisenberg Primary Care Provider [phone] Encounter Details Date Type Department Care Team (Late st Contact Info) Description 10/03/[address] [facility] - Main Lab [address] [facility] [place] [phone] Hudson Santana MD [address] [facility] [address] [place] [address] Pleural effusion in other conditions classified elsewhere [...] Procedure Name Priority Date/Time Associated Diagnosis Comments HISTORICAL SURGICAL PATHOLOGY CASE Routine 10/03/2024 9:23 AM EDT Pleural effusion in other conditions classified elsewhere documented in this encounter Results * Historical Pathology Case (10/03/2024 9:23 AM EDT) Final Diagnosis This case was created to document slides being sent to another institution from an historical case accessioned in our prior laboratory information system. No additional diagnosis is rendered by this institution at this time. The outside institution's report is available upon request. 12/28/2024 3:58 PM EDT [facility] Clinical Information This historical was created for a slide request for [facility] [place]. 12/28/2024 3:58 PM EDT [facility] Gross Description A. Pleural Cavity, Right, right pleural biopsy: At the request of Kavita for Dr. Dozier slides sent (11) [facility] - pathology processing ([facility]) [address] [place] , [address] [place] [address] FEDEX: [id number] - [place] 12/28/2024 3:58 PM EDT [facility] Disclaimer Unless otherwise specified, all tissue is 10% NB formalin fixed and paraffin embedded. 12/28/2024 3:58 PM EDT [facility] Tissue Structure of right pleural cavity / Unknown 10/03/2024 9:23 AM EDT 10/03/2024 9:23 AM EDT us Hudson Santana MD LAB PATHOLOGY ORDERABLES Final R esult [facility] [address] [place] [address], documented in this encounter Visit Diagnoses Diagnosis Pleural effusion in other conditions classified elsewhere documented in this encounter Care Teams Floor Finisher Relationship Specialty Start Date End Date Brandi Eisenberg PA [address] [place] [address] PCP - General 11/23/23 documented as of this encounter
--- OUTSIDE RECORDS SUMMARY | 2025-03-08 09:59 | XMS_ITS | Encounter Summary ---
Author Organization [facility] Address [address] [place] [facility] [address] [place] [address] Phone Care Team Providers Care Acid Etch Operator Name Role Phone Brandi Eisenberg PA-C Primary Care Provider Odalys Dozier MD Unavailable [phone] Ayaz Pat MD Unavailable [phone] Samia Corrales MD, MPH Unavailable + [phone] Delfino Mccarthy MD Unavailable Edgar Kearney MD Unavailable Encounter Details Date Type Department Care Team (Late st Contact Info) Description 06/22/2024 Procedure Pass [facility] Electrophysiology Lab [address] [place] [address] Social History Tobacco Use Types Packs/Day Years [...] 1:00 AM EST Josefa Hawk RN * [place] Suicide Severity Rating Scale (Screener/Recent Self-Report) Question [...] [facility] Imaging Department, [facility], [place] [address] [facility], [facility] [address] [place] [address] 01/15/2025 Procedure Pass [facility] Imaging Department, [facility] [place] [address] [facility], [address] [address] 04/16/2025 9:30 AM EST Blood Draw [facility] Imaging Department, [facility], Imaging Ygrvc-ut-Adhu [address] [place] [address], [facility] [address] [place] [address] Odalys Dozier MD [address] [place] [phone] Kandis@[email or web address] 04/16/2025 11:40 AM EST Appointment [facility] Imaging Department, [facility], [place] [address] [facility], [facility] [address] [place] [address] Odalys Dozier MD [address] [place] [phone] [email or web address]@[email or web address] 04/16/2025 3:00 PM EST Office [facility], [address], [address] [place] [address] Odalys Dozier MD [address] [place] [address] Kandis@[facility] 04/16/2025 3:30 PM EST Office Visit [facility], [address], [address] [place] [address] Ayaz Pat MD [address] [place] [address] [email or web address]@[email or web address] documented as of this encounter Visit Diagnoses Not on filedocumented in this encounter Additional Health Concerns Assessment Noted Time PHQ-2 Depression Total Score: 0 06/08/19 25 7:28 AM EST documented as of this encounter Care Teams Acid Etch Operator Relationship Specialty Start Date End Date Brandi Eisenberg PA-C [facility] [place] [address] PCP - General Physician Steam Shovel Oiler 05/15/24 Odalys Dozier MD [address] [place] [address] Kandis@[email or web address] Medical Oncology 06/13/24 Ayaz Pat MD [address] [place] [address] SUSIE@[facility] Surgical Oncology 06/13/24 Samia Corrales MD, MPH [address] [place] [phone] Chong@[email or web address] Radiation Oncology 06/13/24 Delfino Mccarthy MD [address] [place] [address] [place] [address] [place] [address] Urology 01/15/25 Edgar Kearney MD [address] [place] [address] [facility] [address] Nephrology 01/15/25 documented as of this encounter Additional Source Comments The information contained in this document represents components of the legal health record. It is not the complete legal health record.[facility]
--- OUTSIDE RECORDS SUMMARY | 2025-03-08 09:59 | XMS_ITS | Encounter Summary ---
Author Organization [facility] Address [address] [place] [address] Phone Care Team Providers Care Willow Worker Name Role Phone Brandi Eisenberg PA-C Primary Care Provider [phone] Odalys Dozier MD Unavailable [phone] Ayaz Pat MD Unavailable [phone] Samia Corrales MD, MPH Unavailable + [phone] Delfino Mccarthy MD Unavailable Edgar Kearney MD Unavailable Encounter Details Date Type Department Care Team (Late st Contact Info) Description 06/21/2024 Procedure Pass [facility] [address] [place] [address] Social History Tobacco Use Types Packs/Day Years [...] 1:00 AM EST Josefa Hawk RN * [place] Suicide Severity Rating Scale (Screener/Recent Self-Report) Question [...] st Contact Info) Description 01/15/2025 Procedure Pass [facility] Imaging Department, [facility], [place] [address] [facility], [facility] L1 [place] [address] 01/15/2025 Procedure Pass [facility] Imaging Department, [facility], [place] [address] [facility], [address] [address] 04/16/2025 9:30 AM EST Blood Draw [facility] Imaging Department, [facility], Imaging Rxtkg-yp-Oufh [address] [place] [address], [address] [address] Odalys Dozier MD [address] [place] [phone] Kandis@[facility] 04/16/2025 11:40 AM EST Appointment [facility] Imaging Department, [facility], [place] [address] [facility], [facility] [address] [place] [address] Odalys Dozier MD [address] [place] [phone] Kandis@[facility] 04/16/2025 3:00 PM EST Office Visit [facility], [address], [address] [place] [address] Odalys Dozier MD [address] [place] [phone] Kandis@[facility] 04/16/2025 3:30 PM EST Office Visit [facility], [address], [address] [place] [address] Ayaz Pat MD [address] [place] [address] SUSIE@[facility] documented as of this encounter Visit Diagnoses Not on filedocumented in this encounter Additional Health Concerns Assessment Noted Time PHQ-2 Depression Total Score: 0 06/08/19 25 7:28 AM EST documented as of this encounter Care Teams Willow Worker Relationship Specialty Start Date End Date Brandi Eisenberg PA-C [facility] [place] [address] PCP - General Physician Ios Software Engineer 05/15/24 Odalys Dozier MD [address] [place] [phone] Kandis@[facility] Medical Oncology 06/13/24 Ayaz Pat MD [address] [place] [phone] SUSIE@[facility] Surgical Oncology 06/13/24 Samia Corrales MD, MPH [address] [place] [phone] Chong@[email or web address] Radiation Oncology 06/13/24 Delfino Mccarthy MD [address] [place] [address] [place] [address] Urology 01/15/25 Edgar Kearney MD [address] [place] [address] [place] [address] Nephrology 01/15/25 documented as of this encounter Additional Source Comments The information contained in this document represents components of the legal health record. It is not the complete legal health record.[facility]
--- OUTSIDE RECORDS SUMMARY | 2025-03-08 10:01 | XMS_ITS ---
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 CYTOPATHOLOGY REPORT Date: 10/25/2023 report: Pleural [...] for but not diagnostic of mesothelioma, WT1-positive, [id number]-ilxiiddy, calretinin- positive, ZYK-2-davzzuzn. 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 I recommended a mediastinoscopy and sampling of the subcarinal node to obtain a tissue diagnosis and for staging. I ordered a PET/CT for staging. A treatment plan will depend upon obtaining a tissue diagnosis and staging. 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 Hypertensive renal disease 07/23/2020 Stage 3b chronic kidney disease 06/08/2017 Hyperlipidemia, mixed 03/11/2015 TONI (obstructive sleep apnea) 05/10/2014 Overview (05/22/2024): Result type: Polysomnogram with CPAP Result date: 07 May 2014 17:40 Result status: Auth (Verified) Result title: Polysomnogram W/ CPAP Performed by: Matt Carmen MD on 07 May 2014 17:40 Verified by: Matt Carmen MD on 07 May 2014 19:39 Encounter info: [id number], [facility] [place], 04/29/2014 - 04/29/2014 Contributor system: NUANCE * Final Report * Polysomnogram W/ CPAP (Verified) POLYSOMNOGRAM DATE:04/29/2014 [facility] SLEEP [facility] Accredited by the [place] [employer] CPAP STUDY Referring Provider: Matt Carmen M.D. Date of Study: 04/29/2014 Order ID: [id number] INTRODUCTION: This 63 year-old male with hypertension, [...] of 5.4/hr, and lowest oxygenation of 85%. [place] sleepiness scale is 10/24. (Height: 5' 6 , Weight: 217.0 lbs, BMI: 35.3.) MASK TYPE: Standard/FX Nasal. MEDICATIONS: Sertraline, Naproxen, Metformin, Lisinopril, HCTZ, Amlodipine. DESCRIPTION: This overnight polysomnogram was done utilizing a Studio Moderna digital polysomnograph machine. Four channels of EEG [...] MOVEMENTS: There were 0 periodic limb movements. PATIENT?S ASSESSMENT OF NIGHT: Did not fill out [...] then I will order PAP from [facility]. 2. Patient should sleep in non-supine [...] Transcribed: 05/07/2014 18:37:55 Transcribed by: JANNETTE DocID: [id number] CC:Matt Carmen M.D. 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 Past Treatment and Therapy Plans No past plan information found. Lifetime Dose Tracking * Chemical Lifetime Dose Automatic Entry Manual Entr y Invasive Cardiology Radiation Exposure 152 mGy 0 mGy 152 mGy 1. DAP 1,515 mGy-cm2 0 mGy-cm2 1,515 mGy-cm2
--- OUTSIDE RECORDS SUMMARY | 2025-03-08 10:01 | XMS_ITS | Clinical Summary ---
Author Organization [facility] Address [address] [place] [address] Phone Care Team Providers Care General Assistant Name Role Phone Brandi Eisenberg PA-C Primary Care Provider [phone] Allergies No known active allergies Medications metoprolol [...] on 07 May 2014 19:39 Encounter info: [id number], [facility] [place], 04/29/2014 - 04/29/2014 Contributor system: NUANCE * Final Report * Polysomnogram W/ CPAP (Verified) POLYSOMNOGRAM DATE:04/29/2014 [facility] SLEEP PRO[facility] Accredited by the [place] [employer] CPAP STUDY Referring Provider: Matt Carmen M.D. Date of Study: 04/29/2014 Order ID: [id number] INTRODUCTION: This 63 year-old male with hypertension, [...] of 5.4/hr, and lowest oxygenation of 85%. [place] sleepiness scale is 10/24. (Height: 5' 6 , Weight: 217.0 lbs, BMI: 35.3.) MASK TYPE: Standard/FX Nasal. MEDICATIONS: Sertraline, Naproxen, Metformin, Lisinopril, HCTZ, Amlodipine. DESCRIPTION: This overnight polysomnogram was done utilizing a Remitly digital polysomnograph machine. Four channels of EEG [...] results, then I will order PAP from [facility]. 2. Patient should sleep in non-supine position. [...] Transcribed: 05/07/2014 18:37:55 Transcribed by: JANNETTE DocID: [id number] CC:Matt Carmen M.D. [facility] Pulmonary , Brandi Eisenberg [address], [address] Osteoarthritis 03/29/2014 06/23/2021 Recurrent major depressive episodes, [...] Medicaid [place] Care Teams General Assistant Relationship Specialty Start Date End Date Brandi Eisenberg PA-C [address] [place] [phone] PCP - General 06/16/20
--- OUTSIDE RECORDS SUMMARY | 2025-03-08 10:01 | XMS_ITS | Encounter Summary ---
Author Organization [facility] Address [address] [facility] [address] [place] [address] Phone Care Team Providers Care Machine Builder Name Role Phone Brandi Eisenberg PA-C Primary Care Provider Odalys Dozier MD Unavailable [phone] Ayaz Pat MD Unavailable [phone] Samia Corrales MD, MPH Unavailable + [phone] Delfino Mccarthy MD Unavailable [phone] Edgar Kearney MD Unavailable Encounter Details Date Type Department Care Team (Late st Contact Info) Description 10/08/2024 Procedure Pass [facility], [facility] [place], [place] [address] [facility], Floor [address]1 [place] [address] Social History Tobacco Use Types Packs/Day Years [...] Info) Description 01/15/2025 Procedure Pass [facility] Imaging Department, [facility] [place] [address] [facility], Floor [address] [place] [address] 01/15/2025 Procedure Pass [facility] Imaging Department, [facility] [place] [address] [facility], Floor [address] [place] [address] 04/16/2025 9:30 AM EST Blood Draw [facility] Imaging Department, [facility], Imaging Dzmhz-ln-Crmv [address] [facility], [facility] L1 [place] [address] Odalys Dozier MD [address] [place] [phone] Kandis@[facility] 04/16/2025 11:40 AM EST Appointment [facility] Imaging Department, [facility] [place] [address] [facility], Floor [address] [place] [address] Odalys Dozier MD [address] [place] [phone] Kandis@[facility] 04/16/2025 3:00 PM EST Office [facility], [address], [address] [place] [address] Odalys Dozier MD [address] [place] [phone] Kandis@[facility] 04/16/2025 3:30 PM EST Office Visit [facility], [address], [address] [place] [address] Ayaz Pat MD [address] [place] [address] SSUIE@[facility] documented as of this encounter Visit Diagnoses Not on filedocumented in this encounter Additional Health Concerns Assessment Noted Time PHQ-2 Depression Total Score: 0 06/08/19 25 7:28 AM EST documented as of this encounter Care Teams Machine Builder Relationship Specialty Start Date End Date Brandi Eisenberg PA-C [address] [place] [address] PCP - General Physician Senior Revenue Accountant 05/15/24 Odalys Dozier MD [address] [place] [phone] Kandis@[facility] Medical Oncology 06/13/24 Ayaz Pat MD [address] [place] [phone] SUSIE@[facility] Surgical Oncology 06/13/24 Samia Corrales MD, MPH [address] [place] [address] Chong@[facility] Radiation Oncology 06/13/24 Delfino Mccarthy MD [address] [place] [address] [place] [address] Urology 01/15/25 Edgar Kearney MD [address] [place] [address] Nephrology 01/15/25 documented as of this encounter Additional Source Comments The information contained in this document represents components of the legal health record. It is not the complete legal health record.[facility]
--- OUTSIDE RECORDS SUMMARY | 2025-03-08 10:02 | XMS_ITS | Encounter Summary ---
Author Organization [facility] Address [address] [facility] [address] [place] [address] Phone Care Team Providers Care Safety Instructor Name Role Phone Brandi Eisenberg PA-C Primary Care Provider [phone] Odalys Dozier MD Unavailable [phone] Ayaz Pat MD Unavailable [phone] Samia Corrales MD, MPH Unavailable + [phone] Delfino Mccarthy MD Unavailable Edgar Kearney MD Unavailable Encounter Details Date Type Department Care Team (Late st Contact Info) Description 10/08/2024 Procedure Pass [facility] Imaging Department, [facility] [place] [address] [facility], Floor L1 [place] [address] Social History Tobacco Use Types Packs/Day Years [...] st Contact Info) Description 01/15/2025 Procedure Pass [facility] Imaging Department, [facility], [place] [address] [facility], Floor L1 [place] [address] 01/15/2025 Procedure Pass [facility] Imaging Department, [facility], [place] [address] [facility], Floor L1 [place] [address] 04/16/2025 9:30 AM EST Blood Draw [facility] Imaging Department, [facility], Imaging Pkqjn-gz-Tawt [address] [facility], [facility] L1 [place] [address] Odalys Dozier MD [address] [place] [address] Kandis@[facility] 04/16/2025 11:40 AM EST Appointment [facility] Imaging Department, [facility], [place] [address] [facility], Floor L1 [place] [address] Odalys Dozier MD [address] [place] [address] Kandis@[facility] 04/16/2025 3:00 PM EST Office [facility], [address], [address] [place] [address] Odalys Dozier MD [address] [place] [address] Kandis@[facility] 04/16/2025 3:30 PM EST Office Visit [facility], [address], [address] [place] [address] Ayaz Pat MD [address] [place] [address] SUSIE@[facility] documented as of this encounter Visit Diagnoses Not on filedocumented in this encounter Additional Health Concerns Assessment Noted Time PHQ-2 Depression Total Score: 0 06/08/19 25 7:28 AM EST documented as of this encounter Care Teams Safety Instructor Relationship Specialty Start Date End Date Brandi Eisenberg PA-C [address] [place] [address] PCP - General Physician Sandstone Inspector Repairer 05/15/24 Odalys Dozier MD [address] [place] [address] Kandis@[facility] Medical Oncology 06/13/24 Ayaz Pat MD [address] [place] [address] SUSIE@[facility] Surgical Oncology 06/13/24 Samia Corrales MD, MPH [address] [place] [address] Chong@[facility] Radiation Oncology 06/13/24 Delfino Mccarthy MD [address] [place] [address] [place] [address] Urology 01/15/25 Edgar Kearney MD [address] [place] [address] Nephrology 01/15/25 documented as of this encounter Additional Source Comments The information contained in this document represents components of the legal health record. It is not the complete legal health record.[facility]
--- OUTSIDE RECORDS SUMMARY | 2025-03-08 10:02 | XMS_ITS | Encounter Summary ---
Author Organization [facility] Address [address] [facility] [address] [place] [address] Phone Care Team Providers Care Community Advocate Name Role Phone Brandi Eisenberg PA-C Primary Care Provider Odalys Dozier MD Unavailable [phone] Ayaz Pat MD Unavailable [phone] Samia Corrales MD, MPH Unavailable + [phone] Delfino Mccarthy MD Unavailable Edgar Kearney MD Unavailable Encounter Details Date Type Department Care Team (Late st Contact Info) Description 06/22/2024 Procedure Pass [facility] Cardio EP Device Monitoring [address] [place] [address] Social History Tobacco Use Types Packs/Day Years [...] 1:00 AM EST Josefa Hawk RN * [place] Suicide Severity Rating Scale (Screener/Recent Self-Report) Question [...] st Contact Info) Description 01/15/2025 Procedure Pass [facility] Imaging Department, [facility], [place] [address] [facility], [facility] L1 [place] [address] 01/15/2025 Procedure Pass [facility] Imaging Department, [facility], [place] [address] [facility], [address] [address] 04/16/2025 9:30 AM EST Blood Draw [facility] Imaging Department, [facility], Imaging Rjvak-qv-Sked [address] [place] [address], [address] [address] Odalys Dozier MD [address] [place] [address] Kandis@[facility] 04/16/2025 11:40 AM EST Appointment [facility] Imaging Department, [facility], [place] [address] [facility], [facility] L1 [place] [address] Odalys Dozier MD [address] [place] [address] Kandis@[facility] 04/16/2025 3:00 PM EST Office Visit [facility], [address], [address] [place] [address] Odalys Dozier MD [address] [place] [address] Kandis@[facility] 04/16/2025 3:30 PM EST Office Visit [facility], [address], [address] [place] [address] Ayaz Pat MD [address] [place] [address] SUSIE@[facility] documented as of this encounter Visit Diagnoses Not on filedocumented in this encounter Additional Health Concerns Assessment Noted Time PHQ-2 Depression Total Score: 0 06/08/19 25 7:28 AM EST documented as of this encounter Care Teams Community Advocate Relationship Specialty Start Date End Date Brandi Eisenberg PA-C [address] [place] [address] PCP - General Physician Manual Plate Filler 05/15/24 Odalys Dozier MD [address] [place] [address] Kandis@[facility] Medical Oncology 06/13/24 Ayaz Pat MD [address] [place] [address] SUSIE@[facility] Surgical Oncology 06/13/24 Samia Corrales MD, MPH [address] [place] [address] Chong@[facility] Radiation Oncology 06/13/24 Delfino Mccarthy MD [address] [place] [address] [facility] Donell WERO Concepcion [address] Urology 01/15/25 Edgar Kearney MD [address] [place] [address] FERNANDAJAYROWERO SOTO [address] Nephrology 01/15/25 documented as of this encounter Additional Source Comments The information contained in this document represents components of the legal health record. It is not the complete legal health record.[facility]
--- OUTSIDE RECORDS SUMMARY | 2025-03-08 10:02 | XMS_ITS | Encounter Summary ---
Author Organization [facility] Address [address] [employer] [place] [address] [place] [address] Phone Care Team Providers Care Mail Truck Driver Name Role Phone Brandi Eisenberg PA-C Primary Care Provider [phone] Odalys Dozier MD Unavailable [phone] Ayaz Pat MD Unavailable [phone] Samia Corrales MD, MPH Unavailable + [phone] Delfino Mccarthy MD Unavailable Edgar Kearney MD Unavailable Encounter Details Date Type Department Care Team (Late st Contact Info) Description 07/06/2024 Procedure Pass [facility] Periop [address] [place] [address] Social History Tobacco Use Types Packs/Day Years [...] your housing situation today? I have jordy moss 07/09/2024 How many times have you move [...] ecorded Are you denied basic needs s [facility] as food, clothing, or medical care? No 07/05/2024 In the past 12 months have y ou been in a relationship with a person who hurts, threatens, or tries to control you? No 07/05/2024 Are you denied basic needs s [facility] as food, clothing, or medical care? No [...] Upcoming Encounters Date Type Department Care Team (Rabia felix Contact Info) Description 01/15/2025 Procedure Pass [facility] Imaging Department, [facility], [place] [address] [facility], Floor [address]1 [place] [address] 01/15/2025 Procedure Pass [facility] Imaging Department, [facility], [place] [address] [facility], Floor [address] [place] [address] 04/16/2025 9:30 AM EST Blood Draw [facility] Imaging Department, [facility], Imaging Pzzgk-vf-Bbuc [address] [facility], Floor [address] [place] [address] Odalys Dozier MD [address] [place] [address] Kandis@[facility] 04/16/2025 11:40 AM EST Appointment [facility] Imaging Department, [facility], [place] [address] [facility], Floor [address] [place] [address] Odalys Dozier MD [address] [place] [address] Kandis@[facility] 04/16/2025 3:00 PM EST Office Visit [facility], [address], [address] [place] [address] Odalys Dozier MD [address] [place] [phone] Kandis@[facility] 04/16/2025 3:30 PM EST Office Visit [facility], [address], [address] [place] [address] Ayaz Pat MD [address] [place] [phone] [email or web address]@[facility] documented as of this encounter Visit Diagnoses Not on filedocumented in this encounter Additional Health Concerns Assessment Noted Time PHQ-2 Depression Total Score: 0 06/08/19 25 7:28 AM EST documented as of this encounter Care Teams Mail Truck Driver Relationship Specialty Start Date End Date Brandi Eisenberg PA-C [address] [place] [address] PCP - General Physician Hand Laster 05/15/24 Odalys Dozier MD [address] [place] [address] Kandis@[facility] Medical Oncology 06/13/24 Ayaz Pat MD [address] [place] [address] SUSIE@[facility] Surgical Oncology 06/13/24 Samia Corrales MD, MPH [address] [place] [address] Chong@[facility] Radiation Oncology 06/13/24 Delfino Mccarthy MD [address] [place] [address] Dr Lozano [address] [place] [address] Urology 01/15/25 Edgar Kearney MD [address] [place] [address] Nephrology 01/15/25 documented as of this encounter Additional Source Comments The information contained in this document represents components of the legal health record. It is not the complete legal health record.[facility]
--- OUTSIDE RECORDS SUMMARY | 2025-03-08 10:02 | XMS_ITS | Clinical Summary ---
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 Overview (03/16/2024): [facility] MESOTHELIOMA [facility] Social History Tobacco Use Types Packs/Day Years [...] 58 08/09/2024 11:55 AM EST Temperature 36.4 C (97.6 F) 08/09/2024 11:55 AM EST Respiratory Rate - - Oxygen [...] 1969 Zoster Vaccines (1 of 2) 1969 Falls Risk Assessment 05/04/2022 Hepatitis C Screening 05/04/2022 Medicare Annual Wellness Visit 05/04/2022 Social Influencers of Health Screening 05/04/2022 Diabetes: Blood Sugar Control Test (HGBA1C) 05/09/2024 07/21/2023, 07/20/2023 Depression Screening 06/06/2024 RSV Immunization Adult Patients (1 - 1-dose 75+ series) 2024 Influenza Vaccine (#1) 2025 Diabetes: Annual Urine Albumin-Creatinine Ratio (uACR) 07/08/2025 07/08/2024, 06/24/2024, 06/24/2024, Additional history exists Diabetes: Annual GFR (Glomerular Filtration Rate) 10/30/2025 10/30/2024, 06/12/2024, 01/06/2024, Additional history exists Hypertension/CHF/CAD Annual BMP Blood Test 10/30/2025 10/30/2024, 06/12/2024, 01/06/2024, Additional history exists Colorectal Cancer Screening: FIT-DNA (Cologuard) 04/05/2026 04/05/2023, 03/06/2023 Cholesterol Screening (Lipid Panel) 06/20/2029 06/20/2024, 07/21/2023, 07/20/2023, Additional history exists Pneumococcal Vaccine: 50+ Years Completed 01/25/2023, 06/05/2013 Abdominal Aortic Aneurysm (AAA) Screen Discontinued 06/26/2024 HIB Vaccines Aged Out No longer eligi [...] age to complete this topic Meningococcal B Vaccine Aged Out No l onger eligible based on patient's age to complete [...] A1C Routine 07/21/2023 LIPID PANEL Routine 07/21/2023 HM FIT-DNA Routine 04/05/2023 URINE ALBUMIN CREATININE RATIO Routine 10/27/2022 from Last 3 Months or Most Recently Relevant to Health Maintenance Results * Annual BMP Blood Test (01/06/2024) [facility] Annual BMP Blood Test abstracted Result [facility] Provider HEALTH MAINTENANCE Final Result * Hemoglobin A1c (07/21/2023) [facility] Hemoglobin A1C 0.0 % Comment:no interpretation, a bstracted Blood Venous blood specimen / Unknown Result [facility] Provider LAB BLOOD ORDERABLES Dorothy l Result * Lipid panel (07/21/2023) [facility] LDL/HDL Ratio 0 Comment:no interpretation, a bstracted Triglycerides 0 mg/dL Comment:no interpretation, a bstracted Cholesterol 0 mg/dL Comment:no interpretation, a bstracted HDL 0 mg/dL Comment:no interpretation, a bstracted LDL Cholesterol 0 mg/dL Comment:no interpretation, a bstracted Blood Venous blood specimen / Unknown Result [facility] Provider LAB BLOOD ORDERABLES Dorothy l Result * FIT-DNA (Cologuard) (04/05/2023) [facility] Colorectal Cancer Screening: FIT-DNA (Cologuard) no interpretation , abstracted Result [facility] Provider HEALTH MAINTENANCE Final Result * Urine Albumin Creatinine Ratio (10/27/2022) [facility] Urine Albumin Creatinine Ratio abstracted [facility] Provider HEALTH MAINTENANCE Final Result from Last 3 Months or Most Recently Relevant to Health Maintenance Insurance MEDICARE [place]ICAID - [place] Care Teams Chin Strap Sewer Relationship Specialty Start Date End Date Brandi Eisenberg PA [address] [place] [phone] PCP - General 11/23/23
--- OUTSIDE RECORDS SUMMARY | 2025-03-08 10:02 | XMS_ITS | Encounter Summary ---
Author Organization [facility] Address [address] [facility] [address] [place] [address] Phone Care Team Providers Care Good Humor Vendor Name Role Phone Brandi Eisenberg PA-C Primary Care Provider Odalys Dozier MD Unavailable [phone] Ayaz Pat MD Unavailable [phone] Samia Corrales MD, MPH Unavailable + [phone] Delfino Mccarthy MD Unavailable Edgar Kearney MD Unavailable Encounter Details Date Type Department Care Team (Late st Contact Info) Description 05/22/2024 [facility] [place] [facility], MRI [address] [facility] 4th [place] [address] Social History Tobacco Use Types Packs/Day Years [...] st Contact Info) Description 01/15/2025 Procedure Pass [facility] Imaging Department, [facility] [place], [place] [address] [facility], Floor [address]1 [place] [address] 01/15/2025 Procedure Pass [facility] Imaging Department, [facility], [place] [address] [facility], Floor [address]1 [place] [address] 04/16/2025 9:30 AM EST Blood Draw [facility] Imaging Department, [facility], Imaging Lvwcj-ff-Sxmr [address] [place] [address], Floor [address]1 [place] [address] Odalys Dozier MD [address] [place] [address] Kandis@[facility] 04/16/2025 11:40 AM EST Appointment [facility] Imaging Department, [facility], [place] [address] [facility], Floor [address] [place] [address] Odalys Dozier MD [address] [place] [address] Kandis@[facility] 04/16/2025 3:00 PM EST Office [facility], [address], [address] [place] [address] Odalys Dozier MD [address] [place] [address] Kandis@[facility] 04/16/2025 3:30 PM EST Office Visit [facility], [address], [address] [place] [address] Ayaz Pat MD [address] [place] [phone] SUSIE@[email or web address] documented as of this encounter Visit Diagnoses Not on filedocumented in this encounter Care Teams Good Humor Vendor Relationship Specialty Start Date End Date Brandi Eisenberg PA-C [facility] [place] [address] PCP - General Physician [facility] 05/15/24 Odalys Dozier MD [address] [place] [address] Kandis@[email or web address] Medical Oncology 06/13/24 Ayaz Pat MD [address] [place] [phone] SUSIE@[facility] Surgical Oncology 06/13/24 Samia Corrales MD, MPH [address] [place] [phone] Chong@[email or web address] Radiation Oncology 06/13/24 Delfino Mccarthy MD [address] [place] [address] Urology 01/15/25 Edgar Kearney MD [address] [place] [address] Nephrology 01/15/25 documented as of this encounter Additional Source Comments The information contained in this document represents components of the legal health record. It is not the complete legal health record.[facility]
--- OUTSIDE RECORDS SUMMARY | 2025-03-08 10:02 | XMS_ITS | Encounter Summary ---
Author Organization [facility] Address [address] [facility] [address] [place] [address] Phone Care Team Providers Care Senior Sales Administrator Name Role Phone Brandi Eisenberg PA-C Primary Care Provider Odalys Dozier MD Unavailable [phone] Ayaz Pat MD Unavailable [phone] Samia Corrales MD, MPH Unavailable + [phone] Delfino Mccarthy MD Unavailable Edgar Kearney MD Unavailable Encounter Details Date Type Department Care Team (Late st Contact Info) Description 05/28/2024 [facility] [address] [facility] 4th [place] [address] Social History Tobacco Use Types Packs/Day Years [...] [facility] Imaging Department, [facility] [place], [place] [address] [facility], Floor L1 [place] [address] 01/15/2025 Procedure Pass [facility] Imaging Department, [facility], [place] [address] [facility], Floor [address]1 [place] [address] 04/16/2025 9:30 AM EST Blood Draw [facility] Imaging Department, [facility], Imaging Hvsen-yn-Fhzp [address] [place] [address], Floor L1 [place] [address] Odalys Dozire MD [address] [place] [address] Kandis@[facility] 04/16/2025 11:40 AM EST Appointment [facility] Imaging Department, [facility], [place] [address] [facility], Floor L1 [place] [address] Odalys Dozier MD [address] [place] [address] Kandis@[facility] 04/16/2025 3:00 PM EST [facility], [address], [address] [place] [address] Odalys Dozier MD [address] [place] [address] Kandis@[facility] 04/16/2025 3:30 PM EST Office Visit [facility], [address], [address] [place] [address] Ayaz Pat MD [address] [place] [address] SUSIE@[email or web address] documented as of this encounter Visit Diagnoses Not on filedocumented in this encounter Care Teams Senior Sales Administrator Relationship Specialty Start Date End Date Brandi Eisenberg PA-C [facility] [place] [address] PCP - General Physician Heading Maker 05/15/24 Odalys Dozier MD [address] [place] [phone] Kandis@[email or web address] Medical Oncology 06/13/24 Ayaz Pat MD [address] [place] [address] SUSIE@[facility] Surgical Oncology 06/13/24 Samia Corrales MD, MPH [address] [place] [address] Chong@[email or web address] Radiation Oncology 06/13/24 Delfino Mccarthy MD [address] [place] [address] Urology 01/15/25 Edgar Kearney MD [address] [place] [address] Nephrology 01/15/25 documented as of this encounter Additional Source Comments The information contained in this document represents components of the legal health record. It is not the complete legal health record.[facility]
--- OUTSIDE RECORDS SUMMARY | 2025-03-08 10:02 | XMS_ITS | Encounter Summary ---
Author Organization [facility] Address [address] [facility] [address] [place] [address] Phone Care Team Providers Care Patrol Deputy Sheriff Name Role Phone Brandi Eisenberg PA-C Primary Care Provider Odalys Dozier MD Unavailable [phone] Ayaz Pat MD Unavailable [phone] Samia Corrales MD, MPH Unavailable + [phone] Delfino Mccarthy MD Unavailable [place] Kearney MD Unavailable Encounter Details Date Type Department Care Team (Late st Contact Info) Description 05/22/2024 [facility], MRI [address] [facility] 4th [place] [address] Social History Tobacco Use Types Packs/Day Years [...] PM EST documented as of this encounter Last Filed Vital Signs Vital Sign Reading Time Taken Comments Blood Pressure - - Pulse - - Temperature - - Respiratory Rate - - Oxygen Saturation - - Inhaled Oxygen Concentration - - Weight 86.6 kg (191 lb) 05/25/2024 11:22 AM EST Height - - Body Mass Index 31.55 05/22/2024 10:16 AM EST documented in this encounter Plan of Treatment Upcoming Encounters Date Type Department Care Team (Late st Contact Info) Description 01/15/2025 Procedure Pass [facility] Imaging Department, [facility] [place], [place] [address] [facility], Floor [address] [place] [address] 01/15/2025 Procedure Pass [facility] Imaging Department, [facility] [place] [address] [facility], Floor [address] [place] [address] 04/16/2025 9:30 AM EST Blood Draw [facility] Imaging Department, [facility], Imaging [id number] [address] [facility], Floor [address] [place] [address] Odalys Dozier MD [address] [place] [phone] [email or web address] 04/16/2025 11:40 AM EST Appointment [facility] Imaging Department, [facility], [place] [address] [facility], Floor [address] [place] [address] Odalys Dozier MD [address] [place] [phone] [email or web address] 04/16/2025 3:00 PM EST Office [facility], [address], [address] [place] [address] Odalys Dozier MD [address] [place] [address] [email or web address] 04/16/2025 3:30 PM EST Office Visit [facility], [address], [address] [place] [address] Ayaz Pat MD [address] [place] [address] [email or web address] documented as of this encounter Visit Diagnoses Not on filedocumented in this encounter Care Teams Patrol Deputy Sheriff Relationship Specialty Start Date End Date Brandi Eisenberg PA-C [address] [place] [address] PCP - General Physician Executive Community Planning 05/15/24 Odalys Dozier MD [address] [place] [address] [email or web address] Medical Oncology 06/13/24 Ayaz Pat MD [address] [place] [address] [email or web address] Surgical Oncology 06/13/24 Samia Corrales MD, MPH [address] [place] [phone] [email or web address] Radiation Oncology 06/13/24 Delfino Mccarthy MD [address] [place] [address] [address] Urology 01/15/25 [place] Kearney MD [address] [place] [address] [place] [address] Nephrology 01/15/25 documented as of this encounter Additional Source Comments The information contained in this document represents components of the legal health record. It is not the complete legal health record.[facility]
[2025-03-08 11:19] LABS: Anion Gap 10 (12-20); Blood Urea Nitrogen 50 mg/dL (9-16); Carbon Dioxide 21 mmol/L (22-29); Chloride 114 mmol/L (96-108); Estimated Glomerular Filt Rate 34; Potassium 5.3 mmol/L (3.3-5.1); Sodium 140 mmol/L (135-145)
== END 2025-03-08 09:25 | disposition home or self-care (01) ==
LOC: HO.LAB 09:24
PROVIDERS: PCP Physician Assistant; Visit Provider Internal Medicine Nephrology
DX: E87.5 Hyperkalemia (principal)
CPT/HCPCS: 36415; 80051; 82565; 84520

== ENCOUNTER 2025-04-12 08:22 | Outpatient (AMB) | payer MEDICARE, MEDICAID, SELFPAY ==
--- OUTSIDE RECORDS SUMMARY | 2024-03-30 10:48 | XMS_ITS | Encounter Summary ---
Author Organization [facility] [place] [address] Care Team Providers Care Snath Handle Assembler Name Role Phone Brandi Eisenberg Primary Care Provider [phone] Encounter Details Date Type Department Care Team (Latest Contact Info) Description 03/30/2024 11:48 AM EDT Hospital Encounter TH HISTORIC ENCOUNTERS EASTERN CONVERSION ONLY Rory Walters MD [address] [place] [phone] Other intra-abdominal and pelvic swelling, mass [...] as of this encounter Plan of Treatment Not on file documented as of this encounter Procedures Procedure [...] (04/24/2024 12:00 AM EST) Case Results Reason: [id number]: This report is amended to change the diagnosis to reflect the result of the expert consultation. Left retoperitoneal mass, core biopsy: Dedifferentiated liposarcoma Comment: The above diagnosis was rendered by Dr. Nigel Luther of [facility]. He additionally notes: Immunohistochemis try performed at [facility] demonstrates the following staining profile in lesional cells: Positive - MDM2, CDK4, SMA (multifocal), desmin (scattered cells) Negative - S100, WT-1, calretinin, AE1/AE3 FISH analysis performed at [facility] is positive for MDM2 amplification ([id number]). Dr. Cervantes will be notified of the [...] in the patient's prior right pleural biopsy, [id number]. This case is being sent to Dr. Nigel Luther at [facility] for expert consultation. This report will [...] 1422 on 03/30/2024 TS Physicians: DHEERAJ RODRIGUEZ M.D./[phone]/ RORY WALTERS MD/ x2/ HISTORICAL TESTING LAB RESULTING AGENCY 04/24/2024 us Laboratory Results Historical MD LAB PATHOLOGY O RDERABLES Final Result HISTORICAL TESTING LAB RESULTING AGENCY * Non-gynecologic cytology (04/09/2024 12:00 AM EST) Case Results Left retroperitoneal mass, fine needle aspiration (ThinPrep, direct smears and cell block): Malignant spindle cell neoplasm Comment: Please see the corresponding core biopsy, [id number], for the immunohistochemica l evaluation and expert [...] @ 14:22 on 03/30/24. Physicians DHEERAJ RODRIGUEZ M.D./[phone]/ RORY WALTERS MD/ x2/ HISTORICAL TESTING LAB [...] in the patient's prior right pleural biopsy, [id number]. This case is being sent to Dr. [...] 1422 on 03/30/2024 TS Physicians: DHEERAJ RODRIGUEZ M.D./[phone] RORY WALTERS MD/ x2/ HISTORICAL TESTING LAB RESULTING AGENCY 04/09/2024 us Laboratory Results Historical MD LAB PATHOLOGY O RDERABLES Final Result HISTORICAL TESTING LAB RESULTING AGENCY * BX ABD RETRO MASS CT (04/02/2024 1:58 PM EDT) Anatomical Region Laterality Modality Interventional R adiology 03/30/2024 1:11 PM EDT Narrative 04/02/2024 1:58 PM EDT [facility] Diagnostic Imaging Department [address] [place] [address] Patient: STEW WELLS./Age/Sex: 1950 - 73 - M Unit#: [id number] Location/Status: SPDIANGIO/REG CLI Mnemonic/Ordering Site: CTBXRETRO/SPIR Ordering Physician: RORY WALTERS MD BX ABD RETRO MASS CT - 03/30/24 - 1355 Report Status:Signed INDICATION: Previous pleural biopsy with atypical mesothelioma perforation suspicious but not diagnostic for mesothelioma. Metabolically active cervical and thoracic lymphadenopathy as well as pleural activity. Metabolically active mass in the left flank. CT-guided biopsy requested for further histological evaluation. PROCEDURE: Consent obtained for CT-guided biopsy of left flank/retroperitoneal mass corresponding to metabolic activity on prior PET scan. Consent obtained utilizing a South African-speaking science interpreter. prior relevant studies: PET/CT from January 11, [...] of fentanyl administered during the procedure. Scanner: [employer] [address] Dose reduction technique: AEC [...] Date/Time: 04/02/24 1337 Sign date/Time: 04/02/24 1358 Procedure Note Dheeraj Rodriguez MD - 04/07/2024 [facility] Diagnostic Imaging Department [address] [place] [address] Patient: STEW WELLS./Age/Sex: 1950 - 73 - M Unit#: [id number] Location/Status: SPDIANGIO/REG CLI Mnemonic/Ordering Site: CTBXRETRO/SPIR Ordering Physician: RORY WALTERS MD BX ABD RETRO MASS CT - 03/30/24 - 9545 Report Status:Signed INDICATION: Previous pleural biopsy with atypical mesotheliomaperforation suspicious but not diagnostic for mesothelioma. Metabolically activecervical and thoracic lymphadenopathy as well as pleural activity. Metabolicallyactive mass in the left flank. CT-guided biopsy requested for furtherhistological evaluation. PROCEDURE: Consent obtained for CT-guided biopsy of leftflank/retroperitoneal mass corresponding to metabolic activity on prior PET scan. Consentobtained utilizing a [place] African-speaking science interpreter. prior relevant studies: PET/CT from January 11, 2024 MEDICATIONS: Local anesthesia: 7 cc of 1% buffered lidocaine administeredsubcutaneously. Sedation: Moderate intravenous sedation was initiated and maintained for30 minutes while the patient was independently monitored by the radiologynurse under the supervision of the interventional radiologist. A total of 2 mgof Versed and 75 mcg of fentanyl administered during the procedure. Scanner: [employer] [address] Dose reduction technique: AEC [...] Date/Time: 04/02/24 1337 Sign date/Time: 04/02/24 1358 us Rory Walters MD IMG IR PROCEDURES Final Res ult documented in this encounter Visit Diagnoses Diagnosis Other intra-abdominal and pelvic swelling, mass and lump documented in this encounter Care Teams Snath Handle Assembler Relationship Specialty Start Date End Date Brandi Eisenberg PA [address] [place] [phone] PCP - General 11/23/23 documented as of this encounter
--- OUTSIDE RECORDS SUMMARY | 2025-04-10 23:59 | XMS_ITS | Continuity of Care Document ---
Author Organization [facility] Address [address] [place] [address]- Care Team Providers Care Floor Plan Adjuster Name Role Phone Brandi Baxter Primary Care Physician [phone] Encounter [facility] Date(s): 03/11/25 - 04/10/25 [facility] [address] [place] [address]- Attending Physician: Love Christine Admitting Physician: Love Christine Referring Physician: AdmtrLove Encounter Type: Triage Allergies, Adverse Reactions, Alerts No Known Allergies Medications Ammonium Lactate 12% Topical 1 applicator, Topically, 2 times a day, 0 Refills, Maintenance, Cream Start Date: 12/04/21 Status: Ordered Medication Dispense Status: Completed Total Allowed Fills: 1 Fills Dispensed: 0 calcitriol 0.25 mcg oral capsule 1 capsule = 0.25 mcg, By Mouth, Daily, 0 Refills, Maintenance, 12/04/21 4:59:00 PM EDT, Capsule, Partial fill upon patient request if the prescription is for a schedule II opioid drug. Start Date: 12/04/21 Status: Ordered Medication Dispense Status: Completed Total Allowed Fills: 1 Fills Dispensed: 0 calcium carbonate 500 mg (200 mg elemental calcium) oral tablet, chewable 1,000 mg, 2, tablet, Chew, 3 times a day, Refills 0, Maintenance, 12/04/21 4:59:00 PM EDT, Partial fill upon patient request if the prescription is for a schedule II opioid drug. Start Date: 12/04/21 Status: Ordered Medication Dispense Status: Completed Total Allowed Fills: 1 Fills Dispensed: 0 CPAP 10 with heated humidification CPAP 10 with heated humidification, See Instructions, # 1 each, Refills 0, Tot. Refills 0, Maintenance, use overnight and naps got from [facility] 2015, supplies now from [facility], 11/01/19 9:50:00 AM EDT, Compound Start Date: 11/01/19 Status: Ordered Medication Dispense Status: Completed Quantity: 1.0 Unit: each Total Allowed Fills: 1 Fills Dispensed: 0 cyanocobalamin 1000 mcg oral tablet, extended release 1 tablet = 1,000 mcg, By Mouth, Daily, # 150 tablet, 0 Refills, Maintenance, 02/11/21 9:04:00 AM EDT,ER Tablet, Partial fill upon patient request if the prescription is for a schedule II opioid drug. Start Date: 02/11/21 Status: Ordered Medication Dispense Status: Completed Quantity: 150.0 Unit: tablet Total Allowed Fills: 1 Fills Dispensed: 0 Eliquis 5 mg oral tablet 1 tablet = 5 mg, By Mouth, 2 times a day, # 60 tablet, 5 Refills, Maintenance, 12/22/21 10:11:00 AM EDT, Tablet, Partial fill upon patient request if the prescription is for a schedule II opioid drug. Start Date: 12/22/21 Status: Ordered Medication Dispense Status: Completed Quantity: 60.0 Unit: tablet Total Allowed Fills: 1 Fills Dispensed: 0 Kalexate oral and rectal powder TAKE 30 GRAMS BY MOUTH EVERY WEEK Start Date: 03/11/25 Status: Ordered Medication Dispense Status: Completed Total Allowed Fills: 1 Fills Dispensed: 0 lisinopril 10 mg oral tablet Refills 0, Maintenance, 09/14/24 2:16:00 PM EDT, Partial fill upon patient request if the prescription is for a schedule II opioid drug. Start Date: 09/14/24 Status: Ordered Medication Dispense Status: Completed Total Allowed Fills: 1 Fills Dispensed: 0 metoprolol 25 mg oral tablet 25 mg, 1, tablet, By Mouth, 2 times a day, # 60 tablet, Refills 0, Maintenance, 02/11/21 9:03:00 AM EDT, Partial fill upon patient request if the prescription is for a schedule II opioid drug. Start Date: 02/11/21 Status: Ordered Medication Dispense Status: Completed Quantity: 60.0 Unit: tablet Total Allowed Fills: 1 Fills Dispensed: 0 Ozempic Subcutaneous Infusion, 0 Refills, Maintenance, 12/24/21 10:57:00 AM EDT, Partial fill upon patient request if the prescription is for a schedule II opioid drug. Start Date: 12/24/21 Status: Ordered Medication Dispense Status: Completed Total Allowed Fills: 1 Fills Dispensed: 0 pantoprazole 40 mg oral delayed release tablet = 40 mg, By Mouth, Daily, # 30 capsule, 7 Refills, Maintenance, 01/14/22 4:47:00 PM EDT, EC Tablet, 167, cm, 01/14/22 14:09:00 EDT, Height, 103.8, kg, 07/27/21 11:11:00 EST, Dry Weight Start Date: 01/14/22 Stop Date: 09/11/22 Status: Ordered Medication Dispense Status: Completed Quantity: 30.0 Unit: capsule Total Allowed Fills: 8 Fills Dispensed: 0 PEG-3350 with Electrolytes Lemon (Eqv-GoLYTELY) oral powder for reconstitution See Instructions, Per GI office instructions, # 4,000 mL, 0 Refills, Maintenance, 05/25/23 10:04:00AM EST, [id number], Partial fill upon patient request if the prescription is for aschedule II opioid drug., Per GI office instructions, 167, cm, 03/30/22 11:32:00 EDT, Height, 103.8, kg, 07/27/21 11:11:00 EST, Dry Weight Start Date: 05/25/23 Status: Ordered Medication Dispense Status: Completed Quantity: 4000.0 Unit: mL Total Allowed Fills: 1 Fills Dispensed: 0 rosuvastatin 5 mg oral capsule 1 capsule = 5 mg, By Mouth, Daily, # 30 capsule, 0 Refills, Maintenance, 08/15/20 1:32:00 PM EST, Capsule, Partial fill upon patient request if the prescription is for a schedule II opioid drug. Start Date: 08/15/20 Status: Ordered Medication Dispense Status: Completed Quantity: 30.0 Unit: capsule Total Allowed Fills: 1 Fills Dispensed: 0 thiamine 100 mg oral tablet 100 mg, 1, tablet, By Mouth, Daily, Refills 0, Maintenance, 12/04/21 4:59:00 PM EDT, Partial fill upon patient request if the prescription is for a schedule II opioid drug. Start Date: 12/04/21 Status: Ordered Medication Dispense Status: Completed Total Allowed Fills: 1 Fills Dispensed: 0 torsemide 20 mg oral tablet 2 tablet = 40 mg, By Mouth, 2 times a day, 0 Refills, Maintenance, 12/04/21 4:53:00 PM EDT, Tablet, Partial fill upon patient request if the prescription is for a schedule II opioid drug. Start Date: 12/04/21 Status: Ordered Medication Dispense Status: Completed Total Allowed Fills: 1 Fills Dispensed: 0 Problem List Condition Confirmation Course Effective Dates Status Health St atus Informant Atrial fibrillation with slow ventricular response Confirmed Active Afib Confirmed Active Burning chest pain Confirmed Active Chronic kidney disease Confirmed Active COVID-19 virus infection Confirmed Active Abnormal EKG Confirmed Active Hypertension Confirmed Active Obese class I Confirmed Active Obesity Confirmed Active TONI (obstructive sleep apnea) Confirmed Active Social History Social History Type Response Smoking Status Never smoker entered on: 04/12/14 Sex Sex Representation Male (finding) Procedure * Event Display: EKG Non Authored Date: * Event Display: Cardiology Office Note, Non- Authored Date: Patient Care team information Care Team Personnel Name: Bob Hector Position: [facility] Associate Professional Member Role: Lifetime Consulting Provider Address: [address] [place], [place] [id number] [facility] [place], [place] [address] Telecom: Name: Paige Kebede RN Position: S RN Member Role: Primary Care Nurse Name: Maria M Iniguez RN Position: [facility] RN Supv Member Role: Primary Care Nurse Name: Ganesh Salas RN Position: [facility] SN RN Member Role: Primary Care Nurse Name: Arielle Schultz RN Position: S RN Member Role: Primary Care Nurse Name: Mel Dunne RN Position: S RN Member Role: Primary Care Nurse Name: Yasmine Valencia RN Position: S RN Member Role: Primary Care Nurse Name: Brandi Baxter Position: S Associate Professional Member Role: PCP Address: [address] [place], [place] [address] Telecom: Name: Santos Kathleen RN Position: S RN Member Role: Primary Care Nurse Name: Robert Modi MD Position: [facility] Outreach Member Role: Lifetime Consulting Physician Address: [address] [facility], [place] [address]- Telecom: Name: Pina Caal RN Position: [facility] RN Member Role: Primary Care Nurse Name: Natalia Jones RN Position: [facility] RN Member Role: Primary Care Nurse Name: Veronika Clarke RN Position: [facility] SN RN Member Role: Primary Care Nurse Name: Liliam Hinson RN Position: [facility] RN Member Role: Primary Care Nurse Name: Emily Hinson RN Position: [facility] RN Member Role: Primary Care Nurse Name: Alee French RN Position: [facility] RN Member Role: Primary Care Nurse Name: Miriam Franklin RN Position: [facility] RN Member Role: Primary Care Nurse Care Team Related Persons Name: JOAN SHIPLEY Name: ALMITA RAYMUNDO Insurance Providers Guarantor name: COBY SHIPLEY Health Plan Information #: 1 Payer: MEDICARE B Payer Identifier: Member Number: [id number] Group Number: Subscriber Identifier: Relationship to Subscriber: self Coverage Type: NA Coverage Verification Date: Telecom: NA Address: Health Plan Information #: 2 Payer: [employer] [employer] Payer Identifier: NA Member Number: [id number] Group Number: Subscriber Identifier: Relationship to Subscriber: self Coverage Type: MEDICAID Coverage Verification Date: Telecom: Address:
--- NOTE | 2025-04-12 08:27 | A.OFFVIS_ITS ---
Intake Visit Reasons: 3M UA/Med review Intake Note: Patient is Present for Follow Up Urology Medication: Sildenafil Antibiotic Allergies: None Blood Thinners: Eliquis PVR: 32 Patient states he has not started the Sildenafil Corporate Administrative Assistant Required: No Ladies' Hat Trimmer: Ladies' Hat Trimmer Present Accompanied by: Spouse Allergies No Known Allergies (No Known Allergies*) Allergy (Verified 04/12/25 08:31) HPI Comments Details: Stew is a pleasant Monts[place]atian speaking male. He is a patient of . 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 DFCI/Leon - Included left nephro ureterectomy PFSH Medical History Chronic kidney disease, stage 3 unspecified Unspecified hydronephrosis Paroxysmal atrial fibrillation Essential hypertension Lung mass Microscopic hematuria Surgical History History of lung biopsy Social History Alcohol intake: never Patient Tobacco Use Status: Former Tobacco user Review of Systems Const Denies chills and Denies fever(s) Card Reports no additional complaints and Denies syncope Resp Denies cough GI Denies abdominal pain and Denies heartburn Reports as per HPI and Denies change in libido Neuro Denies syncope Psych Denies change in libido Endo Denies change in libido Physical Exam Const General: cooperative, healthy appearing, comfortable and no acute distress Orientation/consciousness: patient oriented x3 HEENT Face and sinus: Yes normal facial exam Mouth: moist mucous membranes Neck Neck: Yes normal visual inspection, Yes full ROM and Yes trachea midline Chest Chest palpation & inspection: normal inspection of the chest Resp Effort & Inspection: normal respiratory effort, able to speak in complete sentences and no respiratory distress GI Inspection: Yes normal to inspection Back/Spine/Pelvis Cervical Spine: normal cervical lordosis Thoracic/Lumbar Spine: thoracic and lumbar spine normal to inspection Skin General skin exam: no rashes or lesions noted Neuro General: patient oriented x3, gait normal, tone normal and moves all extremities Extrem General: Yes normal to inspection and Yes capillary refill normal Office Procedures Post Void Residual Post Residual Void Post Void Residual (PVR): 32 51089-[id number] Void Residual by ultrasound Results AMB Urinalysis, Automated UA Leukoctes 0 Lan/uL Last Edit by [facility] on 04/12/25 08:41 UA Nitrite Negative Last Edit by Yan[facility] on 04/12/25 08:41 UA Urobilinogen 0.2 mg/dL Last Edit by Yaneli Sanchez A on 04/12/25 08:4 1 UA Protein 15 mg/dL Last Edit by Yan[facility] on 04/12/25 08:41 UA pH 6.0 Last Edit by Yaneli Sanchez A on 04/12/25 08:41 UA Blood 0 Frederick/uL Last Edit by Yan[facility] on 04/12/25 08:41 UA Specific [place] 1.015 Last Edit by Yaneli [facility] on 04/12/25 08: 41 UA Ketone Negative Last Edit by Yaneli [facility] on 04/12/25 08:41 UA Bilirubin 0 mg/dL Last Edit by Yaneli [facility] on 04/12/25 08:41 UA Glucose 0 mg/dL Last Edit by Yaneli [facility] on 04/12/25 08:41 Results Reviewed Results Reviewed: Laboratory Last Values Urine pH (Auto) 6.0 04/12/25 08:40 Specific [place] (Auto) 1.015 04/12/25 08:40 Urine Protein (Auto) 15 mg/dL 04/12/25 08:40 Glucose (UA)(Auto) 0 mg/dL 04/12/25 08:40 Urine Ketones (Auto) Negative 04/12/25 08:40 Urine Blood (Auto) 0 Frederick/uL 04/12/25 08:40 Urine Nitrite (Auto) Negative 04/12/25 08:40 Urine Bilirubin (Auto) 0 mg/dL 04/12/25 08:40 Urine Urobilinogen (Auto) 0.2 mg/dL 04/12/25 08:40 Leukocyte Esterase (Auto) 0 Lan/uL 04/12/25 08:40 Assessment & Plan Assessment & Plan (1) Erectile dysfunction: Code(s): N52.9 - Male erectile dysfunction, unspecified Category: Medical (2) Microscopic hematuria: Code(s): R31.29 - Other microscopic hematuria Category: Medical Plan Twelve month follow-up Orders: Orders AMB Post Void Residual by ultrasound Today Z13.9 - Encounter for screening, unspecified AMB Urinalysis Automated Today Z13.9 - Encounter for screening, unspecified Patient Instructions: This note is constructed using voice recognition software. While every effort has been made to ensure accuracy python consultant errors may have been included. Imaging studies, laboratory and physical exam results were discussed and reviewed in detail. No major barriers to patient understanding were identified. An opportunity to ask questions regarding the treatment plan was provided. All questions were answered. The patient expressed understanding and agreement with the above treatment plan. The patient is aware they should contact our office by phone for worsening of their current condition or the appearance of new urologic symptoms. Compliance is encouraged with any medications and followup testing that is ordered. It is a privilege to participate in the urologic care of your patient. If you have any questions or concerns regarding treatment for the above conditions, or other urologic issues, please do not hesitate to contact me. The office telephone contact is [phone]. Sincerely, Dr Delfino Mccarthy MD, [facility] - Urology Compassionate Specialist Care for the Genitourinary System Coding Level of Care Code Est Pt Level 3 (79218) Complex EM visit Add On G2211 Diagnoses Erectile dysfunction N52.9 Microscopic hematuria R31.29 CPT Codes Post Residual Void - PVR CPT Code: 57737-Krlg Void Residual by ultrasound ([id number])
--- OUTSIDE RECORDS SUMMARY | 2025-04-12 08:49 | XMS_ITS | Encounter Summary ---
Author Organization [facility] Address [address] [place] [address] Phone Care Team Providers Care Director Manufacturing Engineering Name Role Phone Brandi Eisenberg Primary Care Provider [phone] Odalys Dozier MD Unavailable [phone] Ayaz Pat MD Unavailable [phone] Samia Corrales MD, MPH Unavailable + [phone] Delfino Mccarthy MD Unavailable [place] Kearney MD Unavailable Encounter Details Date Type Department Care Team (Late st Contact Info) Description 06/21/2024 Procedure Pass [facility] [address] [place] [address] Social History Tobacco Use Types Packs/Day Years [...] 1:00 AM EST Josefa Hawk RN * [place] Suicide Severity Rating Scale (Screener/Recent Self-Report) Question Answer Date of Assessment Author 1. Wish to be (Past 1 Month) No 025 1:00 AM EST Josefa Santiago RN 2. Non-Specific Active Suici mark Thoughts (Past 1 Month) No 06/22/2024 1:00 AM EST Jose M Santiago RN 6. Suicidal Behavior (Lifetime) No 1:00 AM EST Josefa Santiago RN documented as of this encounter Plan of Treatment Upcoming Encounters Date Type Department Care Team (Late st Contact Info) Description 01/15/2025 Procedure Pass [facility] Imaging Department, [facility], [place] [address] [facility], [address] [address] 01/15/2025 Procedure Pass [facility] Imaging Department, [facility] [place] [address] [facility], [address] [address] 04/16/2025 9:30 AM EST Blood Draw [facility] Imaging Department, [facility], Imaging [id number] [address] [place] [address], [address] [address] Odalys Dozier MD [address] [place] [address] [email or web address] Gabby Bhatti [address] [place] [address] [email or web address] 04/16/2025 11:40 AM EST Appointment [facility] Imaging Department, [facility], [place] [address] [facility], [facility] [address] [place] [address] Odalys Dozier MD [address] [place] [phone] [email or web address] Gabby Bhatti [address] [place] [phone] [email or web address] 04/16/2025 3:00 PM EST Office Visit [facility], [address], [address] [place] [address] Odalys Dozier MD [address] [place] [phone] [email or web address] Gabby Bhatti [address] [place] [phone] [email or web address] 04/16/2025 3:30 PM EST Office Visit [facility], [address], [address] [place] [address] Ayaz Pat MD [address] [place] [phone] [email or web address] Gabby Bhatti [address] [place] [address] [email or web address] documented as of this encounter Visit Diagnoses Not on filedocumented in this encounter Additional Health Concerns Assessment Noted Time PHQ-2 Depression Total Score: 0 06/08/19 7:28 AM EST documented as of this encounter Care Teams Director Manufacturing Engineering Relationship Specialty Start Date End Date Brandi Eisenberg PA [facility] [place] [address] PCP - General Physician Graphics Intern 05/15/24 Odalys Dozier MD [address] [place] [address] [email or web address] Medical Oncology 06/13/24 Ayaz Pat MD [address] [place] [phone] [email or web address] Surgical Oncology 06/13/24 Samia Corrales MD, MPH [address] [place] [phone] [email or web address] Radiation Oncology 06/13/24 Delfino Mccarthy MD [address] [place] [address] Dr Lozano [address] [place] [address] Urology 01/15/25 [place] Kearney MD [address] [place] [address] Nephrology 01/15/25 documented as of this encounter Additional Source Comments The information contained in this document represents components of the legal health record. It is not the complete legal health record.[facility]
--- OUTSIDE RECORDS SUMMARY | 2025-04-12 08:49 | XMS_ITS | Encounter Summary ---
Author Organization [facility] Address [address] [facility] [address] [place] [address] Phone Care Team Providers Care Plant Manager Name Role Phone Brandi Eisenberg Primary Care Provider [phone] Odalys Dozier MD Unavailable [phone] Ayaz Pat MD Unavailable [phone] Samia Corrales MD, MPH Unavailable + [phone] Delfino Mccarthy MD Unavailable Edgar Kearney MD Unavailable Encounter Details Date Type Department Care Team (Late st Contact Info) Description 06/14/2024 Procedure Pass [facility] Periop [address] [place] [address] Social History Tobacco Use Types Packs/Day Years [...] Info) Description 01/15/2025 Procedure Pass [facility] Imaging Department, [facility] [place] [address] [facility], Floor L1 [place] [address] 01/15/2025 Procedure Pass [facility] Imaging Department, [facility] [place] [address] [facility], Floor L1 [place] [address] 04/16/2025 9:30 AM EST Blood Draw [facility] Imaging Department, [facility], Imaging Nuwyz-wo-Flbc [address] [facility], Floor L1 [place] [address] Odalys Dozier MD [address] [place] [address] Kandis@[facility] Gabby Bhatti [address] [place] [address] [email or web address]@[facility] 04/16/2025 11:40 AM EST Appointment [facility] Imaging Department, [facility], [place] [address] [facility], Floor L1 [place] [address] Odalys Dozier MD [address] [place] [address] Kandis@[facility] Gabby Bhatti [address] [place] [address] [email or web address]@[facility] 04/16/2025 3:00 PM EST Office [facility], [address], 6th [place] [address] Odalys Dozier MD [address] [place] [address] Kandis@[facility] Gabby Bhatti [address] [place] [address] zohaib@[facility] 04/16/2025 3:30 PM EST Office Visit [facility], [facility] [address] [place] [address], 6th [place] [address] Ayaz Pat MD [address] [place] [address] SUSIE[facility] Gabby Bhatti [address] [place] [address] [email or web address]@[email or web address] documented as of this encounter Visit Diagnoses Not on filedocumented in this encounter Additional Health Concerns Assessment Noted Time PHQ-2 Depression Total Score: 0 06/08/19 7:28 AM EST documented as of this encounter Care Teams Plant Manager Relationship Specialty Start Date End Date Brandi Eisenberg PA [address] [place] [address] PCP - General Physician Rhythmic Gymnastics Coach 05/15/24 Odalys Dozier MD [address] [place] [address] Kandis@[facility] Medical Oncology 06/13/24 Ayaz Pat MD [address] [place] [address] SUSIE@[facility] Surgical Oncology 06/13/24 Samia Corrales MD, MPH [address] [place] [phone] Chong@[facility] Radiation Oncology 06/13/24 Delfino Mccarthy MD [address] [place] [address] [place] [address] Urology 01/15/25 Edgar Kearney MD [address] [place] [address] WERO BRAY [address] Nephrology 01/15/25 documented as of this encounter Additional Source Comments The information contained in this document represents components of the legal health record. It is not the complete legal health record.[facility]
--- OUTSIDE RECORDS SUMMARY | 2025-04-12 08:49 | XMS_ITS | Clinical Summary ---
Author Organization [facility] Address [address] [place] [address] Care Team Providers Care Administration Professional Name Role Phone Brandi Eisenberg PA-C Primary [...] age to complete this topic Care Teams Administration Professional Relationship Specialty Start Date End Date Brandi Esienberg PA-C [address] [place] [address] PCP - General Physician Spinner Hand 11/23/23
--- OUTSIDE RECORDS SUMMARY | 2025-04-12 08:49 | XMS_ITS | Encounter Summary ---
Author Organization [facility] Address [address] [facility] [address] [place] [address] Phone Care Team Providers Care Program Arranger Name Role Phone Brandi Eisenberg Primary Care Provider [phone] Odalys Dozier MD Unavailable [phone] Ayaz Pat MD Unavailable [phone] Samia Corrales MD, MPH Unavailable + [phone] Delfino Mccarthy MD Unavailable [phone] Edgar Kearney MD Unavailable Encounter Details Date Type Department Care Team (Late st Contact Info) Description 06/20/2024 Procedure Pass [facility] Echocardiography [address] [place] [address] Social History Tobacco Use Types Packs/Day Years [...] 1:00 AM EST Josefa Hawk RN * [place] Suicide Severity Rating Scale (Screener/Recent Self-Report) Question [...] Info) Description 01/15/2025 Procedure Pass [facility] Imaging Department, [facility], [place] [facility], [facility] L1 [place] [address] 01/15/2025 Procedure Pass [facility] Imaging Department, [facility], [place] 450 [facility], [facility] L1 [place] [address] 04/16/2025 9:30 AM EST Blood Draw [facility] Imaging Department, [facility], Imaging Wsirj-qn-Tdwm [address] [place] [address], [facility] L1 [place] [address] Odalys Dozier MD [address] [place] [address] Kandis@[facility] Gabby Bhatti [address] [place] [address] [email or web address]@[facility] 04/16/2025 11:40 AM EST Appointment [facility] Imaging Department, [facility], [place] 450 [facility], [facility] L1 [place] [address] Odalys Dozier MD [address] [place] [address] Kandis@[facility] Gabby Bhatti [address] [place] [address] [email or web address]@[facility] 04/16/2025 3:00 PM EST Office Visit [facility], [address], [address] [place] [address] Odalys Dozier MD [address] [place] [address] Kandis@[facility] Davy Gabby [address] [place] [address] [email or web address]@[facility] 04/16/2025 3:30 PM EST Office Visit [facility], [address], [address] [place] [address] Ayaz Pat MD [address] [place] [phone] SUSIE@[facility] Davy, Gabby [address] [place] [address] [email or web address]@[facility] documented as of this encounter Visit Diagnoses Not on filedocumented in this encounter Additional Health Concerns Assessment Noted Time PHQ-2 Depression Total Score: 0 06/08/19 25 7:28 AM EST documented as of this encounter Care Teams Program Arranger Relationship Specialty Start Date End Date Brandi Eisenberg PA [address] [place] [address] PCP - General Physician Technical Account Manager 05/15/24 Odalys Dozier MD [address] [place] [address] Kandis@[facility] Medical Oncology 06/13/24 Ayaz Pat MD [address] [place] [address] SUSIE@[facility] Surgical Oncology 06/13/24 Samia Corrales MD, MPH [address] [place] [address] Chong@[facility] Radiation Oncology 06/13/24 Delfino Mccarthy MD [address] [place] [address] Urology 01/15/25 Edgar Kearney MD [address] [place] [address] Nephrology 01/15/25 documented as of this encounter Additional Source Comments The information contained in this document represents components of the legal health record. It is not the complete legal health record.[facility]
--- OUTSIDE RECORDS SUMMARY | 2025-04-12 08:49 | XMS_ITS | Encounter Summary ---
Author Organization [facility] Address [address] [place] [address] Phone Care Team Providers Care Rag Baler Name Role Phone Brandi Eisenberg Primary Care Provider [phone] Odalys Dozier MD Unavailable [phone] Ayaz Pat MD Unavailable [phone] Samia Corrales MD, MPH Unavailable + [phone] Delfino Mccarthy MD Unavailable [phone] Edgar Kearney MD Unavailable Encounter Details Date Type Department Care Team (Late st Contact Info) Description 06/20/2024 Procedure Pass [facility] 75 [place] [address] Social History Tobacco Use Types Packs/Day Years [...] 1:00 AM EST Josefa Hawk RN * [place] Suicide Severity Rating Scale (Screener/Recent Self-Report) Question [...] Pass [facility] Imaging Department, [facility], [place] [facility], [address] [address] 01/15/2025 Procedure Pass [facility] Imaging Department, [facility] [place] [facility], [address] [address] 04/16/2025 9:30 AM EST Blood Draw [facility] Imaging Department, [facility], Imaging Lfsip-nx-Hopb [address] [place] [address], [address] [address] Odalys Dozier MD [address] [place] [address] Kandis@[facility] Gabby Bhatti [address] [place] [address] [email or web address] 04/16/2025 11:40 AM EST Appointment [facility] Imaging Department, [facility], [place] [address] [facility], [facility] L1 [place] [address] Odalys Dozier MD [address] [place] [address] Kandis@[facility] Gabby Bhatti [address] [place] [address] [email or web address]@[facility] 04/16/2025 3:00 PM EST Office Visit [facility], [address], [address] [place] [address] Odalys Dozier MD [address] [place] [address] Kandis@[facility] Gabby Bhatti [address] [place] [address] [email or web address]@[facility] 04/16/2025 3:30 PM EST Office Visit [facility], [address], [address] [place] [address] Ayaz Pat MD [address] [place] [address] SUSIE@[facility] Gabby Bhatti [address] [place] [address] [email or web address]@[facility] documented as of this encounter Visit Diagnoses Not on filedocumented in this encounter Additional Health Concerns Assessment Noted Time PHQ-2 Depression Total Score: 0 06/08/19 7:28 AM EST documented as of this encounter Care Teams Rag Baler Relationship Specialty Start Date End Date Brandi Eisenberg PA [facility]9 [place] [address] PCP - General Physician Pressing Machine Tender 05/15/24 Odalys Dozier MD [address] [place] [address] Kandis@[facility] Medical Oncology 06/13/24 Ayaz Pat MD [address] [place] [address] SUSIE@[facility] Surgical Oncology 06/13/24 Samia Corrales MD, MPH [address] [place] [address] Chong@[facility] Radiation Oncology 06/13/24 Delfino Mccarthy MD [address] [place] [address] Dr Lozano [address] [place] [address] Urology 01/15/25 Edgar Kearney MD [address] [place] [address] Nephrology 01/15/25 documented as of this encounter Additional Source Comments The information contained in this document represents components of the legal health record. It is not the complete legal health record.[facility]
--- OUTSIDE RECORDS SUMMARY | 2025-04-12 08:49 | XMS_ITS | Encounter Summary ---
Author Organization [facility] Address [address] [place] [address] Phone Care Team Providers Care Test Development Engineer Name Role Phone Brandi Eisenberg Primary Care Provider [phone] Odalys Dozier MD Unavailable [phone] Ayaz Pat MD Unavailable [phone] Samia Corrales MD, MPH Unavailable + [phone] Delfino Mccarthy MD Unavailable [phone] Edgar Kearney MD Unavailable Encounter Details Date Type Department Care Team (Late st Contact Info) Description 06/20/2024 Procedure Pass [facility] 75 [place] [address] Social History Tobacco Use Types Packs/Day Years [...] 1:00 AM EST Josefa Hawk RN * [place] Suicide Severity Rating Scale (Screener/Recent Self-Report) Question [...] st Contact Info) Description 01/15/2025 Procedure Pass [facility] Imaging Department, [facility], [place] [address] [facility], [address] [address] 01/15/2025 Procedure Pass [facility] Imaging Department, [facility] [place] [address] [facility], [address] [address] 04/16/2025 9:30 AM EST Blood Draw [facility] Imaging Department, [facility], Imaging Xmewb-kj-Yyvf [address] [place] [address], [address] [address] Odalys Dozier MD [address] [place] [address] Kandis@[facility] Gabby Bhatti [address] [place] [address] [email or web address] 04/16/2025 11:40 AM EST Appointment [facility] Imaging Department, [facility], [place] [address] [facility], [facility] L1 [place] [address] Odalys Dozier MD [address] [place] [address] Kandis@[facility] Gabby Bhatti [address] [place] [address] zohaib@[facility] 04/16/2025 3:00 PM EST Office [facility], [address], [address] [place] [address] Odalys Dozier MD [address] [place] [address] Kandis@[facility] Gabby Bhatti [address] [place] [address] zohaib@[facility] 04/16/2025 3:30 PM EST Office Visit [facility], [address], [address] [place] [address] Ayaz Pat MD [address] [place] [address] SUSIE@[facility] Gabby Bhatti [address] [place] [address] zohaib@[facility] documented as of this encounter Visit Diagnoses Not on filedocumented in this encounter Additional Health Concerns Assessment Noted Time PHQ-2 Depression Total Score: 0 06/08/19 7:28 AM EST documented as of this encounter Care Teams Test Development Engineer Relationship Specialty Start Date End Date Brandi Eisenberg PA [facility] [place] [address] PCP - General Physician Outdoor Adventure Leader 05/15/24 Odalys Dozier MD [address] [place] [address] Kandis@[email or web address] Medical Oncology 06/13/24 Ayaz Pat MD [address] [place] [address] SUSIE@[facility] Surgical Oncology 06/13/24 Samia Corrales MD, MPH [address] [place] [phone] Chong@[facility] Radiation Oncology 06/13/24 Delfino Mccarthy MD [address] [place] [address] Dr Lozano [address] [place] [address] Urology 01/15/25 Edgar Kearney MD [address] [place] [address] Nephrology 01/15/25 documented as of this encounter Additional Source Comments The information contained in this document represents components of the legal health record. It is not the complete legal health record.[facility]
--- OUTSIDE RECORDS SUMMARY | 2025-04-12 08:49 | XMS_ITS | Encounter Summary ---
Author Organization [facility] Address [address] [facility] [address] [place] [address] Phone Care Team Providers Care Staff Trainer Name Role Phone Brandi Eisenberg Primary Care Provider [phone] Odalys Dozier MD Unavailable [phone] Ayaz Pat MD Unavailable [phone] Samia Corrales MD, MPH Unavailable + [phone] Delfino Mccarthy MD Unavailable Edgar Kearney MD Unavailable Encounter Details Date Type Department Care Team (Latest Contact Info) Description 06/26/2024 Transcribe Orders [facility] Clinic [address] [place] [address] Ashley Martins [address] [place] [address] [email or web address] Bradycardia (Primary Dx) Social History Tobacco Use [...] Contact Info) Description 01/15/2025 Procedure Pass [facility] Imaging Department, [facility], [place] [address] [facility], Floor L1 [place] [address] 01/15/2025 Procedure Pass [facility] Imaging Department, [facility], [place] [address] [facility], Floor L1 [place] [address] 04/16/2025 9:30 AM EST Blood Draw [facility] Imaging Department, [facility], Imaging Hgklt-uj-Zcwi [address] [facility], Floor L1 [place] [address] Odalys Dozier MD [address] [place] [address] Kandis@[facility] Gabby Bhatti [address] [place] [address] zohaib@[facility] 04/16/2025 11:40 AM EST Appointment [facility] Imaging Department, [facility], [place] [address] [facility], Floor L1 [place] [address] Odalys Dozier MD [address] [place] [address] Kandis@[facility] Gabby Bhatti [address] [place] [address] zohaib@[facility] 04/16/2025 3:00 PM EST Office [facility], [address], 6th [place] [address] Odalys Dozier MD [address] [place] [address] Kandis@[facility] Gabby Bhatti [address] [place] [address] zohaib@[facility] 04/16/2025 3:30 PM EST Office Visit [facility], [facility] [address] [place] [address], 6th [place] [address] Ayaz Pat MD [address] [place] [address] SUSIE@[facility] Gabby Bhatti [address] [place] [address] [email or web address]@[facility] Scheduled Orders Name Type Priority Associated Diagnoses [...] documented as of this encounter Care Teams Staff Trainer Relationship Specialty Start Date End Date Brandi Eisenberg PA [address] [place] [address] PCP - General Physician Chief Ii Dispatcher 05/15/24 Odalys Dozier MD [address] [place] [address] Kandis@[facility] Medical Oncology 06/13/24 Ayaz Pat MD [address] [place] [address] SUSIE@[facility] Surgical Oncology 06/13/24 Samia Corrales MD, MPH [address] [place] [address] Chong@[facility] Radiation Oncology 06/13/24 Delfino Mccarthy MD [address] [place] [address] Dr [address] [place] [address] Urology 01/15/25 Edgar Kearney MD [address] [place] [address] Nephrology 01/15/25 documented as of this encounter Additional Source Comments The information contained in this document represents components of the legal health record. It is not the complete legal health record.[facility]
--- OUTSIDE RECORDS SUMMARY | 2025-04-12 08:49 | XMS_ITS | Encounter Summary ---
Author Organization [facility] Address [address] [facility] [address] [place] [address] Phone Care Team Providers Care Bobbin Fixer Name Role Phone Brandi Eisenberg Primary Care Provider [phone] Odalys Dozier MD Unavailable [phone] Ayaz Pat MD Unavailable [phone] Samia Corrales MD, MPH Unavailable + [phone] Delfino Mccarthy MD Unavailable Edgar Kearney MD Unavailable Encounter Details Date Type Department Care Team (Late st Contact Info) Description 06/22/[address] [facility] Electrophysiology Lab [address] [place] [address] Social History Tobacco Use Types Packs/Day Years [...] 1:00 AM EST Josefa Hawk RN * [place] Suicide Severity Rating Scale (Screener/Recent Self-Report) Question [...] Contact Info) Description 01/15/2025 Procedure Pass [facility] Imaging Department, [facility] [place] [address] [facility], [facility] L1 [place] [address] 01/15/2025 Procedure Pass [facility] Imaging Department, [facility] [place] [address] [facility], [facility] L1 [place] [address] 04/16/2025 9:30 AM EST Blood Draw [facility] Imaging Department, [facility], Imaging Vshsp-bd-Ppgq [address] [place] [address], [facility] L1 [place] [address] Odalys Dozier MD [address] [place] [address] Kandis@[facility] Gabby Bhatti [address] [place] [address] [email or web address]@[email or web address] 04/16/2025 11:40 AM EST Appointment [facility] Imaging Department, [facility], [place] [address] [facility], [address] [address] Odalys Dozier MD [address] [place] [address] Kandis@[facility] Gabby Bhatti [address] [place] [address] zohaib@[facility] 04/16/2025 3:00 PM EST Office [facility], [address], [address] [place] [address] Odalys Dozier MD [address] [place] [address] Kandis@[facility] Davy Gabby [address] [place] [address] zohaib@[facility] 04/16/2025 3:30 PM EST Office [facility], [address], [address] [place] [address] Ayaz Pat MD [address] [place] [address] SUSIE@[facility] DavyGabby [address] [place] [address] [email or web address]@[facility] documented as of this encounter Visit Diagnoses Not on filedocumented in this encounter Additional Health Concerns Assessment Noted Time PHQ-2 Depression Total Score: 0 06/08/19 25 7:28 AM EST documented as of this encounter Care Teams Bobbin Fixer Relationship Specialty Start Date End Date Brandi Eisenberg PA [address] [place] [address] PCP - General Physician Document Management Analyst 05/15/24 Odalys Dozier MD [address] [place] [address] Kandis@[facility] Medical Oncology 06/13/24 Ayaz Pat MD [address] [place] [address] SUSIE@[facility] Surgical Oncology 06/13/24 Samia Corrales MD, MPH [address] [place] [address] Chong@[facility] Radiation Oncology 06/13/24 Delfino Mccarthy MD [address] [place] [address] Urology 01/15/25 Edgar Kearney MD [address] [place] [address] Nephrology 01/15/25 documented as of this encounter Additional Source Comments The information contained in this document represents components of the legal health record. It is not the complete legal health record.[facility]
--- OUTSIDE RECORDS SUMMARY | 2025-04-12 08:49 | XMS_ITS | Encounter Summary ---
Author Organization [facility] Address 399 [employer] [facility] [address] [place] [address] Phone Care Team Providers Care Applications Administrator Name Role Phone Brandi Eisenbreg Primary Care Provider [phone] Odalys Dozier MD Unavailable [phone] Ayaz Pat MD Unavailable [phone] Samia Corrales MD, MPH Unavailable + [phone] Delfino Mccarthy MD Unavailable Edgar Kearney MD Unavailable Encounter Details Date Type Department Care Team (Late st Contact Info) Description 06/21/2024 Procedure Pass [facility] [address] [place] [address] Social History Tobacco Use Types Packs/Day Years [...] 1:00 AM EST Josefa Hawk RN * [place] Suicide Severity Rating Scale (Screener/Recent Self-Report) Question [...] st Contact Info) Description 01/15/2025 Procedure Pass [facility] Imaging Department, [facility], [place] [facility], [address] [address] 01/15/2025 Procedure Pass [facility] Imaging Department, [facility] [place] [facility], [address] [address] 04/16/2025 9:30 AM EST Blood Draw [facility] Imaging Department, [facility], Imaging Uogjw-zr-Bnsn [address] [place] [address], [address] [address] Odalys Dozier MD [address] [place] [address] Kandis@[email or web address] Gabby Bhatti [address] [place] [address] [email or web address] 04/16/2025 11:40 AM EST Appointment [facility] Imaging Department, [facility], [place] [facility], [facility] [address] [place] [address] Odalys Dozier MD [address] [place] [address] Kandis@[facility] Gabby Bhatti [address] [place] [address] [email or web address]@[facility] 04/16/2025 3:00 PM EST Office [facility], [address], [address] [place] [address] Odalys Dozier MD [address] [place] [phone] Kandis@[facility] Gabby Bhatti [address] [place] [address] [email or web address]@[facility] 04/16/2025 3:30 PM EST Office [facility], [address], [address] [place] [address] Ayaz Pat MD [address] [place] [address] SUSIE@[facility] Gabby Bhatti [address] [place] [address] [email or web address] documented as of this encounter Visit Diagnoses Not on filedocumented in this encounter Additional Health Concerns Assessment Noted Time PHQ-2 Depression Total Score: 0 06/08/19 7:28 AM EST documented as of this encounter Care Teams Applications Administrator Relationship Specialty Start Date End Date Brandi Eisenberg PA [facility] [place] [address] PCP - General Physician Fly Frame Tender 05/15/24 Odalys Dozier MD [address] [place] [address] Kandis@[facility] Medical Oncology 06/13/24 Ayaz Pat MD [address] [place] [address] SUSIE@[facility] Surgical Oncology 06/13/24 Samia Corrales MD, MPH [address] [place] [address] Chong@[facility] Radiation Oncology 06/13/24 Delfino Mccarthy MD [address] [place] [address] [address] Urology 01/15/25 Edgar Kearney MD [address] [place] [address] Nephrology 01/15/25 documented as of this encounter Additional Source Comments The information contained in this document represents components of the legal health record. It is not the complete legal health record.[facility]
--- OUTSIDE RECORDS SUMMARY | 2025-04-12 08:49 | XMS_ITS | Encounter Summary ---
Author Organization [facility] Address [address] [place] [address] Care Team Providers Care Cooker Process Cheese Name Role Phone Brandi Eisenberg Primary Care Provider [phone] Encounter Details Date Type Department Care Team (Late st Contact Info) Description 10/03/2024 Lab Requisition [facility] [address] [place] [id number] Hudson Santana MD [address] [place] [phone] Pleural effusion in other conditions classified elsewhere [...] available upon request. 12/28/2024 3:58 PM EDT [facility] Clinical Information This historical was created for a slide request for [facility] [place]. 12/28/2024 3:58 PM EDT [facility] Gross Description A. Pleural Cavity, Right, right pleural biopsy: At the request of Kavita for Dr. Dozier slides sent (11) [facility] - pathology processing ([facility]) [address] , [address] [place] [address] FEDEX: [id number] 12.17.2924 - [place] 12/28/2024 3:58 PM EDT [facility] Disclaimer Unless otherwise specified, all tissue is 10% NB formalin fixed and paraffin embedded. 12/28/2024 3:58 PM EDT [facility] Tissue Structure of right pleural cavity / Unknown 10/03/2024 9:23 AM EDT 10/03/2024 9:23 AM EDT us Hudson Santana MD LAB PATHOLOGY ORDERABLES Final R esult [facility] [address] [place] [address], documented in this encounter Visit Diagnoses Diagnosis Pleural effusion in other conditions classified elsewhere documented in this encounter Care Teams Cooker Process Cheese Relationship Specialty Start Date End Date Brandi Eisenberg PA [address] [place] [address] PCP - General 11/23/23 documented as of this encounter
--- OUTSIDE RECORDS SUMMARY | 2025-04-12 08:50 | XMS_ITS | Encounter Summary ---
Author Organization [facility] Address 399 [facility] [address] [place] [address] Phone Care Team Providers Care Marketing Services Specialist Name Role Phone Brandi Eisenberg Primary Care Provider [phone] Odalys Dozier MD Unavailable [phone] Ayaz Pat MD Unavailable [phone] Samia Corrales MD, MPH Unavailable + [phone] Delfino Mccarthy MD Unavailable Edgar Kearney MD Unavailable Encounter Details Date Type Department Care Team (Late st Contact Info) Description 10/30/2024 Procedure Pass [facility] Imaging Department, [facility] [place] [facility], Floor L1 [place] [address] Social History Tobacco Use Types Packs/Day Years [...] Contact Info) Description 01/15/2025 Procedure Pass [facility] Imaging Department, [facility] [place] [facility], Floor L1 [place] [address] 01/15/2025 Procedure Pass [facility] Imaging Department, [facility] [place] [facility], Floor L1 [place] [address] 04/16/2025 9:30 AM EST Blood Draw [facility] Imaging Department, [facility], Imaging Wvfkc-bn-Kaiq [address] [facility], Floor L1 [place] [address] Odalys Dozier MD [address] [place] [address] Kandis@[facility] Gabby Bhatti [address] [place] [address] [email or web address]@[facility] 04/16/2025 11:40 AM EST Appointment [facility] Imaging Department, [facility], [place] [facility], [facility] L1 [place] [address] Odalys Dozier MD [address] [place] [address] Kandis@[facility] Gabby Bhatti [address] [place] [address] [email or web address]@[facility] 04/16/2025 3:00 PM EST Office Visit [facility], [address], 6th [place] [address] Odalys Dozier MD [address] [place] [address] Kandis@[facility] Gabby Bhatti [address] [place] [address] [email or web address]@[facility] 04/16/2025 3:30 PM EST Office [facility], [facility] [place] [address] [place] [address], 6th [place] [address] Ayaz Pat MD [address] [place] [address] SUSIE@[facility] Davy, Gabby [address] [place] [address] [email or web address]@[facility] documented as of this encounter Visit Diagnoses Not on filedocumented in this encounter Additional Health Concerns Assessment Noted Time PHQ-2 Depression Total Score: 0 06/08/19 7:28 AM EST documented as of this encounter Care Teams Marketing Services Specialist Relationship Specialty Start Date End Date Brandi Eisenberg PA [address] [place] [address] PCP - General Physician Assembler Bonding 05/15/24 Odalys Dozier MD [address] [place] [address] Kandis@[facility] Medical Oncology 06/13/24 Ayaz Pat MD [address] [place] [address] SUSIE@[facility] Surgical Oncology 06/13/24 Samia Corrales MD, MPH [address] [place] [address] Chong@[facility] Radiation Oncology 06/13/24 Delfino Mccarthy MD [address] [place] [address] Dr Lozano [address] [place] [address] Urology 01/15/25 Edgar Kearney MD [address] [place] [address] Nephrology 01/15/25 documented as of this encounter Additional Source Comments The information contained in this document represents components of the legal health record. It is not the complete legal health record.[facility]
--- OUTSIDE RECORDS SUMMARY | 2025-04-12 08:50 | XMS_ITS | Encounter Summary ---
Author Organization [facility] Address 399 [employer] [facility] [address] [place] [address] Phone Care Team Providers Care Volcanologist Name Role Phone Brandi Eisenberg Primary Care Provider [phone] Odalys Dozier MD Unavailable [phone] Ayaz Pat MD Unavailable [phone] Samia Corrales MD, MPH Unavailable + [phone] Delfino Mccarthy MD Unavailable Edgar Kearney MD Unavailable Encounter Details Date Type Department Care Team (Late st Contact Info) Description 06/22/2024 Procedure Pass [facility] Cardio EP Device Monitoring [address] [place] [address] Social History Tobacco Use Types Packs/Day Years [...] 1:00 AM EST Josefa Hawk RN * [place] Suicide Severity Rating Scale (Screener/Recent Self-Report) Question [...] Description 01/15/2025 Procedure Pass [facility] Imaging Department, [facility] [place] [facility], [address] [address] 01/15/2025 Procedure Pass [facility] Imaging Department, [facility] [place] [facility], [address] [address] 04/16/2025 9:30 AM EST Blood Draw [facility] Imaging Department, [facility], Imaging Wgsmg-yn-Ogdb [address] [place] [address], [address] [address] Odalys Dozier MD [address] [place] [address] Kandis@[email or web address] Gabby Bhatti [address] [place] [address] [email or web address] 04/16/2025 11:40 AM EST Appointment [facility] Imaging Department, [facility] [place] [facility], [address] [address] Odalys Dozier MD [address] [place] [address] Kandis@[facility] Gabby Bhatti [address] [place] [address] [email or web address]@[facility] 04/16/2025 3:00 PM EST Office Visit [facility], [address], [address] [place] [address] Odalys Dozier MD [address] [place] [address] Kandis@[facility] Gabby Bhatti [address] [place] [address] zohaib@[facility] 04/16/2025 3:30 PM EST Office Visit [facility], [address], [address] [place] [address] Ayaz Pat MD [address] [place] [address] SUSIE@[facility] Gabby Bhatti [address] [place] [address] zohaib@[facility] documented as of this encounter Visit Diagnoses Not on filedocumented in this encounter Additional Health Concerns Assessment Noted Time PHQ-2 Depression Total Score: 0 06/08/19 7:28 AM EST documented as of this encounter Care Teams Volcanologist Relationship Specialty Start Date End Date Brandi Eisenberg PA [facility]9 [place] [address] PCP - General Physician Director Of Casework Department 05/15/24 Odalys Dozier MD [address] [place] [address] Kandis@[facility] Medical Oncology 06/13/24 Ayaz Pat MD [address] [place] [address] SUSIE@[facility] Surgical Oncology 06/13/24 Samia Corrales MD, MPH [address] [place] [address] Chong@[facility] Radiation Oncology 06/13/24 Delfino Mccarthy MD [address] [place] [address] [address] Urology 01/15/25 Edgar Kearney MD [address] [place] [address] Nephrology 01/15/25 documented as of this encounter Additional Source Comments The information contained in this document represents components of the legal health record. It is not the complete legal health record.[facility]
--- OUTSIDE RECORDS SUMMARY | 2025-04-12 08:50 | XMS_ITS | Encounter Summary ---
Author Organization [facility] Address 399 [facility] [address] [place] [address] Phone Care Team Providers Care Director Compensation Name Role Phone Brandi Eisenberg Primary Care Provider [phone] Odalys Dozier MD Unavailable [phone] Ayaz Pat MD Unavailable [phone] Samia Corrales MD, MPH Unavailable + [phone] Delfino Mccarthy MD Unavailable Edgar Kearney MD Unavailable Encounter Details Date Type Department Care Team (Late st Contact Info) Description 10/08/2024 Procedure Pass [facility] Imaging Department, [facility] [place], [place] [address] [facility], Floor L1 [place] [address] Social History Tobacco Use Types Packs/Day Years [...] st Contact Info) Description 01/15/2025 Procedure Pass [facility] Imaging Department, [facility] [place] [address] [facility], Floor L1 [place] [address] 01/15/2025 Procedure Pass [facility] Imaging Department, [facility] [place] [facility], Floor L1 [place] [address] 04/16/2025 9:30 AM EST Blood Draw [facility] Imaging Department, [facility], Imaging Amaww-gc-Ksny [address] [facility], Floor [address] [place] [address] Odalys Dozier MD [address] [place] [address] Kandis@[facility] Gabby Bhatti [address] [place] [address] [email or web address]@[facility] 04/16/2025 11:40 AM EST Appointment [facility] Imaging Department, [facility], [place] [address] [facility], [facility] L[address] [place] [address] Odalys Dozier MD [address] [place] [address] Kandis@[facility] Gabby Bhatti [address] [place] [address] [email or web address]@[facility] 04/16/2025 3:00 PM EST Office Visit [facility], [address], 6th [place] [address] Odalys Dozier MD [address] [place] [address] Kandis@[facility] Gabby Bhatti [address] [place] [address] [email or web address]@[facility] 04/16/2025 3:30 PM EST Office Visit [facility], [facility] [place] [address] [place] [address], 6th [place] [address] Ayaz Pat MD [address] [place] [address] SUSIE@[facility] Davy, Gabby [address] [place] [address] [email or web address] documented as of this encounter Visit Diagnoses Not on filedocumented in this encounter Additional Health Concerns Assessment Noted Time PHQ-2 Depression Total Score: 0 06/08/19 7:28 AM EST documented as of this encounter Care Teams Director Compensation Relationship Specialty Start Date End Date Brandi Eisenberg PA [address] [place] [address] PCP - General Physician Audit Practice Intern 05/15/24 Odalys Dozier MD [address] [place] [address] Kandis@[facility] Medical Oncology 06/13/24 Ayaz Pat MD [address] [place] [address] SUSIE@[facility] Surgical Oncology 06/13/24 Samia Corrales MD, MPH [address] [place] [address] Chong@[facility] Radiation Oncology 06/13/24 Delfino Mccarthy MD [address] [place] [address] Dr L[address]ano [address] [place] [address] Urology 01/15/25 Edgar Kearney MD [address] [place] [address] Nephrology 01/15/25 documented as of this encounter Additional Source Comments The information contained in this document represents components of the legal health record. It is not the complete legal health record.[facility]
--- OUTSIDE RECORDS SUMMARY | 2025-04-12 08:50 | XMS_ITS | Encounter Summary ---
Author Organization [facility] Address 399 [facility] [address] [place] [address] Phone Care Team Providers Care Steam Service Inspector Name Role Phone Brandi Eisenberg Primary Care Provider [phone] Odalys Dozier MD Unavailable [phone] Ayaz Pat MD Unavailable [phone] Samia Corrales MD, MPH Unavailable + [phone] Delfino Mccarthy MD Unavailable Edgar Kearney MD Unavailable Encounter Details Date Type Department Care Team (Late st Contact Info) Description 10/30/2024 Procedure Pass [facility] Imaging Department, [facility] [place] [address] [facility], Floor L1 [place] [address] Social History Tobacco Use Types Packs/Day Years [...] Pass [facility] Imaging Department, [facility], [place] [address] [facility], Floor L1 [place] [address] 01/15/2025 Procedure Pass [facility] Imaging Department, [facility] [place] [address] [facility], Floor L1 [place] [address] 04/16/2025 9:30 AM EST Blood Draw [facility] Imaging Department, [facility], Imaging Nyzjq-qa-Bcqz [address] [facility], Floor L1 [place] [address] Odalys Dozier MD [address] [place] [address] Kandis@[facility] Gabby Bhatti [address] [place] [address] [email or web address]@[facility] 04/16/2025 11:40 AM EST Appointment [facility] Imaging Department, [facility] [place] [address] [facility], [facility] L1 [place] [address] Odalys Dozier MD [address] [place] [address] Kandis@[facility] Gabby Bhatti [address] [place] [address] [email or web address]@[facility] 04/16/2025 3:00 PM EST Office Visit [facility], [address], 6th [place] [address] Odalys Dozier MD [address] [place] [address] Kandis@[facility] Gabby Bhatti [address] [place] [address] [email or web address]@[email or web address] 04/16/2025 3:30 PM EST Office [facility], [facility] [place] [address] [place] [address], 6th [place] [address] Ayaz Pat MD [address] [place] [address] SUSIE@[facility] Davy, Gabby [address] [place] [address] [email or web address]@[facility] documented as of this encounter Visit Diagnoses Not on filedocumented in this encounter Additional Health Concerns Assessment Noted Time PHQ-2 Depression Total Score: 0 06/08/19 7:28 AM EST documented as of this encounter Care Teams Steam Service Inspector Relationship Specialty Start Date End Date Brandi Eisenberg PA [address] [place] [address] PCP - General Physician Buckle Sewer Machine 05/15/24 Odalys Dozier MD [address] [place] [address] Kandis@[facility] Medical Oncology 06/13/24 Ayaz Pat MD [address] [place] [address] SUSIE@[facility] Surgical Oncology 06/13/24 Samia Corrales MD, MPH [address] [place] [phone] Chong@[facility] Radiation Oncology 06/13/24 Delfino Mccarthy MD [address] [place] [address] Dr Lozano [address] [place] [address] Urology 01/15/25 Edgar Kearney MD [address] [place] [address] Nephrology 01/15/25 documented as of this encounter Additional Source Comments The information contained in this document represents components of the legal health record. It is not the complete legal health record.[facility]
--- OUTSIDE RECORDS SUMMARY | 2025-04-12 08:50 | XMS_ITS | Clinical Summary ---
Author Organization [facility] Address [address] [place] [address] Phone Care Team Providers Care Defect Cutter Name Role Phone Brandi Eisenberg PA-C Primary [...] on 07 May 2014 19:39 Encounter info: [id number], [facility], One Time OP, 04/29/2014 - 04/29/2014 Contributor system: NUANCE * Final Report * Polysomnogram W/ CPAP (Verified) POLYSOMNOGRAM DATE:04/29/2014 [facility] SLEEP PRO[facility] Accredited by the [place] [employer] CPAP STUDY Referring Provider: Matt Carmen M.D. Date of Study: 04/29/2014 Order ID: [id number] INTRODUCTION: This 63 year-old male with hypertension, [...] of 5.4/hr, and lowest oxygenation of 85%. [place] sleepiness scale is 10/24. (Height: 5' 6 , Weight: 217.0 lbs, BMI: 35.3.) MASK TYPE: Standard/FX Nasal. MEDICATIONS: Sertraline, Naproxen, Metformin, Lisinopril, HCTZ, Amlodipine. DESCRIPTION: This overnight polysomnogram was done utilizing a [employer] digital polysomnograph machine. Four channels of EEG [...] results, then I will order PAP from [facility]. 2. Patient should sleep in non-supine [...] Transcribed: 05/07/2014 18:37:55 Transcribed by: JANNETTE DocID: [id number] CC:Matt Carmen M.D. [facility] , Brandi Eisenberg [address], [address] Osteoarthritis 03/29/2014 06/23/2021 Recurrent major depressive episodes, [...] Medicaid [place] Care Teams Defect Cutter Relationship Specialty Start Date End Date Brnadi Eisenberg PA-C [address] [place] [phone] PCP - General 06/16/20
--- OUTSIDE RECORDS SUMMARY | 2025-04-12 08:50 | XMS_ITS | Clinical Summary ---
Author Organization [facility] Address [address] [place] [id number] Phone Care Team Providers Care Custom Framing Specialist Name Role Phone Brandi Eisenberg Primary Care Provider [phone] Odalys Dozier MD Unavailable [phone] Ayaz Pat MD Unavailable [phone] Samia Corrales MD, MPH Unavailable + [phone] Delfino Mccarthy MD Unavailable Edgar Kearney MD Unavailable Allergies No known active allergies Medications semaglutide (OZEMPIC) 0.25 mg or 0.5 mg (2 mg/3 mL) subcutaneous injection pen Inject 0.25 mg under the skin every 7 days. Active rosuvastatin (CRESTOR) 5 MG tablet Take 5 mg by mouth daily. Active apixaban (ELIQUIS) 5 mg tablet Take 5 mg by mouth 2 (two) times a day. Active cyanocobalamin, vitamin B-12, 1000 MCG tablet Take 1,000 mcg by mouth daily. Active pantoprazole (PROTONIX) 20 MG tablet Take 40 mg by mouth 2 (two) times a day. Active calcitriol (ROCALTROL) 0.25 MCG capsule Take 0.25 mcg by mouth daily. Active thiamine (VITAMIN B-1) 100 MG tablet Take 100 mg by mouth daily. Active guar gum (NUTRISOURCE) Pack Take 3 g by mouth daily. 07/12/2024 Active lisinopril (PRINIVIL,ZESTRIL ) 10 MG tablet Take 1 tablet (10 mg total) by mouth daily. 60 tablet 07/25/2024 Active sodium polystyrene (KAYEXALATE) powder Take 30 g by mouth daily. 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 Hypertensive renal disease 07/23/2020 Stage 3b chronic kidney disease 06/08/2017 Hyperlipidemia, mixed 03/11/2015 TONI (obstructive sleep apnea) 05/10/2014 Overview (05/22/2024): Result type: Polysomnogram with CPAP Result date: 07 May 2014 17:40 Result status: Auth (Verified) Result title: Polysomnogram W/ CPAP Performed by: Matt Carmen MD on 07 May 2014 17:40 Verified by: Matt Carmen MD on 07 May 2014 19:39 Encounter info: [id number], [facility], One Time OP, 04/29/2014 - 04/29/2014 Contributor system: NUANCE * Final Report * Polysomnogram W/ CPAP (Verified) POLYSOMNOGRAM DATE:04/29/2014 [facility] SLEEP PROGRAM [facility] Accredited by the [place] [employer] CPAP STUDY Referring Provider: Matt Carmen M.D. Date of Study: 04/29/2014 Order ID: [id number] INTRODUCTION: This 63 year-old male with hypertension, [...] of 5.4/hr, and lowest oxygenation of 85%. [place] sleepiness scale is 10/24. (Height: 5' 6 , Weight: 217.0 lbs, BMI: 35.3.) MASK TYPE: Standard/FX Nasal. MEDICATIONS: Sertraline, Naproxen, Metformin, Lisinopril, HCTZ, Amlodipine. DESCRIPTION: This overnight polysomnogram was done utilizing a Jimdo digital polysomnograph machine. Four channels of EEG [...] results, then I will order PAP from [facility]. 2. Patient should sleep in [...] Transcribed: 05/07/2014 18:37:55 Transcribed by: JANNETTE DocID: [id number] CC:Matt Carmen M.D. 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 [place] [address] Odalys Dozier MD Gurevich, Gabby Dedifferentiated liposarcoma (Primary Dx); Chronic kidney disease, unspecified CKD stage 01/15/2025 1:30 PM EDT Office Visit [facility], [facility] [address], [address] [place] [address] Ayaz Pat MD Gurevich, Gabby Dedifferentiated liposarcoma (Primary Dx) 01/15/2025 7:47 AM EDT - 01/15/2025 11:59 PM EDT Hospital [facility], [facility], [place] [address], [address] [place] [address] Ayaz Pat MD Metelitsa, Natasha Discharge Disposition: Home or Self Care 10/30/2024 Procedure Pass [facility] Imaging Department, [facility], [place] [address], [address] [place] [address] 10/30/2024 Procedure Pass [facility] Imaging Department, [facility], [place] [address], [address] [place] [address] from Last 3 Months Family History Medical History Relation Comments Esophageal cancer Father Relation Status Comments Father Social History Tobacco Use Types Packs/Day Years Used Date Smoking Tobacco: Former Cigarettes 0.8 27 1 967 - 1994 Smokeless Tobacco: Never Tobacco Cessation:Counseling Given: Not Answered Comments:Quit 31 years ago ~27 year history. Alcohol Use Standard Drinks/Week Comments [...] Orientation Straight 05/15/2024 1: 03 PM EST Last Filed Vital Signs Vital Sign Reading Time Taken Comments Blood Pressure 159/71 01/15/2025 12:57 PM EDT Pulse 60 01/15/2025 12:57 PM EDT Temperature 36.4 C (97.6 F) 01/15/2025 12:56 PM EDT Respiratory Rate 20 01/15/2025 12:53 PM EDT Oxygen Saturation 96% 01/15/2025 12:57 PM EDT Inhaled Oxygen Concentration 100% 07/06/2024 8 :39 PM EST Weight 79.4 kg (175 lb 0.7 oz) 01/15/2025 12:53 PM EDT Height 165 cm (5' 4.96 ) 01/15/2025 12:53 PM EDT Body Mass Index 29.16 01/15/2025 12:53 PM EDT Plan of Treatment Upcoming Encounters Date Type Department Care Team (Late st Contact Info) Description 01/15/2025 Procedure Pass [facility] Imaging Department, [facility], [place] [address], [address] [place] [address] 01/15/2025 Procedure Pass [facility] Imaging Department, [facility], [place] [address], [address] [place] [address] 04/16/2025 9:30 AM EST Blood Draw [facility] Imaging Department, [facility], Imaging [facility] [address], [address] [place] [address] Odalys Dozier MD [address] [place] [phone] [email or web address] Gabby Bhatti [address] [place] [phone] [email or web address] 04/16/2025 11:40 AM EST Appointment [facility] Imaging Department, [facility], [place] [address], [facility] [address] [place] [address] Odalys Dozier MD [address] [place] [phone] [email or web address] [address] [place] [phone] [email or web address] 04/16/2025 3:00 PM EST Office Visit [facility], [address], [address] [place] [address] Odalys Dozier MD [address] [place] [phone] [email or web address] Gabby Bhatti [address] [place] [phone] [email or web address] 04/16/2025 3:30 PM EST Office Visit [facility], [address], [address] [place] [address] Ayaz Pat MD [address] [place] [phone] [email or web address] Gabby Bhatti [address] [place] [phone] [email or web address] Maintenance Due Date Last Done Comments Adult Td,Tdap Booster 1950 HEPATITIS C SCREENING 09/09/1967 ZOSTER VACCINES (1 of 2) 1968 COLOGUARD 1994 COLONOSCOPY 1994 COLORECTAL CANCER SCREENING 1994 FIT TEST 1994 FOBT 1994 SIGMOIDOSCOPY 1994 VIRTUAL COLONOSCOPY 1994 DIABETIC EYE EXAM 05/22/2024 RSV VACCINE (1 - 1-dose 75+ series) 2024 HEMOGLOBIN A1C 12/18/2024 06/20/2024, 07/07, 07/20/2023, Additional history exists INFLUENZA VACCINE (#1) 2025 COVID-19 VACCINE ( season) 2025 DEPRESSION SCREENING 06/08/2025 06/08/2024 LIPID PANEL 06/20/2025 06/20/2024, 07/07, 07/20/2023, Additional history exists BLOOD PRESSURE 07/18/2025 01/15/2025 CREATININE LEVEL 01/15/2026 01/15/2025, , 07/11/2024, Additional history exists POTASSIUM LEVEL 01/15/2026 01/15/2025, 10/05, 07/11/2024, Additional history exists PNEUMOCOCCAL VACCINES (50+ years) Completed 01/25/2023 SMOKING STATUS SCREENING (Once After 26 Yrs) Completed 08/03/2024 HEPATITIS A VACCINES Aged Out No long er eligible based on patient's age to complete this topic HIB VACCINES Aged Out No longer eligi ble based on patient's age to complete this topic MENINGOCOCCAL VACCINES (ACWY) Aged Out No longer eligible based on patient's age to complete this topic MENINGOCOCCAL VACCINES (B) Aged Out N o longer eligible based on patient's age to complete this topic Medical Devices Implanted Type Area Senior Energy Consultant Device Identifier Shelf Expiration Date Model / Serial / Lot System Pacemaker Micra Vr2 Leadless - [id number] Implanted:Qt y: 1 on 06/22/2024 by Rivera Guardado MD at [facility] Pacemaker (Leadless) N/A: Right Ventricle [employer] [facility] [id number] 10/01/2025 MICRAVR2 SYSTEM / [id number] / Medtronic In [id number] Micra Vr2 [id number] Implanted: (Quantity not on file) Pacemaker [employer] [id number] MICRA VR2 / [id number] 1E / Gastric Clip Procedures Procedure Name Priority Date/Time Associated Diagnosis Comments CT CHEST WITHOUT CONTRAST Routine 01/15/2025 9:36 AM EDT Dedifferentiated liposarcoma CT ABDOMEN/PELVIS WITHOUT CONTRAST Routine 01/15/2025 9:36 AM EDT Dedifferentiated liposarcoma HC BLOOD COUNT COMPLETE AUTO&AUTO DIFRNTL WBC Routine 01/15/2025 8:04 AM EDT Dedifferentiated liposarcoma COMPREHENSIVE METABOLIC PANEL (CMP) Routine 01/15/2025 8:04 AM EDT Dedifferentiated liposarcoma HEMOGLOBIN A1C Routine 06/20/2024 10:27 PM EST LIPID PANEL Routine 06/20/2024 10:27 PM EST from Last 3 Months or Most Recently Relevant to Health Maintenance Results * CT CHEST WITHOUT CONTRAST (01/15/2025 9:36 AM EDT) Anatomical Region Laterality Modality Chest Computed Tomogra phy Other 01/15/2025 9:58 AM EDT Impressions 01/16/2025 7:51 AM EDT 1. Status post right pleurodesis with unchanged right pleural thickening and trace pleural effusion. 2. Slightly increased size of thoracic lymph nodes, avid on prior PET/CT of 01/11/2024 with biopsy on 01/19/2024 showing reactive follicular hyperplasia. ATTESTATION: Clifford Farrell, as teaching physician have reviewed the images, if any, for this patient's exam, and if necessary, have edited the report originally created by Marcella Ramos. Narrative 01/16/2025 7:[address] CHEST WITHOUT CONTRAST Referring clinician's provided indication for this examination in Epic: Sarcoma staging; surveillance left RPS TECHNIQUE: Multidetector CT of the chest was performed without intravenous contrast using tailored dose modulation. COMPARISON: CT CHEST WITHOUT CONTRAST FINDINGS: Devices/Tubes/Lines: Unchanged position of leadless cardiac pacemaker in the right ventricle. Lungs: Unchanged 25 x 16 mm previously non-avid round atelectasis in the medial aspect of the right lower lobe. Unchanged faint groundglass opacities in both upper lobes, likely infectious/inflammatory. Resolved clustered micronodules in the left upper lobe. Unchanged bilateral pulmonary nodules, for example 3 mm in the right upper lobe (12:155), 4 mm in the left lower lobe (12:191) and 4 mm perifissural nodule in the right lower lobe (12:242) No new pulmonary nodules or consolidation. The airways are clear. Unchanged bilateral subpleural linear opacities mostly in the right lower lobe. Diffuse bronchial wall thickening. Pleura: Status post right pleurodesis with unchanged right pleural thickening and trace pleural effusion. No left pleural effusion or pneumothorax. Mediastinum: Cardiomegaly. No pericardial effusion. Mild amount of coronary calcifications. Mild aortic calcifications. Unchanged calcified left thyroid nodule. Lymph Nodes: Slightly increase in size of the multistation intrathoracic lymph nodes, for example 14 x 12 mm right lower paratracheal lymph node, previously 12 x 9 mm (2:43), and 19 x 15 mm partially calcified subcarinal lymph node, previously 14 x 10 mm (2:55). Unchanged subcentimeter para-aortic and right anterior diaphragmatic lymph nodes. Upper Abdomen: Please see concurrent abdominal CT for abdominal findings. Chest Wall: Mild bilateral gynecomastia. No chest wall mass. Bones: No suspicious lytic or blastic lesions. Degenerative changes of the visualized spine. Procedure Note Clifford Damon MD - 01/16/2025 CT CHEST WITHOUT CONTRAST Referring clinician's provided indication for this examination in [facility]:Sarcoma staging; surveillance left RPS TECHNIQUE: Multidetector CT of the chest was performed without intravenouscontrast using tailored dose modulation. COMPARISON: CT CHEST WITHOUT CONTRAST FINDINGS: Devices/Tubes/Lines: Unchanged position of leadless cardiac pacemaker inthe right ventricle. Lungs: Unchanged 25 x 16 mm previously non-avid round atelectasis in themedial aspect of the right lower lobe. Unchanged faint groundglassopacities in both upper lobes, likely infectious/inflammatory. Resolvedclustered micronodules in the left upper lobe. Unchanged bilateralpulmonary nodules, for example 3 mm in the right upper lobe (12:155), 4 mmin the left lower lobe (12:191) and 4 mm perifissural nodule in the rightlower lobe (12:242) No new pulmonary nodules or consolidation. The airwaysare clear. Unchanged bilateral subpleural linear opacities mostly in theright lower lobe. Diffuse bronchial wall thickening. Pleura: Status post right pleurodesis with unchanged right pleuralthickening and trace pleural effusion. No left pleural effusion orpneumothorax. Mediastinum: Cardiomegaly. No pericardial effusion. Mild amount ofcoronary calcifications. Mild aortic calcifications. Unchanged calcifiedleft thyroid nodule. Lymph Nodes: Slightly increase in size of the multistation intrathoraciclymph nodes, for example 14 x 12 mm right lower paratracheal lymph node,previously 12 x 9 mm (2:43), and 19 x 15 mm partially calcified subcarinallymph node, previously 14 x 10 mm (2:55). Unchanged subcentimeterpara-aortic and right anterior diaphragmatic lymph nodes. Upper Abdomen: Please see concurrent abdominal CT for abdominalfindings. Chest Wall: Mild bilateral gynecomastia. No chest wall mass. Bones: No suspicious lytic or blastic lesions. Degenerative changes of thevisualized spine. IMPRESSION: 1. Status post right pleurodesis with unchanged right pleural thickeningand trace pleural effusion. 2. Slightly increased size of thoracic lymph nodes, avid on prior PET/CTof 01/11/2024 with biopsy on 01/19/2024 showing reactive follicularhyperplasia. ATTESTATION: Clifford Farrell, as teaching physician have reviewed theimages, if any, for this patient's exam, and if necessary, have edited thereport originally created by Marcella Ramos. Ayaz Pat MD IMG CT CHEST Final Result * CT ABDOMEN/PELVIS WITHOUT CONTRAST (01/15/2025 9:36 AM EDT) Anatomical Region Laterality Modality Abdomen, Pelvis Computed Tomogra phy Other 01/15/2025 9:59 AM EDT Impressions 01/15/2025 10:37 AM EDT 1. Postsurgical changes from resection of left retroperitoneal liposarcoma. 2. Similar retroperitoneal and pelvic lymph nodes. No local recurrence or metastases in the abdomen or pelvis. 3. Please see the dictated report for the same day chest CT. Narrative 01/15/2025 10:[address] ABDOMEN/PELVIS WITHOUT CONTRAST Referring clinician's provided indication for this examination in Epic: Sarcoma staging; surveillance left RPS TECHNIQUE: Multidetector-row CT of the abdomen and pelvis was performed without administration of intravenous contrast using tailored dose modulation techniques. Images were reconstructed in the axial, coronal, and sagittal planes. COMPARISON: CT ABDOMEN/PELVIS WITHOUT CONTRAST FINDINGS: Lower Chest: CT chest from the same day is reported separately. Liver: No focal lesions. Biliary: Normal gallbladder. No biliary ductal dilatation. Spleen: No splenomegaly or focal lesions. Pancreas: Normal. No masses or ductal dilatation. Adrenal Glands: Status post left adrenalectomy. No nodules. Kidneys/Ureters: Status post left nephrectomy.No solid masses, stones, or hydronephrosis. Bowel: Prior appendectomy. Status post colectomy with anastomosis in the upper pelvis. Status post small bowel resection with anastomosis abdomen. No bowel thickening or distention. Peritoneum/Retroperitoneum: Status post left psoas and quadratus lumborum muscle resection. No masses, pneumoperitoneum, or fluid. Lymph Nodes: Similar 0.8 cm left periaortic node (2:38). 0.8 cm left common iliac node (2:53) and 1.3 cm left external iliac node (2:66), both of which are unchanged from the prior study. Similar subcentimeter retroperitoneal nodes. No new lymphadenopathy in the abdomen or pelvis. Pelvic Organs/Bladder: Normal. No mass. Vessels: Aortic atherosclerosis. No aortic aneurysm. Bones/Soft Tissues: Post surgical changes in the anterior abdominal wall. Degenerative changes in the visualized portions of the thoracolumbar spine. No destructive osseous lesions. Degenerative changes in the femoroacetabular joints bilaterally. Procedure Note Yaneli Morales MD - 01/15/2025 CT ABDOMEN/PELVIS WITHOUT CONTRAST Referring clinician's provided indication for this examination in Epic:Sarcoma staging; surveillance left RPS TECHNIQUE: Multidetector-row CT of the abdomen and pelvis was performedwithout administration of intravenous contrast using tailored dosemodulation techniques. Images were reconstructed in the axial, coronal,and sagittal planes. COMPARISON: CT ABDOMEN/PELVIS WITHOUT CONTRAST FINDINGS: Lower Chest: CT chest from the same day is reported separately. Liver: No focal lesions. Biliary: Normal gallbladder. No biliary ductal dilatation. Spleen: No splenomegaly or focal lesions. Pancreas: Normal. No masses or ductal dilatation. Adrenal Glands: Status post left adrenalectomy. No nodules. Kidneys/Ureters: Status post left nephrectomy.No solid masses, stones, orhydronephrosis. Bowel: Prior appendectomy. Status post colectomy with anastomosis in theupper pelvis. Status post small bowel resection with anastomosis abdomen.No bowel thickening or distention. Peritoneum/Retroperitoneum: Status post left psoas and quadratus lumborummuscle resection. No masses, pneumoperitoneum, or fluid. Lymph Nodes: Similar 0.8 cm left periaortic node (2:38). 0.8 cm leftcommon iliac node (2:53) and 1.3 cm left external iliac node (2:66), bothof which are unchanged from the prior study. Similar subcentimeterretroperitoneal nodes. No new lymphadenopathy in the abdomen or pelvis. Pelvic Organs/Bladder: Normal. No mass. Vessels: Aortic atherosclerosis. No aortic aneurysm. Bones/Soft Tissues: Post surgical changes in the anterior abdominal wall.Degenerative changes in the visualized portions of the thoracolumbarspine. No destructive osseous lesions. Degenerative changes in thefemoroacetabular joints bilaterally. IMPRESSION: 1. Postsurgical changes from resection of left retroperitonealliposarcoma. 2. Similar retroperitoneal and pelvic lymph nodes. No local recurrence ormetastases in the abdomen or pelvis. 3. Please see the dictated report for the same day chest CT. us Ayaz Pat MD IMG CT ABD/PELVIS Final Resu lt * (ABNORMAL) Comprehensive metabolic panel (01/15/2025 8:04 AM EDT) SODIUM 139 136 - 145 mmol/L [facility] LIC# [id number] POTASSIUM 4.9 3.4 - 5.1 mmol/L [facility] LIC# [id number] CHLORIDE 106 98 - 107 mmol/L [facility] LIC# [id number] CO2 19(L) 22 - 31 mmol/L [facility] LIC# [id number] BUN 60(H) 6 - 23 mg/dL [facility] LIC# [id number] CREATININE 2.21(HH) 0.50 - 1.20 mg/dL [facility] LIC# [id number] Comment: critical value: provider notified and results read back by or read in Voalte by ODALYS DOZIER MD AT 0922 GLUCOSE 144(H) 70 - 100 mg/dL [facility] LIC# [id number] ALBUMIN 3.9 3.5 - 5.2 g/dL [facility] LIC# [id number] TOTAL PROTEIN 7.4 6.4 - 8.3 g/dL [facility] LIC# [id number] CALCIUM 9.1 8.8 - 10.7 mg/dL [facility] LIC# [id number] ALKALINE PHOSPHATASE 105 40 - 129 U/L [facility] LIC# [id number] TOTAL BILIRUBIN 0.5 0.2 - 1.2 mg/dL [facility] LIC# [id number] AST 18 <41 U/L [facility] LIC# [id number] ALT 22 <42 U/L [facility] LIC# [id number] GLOBULIN 3.5 2.3 - 4.2 g/dL [facility] LIC# [id number] EGFR 30(L) >59 mL/min/1.7 3m2 [facility] LIC# [id number] Comment:Estimated glomerular filtration rate calculated using the CKD-EPI refit equation. ANION GAP 14 7 - 17 mmol/L [facility] LIC# [id number] Blood 01/15/2025 8:04 AM EDT 01/15/2025 8:41 AM EDT us Odalys Dozier MD LAB BLOOD BKR ORDERABLES Edited Result - Final [facility] LIC# [id number] [address] [place] [id number] * (ABNORMAL) CBC and differential (01/15/2025 8:04 AM EDT) WBC 6.56 4.00 - 10.00 K/uL [facility] LIC# [id number] RBC 3.75(L) 4.50 - 6.40 M/uL [facility] LIC# [id number] HGB 11.3(L) 13.5 - 18.0 g/dL [facility] LIC# [id number] HCT 35.7(L) 40.0 - 54.0 % [facility] LIC# [id number] PLT 182 150 - 450 K/uL [facility] LIC# [id number] MCV 95.2 80.0 - 100.0 fL [facility] LIC# [id number] MCH 30.1 27.0 - 32.0 pg [facility] LIC# [id number] MCHC 31.7(L) 32.0 - 36.0 g/dL [facility] LIC# [id number] RDW 14.1 11.5 - 14.5 % [facility] LIC# [id number] MPV 10.8 8.4 - 12.0 fL [facility] LIC# [id number] NRBC 0.00 0 /100 WBCs [facility] LIC# [id number] ABSOLUTE NRBC 0.00 0 K/uL [facility] LIC# [id number] DIFF METHOD Auto [facility] LIC# [id number] NEUTS 66.4 48.0 - 76.0 % [facility] LIC# [id number] LYMPHS 20.6 18.0 - 41.0 % [facility] LIC# [id number] MONOS 8.2 4.0 - 11.0 % [facility] LIC# [id number] EOS 3.4 0.0 - 5.0 % [facility] LIC# [id number] BASOS 0.9 0.0 - 1.5 % [facility] LIC# [id number] % IMMATURE GRANS 0.5 0.0 - 1.0 % [facility] LIC# [id number] ABSOLUTE NEUTS 4.36 1.92 - 7.60 K/uL [facility] LIC# [id number] ABSOLUTE LYMPHS 1.35 0.72 - 4.10 K/uL [facility] LIC# [id number] ABSOLUTE MONOS 0.54 0.16 - 1.10 K/uL [facility] LIC# [id number] ABSOLUTE EOS 0.22 0.00 - 0.50 K/uL [facility] LIC# [id number] ABSOLUTE BASOS 0.06 0.00 - 0.15 K/uL [facility] LIC# [id number] ABS IMMATURE GRANS 0.03 0.00 - 0.10 K/uL [facility] LIC# [id number] Blood 01/15/2025 8:04 AM EDT 01/15/2025 8:41 AM EDT Odalys Dozier MD LAB BLOOD BKR ORDERABLES Final Result Performing Organization Address City/[facility]/ZIP Co de Phone Number [facility] LIC# [id number] [address] [place] [id number] * (ABNORMAL) Hemoglobin A1c (06/20/2024 10:27 PM EST) HEMOGLOBIN A1C 6.9(H) 4.2 - 5.6 % [facility] Comment: HbA1c levels 5.7-6.4% represent pre-diabetes, indicating impaired glucose control and an increased risk of developing diabetes. The diagnostic HbA1c level for diabetes is 6.5% or greater. HbA1c is performed by the Enrique Lizeth-quant immunoassay method which does not detect (incidental) hemoglobin variants. Hemoglobin electrophoresis should be ordered in patients with suspected hemoglobinopathies. CALC MEAN BLD GLUC 150 mg/dL [facility] Comment:The Calculated Mean Blood Glucose (CMBG) represents the estimated average glucose calculated from the measured hemoglobin A1c (HbA1c). There is no established normal range for the CMBG, however a 5.6% HbA1c (upper limit of normal) represents a CMBG of 114 mg/dL. Blood 06/20/2024 10:2 7 PM EST 06/20/2024 10:40 PM EST us Cem Mckinney MD, ANTONY LAB BLOOD BKR ORDERABLES Final Result [facility] [address] [place] [address] * (ABNORMAL) Lipid panel (06/20/2024 10:27 PM EST) Pathologist [facility] CHOLESTEROL 78 <200 mg/dL [facility] TRIGLYCERIDES 56 35 - 150 mg/dL [facility] HDL 24(L) 40 - 80 mg/dL [facility] CALCULATED LDL 43(L) 50 - 129 mg/dL [facility] VLDL 11 <31 mg/dL [facility] CARDIAC RISK RATIO 3.3 0.0 - 4.0 [facility] Blood 06/20/2024 10:2 7 PM EST 06/20/2024 10:40 PM EST us Cem Mckinney MD, ANTONY LAB BLOOD BKR ORDERABLES Final Result [facility] [address] [place] [address] from Last 3 Months or Most Recently Relevant to Health Maintenance Insurance MEDICARE PART A & B [facility] MEDICARE PART A & [place] B [employer] MEDICARE PART A & [place] B [facility] [place] [id number] Advance Directives For more information, please contact: [phone] (9AM - 5PM Marsha/[facility], Tuesday-Tuesday) * Full Code (Latest Code Status on File) Date Activated Date Inactivated Comments 07/05/2024 9:34 PM Question Answer Comments Code Status Confirmed With: Patient Code Status Communicated To: Inpatient Attending * Full Code Date Activated Date Inactivated Comments 07/05/2024 9:33 PM 07/05/2024 9:34 PM Question Answer Comments Code Status Confirmed With: Patient Code Status Communicated To: Inpatient Attending * Full Code Date Activated Date Inactivated Comments 06/22/2024 6:54 PM 07/05/2024 9:33 PM Question Answer Comments Code Status Confirmed With: Patient * Full Code Date Activated Date Inactivated Comments 06/22/2024 5:55 PM 06/22/2024 6:54 PM Question Answer Comments Code Status Confirmed With: Patient * Full Code Date Activated Date Inactivated Comments 06/20/2024 7:49 PM 06/22/2024 5:55 PM Question Answer Comments Code Status Confirmed With: PatientFamily Care Teams Custom Framing Specialist Relationship Specialty Start Date End Date Brandi Eisenberg PA [address] [place] [address] PCP - General Physician Health And Safety Advisor 05/15/24 Odalys Dozier MD [address] [place] [phone] [email or web address] Medical Oncology 06/13/24 Ayaz Pat MD [address] [place] [phone] [email or web address] Surgical Oncology 06/13/24 Samia Corrales MD, MPH [address] [place] [phone] [email or web address] Radiation Oncology 06/13/24 Delfino Mccarthy MD [address] [place] [address] [place] [address] Urology 01/15/25 Edgar Kearney MD [address] [place] [phone] Nephrology 01/15/25 Additional Source Comments The information contained in this document represents components of the legal health record. It is not the complete legal health record.[facility]
--- OUTSIDE RECORDS SUMMARY | 2025-04-12 08:50 | XMS_ITS | Encounter Summary ---
Author Organization [facility] Address [address] [facility] [address] [place] [address] Phone Care Team Providers Care Tape Recording Machine Operator Name Role Phone Brandi Eisenberg Primary Care Provider Odalys Dozier MD Unavailable [phone] Ayaz Pat MD Unavailable [phone] Samia Corrales MD, MPH Unavailable [phone] Delfino Mccarthy MD Unavailable Edgar Kearney MD Unavailable Encounter Details Date Type Department Care Team (Late st Contact Info) Description 05/22/2024 Procedure Pass [facility] [address] [place] [address] Social History Tobacco Use Types Packs/Day Years [...] Contact Info) Description 01/15/2025 Procedure Pass [facility], [facility], [place] [address] [facility], Floor [address] [place] [address] 01/15/2025 Procedure Pass [facility], [facility] [place] [address] [facility], [address] [place] [address] 04/16/2025 9:30 AM EST Blood Draw [facility] Department, [facility], Imaging Pxdtk-lb-Mqka [address] [facility], [address] [place] [address] Odalys Dozier MD [address] [place] [phone] Kandis@[email or web address] Gabby Bhatti [address] [place] [phone] [email or web address] 04/16/2025 11:40 AM EST Appointment [facility], [facility], [place] [address] [facility], [address] [place] [address] Odalys Dozier MD [address] [place] [phone] Kandis@[email or web address] Gabby Bhatti [address] [place] [phone] [email or web address] 04/16/2025 3:00 PM EST Office [facility], [address], [address] [place] [address] Odalys Dozier MD [address] [place] [phone] Kandis@[email or web address] Gabby Bhatti [address] [place] [phone] [email or web address] 04/16/2025 3:30 PM EST Office [facility], [address], [address] [place] [address] Ayaz Pat MD [address] [place] [phone] [email or web address] Gabby Bhatti [address] [place] [phone] [email or web address] documented as of this encounter Visit Diagnoses Not on filedocumented in this encounter Care Teams Tape Recording Machine Operator Relationship Specialty Start Date End Date Brandi Eisenberg PA [address] [place] [address] PCP - General Physician Abnormal Psychology Teacher 05/15/24 Odalys Dozier MD [address] [place] [phone] [email or web address] Medical Oncology 06/13/24 Ayaz Pat MD [address] [place] [phone] [email or web address] Surgical Oncology 06/13/24 Samia Corrales MD, MPH [address] [place] [phone] [email or web address] Radiation Oncology 06/13/24 Delfino Mccarthy MD [address] [place] [address] [place] [address] Urology 01/15/25 Edgar Kearney MD [address] [place] [address] Nephrology 01/15/25 documented as of this encounter Additional Source Comments The information contained in this document represents components of the legal health record. It is not the complete legal health record.[facility]
--- OUTSIDE RECORDS SUMMARY | 2025-04-12 08:50 | XMS_ITS ---
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 Impression/recommendation: The patient is a 73-year-old gentleman [...] on 07 May 2014 19:39 Encounter info: [id number], [facility] [place], 04/29/2014 - 04/29/2014 Contributor system: NUANCE * Final Report * Polysomnogram W/ CPAP (Verified) POLYSOMNOGRAM DATE:04/29/2014 [facility] Accredited by the [employer] CPAP STUDY Referring Provider: Matt Carmen M.D. Date of Study: 04/29/2014 Order ID: [id number] INTRODUCTION: This 63 year-old male with hypertension, [...] of 5.4/hr, and lowest oxygenation of 85%. [place]field sleepiness scale is 10/24. (Height: 5' 6 , Weight: 217.0 lbs, BMI: 35.3.) MASK TYPE: Standard/FX Nasal. MEDICATIONS: Sertraline, Naproxen, Metformin, Lisinopril, HCTZ, Amlodipine. DESCRIPTION: This overnight polysomnogram was done utilizing a [employer] (Cuponium) digital polysomnograph machine. Four channels of EEG [...] then I will order PAP from [facility]. 2. Patient should sleep in [...] Transcribed: 05/07/2014 18:37:55 Transcribed by: JANNETTE DocID: [id number] CC:Matt Carmen M.D. [facility] , Brandi Eisenberg [address], [address] DJD (degenerative joint disease) 03/29/2014 Major depressive [...]
--- OUTSIDE RECORDS SUMMARY | 2025-04-12 08:50 | XMS_ITS | Encounter Summary ---
Author Organization [facility] Address [email or web address] [facility] [address] [place] [address] Phone Care Team Providers Care Equine Intern Name Role Phone Brandi Eisenberg Primary Care Provider [phone] Odalys Dozier MD Unavailable [phone] Ayaz Pat MD Unavailable [phone] Samia Corrales MD, MPH Unavailable + [phone] Delfino Mccarthy MD Unavailable Edgar Kearney MD Unavailable Encounter Details Date Type Department Care Team (Late st Contact Info) Description 07/06/2024 Procedure Pass [facility] Periop [address] [place] [address] Social History Tobacco Use Types Packs/Day Years [...] Info) Description 01/15/2025 Procedure Pass [facility] Imaging Department, [facility], [place] [address] [facility], [address] [place] [address] 01/15/2025 Procedure Pass [facility] Imaging Department, [facility], [place] [address] [facility], [address] [place] [address] 04/16/2025 9:30 AM EST Blood Draw [facility] Imaging Department, [facility], Imaging Bkedx-fw-Vroa [address] [facility], [address] [place] [address] Odalys Dozier MD [address] [place] [phone] Kandis@[email or web address] Gabby Bhatti [address] [place] [address] [email or web address] 04/16/2025 11:40 AM EST Appointment [facility] Imaging Department, [facility], [place] [address] [facility], [address] [place] [address] Odalys Dozier MD [address] [place] [phone] Kandis@[email or web address] Gabby Bhatti [address] [place] [address] [email or web address] 04/16/2025 3:00 PM EST Office [facility], [address], [address] [place] [address] Odalys Dozier MD [address] [place] [phone] [email or web address] Gabby Bhatti [address] [place] [address] [email or web address] 04/16/2025 3:30 PM EST Office Visit [facility], [facility] [address] [place] [address], 6[address] [place] [address] Ayaz Pat MD [address] [place] [phone] SUSIE@[email or web address] [place], Olga [address] [place] [phone] [email or web address] documented as of this encounter Visit Diagnoses Not on filedocumented in this encounter Additional Health Concerns Assessment Noted Time PHQ-2 Depression Total Score: 0 06/08/19 7:28 AM EST documented as of this encounter Care Teams Equine Intern Relationship Specialty Start Date End Date Brandi Eisenberg PA [address] [place] [address] PCP - General Physician Cross Tie Turner 05/15/24 Odalys Dozier MD [address] [place] [phone] [email or web address] Medical Oncology 06/13/24 Ayaz Pat MD [address] [place] [phone] [email or web address] Surgical Oncology 06/13/24 Samia Corrales MD, MPH [address] [place] [phone] [email or web address] Radiation Oncology 06/13/24 Delfino Mccarthy MD [address] [place] [address] [place] [address] Urology 01/15/25 Edgar eKarney MD [address] [place] [address] Nephrology 01/15/25 documented as of this encounter Additional Source Comments The information contained in this document represents components of the legal health record. It is not the complete legal health record.[facility]
--- OUTSIDE RECORDS SUMMARY | 2025-04-12 08:50 | XMS_ITS | Clinical Summary ---
Author Organization [facility] Address [address] [place] [address] Care Team Providers Care Svp Programmatic Tv Name Role Phone Brandi Eisenberg PA-C Primary Care Provider + [phone] Source Comments PLEASE NOTE, if this patient is a minor, it may be UNLAWFUL to discuss sensitive information that is contained in these records (such as FAMILY PLANNING, MENTAL HEALTH or SUBSTANCE ABUSE) with the minor patient's parent or other person without the patient's specific authorization.[facility] Allergies No known active allergies Medications calcium carbonate (OS-ISRAEL) 500 mg calcium (1,250 mg) tablet Take 1 Tablet by mouth once daily 90 Tablet 2 022 Active clotrimazole-bet amethasone (LOTRISONE) 1-0.05 % cream Apply topically 2 (two) times daily 60 g 2 022 Active MISCELLANEOUS MEDICAL SUPPLY MISCIndications: Routine general medical examination at a health care facility by miscellaneous route once daily Abdominal binder, disp 1, lifetime need, diastasis recti 1 Each 023 Active silver sulfADIAZINE (SILVADENE) 1 % creamIndications :Venous insufficiency Apply topically once daily 20 g 023 Active ipratropium/albu terol sulfate (IPRATROPIUM-ALB UTEROL INHL) 1, vials, BAND Nebulizer, Every 6 hours, PRN, Refills 0, Maintenance, 12/04/21 16:59:00 EDT, Inhalation Solution 022 Active cyanocobalamin (VITAMIN B-12) 1,000 mcg tabletIndication s:B12 deficiency due to diet Take 1 Tablet by mouth once daily 90 Tablet 3 024 Active semaglutide (OZEMPIC) 0.25 mg or 0.5 mg (2 mg/3 mL) pen injector INJECT 0.5MG SUBCUTANEOUS ONCE WEEKLY 9 mL 6 025 Active VITAMIN B-1 100 mg tablet TAKE 1 TABLET BY MOUTH EVERY DAY 90 Tablet 2 025 Active torsemide (DEMADEX) 10 mg tabletIndication s:Paroxysmal atrial fibrillation TAKE 1 TABLET BY MOUTH DAILY 90 Tablet 1 025 Active pantoprazole (PROTONIX) 40 mg EC tabletIndication s:PUD (peptic ulcer disease) TAKE 1 TABLET BY MOUTH TWICE DAILY 180 Tablet 3 025 Active rosuvastatin (CRESTOR) 5 mg tabletIndication s:Type 2 diabetes mellitus without complication, without long-term current use of insulin TAKE 1 TABLET BY MOUTH EVERY NIGHT AT BEDTIME 90 Tablet 2 025 Active ELIQUIS 5 mg tabIndications:P aroxysmal atrial fibrillation TAKE 1 TABLET BY MOUTH TWICE DAILY 180 Tablet 1 025 Active gabapentin (NEURONTIN) 100 mg capsuleIndicatio ns:Polyneuropath y associated with underlying disease,Lumbar disc disease Take 1 Capsule by mouth nightly at bedtime. 90 Capsule 1 025 Active alcohol swabsIndications :Type 2 diabetes mellitus without complication, without long-term current use of insulin Use qd, dx E11.9. 50 Each 025 Active lancets (FREESTYLE LANCETS) 28 gaugeIndications :Type 2 diabetes mellitus without complication, without long-term current use of insulin Freestyle lite lancets, use QD, dx E11.9. 50 Each 025 Active blood sugar diagnostic stripsIndication s:Type 2 diabetes mellitus without complication, without long-term current use of insulin 1 Each daily Freestyle lite strips use QD, dx E11.9. 50 Each 025 Active blood-glucose meter monitoring kitIndications:T ype 2 diabetes mellitus without complication, without long-term current use of insulin 1 Each daily Freestyle lite meter, disp 1, lifetime need, dx E11.9. 1 Each 025 Active calcitrioL (ROCALTROL) 0.25 mcg capsule TAKE 1 CAPSULE BY MOUTH EVERY DAY 90 Capsule 1 025 Active blood-glucose meter (FREESTYLE LITE METER) monitoring kitIndications:T ype 2 diabetes mellitus without complication, without long-term current use of insulin 2 (two) times daily Freestyle lite meter, use BID, Dx E11.9 1 Each 021 2024 Discontinued(O utdated-Remove d from Med List (E-Cancel Not Sent)) clotrimazole-bet amethasone (LOTRISONE) 1-0.05 % creamIndications :Atopic dermatitis, unspecified type Apply topically 2 (two) times daily 30 g 2 021 2024 Discontinued(O utdated-Remove d from Med List (E-Cancel Not Sent)) carbamide peroxide (DEBROX) 6.5 % otic solutionIndicati ons:Bilateral impacted cerumen Place 4 Drops into both ears 2 (two) times daily 15 mL 2 021 2024 Discontinued(O utdated-Remove d from Med List (E-Cancel Not Sent)) miscellaneous medical supply miscIndications: Uses wheelchair,Debil itated patient,Unintend ed weight loss,Paroxysmal atrial fibrillation by miscellaneous route once daily Standard wheelchair, disp1,lifetime need, dx weakness s/p surgery, atrial fibrillation, anemia 1 Each 022 2024 Discontinued(O utdated-Remove d from Med List (E-Cancel Not Sent)) triamcinolone acetonide (KENALOG) 0.1 % creamIndications :Atopic dermatitis, unspecified type Apply topically once daily Combine with Eucerin Eczema Relief Cream 80 g 1 022 2024 Discontinued(O utdated-Remove d from Med List (E-Cancel Not Sent)) FREESTYLE LANCETS 28 gaugeIndications :Type 2 diabetes mellitus without complication, without long-term current use of insulin USE TO TEST ONCE DAILY 100 Each 11 022 2024 Discontinued(O utdated-Remove d from Med List (E-Cancel Not Sent)) syringe with needle (BD LUER-NICOLE SYRINGE) 3 mL 25 gauge x 1 Indications:Lo w serum vitamin B12 USE 1 SYRINGE EVERY MONTH for b12 injection 1 Each 11 023 2024 Discontinued(T herapy completed/Not needed) calcitrioL (ROCALTROL) 0.25 mcg capsule TAKE 1 CAPSULE BY MOUTH EVERY DAY 90 Capsule 1 025 2024 Discontinued Active Problems Problem Noted Date Diagnosed Date PACEMAKER 06/202403/19/2025 Liposarcoma 08/20/2024 Overview (08/20/2024): The patient is a 73-year-old gentleman who presented in 03/2024 with a 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 He underwent a left RPS on 07/06/2024. The tumor extended to specimen edges including deep to schedule muscle. He is recovering well from surgery. He will undergo CTs in 10/2023 in [place]. Adjuvant radiation will be considered. B12 deficiency due to diet 04/23/2024 Pleural effusion 07/19/2023 Overview (01/10/2024): Recurrent pleural effusion on right s/p right VATS pleural biopsies, pleurodesis, and placement of Pleurx catheter- bronchoscopy with aspiration - [facility] CYTOPATHOLOGY REPORT Date: 10/25/2023 report: Pleural [...] for but not diagnostic of mesothelioma, WT1-positive, [id number], calretinin- positive, [id number]. Impression/recommendation: The patient is a 73-year-old gentleman [...] August 04, 2021 9:06 EST Encounter info: [id number], [facility], 07/27/2021 - 08/16/2021 Contributor system: Novel SuperTV Echo Complete-Doppler, Colorflow, M-Mode Transthoracic Echocardiography Report (TTE) Patient Demographics Patient Name VIOLETTA, Date of Study 08/04/2021 [employer] Gender Male Facility Race Ethnicity Date of 1950 Height: 65.75 inches Age 70 year(s) Weight: 231.49 pounds Accession Number [id number] BSA: 2.12 m2 Room Number [id number] BMI: 37.65 kg/m2 Referring Physician Chadwick Gracia Interpreting Kirsten Gibbons MD, MD Physician [employer] Dia Hannah [facility] Indications Atrial fibrillation. Clinical History Atrial fibrillation. Abnormal EKG. Hx of COVID Hypertension. Obesity Study Data Type of Study TTE procedure:Echo Complete-(Doppler, Colorflow) with Contrast. Procedure Information:Definity was administered by Paul WILLSON Study Date08/04/2021 Start Time: 09:06 AM Study [place] [facility] [place] Study Status: Bedside Patient Status: [...] mesent rj artery (HCC-CMS) 07/2021 [facility] [place] Paroxysmal atrial fibrillation (HCC-CMS) 08/202108/10/2021 Non [...] on July 05, 2017 9:44 Verified by: Tyshawn WHITTEN, Chico Marcum on July 05, 2017 9:49 Encounter info: [id number], [facility] One [place] OP, 07/05/2017 - * Final [...] Clinical correlation recommended. Normal right kidney. A [place] message has been communicated via the [employer] system on 07/05/2017 9:43 AM, Message ID [id number]. I have personally reviewed the images and I agree with this report. WSN: [id number] Signature Line Dictated By: Beatriz WHITTEN, Deonte Dictated Date/Time: 07/05/17 9:44 am Reviewed By: Chico Villagran MD Signed By: Chico Villagran MD Signed Date/Time: 07/05/17 9:49 am Transcribed By: DESTINI Transcribed Date/Time: 07/05/17 9:44 am US Retroperitoneum Comp This document has an image CKD (chronic kidney disease) stage 3, GFR 30-59 ml/min 06/08/2017 Hyperlipidemia, mixed 03/11/2015 TONI (obstructive sleep apnea) 05/10/2014 Overview (05/10/2014): Result type: Polysomnogram with CPAP Result date: 07 May 2014 17:40 Result status: Auth (Verified) Result title: Polysomnogram W/ CPAP Performed by: Matt Carmen MD on 07 May 2014 17:40 Verified by: Matt Carmen MD on 07 May 2014 19:39 Encounter info: [id number], [facility] One [place] OP, 04/29/2014 - 04/29/2014 Contributor system: NUANCE * Final Report * Polysomnogram W/ CPAP (Verified) POLYSOMNOGRAM DATE:04/29/2014 [facility] SLEEP PROGRAM [facility] Accredited by the [place] [employer] CPAP STUDY Referring Provider: Matt Carmen M.D. Date of Study: 04/29/2014 Order ID: [id number] INTRODUCTION: This 63 year-old male with hypertension, [...] of 5.4/hr, and lowest oxygenation of 85%. [place] sleepiness scale is 10/24. (Height: 5' 6 , Weight: 217.0 lbs, BMI: 35.3.) MASK TYPE: Standard/FX Nasal. MEDICATIONS: Sertraline, Naproxen, Metformin, Lisinopril, HCTZ, Amlodipine. DESCRIPTION: This overnight polysomnogram was done utilizing a [employer] digital polysomnograph machine. Four channels of EEG [...] results, then I will order PAP from [facility]. 2. Patient should sleep in [...] Transcribed: 05/07/2014 18:37:55 Transcribed by: JANNETTE DocID: [id number] CC:Matt Carmen M.D. [facility] , Brandi BERNSTEIN [facility] [address] [place] [address], [phone] DJD (degenerative joint disease) 03/29/2014 Major depressive disorder, recurrent episode, mo derate 01/11/2014 Essential hypertension, benign 06/05/2013 Left great saphenous vein reflux 06/05/2013 Diabetes mellitus type 2, uncomplicated 02/29/20 13 Encounters Date Type Department Care Team Description 03/19/2025 2:40 PM EDT Office Visit [address] [phone] Brandi Eisenberg PA-C from Last 3 Months Immunizations Immunization Administration Dates Next Due PNEUMOCOCCAL CONJUGATE PCV 20 (Prevnar 20) 01/25 PNEUMOCOCCAL POLYSACCHARIDE PPV23 (Pneumovax 23) 06/05/2013 Social History Tobacco Use Types Packs/Day Years Used Date Smoking Tobacco: Never Passive Smoke Exposure: Never Smokeless Tobacco: Never Tobacco Cessation:Counseling Given: Yes Alcohol Use Standard Drinks/Week Comments No 0 (1 standard drink = 0.6 oz pur e alcohol) Social Connections Answer Date Recorded How often do you feel lonely or isolated from th ose around you? 1 08/20/2024 Financial Resource Strain Answer Date R ecorded Hard to pay for: Food 1 08/20/2024 Stress Answer Date Recorded Do you feel these kinds of stress these days? 1 08/20/2024 Physical Activity Answer Date Recorded Physical Activity 0 01/27/2019 Food Insecurity Answer Date Recorded Hard to pay for: Food 1 08/20/2024 Transportation Needs Answer Date Record ed Hard to pay for: Transportation 1 08/20/2024 Housing Stability Answer Date Recorded Hard to pay for: Rent/Mortgage payment 1 08/20/2024 Safety and Environment Answer Date Vaibhav rded Safety 0 01/27/2019 Utilities Answer Date Recorded Hard to pay for: Utilities 1 08/20 Employment Answer Date Recorded Stress 0 01/25/2023 Sex and Gender Information Value Date Recorded Sex Assigned at Male 04/11/2017 5:49 PM PST Legal Sex Male 11:36 AM PDT Gender Identity Male 04/11/2017 5:49 PM PST Sexual Orientation Straight 04/11/2017 5: 49 PM PST Last Filed Vital Signs Vital Sign Reading Time Taken Comments Blood Pressure 112/60 03/19/2025 2:14 PM EDT Pulse 80 03/19/2025 2:14 PM EDT Temperature 36.4 C (97.5 F) 03/19/2025 2:14 PM EDT Respiratory Rate 16 03/19/2025 2:14 PM EDT Oxygen Saturation 99% 03/19/2025 2:14 PM EDT Inhaled Oxygen Concentration - - Weight 80.7 kg (178 lb) 03/19/2025 2:14 PM EDT Height 167.6 cm (5' 6 ) 03/19/2025 2:14 PM EDT Body Mass Index 28.73 03/19/2025 2:14 PM EDT Plan of Treatment Health Maintenance Due Date Last Done Comments Medicare Annual Wellness Visit 09/09/1967 Imm-DTaP/Tdap/Td (1 - Tdap) 1968 CT Colonography 1994 Colonoscopy 1994 Flexible Sigmoidoscopy 1994 FIT/gFOBT 03/06/2024 03/06/2023, 07/08 (Declined), 06/05/2013 (Declined) Imm-RSV (adult) (1 - 1-dose 75+ series) 2024 Depression Monitoring 11/20/2024 08/20/2024 , 04/23/2024, 07/19/2023, Additional history exists Hemoglobin A1c 12/18/2024 06/20/2024, 07/07, 07/21/2023, Additional history exists Dental Examination 02/01/2025 01/31/2024 (M anaged by Outside Provider), 06/01/2021 (Managed by Outside Provider) Lipid Screening 06/20/2025 06/20/2024, 07/07, 07/20/2023, Additional history exists Urine Albumin Creatinine Rat io Screening 06/24/2025 06/24/2024, 10/27/2022, 07/02/2021, Additional history exists Serum Creatinine 07/11/2025 07/11/2024, 09/2024, 07/09/2024, Additional history exists Falls Prevention 08/20/2025 08/20/2024, (Managed by Outside Provider) Retinopathy Screening 08/20/2025 08/20/2024 , 12/24/2022, 06/01/2021 (Managed by Outside Provider), Additional history exists Colorectal Cancer Screening 03/06/2026 Fecal DNA 03/06/2026 03/06/2023 Diabetes Foot Exam 03/19/2026 03/19/2025, 0 01/31/2024, 07/04/2022, Additional history exists Tobacco Screening 03/19/2026 03/19/2025 Hepatitis C Screening Completed 05/10/2014 Imm-Influenza Discontinued 05/10/2014 (Decl ined), 06/05/2013 (Declined) Imm-Pneumococcal 50+ Completed 01/25/2023, 06/05/20 13 Alcohol and Drug Screen Completed 08/21/19, 04/23/2024, 01/09/2024, Additional history exists [id number] Discontinued Imm-Zoster, Recombinant Discontinued Procedures Procedure Name Priority Date/Time Associated Diagnosis Comments OTHER ORDERS SCANNED DOCUMENT 03/29/2025 3:00 AM EDT LAB SCANNED DOCUMENT 03/08/2025 3:00 AM EDT REFERRAL SCANNED DOCUMENT 01/15/2025 3:00 AM EDT COMPREHENSIVE METABOLIC PANEL Routine 01/05/2024 10:54 AM EDT Bradycardia LIPID PANEL Routine 07/20/2023 10:37 AM EST Type 2 diabetes mellitus without complication, without long-term current use of insulin ([facility]) Essential hypertension, benign Stage 3 chronic kidney disease, unspecified whether stage 3a or 3b CKD (HCC-CMS) Hyperlipidemia, mixed Paroxysmal atrial fibrillation (HCC-CMS) 08/2021 Pleural effusion HEMOGLOBIN GLYCOSYLATED A1C Routine 07/20/2023 10:37 AM EST Type 2 diabetes mellitus without complication, without long-term current use of insulin (HCC-CMS) Essential hypertension, benign Stage 3 chronic kidney disease, unspecified whether stage 3a or 3b CKD (HCC-CMS) Hyperlipidemia, mixed Paroxysmal atrial fibrillation (HCC-CMS) 08/2021 Pleural effusion COLOGUARD Routine 03/06/2023 3:00 AM EDT Colon cancer screening EYE EXAM 12/24/2022 3:00 AM EDT MICROALBUMIN/CREATINI NE RATIO, URINE, RANDOM Routine 10/27/2022 9:09 AM EDT Type 2 diabetes mellitus without complication, without long-term current use of insulin ([facility]) Essential hypertension, benign Hyperlipidemia, mixed Stage 3 chronic kidney disease, unspecified whether stage 3a or 3b CKD (HCC-CMS) Paroxysmal atrial fibrillation ([facility]) 08/2021 Leg edema PUD (peptic ulcer disease) HEPATITIS A,B,C PANEL Routine 05/10/2014 5:45 PM EST Diabetes mellitus, type II from Last 3 Months or Most Recently Relevant to Health Maintenance Results * OTHER ORDERS SCANNED DOCUMENT (03/29/2025 3:00 AM EDT) 03/29/2025 3:00 AM EDT us Brandi Lukin PA-C SCAN OTHER ORDERS Final Resu lt * LAB SCANNED DOCUMENT (03/08/2025 3:00 AM EDT) 03/08/2025 3:00 AM EDT us Brandi Lukin PA-C SCAN LAB Final Result * REFERRAL SCANNED DOCUMENT (01/15/2025 3:00 AM EDT) 01/15/2025 3:00 AM EDT Brandi Eisenberg PA-C SCAN REFERRAL Final Result * (ABNORMAL) COMPREHENSIVE METABOLIC PANEL (01/05/2024 10:54 AM EDT) GLUCOSE 160(H) 65 - 139 mg/dL [facility] Comment: Non-fasting reference interval UREA NITROGEN (BUN) 42(H) 7 - 25 mg/dL [facility] CREATININE (blood) 2.16(H) 0.70 - 1.28 mg/dL [facility] EGFR 31(L) > OR = 60 mL/min/1. 73m2 [facility] BUN/CREATININE RATIO 19 6 - 22 (calc) [facility] SODIUM 136 135 - 146 mmol/L [facility] POTASSIUM 5.2 3.5 - 5.3 mmol/L [facility] CHLORIDE 107 98 - 110 mmol/L [facility] CARBON DIOXIDE 22 20 - 32 mmol/L [facility] CALCIUM 8.8 8.6 - 10.3 mg/dL [facility] PROTEIN, TOTAL 7.5 6.1 - 8.1 g/dL [facility] ALBUMIN 3.6 3.6 - 5.1 g/dL [facility] GLOBULIN 3.9(H) 1.9 - 3.7 g/dL (calc) [facility] ALBUMIN/GLOBULI N RATIO 0.9(L) 1.0 - 2.5 (calc) [facility] BILIRUBIN, TOTAL 0.6 0.2 - 1.2 mg/dL [facility] ALKALINE PHOSPHATASE 75 35 - 144 U/L [facility] AST 12 10 - 35 U/L [facility] ALT 8(L) 9 - 46 U/L [facility] Blood Blood / Unknown 01/05/2024 1 0:54 AM EDT 01/05/2024 10:54 AM EDT Narrative [facility] - 01/06/2024 3:53 AM EDT FASTING:NO Result [facility] Justin Malloy PA-C LAB - BLOOD DRAW Final Result [facility] [address] [address], [facility] [address] [address] * (ABNORMAL) HEMOGLOBIN GLYCOSYLATED A1C (07/20/2023 10:37 AM EST) HEMOGLOBIN A1C 6.2(H) <5.7 % of total Hgb [facility] Comment: For someone without known diabetes, [...] AM EST 07/20/2023 10:40 AM EST Narrative [facility] - 07/21/2023 9:20 AM EST FASTING:YES PATIENT REFUSED SOME TESTING; PATIENT ENCOURAGED TO RETURN. Brandi Eisenberg PA-C LAB - BLOOD DRAW Final Resul t Performing Organization Address [facility] Co de Phone Number [facility] [address] [address], [facility] [address] [phone] * (ABNORMAL) LIPID PANEL (07/20/2023 10:37 AM EST) CHOLESTEROL, TOTAL 92 <200 mg/dL [facility] HDL CHOLESTEROL 28(L) > OR = 40 mg/dL [facility] TRIGLYCERIDES 101 <150 mg/dL [facility] LDL-CHOLESTEROL 46 99 mg/dL (calc) [facility] Comment: Reference range: <100 Desirable range <100 mg/dL for primary prevention; <70 mg/dL for patients with CHD or diabetic patients with > or = 2 CHD risk factors. LDL-C is now calculated using the Neal-Serrano calculation, which is a validated novel method providing better accuracy than the Friedewald equation in the estimation of LDL-C. Neal SS et al. MI. 2013;310(19): 0272-7088 (http://education.ByHours.com/faq/EJX796) CHOL/HDLC RATIO 3.3 <5.0 (calc) [facility] NON-HDL CHOLESTEROL 64 <130 mg/dL (calc) [facility] Comment: For patients with diabetes plus 1 major ASCVD risk factor, treating to a non-HDL-C goal of <100 mg/dL (LDL-C of <70 mg/dL) is considered a therapeutic option. Blood Blood / Unknown 07/20/2023 1 0:37 AM EST 07/20/2023 10:40 AM EST Narrative [facility] - 07/21/2023 9:20 AM EST FASTING:YES PATIENT REFUSED SOME TESTING; PATIENT ENCOURAGED TO RETURN. Brandi Eisenberg PA-C LAB - BLOOD DRAW Final Resul t Performing Organization Address City/[facility]/ZIP Co de Phone Number [facility] [address] [address], [facility] [address] [address] * COLOGUARD (03/06/2023 3:00 AM EDT) Stool Stool specimen / Unknown 03/06/2023 3:00 AM EDT Brandi Eisenberg PA-C LAB BODY FLUIDS AND STOOLS A MBULATORY Edited Result - Final Handseeing Information [address], [address] [facility] [id number] [place] [address], * EYE EXAM (12/24/2022 3:00 AM EDT) 12/24/2022 3:00 AM EDT us Brandi Sotomayor PROFESSOR OF RADIOLOGY OTHER Final Result * (ABNORMAL) MICROALBUMIN/CREATININE RATIO, URINE, RANDOM (10/27/2022 9:09 AM EDT) CREATININE, RANDOM URINE 62 20 - 320 mg/dL [facility] MICROALBUMIN 26.5 mg/dL [facility] Comment: Reference Range Not established MICROALBUMIN/CREA TININE RATIO, RANDOM URINE 427(H) <30 mcg/mg creat [facility] Comment: The ADA defines abnormalities in albumin excretion as follows: Albuminuria Category Result (mcg/mg creatinine) Normal to Mildly increased <30 Moderately increased 30-299 Severely increased > OR = 300 The ADA recommends that at least two of three specimens collected within a 3-6 month period be abnormal before considering a patient to be within a diagnostic category. Urine Urine specimen / Unknown 10/27/2022 9:09 AM EDT 10/27/2022 9:13 AM EDT Narrative [facility] - 10/27/2022 9:27 PM EDT FASTING:YES Brandi Eisenberg PA-C LAB URINE AMBULATORY Final R esult [facility] [address] [address], [facility] [address] [address] * (ABNORMAL) HEPATITIS A,B,C PANEL (05/10/2014 5:45 PM EST) HEPATITIS B SURFACE ANTIBODY POSITIVE(A) NEGATIVE [facility] HEPATITIS B SURFACE ANTIGEN NEGATIVE NEGATIVE [facility] HEPATITIS C VIRUS ANTIBODY NEGATIVE NEGATIVE [facility] HEPATITIS B CORE ANTIBODY NEGATIVE NEGATIVE [facility] HEPATITIS A ANTIBODY TOTAL POSITIVE(A) NEGATIVE [facility] Blood specimen (specimen) Blood / Unknown 05/10/2014 5:45 PM EST 05/10/2014 6:11 PM EST Narrative [facility] - 05/11/2014 5:12 PM EST [facility] [address] [place] [address] [place] [id number] ORD# [id number] Brandi Eisenberg PA-C LAB - BLOOD DRAW Edited Resu lt - Final [facility] [address] [place] [address], from Last 3 Months or Most Recently Relevant to Health Maintenance [place] Care Teams Svp Programmatic Tv Relationship Specialty Start Date End Date Brandi Eisenberg PA-C [address] [place] [address] PCP - General 02/28/13
--- OUTSIDE RECORDS SUMMARY | 2025-04-12 08:51 | XMS_ITS | Encounter Summary ---
Author Organization [facility] Address [address] [facility] [address] [place] [address] Phone Care Team Providers Care Custom Bookbinder Name Role Phone Brandi Eisenberg Primary Care Provider [phone] Odalys Dozier MD Unavailable [phone] Ayaz Pat MD Unavailable [phone] Samia Corrales MD, MPH Unavailable + [phone] Delfino Mccarthy MD Unavailable Edgar Kearney MD Unavailable Encounter Details Date Type Department Care Team (Late st Contact Info) Description 05/28/2024 [facility] [place], MRI [address] [facility] 4th [place] [address] Social History Tobacco Use Types Packs/Day Years [...] Contact Info) Description 01/15/2025 Procedure Pass [facility] Imaging Department, [facility] [place], [place] [address] [facility], Floor [address]1 [place] [address] 01/15/2025 Procedure Pass [facility] Imaging Department, [facility], [place] [address] [facility], Floor [address]1 [place] [address] 04/16/2025 9:30 AM EST Blood Draw [facility] Imaging Department, [facility], Imaging Ihazw-vx-Mrxl [address] [facility], Floor [address]1 [place] [address] Odalys Dozier MD [address] [place] [address] Kandis@[facility] Gabby Bhatti [address] [place] [address] [email or web address] 04/16/2025 11:40 AM EST Appointment [facility] Imaging Department, [facility], [place] [address] [facility], Floor [address]1 [place] [address] Odalys Dozier MD [address] [place] [address] Kandis@[facility] Gabby Bhatti [address] [place] [address] [email or web address] 04/16/2025 3:00 PM EST Office [facility], [address], [address] [place] [address] Odalys Dozier MD [address] [place] [address] Kandis@[facility] Gabby Bhatti [address] [place] [address] [email or web address] 04/16/2025 3:30 PM EST Office Visit [facility], [address], [address] [place] [address] Aayz Pat MD [address] [place] [address] SUSIE@[facility] Gabby Bhatti [address] [place] [address] [email or web address] documented as of this encounter Visit Diagnoses Not on filedocumented in this encounter Care Teams Custom Bookbinder Relationship Specialty Start Date End Date Brandi Eisenberg PA [address] [place] [address] PCP - General Physician Head Transfer Clerk 05/15/24 Odalys Dozier MD [address] [place] [address] [email or web address] Medical Oncology 06/13/24 Ayaz Pat MD [address] [place] [address] [email or web address] Surgical Oncology 06/13/24 Samia Corrales MD, MPH [address] [place] [address] [email or web address] Radiation Oncology 06/13/24 Delfino Mccarthy MD [address] [place] [address] [place] [address] Urology 01/15/25 Edgar Kearney MD [address] [place] [address] Nephrology 01/15/25 documented as of this encounter Additional Source Comments The information contained in this document represents components of the legal health record. It is not the complete legal health record.[facility]
--- OUTSIDE RECORDS SUMMARY | 2025-04-12 08:51 | XMS_ITS | Clinical Summary ---
Author Organization [facility] Address [address] [place] [address] Phone Care Team Providers Care Bit Welder Name Role Phone Brandi Eisenberg Primary Care Provider [phone] Allergies No known active allergies Medications apixaban [...] V24, CMS/H CC V28) 05/09/2024 Mesothelioma (pleural) ([facility] V24, [facility] V28 ) 12/28/2023 Overview (03/16/2024): MALIGNANT [...] 01/25/2023, 06/05/2013 Abdominal Aortic Aneurysm (AAA) Screen Completed 06/26/2024 HIB Vaccines Aged Out No longer [...] Results * Annual BMP Blood Test (01/06/2024) [facility] Annual BMP Blood Test abstracted Result [facility] Provider HEALTH MAINTENANCE Final Result * Hemoglobin A1c (07/21/2023) [facility] Hemoglobin A1C 0.0 % Comment:no interpretation, a bstracted Blood Venous blood specimen / Unknown Result [facility] Provider LAB BLOOD ORDERABLES Dorothy l Result * Lipid panel (07/21/2023) [facility] LDL/HDL Ratio 0 Comment:no interpretation, a bstracted Triglycerides 0 mg/dL Comment:no interpretation, a bstracted Cholesterol 0 mg/dL Comment:no interpretation, a bstracted HDL 0 mg/dL Comment:no interpretation, a bstracted LDL Cholesterol 0 mg/dL Comment:no interpretation, a bstracted Blood Venous blood specimen / Unknown Result [facility] Provider LAB BLOOD ORDERABLES Dorothy l Result * FIT-DNA (Cologuard) (04/05/2023) [facility] Colorectal Cancer Screening: FIT-DNA (Cologuard) no interpretation , abstracted Result [facility] Provider HEALTH MAINTENANCE Final Result * Urine Albumin Creatinine Ratio (10/27/2022) [facility] Urine Albumin Creatinine Ratio abstracted [facility] Provider HEALTH MAINTENANCE Final Result from Last 3 Months or Most Recently Relevant to Health Maintenance Insurance MEDICARE MEDICAID - [place] Care Teams Bit Welder Relationship Specialty Start Date End Date Brandi Eisenberg PA [address] [place] [address] PCP - General 11/23/23
--- OUTSIDE RECORDS SUMMARY | 2025-04-12 08:51 | XMS_ITS | Encounter Summary ---
Author Organization [facility] Address [address] [facility] [address] [place] [address] Phone Care Team Providers Care Stave Inspector Name Role Phone Brandi Eisenberg Primary Care Provider [phone] Odalys Dozier MD Unavailable [phone] Ayaz Pat MD Unavailable [phone] Samia Corrales MD, MPH Unavailable + [phone] Delfino Mccarthy MD Unavailable Edgar Kearney MD Unavailable Encounter Details Date Type Department Care Team (Late st Contact Info) Description 05/22/2024 [facility] [place] [facility], MRI 300 [facility] 4th [place] [address] Social History Tobacco Use Types [...] st Contact Info) Description 01/15/2025 Procedure Pass [facility] Imaging Department, [facility] [place], [place] [address] [facility], Floor [address]1 [place] [address] 01/15/2025 Procedure Pass [facility] Imaging Department, [facility], [place] [address] [facility], Floor [address]1 [place] [address] 04/16/2025 9:30 AM EST Blood Draw [facility] Imaging Department, [facility], Imaging Mhuzo-lh-Gpgx [address] [facility], Floor [address] [place] [address] Odalys Dozier MD [address] [place] [address] Kandis@[facility] Gabby Bhatti [address] [place] [address] [email or web address] 04/16/2025 11:40 AM EST Appointment [facility] Imaging Department, [facility], [place] [address] [facility], Floor [address] [place] [address] Odalys Dozier MD [address] [place] [address] Kandis@[facility] Gabby Bhatti [address] [place] [address] [email or web address] 04/16/2025 3:00 PM EST Office Visit [facility], [address], [address] [place] [address] Odalys Dozier MD [address] [place] [address] Kandis@[facility] Gabby Bhatti [address] [place] [address] [email or web address] 04/16/2025 3:30 PM EST Office Visit [facility], [address], [address] [place] [address] Ayaz Pat MD [address] [place] [address] SUSIE@[facility] Gabby Bhatti [address] [place] [address] [email or web address] documented as of this encounter Visit Diagnoses Not on filedocumented in this encounter Care Teams Stave Inspector Relationship Specialty Start Date End Date Brandi Eisenberg PA [address] [place] [address] PCP - General Physician Property Investor 05/15/24 Odalys Dozier MD [address] [place] [address] Kandis@[facility] Medical Oncology 06/13/24 Ayaz Pat MD [address] [place] [address] SUSIE@[facility] Surgical Oncology 06/13/24 Samia Corrales MD, MPH [address] [place] [address] [email or web address] Radiation Oncology 06/13/24 Delfino Mccarthy MD [address] [place] [address] [place] [address] Urology 01/15/25 Edgar Kearney MD [address] [place] [address] Nephrology 01/15/25 documented as of this encounter Additional Source Comments The information contained in this document represents components of the legal health record. It is not the complete legal health record.[facility]
--- OUTSIDE RECORDS SUMMARY | 2025-04-12 08:51 | XMS_ITS | Encounter Summary ---
Author Organization [facility] Address [address] [facility] [address] [place] [address] Phone Care Team Providers Care Critical Care Transport Nurse Name Role Phone Brandi Eisenberg Primary Care Provider [phone] Odalys Dozier MD Unavailable [phone] Ayaz Pat MD Unavailable [phone] Samia Corrales MD, MPH Unavailable + [phone] Delfino Mccarthy MD Unavailable Edgar Kearney MD Unavailable Encounter Details Date Type Department Care Team (Late st Contact Info) Description 05/22/2024 [facility], MRI 300 [facility] 4th [place] [address] Social History Tobacco Use Types [...] 01/15/2025 Procedure Pass [facility] Imaging Department, [facility] [place], [place] [address] [facility], Floor L1 [place] [address] 01/15/2025 Procedure Pass [facility] Imaging Department, [facility], [place] [address] [facility], Floor [address]1 [place] [address] 04/16/2025 9:30 AM EST Blood Draw [facility] Imaging Department, [facility], Imaging Wdkmc-nq-Raex [address] [facility], Floor [address]1 [place] [address] Odalys Dozier MD [address] [place] [address] Kandis@[facility] Gabby Bhatti [address] [place] [address] [email or web address] 04/16/2025 11:40 AM EST Appointment [facility] Imaging Department, [facility], [place] [address] [facility], Floor [address]1 [place] [address] Odalys Dozier MD [address] [place] [address] Kandis@[facility] Gabby Bhatti [address] [place] [address] [email or web address] 04/16/2025 3:00 PM EST Office Visit [facility], [address], 6th [place] [address] Odalys Dozier MD [address] [place] [address] Kandis@[facility] Gabby Bhatti [address] [place] [address] [email or web address] 04/16/2025 3:30 PM EST Office Visit [facility], [address], 6th [place] [address] Ayaz Pat MD [address] [place] [address] SUSIE@[facility] Gabby Bhatti [address] [place] [address] [email or web address] documented as of this encounter Visit Diagnoses Not on filedocumented in this encounter Care Teams Critical Care Transport Nurse Relationship Specialty Start Date End Date Brandi Eisenberg PA [address] [place] [place] [address] PCP - General Physician Therapeutic Assistant 05/15/24 Odalys Dozier MD [address] [place] [address] Kandis@[facility] Medical Oncology 06/13/24 Ayaz Pat MD [address] [place] [address] SUSIE@[facility] Surgical Oncology 06/13/24 Samia Corrales MD, MPH [address] [place] [address] Chong@[email or web address] Radiation Oncology 06/13/24 Delfino Mccarthy MD [address] [place] [address] [place] [address] Urology 01/15/25 Edgar Kearney MD [address] [place] [address] [address] [address] Nephrology 01/15/25 documented as of this encounter Additional Source Comments The information contained in this document represents components of the legal health record. It is not the complete legal health record.[facility]
== END 2025-04-12 09:12 | disposition home or self-care (01) ==
LOC: HO.HUSH 08:22
PROVIDERS: PCP Physician Assistant; Visit Provider Urology
DX: R31.29 Other microscopic hematuria (principal); N52.9 Male erectile dysfunction, unspecified; Z13.9 Encounter for screening, unspecified
CPT/HCPCS: 99213

== ENCOUNTER → 2025-04-12 08:22 | Outpatient (BNVA) | payer MEDICARE, MEDICAID, SELFPAY | PROVIDERS: PCP Physician Assistant; Visit Provider Urology | DX: R31.29 Other microscopic hematuria (principal); N52.9 Male erectile dysfunction, unspecified | CPT/HCPCS: 51798; 81003; 99212 ==

== ENCOUNTER 2025-05-29 13:18 | Outpatient (AMB) | payer MEDICARE, MEDICAID, SELFPAY ==
--- OUTSIDE RECORDS SUMMARY | 2024-03-30 10:48 | XMS_ITS | Encounter Summary ---
Author Organization [facility] [place] [address] Care Team Providers Care Overlock Hemmer Name Role Phone Brandi Eisenberg Primary Care Provider Encounter Details Date Type Department Care Team (Latest Contact Info) Description 03/30/2024 11:48 AM EDT Hospital Encounter TH HISTORIC ENCOUNTERS EASTERN CONVERSION ONLY Rory Walters MD [address] [place] [address] Other intra-abdominal and pelvic swelling, mass and lump Social History Tobacco Use Types Packs/Day Years Used Date Smoking Tobacco: Never Smokeless Tobacco: Never Alcohol Use Standard Drinks/Week Comments Never 0 (1 standard drink = 0.6 oz pur e alcohol) Sex and Gender Information Value Date Recorded Sex Assigned at Not on file Legal Sex Male 11:38 AM EST Gender Identity Not on file Sexual Orientation Not on file documented as of this encounter Plan of Treatment Upcoming Encounters Date Type Department Care Team (Late st Contact Info) Description 01/07/2026 1:40 PM EDT Consult Gastroenterology - 299 [facility] [address] [id number] Demetra Marquez NP [address] [address] documented as of this encounter Procedures Procedure Name Priority Date/Time Associated Diagnosis Comments TISSUE EXAM Routine 04/24/2024 12:00 AM EST TISSUE EXAM Routine 04/09/2024 12:00 AM EST NON-GYNECOLOGIC CYTOLOGY Routine 04/09/2024 12:00 AM EST BX ABD RETRO MASS CT Routine 04/02/2024 1:58 PM EDT Other intra-abdominal and pelvic swelling, mass and lump documented in this encounter Results * Tissue exam (04/24/2024 12:00 AM EST) Case Results Reason: [id number]: This report is amended to change the diagnosis to reflect the result of the expert consultation. Left retoperitoneal mass, core biopsy: Dedifferentiated liposarcoma Comment: The above diagnosis was rendered by Dr. Nigel Luther of [facility]. He additionally notes: Immunohistochemis try performed at [facility] demonstrates the following staining profile in lesional cells: Positive - MDM2, CDK4, SMA (multifocal), desmin (scattered cells) Negative - S100, WT-1, calretinin, AE1/AE3 FISH analysis performed at [facility] is positive for MDM2 amplification ([id number]). Dr. Cervantes will be notified of the expert consultaiton via secure text. 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 The architecture appears somewhat storiform rather than fascicular. The neoplasm is distinctly different than the mesothelial proliferation noted in the patient's prior right pleural biopsy, [id number]. This case is being sent to Dr. Nigel Luther at [facility] for expert consultation. This report will be amended when the consult report is received. Immunohistochemica l staining with appropriate controls: Positive: Smooth muscle actin, desmin, calponin, D2-40 (patchy), WT1 (patchy), ERG (patchy), CD31 (patchy) Negative: Cytokeratin LORETTA, MCK AE1/AE3, PAX8, calretinin, SOX10, S100 Rachael Villareal M.D. , Pathologist (Case electronically signed 04 24 2024) Pre-Op/Clinical Diagnosis: Hx pleural mesothelioma Specimen and Site: SOFT TISSUE, LEFT RETROPERITONEAL-BI OPSY Gross Description: Labeled left retroperitoneal mass . Received in formalin are four soft, giang-white to pink-red tissue cores with minimal attached blood ranging from 0.25 x 0.1 cm to 1.55 x 0.1 cm, which are wrapped in paper and submitted in toto in two cassettes, two pieces each (one stained, +10 unstained slides and one stained; conserving tissue). A touch preparation is made. Left retroperitoneal mass, touch prep of core biopsy: -Blood and few atypical cells. Rachael Villareal 03/30/24 14:20 Dr. Rodriguez notified via Clinical Comms at 1422 on 03/30/2024 TS Physicians: DHEERAJ RODRIGUEZ M.D./[phone] RORY WALTERS MD/ x2/ HISTORICAL TESTING LAB RESULTING AGENCY 04/24/2024 us Laboratory Results Historical MD LAB PATHOLOGY O RDERABLES Final Result HISTORICAL TESTING LAB RESULTING AGENCY * Non-gynecologic cytology (04/09/2024 12:00 AM EST) Case Results Left retroperitoneal mass, fine needle aspiration (ThinPrep, direct smears and cell block): Malignant spindle cell neoplasm Comment: Please see the corresponding core biopsy, [id number], for the immunohistochemica l evaluation and expert consultation. Rachael Villareal M.D. , Pathologist (Case electronically signed 04 09 2024) CLINICAL INFORMATION: Hx pleural mesothelioma, lymphadenopathy, left flank mass. SOURCE: Retroperitoneal FNA, Left Mass Gross Description: Received in saline 30 ml pink cloudy fluid, 2 Alcohol Fixed and 2 Air Dried Direct Smears, 1 ThinPrep, Cell Block 03/30/24 CB in formalin @ 3:30-TFFT 53.5 hours Immediate read performed for adequacy. Preliminary diagnosis: Left retroperitoneal/ma ss, FNA: Malignant neoplasm. Rachael Villareal MD 03/30/24 14:20 Dr Rodriguez notified via Clinical Comms @ 14:22 on 03/30/24. 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 The architecture appears somewhat storiform rather than fascicular. The neoplasm is distinctly different than the mesothelial proliferation noted in the patient's prior right pleural biopsy, [id number]. This case is being sent to Dr. Nigel Luther at [facility] for expert consultation. This report will be amended when the consult report is received. Immunohistochemica l staining with appropriate controls: Positive: Smooth muscle actin, desmin, calponin, D2-40 (patchy), WT1 (patchy), ERG (patchy), CD31 (patchy) Negative: Cytokeratin LORETTA, MCK AE1/AE3, PAX8, calretinin, SOX10, S100 Rachael Villareal M.D. , Pathologist (Case electronically signed 04 09 2024) Pre-Op/Clinical Diagnosis: Hx pleural mesothelioma Specimen and Site: SOFT TISSUE, LEFT RETROPERITONEAL-BI OPSY Gross Description: Labeled left retroperitoneal mass . Received in formalin are four soft, giang-white to pink-red tissue cores with minimal attached blood ranging from 0.25 x 0.1 cm to 1.55 x 0.1 cm, which are wrapped in paper and submitted in toto in two cassettes, two pieces each (one stained, +10 unstained slides and one stained; conserving tissue). A touch preparation is made. Left retroperitoneal mass, touch prep of core biopsy: -Blood and few atypical cells. Rachael Villareal 03/30/24 14:20 Dr. Rodriguez notified via Clinical Comms at 1422 on 03/30/2024 TS Physicians: DHEERAJ RODRIGUEZ M.D./[phone]/ RORY WALTERS MD/ x2/ HISTORICAL TESTING LAB RESULTING AGENCY 04/09/2024 us Laboratory Results Historical MD LAB PATHOLOGY O RDERABLES Final Result HISTORICAL TESTING LAB RESULTING AGENCY * BX ABD RETRO MASS CT (04/02/2024 1:58 PM EDT) Anatomical Region Laterality Modality Interventional R adiology 03/30/2024 1:11 PM EDT Narrative 04/02/2024 1:58 PM EDT [facility] Diagnostic Imaging Department [address] [place] [address] Patient: STEW WELLS /Age/Sex: 1950 - 73 - M Unit#: [id number] Location/Status: SPDIANGIO/REG CLI Mnemonic/Ordering Site: CTBXRETRO/SPIR Ordering Physician: RORY WALTERS MD BX ABD RETRO MASS CT - 03/30/24 - 9527 Report Status:Signed INDICATION: Previous pleural biopsy with atypical mesothelioma perforation suspicious but not diagnostic for mesothelioma. Metabolically active cervical and thoracic lymphadenopathy as well as pleural activity. Metabolically active mass in the left flank. CT-guided biopsy requested for further histological evaluation. PROCEDURE: Consent obtained for CT-guided biopsy of left flank/retroperitoneal mass corresponding to metabolic activity on prior PET scan. Consent obtained utilizing a Spanish-speaking banquet supervisor. prior relevant studies: PET/CT from January 11, 2024 MEDICATIONS: Local anesthesia: 7 cc of 1% buffered lidocaine administered subcutaneously. Sedation: Moderate intravenous sedation was initiated and maintained for 30 minutes while the patient was independently monitored by the radiology nurse under the supervision of the interventional radiologist. A total of 2 mg of Versed and 75 mcg of fentanyl administered during the procedure. Scanner: [employer] [address] Dose reduction technique: AEC (automated exposure control) Dose: total exam DLP 467 mGY per cm TECHNIQUE: Patient placed prone on the CT table and multiple axial images obtained to localize left flank mass/retroperitoneal. Appropriate area of the skin was marked, draped and prepped using maximum sterile barrier. Moderate sedation initiated with subsequent infiltration of local anesthetic. Under CT fluoroscopic guidance a 17-gauge coaxial needle was advanced into the periphery of the localized mass. Multiple 20-gauge fine-needle and 18-gauge core biopsy samples obtained. Coaxial needle removed. FINDINGS: Initial limited CT images of the abdomen demonstrate masslike enlargement posterior to the atrophic left kidney corresponding to PET positivity. Images obtained during localization demonstrate coaxial needle positioned within the periphery of the localized mass. Images obtained after biopsy demonstrate mild postbiopsy effect within the mass. No evidence of significant postbiopsy hemorrhage. SPECIMENS: Fine-needle samples placed in CytoLyt after creation of histological slides. Core biopsy samples placed into formalin. Single touch prep slide created with initial core sample. Preliminary pathology results reveal malignant neoplasm. Complications: None IMPRESSION: CT-guided fine-needle and core biopsy of left flank/retroperitoneal mass using coaxial technique. Dictating Physician: DHEERAJ RODRIGUEZ MD Electronically Signed by: DHEERAJ RODRIGUEZ MD Dic Date/Time: 04/02/24 1330 Sign date/Time: 04/02/24 0866 Procedure Note Dheeraj Rodriguez MD - 04/07/2024 [facility] Diagnostic Imaging Department [address] [place] [address] Patient: STEW WELLS /Age/Sex: 1950 - 73 - M Unit#: [id number] Location/Status: SPDIANGIO/REG CLI Mnemonic/Ordering Site: CTBXRETRO/SPIR Ordering Physician: RORY WALTERS MD BX ABD RETRO MASS CT - 03/30/24 - 1325 Report Status:Signed INDICATION: Previous pleural biopsy with atypical mesotheliomaperforation suspicious but not diagnostic for mesothelioma. Metabolically activecervical and thoracic lymphadenopathy as well as pleural activity. Metabolicallyactive mass in the left flank. CT-guided biopsy requested for furtherhistological evaluation. PROCEDURE: Consent obtained for CT-guided biopsy of leftflank/retroperitoneal mass corresponding to metabolic activity on prior PET scan. Consentobtained utilizing a Spanish-speaking banquet supervisor. prior relevant studies: PET/CT from January 11, 2024 MEDICATIONS: Local anesthesia: 7 cc of 1% buffered lidocaine administeredsubcutaneously. Sedation: Moderate intravenous sedation was initiated and maintained for30 minutes while the patient was independently monitored by the radiologynurse under the supervision of the interventional radiologist. A total of 2 mgof Versed and 75 mcg of fentanyl administered during the procedure. Scanner: [employer] [address] Dose reduction technique: AEC (automated exposure control) Dose: total exam DLP 467 mGY per cm TECHNIQUE: Patient placed prone on the CT table and multiple axialimages obtained to localize left flank mass/retroperitoneal. Appropriate area ofthe skin was marked, draped and prepped using maximum sterile barrier.Moderate sedation initiated with subsequent infiltration of local anesthetic. UnderCT fluoroscopic guidance a 17-gauge coaxial needle was advanced into theperiphery of the localized mass. Multiple 20-gauge fine-needle and 18-gauge corebiopsy samples obtained. Coaxial needle removed. FINDINGS: Initial limited CT images of the abdomen demonstrate masslike enlargement posterior to the atrophic left kidney corresponding to PET positivity. Images obtained during localization demonstrate coaxial needlepositioned within the periphery of the localized mass. Images obtained after biopsy demonstrate mild postbiopsy effect withinthe mass. No evidence of significant postbiopsy hemorrhage. SPECIMENS: Fine-needle samples placed in CytoLyt after creation ofhistological slides. Core biopsy samples placed into formalin. Single touch prepslide created with initial core sample. Preliminary pathology results reveal malignant neoplasm. Complications: None IMPRESSION: CT-guided fine-needle and core biopsy of left flank/retroperitoneal massusing coaxial technique. Dictating Physician: DHEERAJ RODRIGUEZ MD Electronically Signed by: DHEERAJ RODRIGUEZ MD Dic Date/Time: 04/02/24 1337 Sign date/Time: 04/02/24 1358 Rory Walters MD IMG IR PROCEDURES Final Res ult documented in this encounter Visit Diagnoses Diagnosis Other intra-abdominal and pelvic swelling, mass and lump documented in this encounter Care Teams Overlock Hemmer Relationship Specialty Start Date End Date Brandi Eisenberg PA [facility] [place] [address] PCP - General 11/23/23 documented as of this encounter
--- OUTSIDE RECORDS SUMMARY | 2025-05-29 13:20 | XMS_ITS | Encounter Summary ---
Author Organization [facility] Address [address] [place] [address] Phone Care Team Providers Care Embedded Engineer Name Role Phone Brandi Eisenberg PA-C Primary Care Provider Odalys Dozier MD Unavailable [phone] Ayaz Pat MD Unavailable Samia Corrales MD, MPH Unavailable + [phone] Delfino Mccarthy MD Unavailable Edgar Kearney MD Unavailable Encounter Details Date Type Department Care Team (Late st Contact Info) Description 06/21/2024 Procedure Pass [facility] [address] [place] [address] Social History Tobacco Use Types Packs/Day Years [...] Care Team (Late st Contact Info) Description 04/16/2025 Procedure Pass [facility] Imaging Department, [facility], [place] 450 [facility], Floor L1 [place] [address] 04/16/2025 Procedure Pass [facility] Imaging Department, [facility], [place] [address] [facility], Floor L1 [place] [address] 07/17/2025 8:30 AM EST Blood Draw [facility] Imaging Department, [facility], Imaging Mlbey-vz-Knyl [address] [facility], Floor [address]1 [place] [address] Ayaz Pat MD [address] [place] [address] [email or web address]@[email or web address] 07/17/2025 10:30 AM EST Appointment [facility] Imaging Department, [facility], [place] [address] [facility], Floor L1 [place] [address] Ayaz Pat MD [address] [place] [address] SUSIE@[email or web address] 07/17/2025 2:00 PM EST Office Visit [facility], [facility] 450 [facility], 6th [place] [address] Odalys Dozier MD [address] [place] [address] [email or web address] documented as of this encounter Visit Diagnoses Not on filedocumented in this encounter Additional Health Concerns Assessment Noted Time PHQ-2 Depression Total Score: 0 06/08/19 25 7:28 AM EST documented as of this encounter Care Teams Embedded Engineer Relationship Specialty Start Date End Date Brandi Eisenberg PA-C [address] [place] [address] PCP - General Physician Operations Analyst 05/15/24 Odalys Dozier MD [address] [place] [address] [email or web address] Medical Oncology 06/13/24 Ayaz Pat MD [address] [place] [address] SUSIE@[email or web address] Surgical Oncology 06/13/24 Samia Corrales MD, MPH [address] [place] [address] [email or web address] Radiation Oncology 06/13/24 Delfino Mccarthy MD [address] [place] [address] [address] Urology 01/15/25 Edgar Kearney MD [address] [place] [address] Nephrology 01/15/25 documented as of this encounter Additional Source Comments The information contained in this document represents components of the legal health record. It is not the complete legal health record.[facility]
--- OUTSIDE RECORDS SUMMARY | 2025-05-29 13:20 | XMS_ITS ---
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 Impression/recommendation: The patient is a 73-year-old gentleman [...] on 07 May 2014 19:39 Encounter info: [id number], [facility], One Time OP, 04/29/2014 - 04/29/2014 Contributor system: NUANCE * Final Report * Polysomnogram W/ CPAP (Verified) POLYSOMNOGRAM DATE:04/29/2014 [facility] SLEEP [facility] Accredited by the [place] [employer] CPAP STUDY Referring Provider: Matt Carmen M.D. Date of Study: 04/29/2014 Order ID: [id number] INTRODUCTION: This 63 year-old male with hypertension, [...] of 5.4/hr, and lowest oxygenation of 85%. Rush sleepiness scale is 10/24. (Height: 5' 6 , Weight: 217.0 lbs, BMI: 35.3.) MASK TYPE: Standard/FX Nasal. MEDICATIONS: Sertraline, Naproxen, Metformin, Lisinopril, HCTZ, Amlodipine. DESCRIPTION: This overnight polysomnogram was done utilizing a [employer] digital polysomnograph machine. Four channels of EEG [...] results, then I will order PAP from [facility]. 2. Patient should sleep in non-supine position. [...] Transcribed: 05/07/2014 18:37:55 Transcribed by: JANNETTE DocID: [id number] CC:Matt Carmen M.D. 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 Past Treatment and Therapy Plans No past plan information found. Lifetime Dose Tracking * Chemical Lifetime Dose Automatic Entry Manual Entr y Invasive Cardiology Radiation Exposure 152 mGy 0 mGy 152 mGy 1. DAP 1,515 mGy-cm2 0 mGy-cm2 1,515 mGy-cm2
--- OUTSIDE RECORDS SUMMARY | 2025-05-29 13:20 | XMS_ITS | Clinical Summary ---
Author Organization [facility] Address [address] [place] [address] Phone Care Team Providers Care Electronic Assembler Name Role Phone Brandi Eisenberg PA-C Primary Care Provider [phone] Allergies No known active allergies Medications metoprolol [...] on 07 May 2014 19:39 Encounter info: [id number], [facility], One Time OP, 04/29/2014 - 04/29/2014 Contributor system: NUANCE * Final Report * Polysomnogram W/ CPAP (Verified) POLYSOMNOGRAM DATE:04/29/2014 [facility] SLEEP PROGRAM [facility] Accredited by the [place] CPAP STUDY Referring Provider: Matt Carmen M.D. Date of Study: 04/29/2014 Order ID: [id number] INTRODUCTION: This 63 year-old male with hypertension, [...] of 5.4/hr, and lowest oxygenation of 85%. [place]hen sleepiness scale is 10/24. (Height: 5' 6 , Weight: 217.0 lbs, BMI: 35.3.) MASK TYPE: Standard/FX Nasal. MEDICATIONS: Sertraline, Naproxen, Metformin, Lisinopril, HCTZ, Amlodipine. DESCRIPTION: This overnight polysomnogram was done utilizing a [employer] digital polysomnograph machine. Four channels of EEG [...] results, then I will order PAP from [facility]. 2. Patient should sleep in non-supine position. [...] Transcribed: 05/07/2014 18:37:55 Transcribed by: JANNETTE DocID: [id number] CC:Matt Carmen M.D. [facility] Pulmonary , Brandi Eisenberg [address], [address] Osteoarthritis 03/29/2014 06/23/2021 Recurrent major depressive episodes, [...] Medicaid [place] Care Teams Electronic Assembler Relationship Specialty Start Date End Date Brandi Eisenberg PA-C [address] [place] [phone] PCP - General 06/16/20
--- OUTSIDE RECORDS SUMMARY | 2025-05-29 13:20 | XMS_ITS | Encounter Summary ---
Author Organization [facility] Address [address] [place] [address] Phone Care Team Providers Care Strip Picker Name Role Phone Brandi Eisenberg PA-C Primary Care Provider [phone] Odalys Dozier MD Unavailable [phone] Ayaz Pat MD Unavailable Samia Corrales MD, MPH Unavailable + [phone] Delfino Mccarthy MD Unavailable Edgar Kearney MD Unavailable Encounter Details Date Type Department Care Team (Late st Contact Info) Description 06/20/2024 Procedure Pass [facility] Women's Echocardiography [address] [place] [address] Social History Tobacco Use Types Packs/Day Years [...] Contact Info) Description 04/16/2025 Procedure Pass [facility], [facility], [place] [address] [facility], [address] [place] [address] 04/16/2025 Procedure Pass [facility] Imaging Department, [facility], [place] [address] [facility], [address] [place] [address] 07/17/2025 8:30 AM EST Blood Draw [facility] Imaging Department, [facility], Imaging Rxaks-io-Esro [address], [place] [address] [place] [address] Ayaz Pat MD [address] [place] [address] SUSIE@[facility] 07/17/2025 10:30 AM EST Appointment [facility] Imaging Department, [facility], [place] [address] [facility], [address] [place] [address] Ayaz Pat MD [address] [place] [address] SUSIE@[facility] 07/17/2025 2:00 PM EST Office Visit [facility], [facility] [address] [facility], 6th [place] [address] Odalys Dozier MD [address] [place] [address] Kandis@[email or web address] documented as of this encounter Visit Diagnoses Not on filedocumented in this encounter Additional Health Concerns Assessment Noted Time PHQ-2 Depression Total Score: 0 06/08/19 25 7:28 AM EST documented as of this encounter Care Teams Strip Picker Relationship Specialty Start Date End Date Brandi Eisenberg PA-C [address] [place] [address] PCP - General Physician Firebrick Layer 05/15/24 Odalys Dozier MD [address] [place] [address] [email or web address] Medical Oncology 06/13/24 Ayaz Pat MD [address] [place] [address] SUSIE@[facility] Surgical Oncology 06/13/24 Samia Corrales MD, MPH [address] [place] [address] Chong@[facility] Radiation Oncology 06/13/24 Delfino Mccarthy MD [address] [place] [address] [address] Urology 01/15/25 Edgar Kearney MD [address] [place] [address] Nephrology 01/15/25 documented as of this encounter Additional Source Comments The information contained in this document represents components of the legal health record. It is not the complete legal health record.[facility]
--- OUTSIDE RECORDS SUMMARY | 2025-05-29 13:20 | XMS_ITS | Encounter Summary ---
Author Organization [facility] Address [address] [place] [address] Phone Care Team Providers Care Supervisory It Specialist Name Role Phone Brandi Eisenberg PA-C Primary Care Provider Odalys Dozier MD Unavailable [phone] Ayaz Pat MD Unavailable [phone] Samia Corrales MD, MPH Unavailable + [phone] Delfino Mccarthy MD Unavailable Edgar Kearney MD Unavailable Encounter Details Date Type Department Care Team (Late st Contact Info) Description 06/20/2024 Procedure Pass [facility] Women's Radiology [address] [place] [address] Social History Tobacco Use Types Packs/Day Years [...] Contact Info) Description 04/16/2025 Procedure Pass [facility] Department, [facility], [place] [address] [facility], Floor [address]1 [place] [address] 04/16/2025 Procedure Pass [facility] Department, [facility], [place] [address] [facility], Floor [address]1 [place] [address] 07/17/2025 8:30 AM EST Blood Draw [facility] Imaging Department, [facility], Imaging Wqlqf-fa-Elci [address] [facility], Floor [address]1 [place] [address] Ayaz Pat MD [address] [place] [address] SUSIE@[facility] 07/17/2025 10:30 AM EST Appointment [facility] Imaging Department, [facility], [place] [address] [facility], Floor [address]1 [place] [address] Ayaz Pat MD [address] [place] [address] SUSIE@[facility] 07/17/2025 2:00 PM EST Office Visit [facility], [address], 6th [place] [address] Odalys Dozier MD [address] [place] [address] Kandis@[email or web address] documented as of this encounter Visit Diagnoses Not on filedocumented in this encounter Additional Health Concerns Assessment Noted Time PHQ-2 Depression Total Score: 0 06/08/19 25 7:28 AM EST documented as of this encounter Care Teams Supervisory It Specialist Relationship Specialty Start Date End Date Barndi Eisenberg PA-C [address] [place] [address] PCP - General Physician Sheet Tester 05/15/24 Odalys Dozier MD [address] [place] [address] Kandis@[email or web address] Medical Oncology 06/13/24 Ayaz Pat MD [address] [place] [phone] SUSIE@[facility] Surgical Oncology 06/13/24 Samia Corrales MD, MPH [address] [place] [address] Chong@[facility] Radiation Oncology 06/13/24 Delfino Mccarthy MD [address] [place] [address] [address] Urology 01/15/25 Edgar Kearney MD [address] [place] [address] Nephrology 01/15/25 documented as of this encounter Additional Source Comments The information contained in this document represents components of the legal health record. It is not the complete legal health record.[facility]
--- OUTSIDE RECORDS SUMMARY | 2025-05-29 13:20 | XMS_ITS | Encounter Summary ---
Author Organization [facility] Address [address] [place] [address] Phone Care Team Providers Care Systems Spec Name Role Phone Brandi Eisenberg PA-C Primary Care Provider Odalys Dozier MD Unavailable [phone] Ayaz Pat MD Unavailable [phone] Samia Corrales MD, MPH Unavailable + [phone] Delfino Mccarthy MD Unavailable Edgar Kearney MD Unavailable Encounter Details Date Type Department Care Team (Late st Contact Info) Description 06/21/2024 Procedure Pass [facility] Rad[facility] 75 [place] [address] Social History Tobacco Use Types Packs/Day Years [...] st Contact Info) Description 04/16/2025 Procedure Pass [facility], [facility], [place] [address] [facility], [address] [place] [address] 04/16/2025 Procedure Pass [facility], [facility], [place] [address] [facility], [address] [place] [address] 07/17/2025 8:30 AM EST Blood Draw [facility] Imaging Department, [facility], Imaging Nhvxw-mz-Tcmo [address] [facility], [address] [place] [address] Ayaz Pat MD [address] [place] [address] SUSIE@[facility] 07/17/2025 10:30 AM EST Appointment [facility] Imaging Department, [facility], [place] [address] [facility], [address] [place] [address] Ayaz Pat MD [address] [place] [phone] SUSIE@[facility] 07/17/2025 2:00 PM EST Office Visit [facility], [address], 6th [place] [address] Odalys Dozier MD [address] [place] [address] Kandis@[email or web address] documented as of this encounter Visit Diagnoses Not on filedocumented in this encounter Additional Health Concerns Assessment Noted Time PHQ-2 Depression Total Score: 0 06/08/19 25 7:28 AM EST documented as of this encounter Care Teams Systems Spec Relationship Specialty Start Date End Date Brandi Eisenberg PA-C [address] [place] [address] PCP - General Physician [employer] Hand 05/15/24 Odalys Dozier MD [address] [place] [address] [email or web address] Medical Oncology 06/13/24 Ayaz Pat MD [address] [place] [address] SUSIE@[facility] Surgical Oncology 06/13/24 Samia Corrales MD, MPH [address] [place] [address] Chong@[email or web address] Radiation Oncology 06/13/24 Delfino Mccarthy MD [address] [place] [address] [address] Urology 01/15/25 Edgar Kearney MD [address] [place] [address] Nephrology 01/15/25 documented as of this encounter Additional Source Comments The information contained in this document represents components of the legal health record. It is not the complete legal health record.[facility]
--- OUTSIDE RECORDS SUMMARY | 2025-05-29 13:20 | XMS_ITS | Encounter Summary ---
Author Organization [facility] Address [address] [place] [address] Phone Care Team Providers Care Cake Maker Name Role Phone Brandi Eisenberg PA-C Primary Care Provider Odalys Dozier MD Unavailable [phone] Ayaz Pat MD Unavailable [phone] Samia Corrales MD, MPH Unavailable + [phone] Delfino Mccarthy MD Unavailable Edgar Kearney MD Unavailable Encounter Details Date Type Department Care Team (Late st Contact Info) Description 06/20/2024 Procedure Pass [facility] Women's Radiology 75 [place] [address] Social History Tobacco Use Types Packs/Day Years [...] Contact Info) Description 04/16/2025 Procedure Pass [facility] Department, [facility], [place] [address] [facility], [address] [place] [address] 04/16/2025 Procedure Pass [facility] Department, [facility], [place] [address], [address] [place] [address] 07/17/2025 8:30 AM EST Blood Draw [facility] Imaging Department, [facility], Imaging Nckkm-tp-Jrtk [address], [address] [place] [address] Ayaz Pat MD [address] [place] [address] SUSIE@[facility] 07/17/2025 10:30 AM EST Appointment [facility] Imaging Department, [facility], [place] [address], [address] [place] [address] Ayaz Pat MD [address] [place] [address] SUSIE@[facility] 07/17/2025 2:00 PM EST Office Visit [facility], [address], 6th [place] [address] Odalys Dozier MD [address] [place] [phone] Kandis@[email or web address] documented as of this encounter Visit Diagnoses Not on filedocumented in this encounter Additional Health Concerns Assessment Noted Time PHQ-2 Depression Total Score: 0 06/08/19 25 7:28 AM EST documented as of this encounter Care Teams Cake Maker Relationship Specialty Start Date End Date Brandi Eisenberg PA-C [address] [place] [address] PCP - General Physician Aircraft Engine Technician 05/15/24 Odalys Dozier MD [address] [place] [address] Kandis@[email or web address] Medical Oncology 06/13/24 Ayaz Pat MD [address] [place] [address] SUSIE@[facility] Surgical Oncology 06/13/24 Samia Corrales MD, MPH [address] [place] [address] Chong@[email or web address] Radiation Oncology 06/13/24 Delfino Mccarthy MD [address] [place] [address] [address] Urology 01/15/25 Edgar Kearney MD [address] [place] [address] Nephrology 01/15/25 documented as of this encounter Additional Source Comments The information contained in this document represents components of the legal health record. It is not the complete legal health record.[facility]
--- OUTSIDE RECORDS SUMMARY | 2025-05-29 13:20 | XMS_ITS | Clinical Summary ---
Author Organization [facility] Prior to 11/03/24 Address [address] [place] [address] Care Team Providers Care It Technician Name Role Phone Brandi Eisenberg PA-C [...] age to complete this topic Care Teams It Technician Relationship Specialty Start Date End Date Brandi Eisenberg PA-C [address] [place] [address] PCP - General Physician Supervisor Assembly 11/23/23
--- OUTSIDE RECORDS SUMMARY | 2025-05-29 13:20 | XMS_ITS | Encounter Summary ---
Author Organization [facility] Address [address] [place] [address] Care Team Providers Care Photo Mask Pattern Generator Name Role Phone Brandi Eisenberg Primary Care Provider [phone] Encounter Details Date Type Department Care Team (Late Contact Info) Description 10/03/[address] [facility] - Main Lab [address] [facility] [place] [phone] Hudson Santana MD [address] [place] [address] Pleural effusion in other conditions classified elsewhere [...] Encounters Date Type Department Care Team (Late Contact Info) Description 01/07/2026 1:40 PM EDT Consult Gastroenterology - 299 [facility] 299 [facility] [address] [place] [address] Demetra Marquez NP [address] [facility] [address] [place] [address] documented as of this encounter Procedures Procedure [...] available upon request. 12/28/2024 3:[address] [facility] at 1558 EDT Clinical Information This historical was created for a slide request for [facility] [place]. 12/28/2024 3:[address] [facility] Gross Description A. Pleural Cavity, Right, right pleural biopsy: At the request of Kavita for Dr. Dozier slides sent (11) [facility] - pathology processing ([facility]) [address] [place] [address] FEDEX: [id number] 12.17.2924 - [place] 12/28/2024 3:[address] [facility] Disclaimer Unless otherwise specified, all tissue is 10% NB formalin fixed and paraffin embedded. 12/28/2024 3:[address] [facility] Tissue Structure of right pleural cavity / Unknown 10/03/2024 9:23 AM EDT 10/03/2024 9:23 AM EDT us Hudson Santana MD LAB PATHOLOGY ORDERABLES Final R esult [facility] [address] [place] [address], documented in this encounter Visit Diagnoses Diagnosis Pleural effusion in other conditions classified elsewhere documented in this encounter Care Teams Photo Mask Pattern Generator Relationship Specialty Start Date End Date Brandi Eisenberg PA [address] [place] [address] PCP - General 11/23/23 documented as of this encounter
--- OUTSIDE RECORDS SUMMARY | 2025-05-29 13:20 | XMS_ITS | Encounter Summary ---
Author Organization [facility] Address [address] [place] [address] Phone Care Team Providers Care Industrial Electrician Journeyman Name Role Phone Brandi Eisenberg PA-C Primary Care Provider Odalys Dozier MD Unavailable [phone] Ayaz Pat MD Unavailable [phone] Samia Corrales MD, MPH Unavailable + [phone] Delfino Mccarthy MD Unavailable Edgar Kearney MD Unavailable Encounter Details Date Type Department Care Team (Late st Contact Info) Description 06/22/2024 Procedure Pass [facility] Electrophysiology Lab [address] [place] [address] Social History Tobacco Use Types Packs/Day Years [...] st Contact Info) Description 04/16/[address] [facility] Imaging Department, [facility], [place] [address] [facility], Floor [address]1 [place] [address] 04/16/[address] [facility] Imaging Department, [facility], [place] [address] [facility], Floor [address] [place] [address] 07/17/2025 8:30 AM EST Blood Draw [facility] Imaging Department, [facility], Imaging Slnku-vg-Xkhd [address] [facility], [address] [place] [address] Ayaz Pat MD [address] [place] [address] SUSIE@[facility] 07/17/2025 10:[address] [facility] Imaging Department, [facility], [place] [address] [facility], Floor [address] [place] [address] Ayaz Pat MD [address] [place] [address] SUSIE@[facility] 07/17/2025 2:00 PM EST Office Visit [facility], [address], 6th [place] [address] Odalys Dozier MD [address] [place] [phone] Kandis@[email or web address] documented as of this encounter Visit Diagnoses Not on filedocumented in this encounter Additional Health Concerns Assessment Noted Time PHQ-2 Depression Total Score: 0 06/08/19 25 7:28 AM EST documented as of this encounter Care Teams Industrial Electrician Journeyman Relationship Specialty Start Date End Date Brandi Eisenberg PA-C [address] [place] [address] PCP - General Physician Executive Steward 05/15/24 Odalys Dozier MD [address] [place] [address] Kandis@[email or web address] Medical Oncology 06/13/24 Ayaz Pat MD [address] [place] [address] SUSIE@[facility] Surgical Oncology 06/13/24 Samia Corrales MD, MPH [address] [place] [phone] Chong@[email or web address] Radiation Oncology 06/13/24 Delfino Mccarthy MD [address] [place] [address] Dr Lozano [address] [place] [address] Urology 01/15/25 Edgar Kearney MD [address] [place] [address] Nephrology 01/15/25 documented as of this encounter Additional Source Comments The information contained in this document represents components of the legal health record. It is not the complete legal health record.[facility]
--- OUTSIDE RECORDS SUMMARY | 2025-05-29 13:20 | XMS_ITS | Encounter Summary ---
Author Organization [facility] Address [address] [facility] [address] [place] [address] Phone Care Team Providers Care Parimutuel Clerk Name Role Phone Brandi Eisenberg PA-C Primary Care Provider Odalys Dozier MD Unavailable [phone] Ayaz Pat MD Unavailable Samia Corrales MD, MPH Unavailable + [phone] Delfino Mccarthy MD Unavailable Edgar Kearney MD Unavailable Encounter Details Date Type Department Care Team (Late st Contact Info) Description 05/22/2024 Procedure Pass [facility] [address] [place] [address] Social History Tobacco Use Types Packs/Day Years [...] st Contact Info) Description 04/16/2025 Procedure Pass [facility] Imaging Department, [facility], [place] [address] [facility], Floor [address]1 [place] [address] 04/16/2025 Procedure Pass [facility] Imaging Department, [facility], [place] [address] [facility], Floor [address] [place] [address] 07/17/2025 8:30 AM EST Blood Draw [facility] Imaging Department, [facility], Imaging Qeymx-rd-Egjc [address] [facility], Floor [address] [place] [address] Ayaz Pat MD [address] [place] [address] SUSIE@[facility] 07/17/2025 10:30 AM EST Appointment [facility] Imaging Department, [facility], [place] [address] [facility], Floor [address] [place] [address] Ayaz Pat MD [address] [place] [address] SUSIE@[facility] 07/17/2025 2:00 PM EST Office Visit [facility], [address], 6th [place] [address] Odalys Dozier MD [address] [place] [phone] Kandis@[facility] documented as of this encounter Visit Diagnoses Not on filedocumented in this encounter Care Teams Parimutuel Clerk Relationship Specialty Start Date End Date Brandi Eisenberg PA-C [address] [place] [address] PCP - General Physician Insurance Underwriter 05/15/24 Odalys Dozier MD [address] [place] [address] Kandis@[facility] Medical Oncology 06/13/24 Ayaz Pat MD [address] [place] [address] SUSIE@[facility] Surgical Oncology 06/13/24 Samia Corrales MD, MPH [address] [place] [phone] Chong@[email or web address] Radiation Oncology 06/13/24 Delfino Mccarthy MD [address] [place] [address] [place] [address] Urology 01/15/25 Edgar Kearney MD [address] [place] [address] Nephrology 01/15/25 documented as of this encounter Additional Source Comments The information contained in this document represents components of the legal health record. It is not the complete legal health record.[facility]
--- OUTSIDE RECORDS SUMMARY | 2025-05-29 13:20 | XMS_ITS | Encounter Summary ---
Author Organization [facility] Address [address] [facility] [address] [place] [address] Phone Care Team Providers Care General Handling Supervisor Name Role Phone Brandi Eisenberg PA-C Primary Care Provider Odalys Dozier MD Unavailable [phone] Ayaz Pat MD Unavailable [phone] Samia Corrales MD, MPH Unavailable + [phone] Delfino Mccarthy MD Unavailable Edgar Kearney MD Unavailable Encounter Details Date Type Department Care Team (Late st Contact Info) Description 10/30/2024 Procedure Pass [facility] Imaging Department, [facility] [place] [address] [facility], Floor [address]1 [place] [address] Social History Tobacco Use Types Packs/Day Years [...] st Contact Info) Description 04/16/2025 Procedure Pass [facility] Imaging Department, [facility], [place] [address] [facility], Floor [address]1 [place] [address] 04/16/2025 Procedure Pass [facility] Imaging Department, [facility], [place] [address] [facility], Floor [address] [place] [address] 07/17/2025 8:30 AM EST Blood Draw [facility] Imaging Department, [facility], Imaging [id number] [address] [facility], [facility] [address] [place] [address] Ayaz Pat MD [address] [place] [phone] [email or web address]@[email or web address] 07/17/2025 10:30 AM EST Appointment [facility] Imaging Department, [facility], [place] [address] [facility], Floor [address] [place] [address] Ayaz Pat MD [address] [place] [phone] SUSIE@[facility] 07/17/2025 2:00 PM EST Office [facility], [address], 6th [place] [address] Odalys Dozier MD [address] [place] [phone] Kandis@[email or web address] documented as of this encounter Visit Diagnoses Not on filedocumented in this encounter Additional Health Concerns Assessment Noted Time PHQ-2 Depression Total Score: 0 06/08/19 25 7:28 AM EST documented as of this encounter Care Teams General Handling Supervisor Relationship Specialty Start Date End Date Brandi Eisenberg PA-C [address] [place] [address] PCP - General Physician Pipe Threading Machine Operator 05/15/24 Odalys Dozier MD [address] [place] [phone] [email or web address] Medical Oncology 06/13/24 Ayaz Pat MD [address] [place] [phone] SUSIE@[email or web address] Surgical Oncology 06/13/24 Samia Corrales MD, MPH [address] [place] [phone] Chong@[email or web address] Radiation Oncology 06/13/24 Delfino Mccarthy MD [address] [place] [address] [address] Urology 01/15/25 Edgar Kearney MD [address] [place] [phone] Nephrology 01/15/25 documented as of this encounter Additional Source Comments The information contained in this document represents components of the legal health record. It is not the complete legal health record.[facility]
--- OUTSIDE RECORDS SUMMARY | 2025-05-29 13:20 | XMS_ITS | Encounter Summary ---
Author Organization [facility] Address [address] [facility] [address] [place] [address] Phone Care Team Providers Care Special Education Secretary Name Role Phone Brandi Eisenberg PA-C Primary Care Provider Odalys Dozier MD Unavailable [phone] Ayaz Pat MD Unavailable [phone] Samia Corrales MD, MPH Unavailable + [phone] Delfino Mccarthy MD Unavailable Edgar Kearney MD Unavailable Encounter Details Date Type Department Care Team (Late st Contact Info) Description 06/14/[address] [facility] Periop [address] [place] [address] Social History Tobacco Use Types Packs/Day Years [...] st Contact Info) Description 04/16/2025 Procedure Pass [facility] Imaging Department, [facility], [place] [address] [facility], Floor [address] [place] [address] 04/16/2025 Procedure Pass [facility] Imaging Department, [facility], [place] [address] [facility], [address] [place] [address] 07/17/2025 8:30 AM EST Blood Draw [facility] Imaging Department, [facility], Imaging [id number] [address] [facility], [address] [place] [address] Ayaz Pat MD [address] [place] [phone] SUSIE@[email or web address] 07/17/2025 10:30 AM EST Appointment [facility] Imaging Department, [facility], [place] [address] [facility], Floor [address] [place] [address] Ayaz Pat MD [address] [place] [phone] SUSIE@[email or web address] 07/17/2025 2:00 PM EST Office Visit [facility], [address], [address]th [place] [address] Odalys Dozier MD [address] [place] [phone] Kandis@[email or web address] documented as of this encounter Visit Diagnoses Not on filedocumented in this encounter Additional Health Concerns Assessment Noted Time PHQ-2 Depression Total Score: 0 06/08/19 25 7:28 AM EST documented as of this encounter Care Teams Special Education Secretary Relationship Specialty Start Date End Date Brandi Eisenberg PA-C [address] [place] [address] PCP - General Physician Supervisor Tellers 05/15/24 Odalys Dozier MD [address] [place] [phone] [email or web address] Medical Oncology 06/13/24 Ayaz Pat MD [address] [place] [phone] [email or web address] Surgical Oncology 06/13/24 Samia Corrales MD, MPH [address] [place] [phone] [email or web address] Radiation Oncology 06/13/24 Delfino Mccarthy MD [address] [place] [address] Dr [address]ozano [address] [place] [address] Urology 01/15/25 Edgar Kearney MD [address] [place] [phone] Nephrology 01/15/25 documented as of this encounter Additional Source Comments The information contained in this document represents components of the legal health record. It is not the complete legal health record.[facility]
--- OUTSIDE RECORDS SUMMARY | 2025-05-29 13:20 | XMS_ITS | Encounter Summary ---
Author Organization [facility] Address [address] [facility] [address] [place] [address] Phone Care Team Providers Care Funeral Home Assistant Name Role Phone Brandi Eisenberg PA-C Primary Care Provider [phone] Odalys Dozier MD Unavailable [phone] Ayaz Pat MD Unavailable [phone] Samia Corrales MD, MPH Unavailable + [phone] Delfino Mccarthy MD Unavailable Edgar Kearney MD Unavailable Encounter Details Date Type Department Care Team (Latest Contact Info) Description 06/26/2024 Transcribe Orders [facility] Ar[facility] Service at the [facility] [address] [place] [address] [place] [address] [email or web address] Bradycardia (Primary Dx) Social History Tobacco Use [...] Contact Info) Description 04/16/2025 Procedure Pass [facility] Imaging Department, [facility], [place] [address] [facility], Floor [address] [place] [address] 04/16/2025 Procedure Pass [facility] Imaging Department, [facility], [place] [address] [facility], Floor [address] [place] [address] 07/17/2025 8:30 AM EST Blood Draw [facility] Imaging Department, [facility], Imaging [id number] [address] [facility], Floor [address] [place] [address] Ayaz Pat MD [address] [place] [address] SUSIE@[email or web address] 07/17/2025 10:30 AM EST Appointment [facility] Imaging Department, [facility], [place] [address] [facility], Floor [address] [place] [address] Ayaz Pat MD [address] [place] [phone] SUSIE@[email or web address] 07/17/2025 2:00 PM EST Office Visit [facility], [address], 6[address] [place] [address] Odalys Dozier MD [address] [place] [phone] [email or web address] Scheduled Orders Name Type Priority Associated Diagnoses [...] documented as of this encounter Care Teams Funeral Home Assistant Relationship Specialty Start Date End Date Brandi Eisenberg PA-C [address] [place] [address] PCP - General Physician Children Counselor 05/15/24 Odalys Dozier MD [address] [place] [phone] [email or web address] Medical Oncology 06/13/24 Ayaz Pat MD [address] [place] [address] SUSIE@[email or web address] Surgical Oncology 06/13/24 Samia Corrales MD, MPH [address] [place] [phone] [email or web address] Radiation Oncology 06/13/24 Delfino Mccarthy MD [address] [place] [address] Dr Lozano [address] [place] [address] Urology 01/15/25 Edgar Kearney MD [address] [place] [address] Nephrology 01/15/25 documented as of this encounter Additional Source Comments The information contained in this document represents components of the legal health record. It is not the complete legal health record.[facility]
--- OUTSIDE RECORDS SUMMARY | 2025-05-29 13:20 | XMS_ITS | Encounter Summary ---
Author Organization [facility] Address [address] [place] [address] Care Team Providers Care Composite Engineer Name Role Phone Brandi Eisenberg Primary Care Provider [phone] Reason for Visit * Reason Onset Date Comments appointment 05/01/2025 Encounter Details Date Type Department Care Team ([facility] Contact Info) Description 05/01/2025 Telephone Gastroenterology - [place] [address] [facility] [address] [facility] [address] [place] [phone] Mj Yin MD [address] [facility] [address] [place] [address] Social History Tobacco Use Types Packs/Day Years [...] on file documented as of this encounter Progress Notes * Yamilet Marrufo - 05/08/2025 9:35 AM EST Scheduled. * Ruthy Slade - 05/01/2025 1:54 PM EST Records received from [facility] for diarrhea. Called patient and LM to schedule PV. Records scanned into patient's chart and form placed in CALLED accordion folder documented in this encounter Plan of Treatment Upcoming Encounters Date Type Department Care Team (Late st Contact Info) Description 01/07/2026 1:40 PM EDT Consult Gastroenterology - [address] [phone] Demetra Marquez, ELIGIO [address] [address] documented as of this encounter Visit Diagnoses Not on filedocumented in this encounter Care Teams Composite Engineer Relationship Specialty Start Date End Date Brandi Eisenberg PA [address] [place] [address] PCP - General 11/23/23 documented as of this encounter
--- OUTSIDE RECORDS SUMMARY | 2025-05-29 13:20 | XMS_ITS | Clinical Summary ---
Author Organization [facility] Address [address] [facility] [address] [place] [id number] Phone Care Team Providers Care Deputy Commissioner Name Role Phone Brandi Eisenberg PA-C Primary Care Provider Odalys Dozier MD Unavailable [phone] Ayaz Pat MD Unavailable [phone] Samia Corrales MD, MPH Unavailable + [phone] Delfino Mccarthy MD Unavailable [phone] Edgar Kearney MD Unavailable Allergies No known [...] of Pleurx catheter- bronchoscopy with aspiration - [facility] CYTOPATHOLOGY REPORT Date: 10/25/2023 report: Pleural [...] for but not diagnostic of mesothelioma, WT1-positive, [id number], calretinin- positive, [id number]. Impression/recommendation: The patient is a 73-year-old gentleman [...] on 07 May 2014 19:39 Encounter info: [id number], [facility], One Time OP, 04/29/2014 - 04/29/2014 Contributor system: NUANCE * Final Report * Polysomnogram W/ CPAP (Verified) POLYSOMNOGRAM DATE:04/29/2014 [facility] SLEEP PROGRAM [facility] Accredited by the [employer] CPAP STUDY Referring Provider: Matt Carmen M.D. Date of Study: 04/29/2014 Order ID: [id number] INTRODUCTION: This 63 year-old male with hypertension, [...] of 5.4/hr, and lowest oxygenation of 85%. [place] sleepiness scale is 10/24. (Height: 5' 6 , Weight: 217.0 lbs, BMI: 35.3.) MASK TYPE: Standard/FX Nasal. MEDICATIONS: Sertraline, Naproxen, Metformin, Lisinopril, HCTZ, Amlodipine. DESCRIPTION: This overnight polysomnogram was done utilizing a ResQU digital polysomnograph machine. Four channels of EEG [...] results, then I will order PAP from [facility]. 2. Patient should sleep in non-supine position. [...] Transcribed: 05/07/2014 18:37:55 Transcribed by: JANNETTE DocID: [id number] CC:Matt Carmen M.D. 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 Mixed hyperlipidemia Overview (07/02/2024): on statin Type 2 diabetes mellitus without complications Encounters Date Type Department Care Team Description 04/16/2025 3:30 PM EST Office Visit [facility], [facility] [address] [facility] [place] [address] Ayaz Pat MD Gurevich, Gabby Dedifferentiated liposarcoma (Primary Dx) 04/16/2025 3:00 PM EST Office Visit [facility], [facility] [address] [facility] [place] [address] Odalys Dozier MD Gurevich, Gabby Dedifferentiated liposarcoma (Primary Dx) 04/16/2025 9:01 AM EST - 04/16/2025 11:59 PM EST Hospital Encounter [facility] Imaging Department, [facility], [place] [address], [address] [place] [address] Odalys Dozier MD Gurevich, Gabby Discharge Disposition: Home or Self Care 04/16/2025 Orders Only Infusion Therapy Services [address] [facility] [facility], [address] [place] [address] Odalys Dozier MD 04/15/2025 Orders Only [facility] Imaging Department, [facility], Imaging [id number] [address] [facility], [address] [place] [address] Marcella Spencer RN 01/15/2025 Procedure Pass [facility] Imaging Department, [facility], [place] [address] [facility], [address] [place] [address] 01/15/2025 Procedure Pass [facility] Imaging Department, [facility], [place] [address] [facility], [address] [place] [address] from Last 3 Months Family History Medical [...] Sign Reading Time Taken Comments Blood Pressure 142/63 04/16/2025 2:36 PM EST Pulse 64 04/16/2025 2:36 PM EST Temperature 36.2 C (97.2 F) 04/16/2025 2:36 PM EST Respiratory Rate 16 04/16/2025 2:36 PM EST Oxygen Saturation 100% 04/16/2025 2:36 PM EST Inhaled Oxygen Concentration 100% 07/06/2024 8 :39 PM EST Weight 81.9 kg (180 lb 8.9 oz) 04/16/2025 2:36 P M EST Height 165 cm (5' 4.96 ) 01/15/2025 12:53 PM EDT Body Mass Index 30.08 01/15/2025 12:53 PM EDT Plan of Treatment Upcoming Encounters Date Type Department Care Team (Late st Contact Info) Description 04/16/2025 Procedure Pass [facility] Imaging Department, [facility], [place] [address] [facility], [address] [place] [address] 04/16/2025 Procedure Pass [facility] Imaging Department, [facility], [place] [address] [facility], [address] [place] [address] 07/17/2025 8:30 AM EST Blood Draw [facility] Imaging Department, [facility], Imaging [id number] [address] [facility] [facility], [address] [place] [address] Ayaz Pat MD [address] [place] [id number] [email or web address] 07/17/2025 10:30 AM EST Appointment Janeth Adrián Imaging Department, [facility] [place], [place] [address] [facility], [address] [place] [address] Ayaz Pat MD [address] [place] [address] [email or web address] 07/17/2025 2:00 PM EST Office Visit [facility], [facility] [place] [address] [facility] [place] [address] Odalys Dozier MD [address] [place] [address] [email or web address] Health Maintenance Due Date Last Done Comments [...] 07/07, 07/20/2023, Additional history exists BLOOD PRESSURE 10/14/2025 04/16/2025 CREATININE LEVEL 04/16/2026 04/16/2025, 05/2025, 10/30/2024, Additional history exists POTASSIUM LEVEL 04/16/2026 04/16/2025, 01/04, 10/30/2024, Additional history exists PNEUMOCOCCAL VACCINES (50+ years) [...] this topic Medical Devices Implanted Type Area Sound Equipment Mechanic Device Identifier Shelf Expiration Date Model / Serial / Lot System Pacemaker Micra Vr2 Leadless - [id number] Implanted:Qt y: 1 on 06/22/2024 by Rivera Guardado MD at [facility] Pacemaker (Leadless) N/A: Right Ventricle [facility] [id number] 10/01/2025 MICRAVR2 SYSTEM / [id number] / Medtronic In [id number] Micra Vr2 [id number] Implanted: (Quantity not on file) Pacemaker [employer] [id number] MICRA VR2 / [id number] / Gastric Clip Procedures Procedure Name Priority Date/Time Associated Diagnosis Comments CT ABDOMEN/PELVIS WITHOUT CONTRAST Routine 04/16/2025 10:31 AM EST Dedifferentiated liposarcoma CT CHEST WITHOUT CONTRAST Routine 04/16/2025 10:31 AM EST Dedifferentiated liposarcoma CBC AND DIFFERENTIAL Routine 04/16/2025 9:20 AM EST Dedifferentiated liposarcoma CBC AND DIFFERENTIAL Routine 04/16/2025 9:20 AM EST Dedifferentiated liposarcoma COMPREHENSIVE METABOLIC PANEL (CMP) Routine 04/16/2025 9:20 AM EST Dedifferentiated liposarcoma Chronic kidney disease, unspecified CKD stage HEMOGLOBIN A1C Routine 06/20/2024 10:27 PM EST LIPID PANEL Routine 06/20/2024 10:27 PM EST from Last 3 Months or Most Recently Relevant to Health Maintenance Results * CT CHEST WITHOUT CONTRAST (04/16/2025 10:31 AM EST) Anatomical Region Laterality Modality Chest Computed Tomogra phy 04/16/2025 11:4 3 AM EST Impressions 04/16/2025 2:10 PM EST 1. Status post right pleurodesis with unchanged right pleural thickening and trace pleural effusion. 2. No significant change in prominent intrathoracic lymph nodes. 3. Same-day CT abdomen pelvis reported separately. ATTESTATION: Kristine Farrell, as teaching physician have reviewed the images, if any, for this patient's exam, and if necessary, have edited the report originally created by Marcella Ramos. Narrative 04/16/2025 2:[address] CHEST WITHOUT CONTRAST Referring clinician's provided indication for this examination in Epic: [MALIGNANCY] SARCOMA (HX MALIG NO EVIDENCE DZ; CANCER) TECHNIQUE: Multidetector CT of the chest was performed without intravenous contrast using tailored dose modulation. COMPARISON: CT CHEST WITHOUT CONTRAST FINDINGS: Devices/Tubes/Lines: Unchanged position of leadless cardiac pacemaker in the right ventricle. Lungs: Similar 25 x 16 mm round atelectasis in the posterior medial aspect of the right lower lobe (12:328). Resolved faint ground glass opacities previously seen in both upper lobes. Similar pulmonary nodules, for example 4 mm solo-fissural nodule in the left lower lobe (12:186), 4 mm solo-fissural nodule in the right lower lobe (12:244), 3 mm nodule in the right upper lobe (12:158). No new pulmonary nodules or consolidation. Similar bilateral multifocal linear atelectasis/scarring. Minimal secretions in the trachea. Mild diffuse bronchial wall thickening. Pleura: Status post right pleurodesis with unchanged right pleural thickening and trace pleural effusion. No left pleural effusion or pneumothorax. Mediastinum: Cardiomegaly with biatrial enlargement. No pericardial effusion. Mild amount of coronary calcifications. Subcentimeter thyroid nodules with calcified nodule on the left. Lymph Nodes: No significant change in size of prominent intrathoracic lymph nodes, for example a similar 11 x 7 mm right upper paratracheal lymph node (2:24), 13 x 12 mm right lower paratracheal lymph node (2:44), and 18 x 15 mm partially calcified subcarinal lymph node (2:56). Upper Abdomen: Please see concurrent abdominal CT for abdominal findings. Chest Wall: Minimal bilateral gynecomastia. No chest wall mass. Bones: No suspicious lytic or blastic lesions. Similar sclerotic bone lesions for example in the left posterior second rib, likely bone islands. Degenerative changes of the visualized spine. Procedure Note Kristine Shin MD - 04/16/2025 CT CHEST WITHOUT CONTRAST Referring clinician's provided indication for this examination in [facility]:[MALIGNANCY] SARCOMA (HX MALIG NO EVIDENCE DZ; CANCER) TECHNIQUE: Multidetector CT of the chest was performed without intravenouscontrast using tailored dose modulation. COMPARISON: CT CHEST WITHOUT CONTRAST FINDINGS: Devices/Tubes/Lines: Unchanged position of leadless cardiac pacemaker inthe right ventricle. Lungs: Similar 25 x 16 mm round atelectasis in the posterior medial aspectof the right lower lobe (12:328). Resolved faint ground glass opacitiespreviously seen in both upper lobes. Similar pulmonary nodules, forexample 4 mm solo-fissural nodule in the left lower lobe (12:186), 4 mmperi-fissural nodule in the right lower lobe (12:244), 3 mm nodule in theright upper lobe (12:158). No new pulmonary nodules or consolidation.Similar bilateral multifocal linear atelectasis/scarring. Minimal secretions in the trachea. Mild diffuse bronchial wall thickening. Pleura: Status post right pleurodesis with unchanged right pleuralthickening and trace pleural effusion. No left pleural effusion orpneumothorax. Mediastinum: Cardiomegaly with biatrial enlargement. No pericardialeffusion. Mild amount of coronary calcifications. Subcentimeter thyroidnodules with calcified nodule on the left. Lymph Nodes: No significant change in size of prominent intrathoraciclymph nodes, for example a similar 11 x 7 mm right upper paratracheallymph node (2:24), 13 x 12 mm right lower paratracheal lymph node (2:44),and 18 x 15 mm partially calcified subcarinal lymph node (2:56). Upper Abdomen: Please see concurrent abdominal CT for abdominalfindings. Chest Wall: Minimal bilateral gynecomastia. No chest wall mass. Bones: No suspicious lytic or blastic lesions. Similar sclerotic bonelesions for example in the left posterior second rib, likely bone islands.Degenerative changes of the visualized spine. IMPRESSION: 1. Status post right pleurodesis with unchanged right pleural thickeningand trace pleural effusion. 2. No significant change in prominent intrathoracic lymph nodes. 3. Same-day CT abdomen pelvis reported separately. ATTESTATION: Kristine Farrell, as teaching physician have reviewed theimages, if any, for this patient's exam, and if necessary, have edited thereport originally created by Marcella Ramos. Odalys Dozier MD IMG CT CHEST Final Res ult * CT ABDOMEN/PELVIS WITHOUT CONTRAST (04/16/2025 10:31 AM EST) Anatomical Region Laterality Modality Abdomen, Pelvis Computed Tomogra phy 04/16/2025 10:5 1 AM EST Impressions 04/16/2025 12:47 PM EST Compared to 01/15/2025: 1. No recurrent or metastatic disease in the abdomen or pelvis on noncontrast CT. 2. No significant change in mildly enlarged abdominopelvic lymph nodes, unlikely metastatic and which may be reactive or possibly related to a low-grade lymphoproliferative process. 3. Narrative 04/16/2025 12:[address] ABDOMEN/PELVIS WITHOUT CONTRAST Referring clinician's provided indication for this examination in Epic: *Musculoskeletal neoplasm, surveillance TECHNIQUE: Multidetector-row CT of the abdomen and pelvis was performed without intravenous contrast using tailored dose modulation techniques. Images were reconstructed in the axial, coronal, and sagittal planes. COMPARISON: CT ABDOMEN/PELVIS WITHOUT CONTRAST ABSENCE OF INTRAVENOUS CONTRAST DECREASES SENSITIVITY FOR DETECTION OF FOCAL LESIONS AND VASCULAR PATHOLOGY. FINDINGS: Lower Chest: CT chest from the same day is reported separately. Liver: Normal dilatation. Biliary: No biliary ductal dilatation. No calcified gallstones. Spleen: No splenomegaly. Pancreas: No inflammatory changes. Adrenal Glands: No right adrenal nodules. Prior left adrenalectomy. Kidneys/Ureters: Status post left nephrectomy. No hydronephrosis or stones in the right kidney. Bowel: No obstruction or wall thickening. Endoscopy clips in the stomach. Small and large bowel anastomoses in the left abdomen. Peritoneum/Retroperitoneum: No masses, pneumoperitoneum, or fluid. Unchanged tiny focus of fat necrosis right anterior abdominal (4:40). No significant change in mild central mesenteric fat stranding (2:50). Similar postsurgical changes along the left retroperitoneum status post sarcoma resection including partial left psoas and quadratus lumborum muscle resection. Lymph Nodes: No new or enlarging adenopathy. Scattered mildly enlarged abdominopelvic lymph nodes are not significantly changed since at least 01/11/2024 PET/CT, for example a 1.2 x 1.1 cm left common iliac node (2:51) or a 1.7 x 1.1 cm left external iliac node (2:65) Pelvic Organs/Bladder: Normal. No mass. Vessels: No abdominal aortic aneurysm. Moderate atherosclerosis. Bones/Soft Tissues: No destructive osseous lesions. Osteopenia. Postsurgical changes in the anterior abdominal wall. Procedure Note Myla Ly MD - 04/16/2025 CT ABDOMEN/PELVIS WITHOUT CONTRAST Referring clinician's provided indication for this examination in Epic:*Musculoskeletal neoplasm, surveillance TECHNIQUE: Multidetector-row CT of the abdomen and pelvis was performedwithout intravenous contrast using tailored dose modulation techniques.Images were reconstructed in the axial, coronal, and sagittal planes. COMPARISON: CT ABDOMEN/PELVIS WITHOUT CONTRAST ABSENCE OF INTRAVENOUS CONTRAST DECREASES SENSITIVITY FOR DETECTION OFFOCAL LESIONS AND VASCULAR PATHOLOGY. FINDINGS: Lower Chest: CT chest from the same day is reported separately. Liver: Normal dilatation. Biliary: No biliary ductal dilatation. No calcified gallstones. Spleen: No splenomegaly. Pancreas: No inflammatory changes. Adrenal Glands: No right adrenal nodules. Prior left adrenalectomy. Kidneys/Ureters: Status post left nephrectomy. No hydronephrosis or stonesin the right kidney. Bowel: No obstruction or wall thickening. Endoscopy clips in the stomach.Small and large bowel anastomoses in the left abdomen. Peritoneum/Retroperitoneum: No masses, pneumoperitoneum, or fluid.Unchanged tiny focus of fat necrosis right anterior abdominal (4:40). Nosignificant change in mild central mesenteric fat stranding (2:50).Similar postsurgical changes along the left retroperitoneum status postsarcoma resection including partial left psoas and quadratus lumborummuscle resection. Lymph Nodes: No new or enlarging adenopathy. Scattered mildly enlargedabdominopelvic lymph nodes are not significantly changed since at least01/11/2024 PET/CT, for example a 1.2 x 1.1 cm left common iliac node (2:51)or a 1.7 x 1.1 cm left external iliac node (2:65) Pelvic Organs/Bladder: Normal. No mass. Vessels: No abdominal aortic aneurysm. Moderate atherosclerosis. Bones/Soft Tissues: No destructive osseous lesions. Osteopenia.Postsurgical changes in the anterior abdominal wall. IMPRESSION: Compared to 01/15/2025: 1. No recurrent or metastatic disease in the abdomen or pelvis onnoncontrast CT. 2. No significant change in mildly enlarged abdominopelvic lymph nodes,unlikely metastatic and which may be reactive or possibly related to alow-grade lymphoproliferative process. 3. Odalys Dozier MD IM CT ABD/PELVIS Final R esult * (ABNORMAL) Comprehensive Metabolic Panel (CMP) (04/16/2025 9:20 AM EST) Sodium 137 136 - 145 mmol/L 04/16/2025 10:17 AM EST [facility] Potassium 5.1 3.4 - 5.1 mmol/L 04/16/2025 10:17 AM EST [facility] Chloride 108(H) 98 - 107 mmol/L 04/16/2025 10:17 AM EST [facility] CO2 19(L) 20 - 31 mmol/L 04/16/2025 10:17 AM EST [facility] Anion Gap 10 3 - 17 mmol/L 04/16/2025 10:17 AM EST [facility] BUN 51(H) 6 - 23 mg/dL 04/16/2025 10:17 AM EST [facility] Creatinine 1.89(H) 0.60 - 1.30 mg/dL 04/16/2025 10:17 AM EST [facility] eGFR 37(L) >59 mL/min/1.7 3m2 04/16/2025 10:17 AM EST [facility] Comment:Estimated glomerular filtration rate calculated using the CKD-EPI refit equation. Glucose 114(H) 70 - 99 mg/dL 04/16/2025 10:17 AM EST [facility] Calcium 9.1 8.5 - 10.5 mg/dL 04/16/2025 10:17 AM EST [facility] AST 18 <41 U/L 04/16/2025 10:17 AM EST [facility] ALT 17 <42 U/L 04/16/2025 10:17 AM EST [facility] Alkaline Phosphatase 78 40 - 130 U/L 04/16/2025 10:17 AM EST [facility] Bilirubin, Total 0.5 0.0 - 1.2 mg/dL 04/16/2025 10:17 AM EST [facility] Total Protein 7.4 6.4 - 8.3 g/dL 04/16/2025 10:17 AM EST [facility] Albumin 4.1 3.5 - 5.2 g/dL 04/16/2025 10:17 AM EST [facility] Globulin 3.3 1.9 - 4.1 g/dL 04/16/2025 10:17 AM EST [facility] Blood (Blood) Venipuncture / Unknown 04/16/2025 9:20 AM EST 04/16/2025 9:43 AM EST us Odalys Dozier MD LAB BLOOD BKR ORDERABLES Final Result [facility] [address] [place] [address] * (ABNORMAL) CBC and Differential (04/16/2025 9:20 AM EST) WBC 4.89 4.00 - 11.00 K/uL 04/16/2025 9:48 AM EST [facility] RBC 4.03(L) 4.50 - 5.90 M/uL 04/16/2025 9:48 AM EST [facility] Hemoglobin 12.3(L) 13.5 - 17.5 g/dL 04/16/2025 9:48 AM [facility] Hematocrit 38.2(L) 41.0 - 53.0 % 04/16/2025 9:48 AM [facility] MCV 94.8 80.0 - 100.0 fL 04/16/2025 9:48 AM [facility] MCH 30.5 27.0 - 31.0 pg 04/16/2025 9:48 AM [facility] MCHC 32.2 32.0 - 36.0 g/dL 04/16/2025 9:48 AM [facility] MPV 10.4 8.4 - 12.0 fL 04/16/2025 9:48 AM [facility] RDW-CV 14.2 11.5 - 14.5 % 04/16/2025 9:48 AM [facility] PLT 150 150 - 450 K/uL 04/16/2025 9:48 AM [facility] Neutrophils 66.5 % 04/16/2025 9:48 AM [facility] Lymphocytes 19.4 % 04/16/2025 9:48 AM [facility] Monocytes 10.0 % 04/16/2025 9:48 AM EST [facility] Eosinophils 2.7 % 04/16/2025 9:48 AM [facility] Basophils 0.8 % 04/16/2025 9:48 AM [facility] Imm Grans 0.6 % 04/16/2025 9:48 AM [facility] NRBC 0.0 <=0.0 /100 WBCs 04/16/2025 9:48 AM [facility] Absolute Neutrophils 3.25 1.92 - 7.60 K/uL 04/16/2025 9:48 AM EST [facility] Absolute Lymphocytes 0.95 0.72 - 4.10 K/uL 04/16/2025 9:48 AM EST [facility] Absolute Monocytes 0.49 0.16 - 1.10 K/uL 04/16/2025 9:48 AM EST [facility] Absolute Eosinophils 0.13 0.00 - 0.50 K/uL 04/16/2025 9:48 AM EST [facility] Absolute Basophils 0.04 0.00 - 0.15 K/uL 04/16/2025 9:48 AM EST [facility] Absolute Imm Grans 0.03 0.00 - 0.09 K/uL 04/16/2025 9:48 AM EST [facility] Absolute NRBC 0.00 <=0.00 K cells/uL 04/16/2025 9:48 AM EST [facility] Absolute Neutrophils 3.25 1.92 - 7.60 K/uL 04/16/2025 9:48 AM EST [facility] Diff Type Auto 04/16/2025 9:48 AM EST [facility] Blood (Blood) Venipuncture / Unknown 04/16/2025 9:20 AM EST 04/16/2025 9:43 AM EST us Odalys Dozier MD LAB BLOOD BKR ORDERABLES Final Result [facility] [address] [place] [address] * (ABNORMAL) Hemoglobin A1c (06/20/2024 10:27 PM EST) HEMOGLOBIN A1C 6.9(H) 4.2 - 5.6 % [facility] Comment: HbA1c levels 5.7-6.4% represent pre-diabetes, indicating impaired glucose control and an increased risk of developing diabetes. The diagnostic HbA1c level for diabetes is 6.5% or greater. HbA1c is performed by the [employer] Lizeth-quant immunoassay method which does not detect (incidental) hemoglobin variants. Hemoglobin electrophoresis should be ordered in patients with suspected hemoglobinopathies. CALC MEAN BLD GLUC 150 mg/dL [facility] Comment:The Calculated Mean Blood Glucose (CMBG) represents the estimated average glucose calculated from the measured hemoglobin A1c (HbA1c). There is no established normal range for the CMBG, however a 5.6% HbA1c (upper limit of normal) represents a CMBG of 114 mg/dL. Blood 06/20/2024 10:2 7 PM EST 06/20/2024 10:40 PM EST Cem Mckinney MD, ANTONY LAB BLOOD BKR ORDERABLES Final Result Performing Organization Address [facility] Co de Phone Number [facility] [address] [place] [id number] * (ABNORMAL) Lipid panel (06/20/2024 10:27 PM EST) CHOLESTEROL 78 <200 mg/dL [facility] TRIGLYCERIDES 56 35 - 150 mg/dL [facility] HDL 24(L) 40 - 80 mg/dL [facility] CALCULATED LDL 43(L) 50 - 129 mg/dL [facility] VLDL 11 <31 mg/dL [facility] CARDIAC RISK RATIO 3.3 0.0 - 4.0 [facility] Blood 06/20/2024 10:2 7 PM EST 06/20/2024 10:40 PM EST Cem Mckinney MD, ANTONY LAB BLOOD BKR ORDERABLES Final Result Performing Organization Address City/[facility] Co de Phone Number [facility] [address] [place] [address] [phone] from Last 3 Months or Most Recently Relevant to Health Maintenance Insurance MEDICARE PART A [place] [address] MEDICARE PART A & B [place] MED[place]ARE PART [place] & B [employer] [place]ARE [place] Advance Directives For more information, please contact: [phone] (9AM - 5PM Marsha/[facility], Tuesday-Tuesday) * Full Code (Latest Code Status [...] Code Status Confirmed With: PatientFamily Care Teams Deputy Commissioner Relationship Specialty Start Date End Date Brandi Eisenberg PA-C [address] [place] [address] PCP - General Physician Journalism Internship 05/15/24 Odalys Dozier MD [address] [place] [address] [email or web address] Medical Oncology 06/13/24 Ayaz Pat MD [address] [place] [address] SUSIE@[email or web address] Surgical Oncology 06/13/24 Samia Corrales MD, MPH [address] [place] [address] [email or web address] Radiation Oncology 06/13/24 Delfino Mccarthy MD [address] [place] [address] Dr Lozano [address] [place] [address] Urology 01/15/25 Edgar Kearney MD [address] [place] [address] Nephrology 01/15/25 Additional Source Comments The information contained in this document represents components of the legal health record. It is not the complete legal health record.[facility]
--- OUTSIDE RECORDS SUMMARY | 2025-05-29 13:21 | XMS_ITS | Clinical Summary ---
Author Organization [facility] Address [address] [place] [address] Phone Care Team Providers Care Well Site Drilling Engineer Name Role Phone Brandi Eisenberg Primary Care Provider [phone] Allergies No known active allergies Medications apixaban [...] Encounters Date Type Department Care Team Description 05/01/2025 Telephone Gastroenterology - [place] [address] [facility] [address] [place] [phone] Mj Yin MD from Last 3 Months Social History [...] EDT Consult Gastroenterology - [address] [facility] [address] [place] [phone] Demetra Marquez NP 299 [facility] [address] [place] [address] Health Maintenance Due Date Last Done Comments [...] Cancer Screening: FIT-DNA (Cologuard) 04/05/2026 04/05/2023, 03/06/2023 Diabetes: Annual GFR (Glomerular Filtration Rate) 04/16/2026 04/16/2025, 01/15/2025, 10/30/2024, Additional history exists Hypertension/CHF/CAD Annual BMP Blood Test 04/16/2026 04/16/2025, 01/15/2025, 10/30/2024, Additional history exists Cholesterol Screening (Lipid Panel) 06/20/2029 06/20/2024, 07/21/2023, [...] Health Maintenance Results * Hemoglobin A1c (07/21/2023) [facility] Hemoglobin A1C 0.0 % Comment:no interpretation, a bstracted Blood Venous blood specimen / Unknown Result [facility] Provider LAB BLOOD ORDERABLES Dorothy l Result * Lipid panel (07/21/2023) [facility] LDL/HDL Ratio 0 Comment:no interpretation, a bstracted Triglycerides 0 mg/dL Comment:no interpretation, a bstracted Cholesterol 0 mg/dL Comment:no interpretation, a bstracted HDL 0 mg/dL Comment:no interpretation, a bstracted LDL Cholesterol 0 mg/dL Comment:no interpretation, a bstracted Blood Venous blood specimen / Unknown Result [facility] Provider LAB BLOOD ORDERABLES Dorothy l Result * FIT-DNA (Cologuard) (04/05/2023) [facility] Colorectal Cancer Screening: FIT-DNA (Cologuard) no interpretation , abstracted Result [facility] HEALTH MAINTENANCE Final Result * Urine Albumin Creatinine Ratio (10/27/2022) [facility] Urine Albumin Creatinine Ratio abstracted Result [facility] Provider HEALTH MAINTENANCE Final Result from Last 3 Months or Most Recently Relevant to Health Maintenance Insurance MEDICARE [place]ICA[place] - [place] Care Teams Well Site Drilling Engineer Relationship Specialty Start Date End Date Brandi Eisenberg PA [address] [place] [phone] PCP - General 11/23/23
--- OUTSIDE RECORDS SUMMARY | 2025-05-29 13:21 | XMS_ITS | Encounter Summary ---
Author Organization [facility] Address [address] [facility] [address] [place] [address] Phone Care Team Providers Care Trial Judge Name Role Phone Brandi Eisenberg PA-C Primary Care Provider Odalys Dozier MD Unavailable [phone] Ayaz Pat MD Unavailable Samia Corrales MD, MPH Unavailable + [phone] Delfino Mccarthy MD Unavailable Edgar Kearney MD Unavailable Encounter Details Date Type Department Care Team (Late st Contact Info) Description 05/28/2024 [facility] [place] [facility], MRI 300 [facility] 4th [place] [address] Social History Tobacco Use Types Packs/Day Years [...] st Contact Info) Description 04/16/2025 Procedure Pass [facility] Imaging Department, [facility] [place], [place] [address] [facility], Floor [address] [place] [address] 04/16/2025 Procedure Pass [facility] Imaging Department, [facility], [place] [address] [facility], Floor [address] [place] [address] 07/17/2025 8:30 AM EST Blood Draw [facility] Imaging Department, [facility], Imaging Vkwdk-lk-Ssrw [address] [facility], Floor [address]1 [place] [address] Ayaz Pat MD [address] [place] [address] SUSIE@[facility] 07/17/2025 10:30 AM EST Appointment [facility] Imaging Department, [facility], [place] [address] [facility], Floor [address]1 [place] [address] Ayaz Pat MD [address] [place] [address] SUSIE@[facility] 07/17/2025 2:00 PM EST Office [facility], [address], 6th [place] [address] Odalys Dozier MD [address] [place] [address] Kandis@[facility] documented as of this encounter Visit Diagnoses Not on filedocumented in this encounter Care Teams Trial Judge Relationship Specialty Start Date End Date Brandi Eisenberg PA-C [facility] [place] [address] PCP - General Physician Automobile Service Station Attendant 05/15/24 Odalys Dozier MD [address] [place] [address] Kandis@[facility] Medical Oncology 06/13/24 Ayaz Pat MD [address] [place] [address] SUSIE@[facility] Surgical Oncology 06/13/24 Samia Corrales MD, MPH [address] [place] [address] [email or web address] Radiation Oncology 06/13/24 Delfino Mccarthy MD [address] [place] [address] Dr Lozano [address] [place] [address] Urology 01/15/25 Edgar Kearney MD [address] [place] [address] Nephrology 01/15/25 documented as of this encounter Additional Source Comments The information contained in this document represents components of the legal health record. It is not the complete legal health record.[facility]
--- OUTSIDE RECORDS SUMMARY | 2025-05-29 13:21 | XMS_ITS | Encounter Summary ---
Author Organization [facility] Address [address] [facility] [address] [place] [address] Phone Care Team Providers Care Business Center Representative Name Role Phone Brandi Eisenberg PA-C Primary Care Provider Odalys Dozier MD Unavailable [phone] Ayaz Pat MD Unavailable Samia Corrales MD, MPH Unavailable + [phone] Delfino Mccarthy MD Unavailable Edgar Kearney MD Unavailable Encounter Details Date Type Department Care Team (Late st Contact Info) Description 05/22/2024 [facility] [place] [facility], MRI 300 [facility] 4th [place] [address] Social History Tobacco Use Types Packs/Day Years [...] Info) Description 04/16/2025 Procedure Pass [facility] Imaging Department, [facility] [place], [place] 450 [facility], Floor L1 [place] [address] 04/16/2025 Procedure Pass [facility] Imaging Department, [facility], [place] [address] [facility], Floor [address]1 [place] [address] 07/17/2025 8:30 AM EST Blood Draw [facility] Imaging Department, [facility], Imaging Wzxwr-bh-Wuva [address] [facility], Floor [address]1 [place] [address] Ayaz Pat MD [address] [place] [address] SUSIE@[facility] 07/17/2025 10:30 AM EST Appointment [facility] Imaging Department, [facility], [place] [address] [facility], Floor L1 [place] [address] Ayaz Pat MD [address] [place] [phone] SUSIE@[facility] 07/17/2025 2:00 PM EST Office Visit [facility], [address], 6th [place] [address] Odalys Dozier MD [address] [place] [address] Kandis@[facility] documented as of this encounter Visit Diagnoses Not on filedocumented in this encounter Care Teams Business Center Representative Relationship Specialty Start Date End Date Brandi Eisenberg PA-C [facility] [place] [address] PCP - General Physician Clinic Coordinator 05/15/24 Odalys Dozier MD [address] [place] [address] Kandis@[facility] Medical Oncology 06/13/24 Ayaz Pat MD [address] [place] [address] SUSIE@[facility] Surgical Oncology 06/13/24 Samia Corrales MD, MPH [address] [place] [phone] Chong@[email or web address] Radiation Oncology 06/13/24 Delfino Mccarthy MD [address] [place] [address] Dr Lozano [address] [place] [address] Urology 01/15/25 Edgar Kearney MD [address] [place] [address] Nephrology 01/15/25 documented as of this encounter Additional Source Comments The information contained in this document represents components of the legal health record. It is not the complete legal health record.[facility]
--- OUTSIDE RECORDS SUMMARY | 2025-05-29 13:21 | XMS_ITS | Encounter Summary ---
Author Organization [facility] Address [address] [facility] [address] [place] [address] Phone Care Team Providers Care Second Chef Name Role Phone Brandi Eisenberg PA-C Primary Care Provider Odalys Dozier MD Unavailable [phone] Ayaz Pat MD Unavailable [phone] Samia Corrales MD, MPH Unavailable + [phone] Delfino Mccarthy MD Unavailable Edgar Kearney MD Unavailable Encounter Details Date Type Department Care Team (Late st Contact Info) Description 10/08/2024 Procedure Pass [facility] Imaging Department, [facility] [place] 450 [facility], Floor L1 [place] [address] Social History Tobacco Use Types Packs/Day Years [...] Info) Description 04/16/2025 Procedure Pass [facility] Imaging Department, [facility], [place] 450 [facility], Floor L1 [place] [address] 04/16/2025 Procedure Pass [facility] Imaging Department, [facility], [place] 450 [facility], Floor L1 [place] [address] 07/17/2025 8:30 AM EST Blood Draw [facility] Imaging Department, [facility], Imaging Lkelz-yx-Mgnv [address] [facility], [facility] L1 [place] [address] Ayaz Pat MD [address] [place] [phone] SUSIE@[facility] 07/17/2025 10:30 AM EST Appointment [facility] Imaging Department, [facility], [place] [address] [facility], Floor [address]1 [place] [address] Ayaz Pat MD [address] [place] [phone] SUSIE@[facility] 07/17/2025 2:00 PM EST Office Visit [facility], [address], 6th [place] [address] Odalys Dozier MD [address] [place] [address] Kandis@[email or web address] documented as of this encounter Visit Diagnoses Not on filedocumented in this encounter Additional Health Concerns Assessment Noted Time PHQ-2 Depression Total Score: 0 06/08/19 25 7:28 AM EST documented as of this encounter Care Teams Second Chef Relationship Specialty Start Date End Date Brandi Eisenberg PA-C [address] [place] [address] PCP - General Physician Senior Mortgage Loan Processor 05/15/24 Odalys Dozier MD [address] [place] [address] Kandis@[facility] Medical Oncology 06/13/24 Ayaz Pat MD [address] [place] [address] SUSIE@[facility] Surgical Oncology 06/13/24 Samia Corrales MD, MPH [address] [place] [phone] Chong@[facility] Radiation Oncology 06/13/24 Delfino Mccarthy MD [address] [place] [address] [address] Urology 01/15/25 Edgar Kearney MD [address] [place] [address] Nephrology 01/15/25 documented as of this encounter Additional Source Comments The information contained in this document represents components of the legal health record. It is not the complete legal health record.[facility]
--- OUTSIDE RECORDS SUMMARY | 2025-05-29 13:21 | XMS_ITS | Encounter Summary ---
Author Organization [facility] Address [address] [facility] [address] [place] [address] Phone Care Team Providers Care Dietary Service Aide Name Role Phone Brandi Eisenberg PA-C Primary Care Provider [phone] Odalys Dozier MD Unavailable [phone] Ayaz Pat MD Unavailable [phone] Samia Corrales MD, MPH Unavailable + [phone] Delfino Mccarthy MD Unavailable Edgar Kearney MD Unavailable Encounter Details Date Type Department Care Team (Late st Contact Info) Description 01/15/2025 Procedure Pass [facility] Imaging Department, [facility] [place], [place] [address] [facility], Floor L1 [place] [address] Social History Tobacco Use Types Packs/Day Years [...] st Contact Info) Description 04/16/2025 [facility], [facility], [place] [address] [facility], Floor L1 [place] [address] 04/16/2025 Procedure [facility], [facility], [place] [address] [facility], Floor L1 [place] [address] 07/17/2025 8:30 AM EST Blood Draw [facility], [facility], Imaging Frckp-ob-Akso [address] [facility], [facility] L1 [place] [address] Ayaz Pat MD [address] [place] [address] SUSIE@[facility] 07/17/2025 10:30 AM EST [facility]ointment [facility] Imaging [facility], [facility], [place] [address] [facility], Floor [address]1 [place] [address] Ayaz Pat MD [address] [place] [phone] SUSIE@[facility] 07/17/2025 2:00 PM EST Office Visit [facility], [address], 6th [place] [address] Odalys Dozier MD [address] [place] [phone] Kandis@[facility] documented as of this encounter Visit Diagnoses Not on filedocumented in this encounter Additional Health Concerns Assessment Noted Time PHQ-2 Depression Total Score: 0 06/08/19 25 7:28 AM EST documented as of this encounter Care Teams Dietary Service Aide Relationship Specialty Start Date End Date Brandi Eisenberg PA-C [address] [place] [address] PCP - General Physician Business Management Professor 05/15/24 Odalys Dozier MD [address] [place] [address] Kandis@[facility] Medical Oncology 06/13/24 Ayaz Pat MD [address] [place] [address] SUSIE@[facility] Surgical Oncology 06/13/24 Samia Corrales MD, MPH [address] [place] [phone] Chong@[facility] Radiation Oncology 06/13/24 Delfino Mccarthy MD [address] [place] [address] [address] Urology 01/15/25 Edgar Kearney MD [address] [place] [address] Nephrology 01/15/25 documented as of this encounter Additional Source Comments The information contained in this document represents components of the legal health record. It is not the complete legal health record.[facility]
--- OUTSIDE RECORDS SUMMARY | 2025-05-29 13:21 | XMS_ITS | Encounter Summary ---
Author Organization [facility] Address [address] [facility] [address] [place] [address] Phone Care Team Providers Care Maintenance Apprentice Name Role Phone Brandi Eisenberg PA-C Primary Care Provider Odalys Dozier MD Unavailable [phone] Ayaz Pat MD Unavailable [phone] Samia Corrales MD, MPH Unavailable + [phone] Delfino Mccarthy MD Unavailable [phone] Edgar Kearney MD Unavailable Encounter Details Date Type Department Care Team (Late st Contact Info) Description 05/22/2024 [facility], MRI 300 [facility] 4th [place] [address] Social History Tobacco Use Types Packs/Day Years [...] Contact Info) Description 04/16/2025 Procedure Pass [facility] Imaging Department, [facility] [place], [place] [address] [facility], Floor [address]1 [place] [address] 04/16/2025 Procedure Pass [facility] Imaging Department, [facility], [place] [address] [facility], Floor [address]1 [place] [address] 07/17/2025 8:30 AM EST Blood Draw [facility] Imaging Department, [facility], Imaging Tmxia-xi-Wsmy [address] [facility], Floor [address]1 [place] [address] Ayaz Pat MD [address] [place] [address] SUSIE@[facility] 07/17/2025 10:30 AM EST Appointment [facility] Imaging Department, [facility], [place] [address] [facility], Floor [address]1 [place] [address] Ayaz Pat MD [address] [place] [phone] SUSIE@[facility] 07/17/2025 2:00 PM EST Office Visit [facility], [address], 6th [place] [address] Odalys Dozier MD [address] [place] [phone] Kandis@[facility] documented as of this encounter Visit Diagnoses Not on filedocumented in this encounter Care Teams Maintenance Apprentice Relationship Specialty Start Date End Date Brandi Eisenberg PA-C [facility] [place] [address] PCP - General Physician Research And Evaluation Analyst 05/15/24 Odalys Dozier MD [address] [place] [address] Kandis@[email or web address] Medical Oncology 06/13/24 Ayaz Pat MD [address] [place] [address] SUSIE@[facility] Surgical Oncology 06/13/24 Samia Corrales MD, MPH [address] [place] [phone] Chong@[facility] Radiation Oncology 06/13/24 Delfino Mccarthy MD [address] [place] [address] [address] Urology 01/15/25 Edgar Kearney MD [address] [place] [address] Nephrology 01/15/25 documented as of this encounter Additional Source Comments The information contained in this document represents components of the legal health record. It is not the complete legal health record.[facility]
--- OUTSIDE RECORDS SUMMARY | 2025-05-29 13:21 | XMS_ITS | Encounter Summary ---
Author Organization [facility] Address [address] [facility] [address] [place] [address] Phone Care Team Providers Care Tray Server Name Role Phone Brandi Eisenberg PA-C Primary Care Provider Odalys Dozier MD Unavailable [phone] Ayaz Pat MD Unavailable [phone] Samia Corrales MD, MPH Unavailable + [phone] Delfino Mccarthy MD Unavailable Edgar Kearney MD Unavailable Encounter Details Date Type Department Care Team (Late st Contact Info) Description 01/15/2025 Procedure Pass [facility] Imaging Department, [facility] [place], [place] [address] [facility], Floor L1 [place] [address] Social History Tobacco Use Types Packs/Day Years [...] st Contact Info) Description 04/16/2025 Procedure Pass [facility] Imaging Department, [facility], [place] [address] [facility], Floor L1 [place] [address] 04/16/2025 Procedure Pass [facility] Imaging Department, [facility], [place] [address] [facility], Floor L1 [place] [address] 07/17/2025 8:30 AM EST Blood Draw [facility] Imaging Department, [facility], Imaging Gnfgj-hs-Sekv [address] [facility], [facility] L1 [place] [address] Ayaz Pat MD [address] [place] [address] SUSIE@[facility] 07/17/2025 10:30 AM EST Appointment [facility] Imaging Department, [facility], [place] [address] [facility], Floor [address]1 [place] [address] Ayaz Pat MD [address] [place] [address] SUSIE@[facility] 07/17/2025 2:00 PM EST Office Visit [facility], [address], 6th [place] [address] Odalys Dozier MD [address] [place] [phone] Kandis@[facility] documented as of this encounter Visit Diagnoses Not on filedocumented in this encounter Additional Health Concerns Assessment Noted Time PHQ-2 Depression Total Score: 0 06/08/19 25 7:28 AM EST documented as of this encounter Care Teams Tray Server Relationship Specialty Start Date End Date Brandi Eisenberg PA-C [address] [place] [address] PCP - General Physician Bulbs Farmworker 05/15/24 Odalys Dozier MD [address] [place] [phone] Kandis@[facility] Medical Oncology 06/13/24 Ayaz Pat MD [address] [place] [address] SUSIE@[facility] Surgical Oncology 06/13/24 Samia Corrales MD, MPH [address] [place] [phone] Chong@[facility] Radiation Oncology 06/13/24 Delfino Mccarthy MD [address] [place] [address] [address] Urology 01/15/25 Edgar Kearney MD [address] [place] [address] Nephrology 01/15/25 documented as of this encounter Additional Source Comments The information contained in this document represents components of the legal health record. It is not the complete legal health record.[facility]
--- OUTSIDE RECORDS SUMMARY | 2025-05-29 13:21 | XMS_ITS | Encounter Summary ---
Author Organization [facility] Address [address] [facility] [address] [place] [phone] Phone Care Team Providers Care Migratory Worker Name Role Phone Brandi Eisenberg PA-C Primary Care Provider Odalys Dozier MD Unavailable [phone] Ayaz Pat MD Unavailable [phone] Samia Corrales MD, MPH Unavailable + [phone] Delfino Mccarthy MD Unavailable Edgar Kearney MD Unavailable Encounter Details Date Type Department Care Team (Late st Contact Info) Description 10/08/2024 Procedure Pass [facility], [facility] [place] [place] [address] [facility], Floor [address] [place] [address] Social History Tobacco Use Types Packs/Day Years [...] 04/16/2025 Procedure Pass [facility] Imaging Department, [facility], [place] [address] [facility], Floor [address] [place] [address] 04/16/2025 Procedure Pass [facility] Imaging Department, [facility], [place] [address] [facility], [address] [place] [address] 07/17/2025 8:30 AM EST Blood Draw [facility] Imaging Department, [facility], Imaging Qddrs-yu-Elpt [address] [facility], [facility] [address] [place] [address] Ayaz Pat MD [address] [place] [phone] SUSIE@[email or web address] 07/17/2025 10:30 AM EST Appointment [facility] Imaging Department, [facility], [place] [address] [facility], [address] [place] [address] Ayaz Pat MD [address] [place] [phone] SUSIE@[facility] 07/17/2025 2:00 PM EST Office Visit [facility], [address], [address]th [place] [address] Odalys Dozier MD [address] [place] [phone] Kandis@[facility] documented as of this encounter Visit Diagnoses Not on filedocumented in this encounter Additional Health Concerns Assessment Noted Time PHQ-2 Depression Total Score: 0 06/08/19 25 7:28 AM EST documented as of this encounter Care Teams Migratory Worker Relationship Specialty Start Date End Date Brandi Eisenberg PA-C [address] [place] [address] PCP - General Physician Director Of Engineering 05/15/24 Odalys Dozier MD [address] [place] [address] Kandis@[facility] Medical Oncology 06/13/24 Ayaz Pat MD [address] [place] [phone] SUSIE@[facility] Surgical Oncology 06/13/24 Samia Corrales MD, MPH [address] [place] [phone] Chong@[facility] Radiation Oncology 06/13/24 Delfino Mccarthy MD [address] [place] [address] [address] Urology 01/15/25 Edgar Kearney MD [address] [place] [address] Nephrology 01/15/25 documented as of this encounter Additional Source Comments The information contained in this document represents components of the legal health record. It is not the complete legal health record.[facility]
--- OUTSIDE RECORDS SUMMARY | 2025-05-29 13:21 | XMS_ITS | Encounter Summary ---
Author Organization [facility] Address [address] [facility] [address] [place] [address] Phone Care Team Providers Care Lighting Adviser Name Role Phone Brandi Eisenberg PA-C Primary Care Provider Odalys Dozier MD Unavailable [phone] Ayaz Pat MD Unavailable [phone] Samia Corrales MD, MPH Unavailable + [phone] Delfino Mccarthy MD Unavailable [phone] Edgar Kearney MD Unavailable Encounter Details Date Type Department Care Team (Late st Contact Info) Description 10/30/2024 Procedure Pass [facility], [facility] [place], [place] [address] [facility], Floor [address]1 [place] [address] Social History Tobacco Use Types Packs/Day Years [...] st Contact Info) Description 04/16/2025 Procedure Pass [facility] Imaging Department, [facility], [place] [address] [facility], Floor [address]1 [place] [address] 04/16/2025 Procedure Pass [facility] Imaging Department, [facility], [place] [address] [facility], Floor [address] [place] [address] 07/17/2025 8:30 AM EST Blood Draw [facility] Imaging Department, [facility], Imaging Qbjph-bq-Mjge [address] [facility], [facility] [address] [place] [address] Ayaz Pat MD [address] [place] [phone] SUSIE@[facility] 07/17/2025 10:30 AM EST Appointment [facility] Imaging Department, [facility], [place] [address] [facility], Floor [address] [place] [address] Ayaz Pat MD [address] [place] [phone] SUSIE@[facility] 07/17/2025 2:00 PM EST Office Visit [facility], [address], 6th [place] [address] Odalys Dozier MD [address] [place] [phone] Kandis@[email or web address] documented as of this encounter Visit Diagnoses Not on filedocumented in this encounter Additional Health Concerns Assessment Noted Time PHQ-2 Depression Total Score: 0 06/08/19 25 7:28 AM EST documented as of this encounter Care Teams Lighting Adviser Relationship Specialty Start Date End Date Brandi Eisenberg PA-C [address] [place] [address] PCP - General Physician Production Planning Supervisor 05/15/24 Odalys Dozier MD [address] [place] [phone] Kandis@[facility] Medical Oncology 06/13/24 Ayaz Pat MD [address] [place] [phone] SUSIE@[facility] Surgical Oncology 06/13/24 Samia Corrales MD, MPH [address] [place] [phone] Chong@[email or web address] Radiation Oncology 06/13/24 Delfino Mccarthy MD [address] [place] [address] [address] Urology 01/15/25 Edgar Kearney MD [address] [place] [address] Nephrology 01/15/25 documented as of this encounter Additional Source Comments The information contained in this document represents components of the legal health record. It is not the complete legal health record.[facility]
--- OUTSIDE RECORDS SUMMARY | 2025-05-29 13:21 | XMS_ITS | Encounter Summary ---
Author Organization [facility] Address [address] [facility] [address] [place] [address] Phone Care Team Providers Care Compensation Business Partner Name Role Phone Brandi Eisenberg PA-C Primary Care Provider [phone] Odalys Dozier MD Unavailable [phone] Ayaz Pat MD Unavailable [phone] Samia Corrales MD, MPH Unavailable + [phone] Delfino Mccarthy MD Unavailable Edgar Kearney MD Unavailable Encounter Details Date Type Department Care Team (Late st Contact Info) Description 07/06/2024 Procedure Pass [facility] Periop [address] [place] [address] Social History Tobacco Use Types Packs/Day Years [...] ecorded Are you denied basic needs s [facility] as food, clothing, or medical care? No 07/05/2024 In the past 12 months have y ou been in a relationship with a person who hurts, threatens, or tries to control you? No 07/05/2024 Are you denied basic needs s [facility] as food, clothing, or medical care? No [...] Care Team (Rabia felix Contact Info) Description 04/16/2025 Procedure Pass [facility] Imaging Department, [facility], [place] [address] [facility], Floor [address] [place] [address] 04/16/2025 Procedure Pass [facility] Imaging Department, [facility], [place] [address] [facility], Floor [address] [place] [address] 07/17/2025 8:30 AM EST Blood Draw [facility] Imaging Department, [facility], Imaging Jmuhi-vq-Wven [address] [facility], Floor [address] [place] [address] Ayaz Pat MD [address] [place] [phone] SUSIE@[email or web address] 07/17/2025 10:30 AM EST Appointment [facility] Imaging Department, [facility], [place] [address] [facility], Floor [address] [place] [address] Ayaz Pat MD [address] [place] [phone] SUSIE@[facility] 07/17/2025 2:00 PM EST Office Visit [facility], [facility] [address] [facility], 6th [place] [address] Odalys Dozier MD [address] [place] [phone] Kandis@[facility] documented as of this encounter Visit Diagnoses Not on filedocumented in this encounter Additional Health Concerns Assessment Noted Time PHQ-2 Depression Total Score: 0 06/08/19 25 7:28 AM EST documented as of this encounter Care Teams Compensation Business Partner Relationship Specialty Start Date End Date Brandi Eisenberg PA-C [address] [place] [address] PCP - General Physician Travel Agent 05/15/24 Odalys Dozier MD [address] [place] [phone] Kandis@[email or web address] Medical Oncology 06/13/24 Ayaz Pat MD [address] [place] [phone] SUSIE@[facility] Surgical Oncology 06/13/24 Samia Corrales MD, MPH [address] [place] [phone] Chong@[email or web address] Radiation Oncology 06/13/24 Delfino Mccarthy MD [address] [place] [address] Dr Lozano [address] [place] [address] Urology 01/15/25 Edgar Kearney MD [address] [place] [address] Nephrology 01/15/25 documented as of this encounter Additional Source Comments The information contained in this document represents components of the legal health record. It is not the complete legal health record.[facility]"
--- OUTSIDE RECORDS SUMMARY | 2025-05-29 13:21 | XMS_ITS | Encounter Summary ---
Author Organization [facility] Address [address] [place] [address] Phone Care Team Providers Care Sash Sticker Name Role Phone Brandi Eisenberg PA-C Primary Care Provider [phone] Odalys Dozier MD Unavailable [phone] Ayaz Pat MD Unavailable [phone] Samia Corrales MD, MPH Unavailable + [phone] Delfino Mccarthy MD Unavailable Edgar Kearney MD Unavailable Encounter Details Date Type Department Care Team (Late st Contact Info) Description 06/22/2024 Procedure Pass [facility] Cardio EP Device Monitoring [address] [place] [address] Social History Tobacco Use Types Packs/Day Years [...] st Contact Info) Description 04/16/2025 Procedure Pass [facility] Imaging Department, [facility], [place] [address] [facility], Floor [address]1 [place] [address] 04/16/2025 Procedure Pass [facility] Imaging Department, [facility], [place] [address] [facility], Floor [address] [place] [address] 07/17/2025 8:30 AM EST Blood Draw [facility] Imaging Department, [facility], Imaging Lbjjl-no-Onvp [address] [facility], [address] [place] [address] Ayaz Pat MD [address] [place] [phone] SUSIE@[facility] 07/17/2025 10:30 AM EST Appointment [facility] Imaging Department, [facility], [place] [address] [facility], Floor [address]1 [place] [address] Ayaz Pat MD [address] [place] [phone] SUSIE@[facility] 07/17/2025 2:00 PM EST Office Visit [facility], [facility] [address] [facility], 6th [place] [address] Odalys Dozier MD [address] [place] [phone] Kandis@[facility] documented as of this encounter Visit Diagnoses Not on filedocumented in this encounter Additional Health Concerns Assessment Noted Time PHQ-2 Depression Total Score: 0 06/08/19 25 7:28 AM EST documented as of this encounter Care Teams Sash Sticker Relationship Specialty Start Date End Date Brandi Eisenberg PA-C [address] [place] [address] PCP - General Physician Eligibility Worker 05/15/24 Odalys Dozier MD [address] [place] [phone] [email or web address] Medical Oncology 06/13/24 Ayaz Pat MD [address] [place] [phone] SUSIE@[facility] Surgical Oncology 06/13/24 Samia Corrales MD, MPH [address] [place] [phone] Chong@[email or web address] Radiation Oncology 06/13/24 Delfino Mccarthy MD [address] [place] [address] Dr [address] [place] [address] Urology 01/15/25 Edgar Kearney MD [address] [place] [phone] Nephrology 01/15/25 documented as of this encounter Additional Source Comments The information contained in this document represents components of the legal health record. It is not the complete legal health record.[facility]
[2025-05-29 13:24] VITALS: BP 144/62; PULSE 89; O2SAT 97; BMI 30.3
--- NOTE | 2025-05-29 13:24 | HO.NEPHOV ---
Vital Signs 05/29/25 13:24 Height 5 ft 6 in Weight 188 lb BMI 30.3 BP 144/62 H Blood Pressure Location Lt brachial Position Sitting Pulse 89 Pulse Source Pulse Oximeter Pulse Oximetry (%) 97 Oxygen Delivery Method Room Air Intake Visit Reasons: 3mon follow-up w/labs Staff Mechanical Engineer Required: Yes Staff Mechanical Engineer Name: Nadja [id number] Accompanied by: Spouse Allergies No Known Allergies (No Known Allergies*) Allergy (Verified 05/29/25 13:26) HPI Comments Details: Stew was seen in follow-up of his chronic kidney disease and hypertension. 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 Hernandez). 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 It was diagnosed following investigations for hematuria . He recently had hyperkalemia and was treated in [facility] ER. His accompanied him during this visit and [place] customer business manager was used.( Even remotely he had very little function of the left kidney prior to nephrectomy). His blood pressure is currently at goal. His weight is stable. He denies nausea, vomiting, diarrhea, abdominal pain, chest pain, shortness of breath, pedal edema or orthostatic symptoms. He does not take any nonsteroidal anti-inflammatories. He is tolerating TRICIA-inhibitor. There were no new specific complaints at the time of this office visit. [facility] Medical History Chronic kidney disease, stage 3 unspecified Unspecified hydronephrosis Paroxysmal atrial fibrillation Essential hypertension Lung mass Microscopic hematuria Surgical History History of lung biopsy Social History Alcohol intake: never Patient Tobacco Use Status: Former Tobacco user Review of Systems Const All systems reviewed & are unremarkable except as noted in HPI and below Physical Exam Vital Signs: Last Vital Signs Pulse 89 05/29/25 13:24 BP 144/62 H 05/29/25 13:24 Pulse Ox 97 05/29/25 13:24 Oxygen Delivery Method Room Air 05/29/25 13:24 BMI result Body Mass Index 30.3 Const General: comfortable and no acute distress Orientation/consciousness: patient oriented x3 HEENT Head: Yes normocephalic Mouth: Normal oral and palatal mucosa present Eyes EOM: EOMs intact bilaterally Neck Neck: Yes supple Resp Auscultation: clear to auscultation bilaterally Cardio Jugular venous distension: no JVD Rate: regular rate Heart sounds: Murmur heart sound present GI Palpation (GI): Soft to palpation Auscultation: normal bowel sounds General: Yes no CVA tenderness Back/Spine/Pelvis Back: no CVA tenderness Skin General skin exam: no rashes or lesions noted Neuro General: patient oriented x3 and moves all extremities Extrem General: Yes no pedal edema Results Reviewed Nephrology Results: Hgb, (14.0-18.0) 12.0 g/dl L 08/15/24 WBC, (4.8-10.8) 5.7 X10*3/uL 08/15/24 Plt Count, (160-400) 186 X10*3/uL 08/15/24 Sodium, (135-145) 140 mmol/L 03/08/25 Potassium, (3.3-5.1) 5.3 mmol/L H 03/08/25 Chloride, (96-108) 114 mmol/L H 03/08/25 Carbon Dioxide, (22-29) 21 mmol/L L 03/08/25 BUN, (9-16) 50 mg/dL H 03/08/25 Creatinine, (0.5-1.4) 1.94 mg/dL H 03/08/25 Calcium, (8.4-10.2) 8.8 mg/dL 12/14/24 Phosphorus, (2.7-4.5) 3.2 mg/dL 12/14/24 PTH Intact, (8.7-77.1) 64.1 pg/mL 12/14/24 Assessment & Plan Assessment & Plan (1) Hypertension: Code(s): I10 - Essential (primary) hypertension Category: Medical Qualifiers: Hypertension type: primary hypertension Qualified Code(s): I10 - Essential (primary) hypertension (2) Secondary hyperparathyroidism (of renal origin): Code(s): N25.81 - Secondary hyperparathyroidism of renal origin Category: Medical (3) Chronic kidney disease, stage 3 unspecified: Code(s): N18.30 - Chronic kidney disease, stage 3 unspecified Category: Medical Qualifiers: Chronic kidney disease stage 3 subtype: stage 3a (GFR 45-59) Qualified Code(s): N18.31 - Chronic kidney disease, stage 3a (4) Acquired solitary kidney: Code(s): Z90.5 - Acquired absence of kidney Category: Medical Plan Stew has acquired solitary kidney following nephrectomy. His serum creatinine is marginally up from baseline . His blood pressure is at goal at home . His urine output is good. He is tolerating TRICIA-inhibitor .He should be on a low K diet. He maintains good hydration and avoids nonsteroidal anti-inflammatories. He has no history of significant proteinuria. He will benefit from weight loss. He should continue Kionex 30 Gram once a week. If his creatinine rises , I may back off or D/C ACEI and add Jardiance. He follows up closely with Dr. Mccarthy. Further management is pending evolving data. Answered his and his 's questions. Orders: Orders Calcium 4 Months I10 - Essential (primary) hypertension, N18.31 - Chronic kidney disease, stage 3a, N25.81 - Secondary hyperparathyroidism of renal origin, Z90.5 - Acquired absence of kidney Parathyroid Hormone Intact 4 Months I10 - Essential (primary) hypertension, N18.31 - Chronic kidney disease, stage 3a, N25.81 - Secondary hyperparathyroidism of renal origin, Z90.5 - Acquired absence of kidney Creatinine 4 Months I10 - Essential (primary) hypertension, N18.31 - Chronic kidney disease, stage 3a, N25.81 - Secondary hyperparathyroidism of renal origin, Z90.5 - Acquired absence of kidney Blood Urea Nitrogen 4 Months I10 - Essential (primary) hypertension, N18.31 - Chronic kidney disease, stage 3a, N25.81 - Secondary hyperparathyroidism of renal origin, Z90.5 - Acquired absence of kidney Electrolytes 4 Months I10 - Essential (primary) hypertension, N18.31 - Chronic kidney disease, stage 3a, N25.81 - Secondary hyperparathyroidism of renal origin, Z90.5 - Acquired absence of kidney Vitamin D 25-OH Total 4 Months I10 - Essential (primary) hypertension, N18.31 - Chronic kidney disease, stage 3a, N25.81 - Secondary hyperparathyroidism of renal origin, Z90.5 - Acquired absence of kidney Coding Level of Care Code Est Pt Level 4 (22955) Diagnoses Primary hypertension I10 Hypertension type: primary hypertension Secondary hyperparathyroidism (of renal origin) N25.81 Stage 3a chronic kidney disease N18.31 Chronic kidney disease stage 3 subtype: stage 3a (GFR 45-59) Acquired solitary kidney Z90.5
== END 2025-05-29 13:47 | disposition home or self-care (01) ==
LOC: HO.HKA 13:18
PROVIDERS: PCP Physician Assistant; Visit Provider Internal Medicine Nephrology
DX: I10 Essential (primary) hypertension (principal); N25.81 Secondary hyperparathyroidism of renal origin; N18.31 Chronic kidney disease, stage 3a; Z90.5 Acquired absence of kidney
CPT/HCPCS: 99214

== ENCOUNTER → 2025-05-29 13:18 | Outpatient (BNVA) | payer MEDICARE, MEDICAID, SELFPAY | PROVIDERS: PCP Physician Assistant; Visit Provider Internal Medicine Nephrology | DX: I12.9 Hypertensive chronic kidney disease with stage 1 through stage 4 chronic kidney disease, or unspecified chronic kidney disease (principal); N18.31 Chronic kidney disease, stage 3a; Z87.891 Personal history of nicotine dependence; N25.81 Secondary hyperparathyroidism of renal origin; Z90.5 Acquired absence of kidney | CPT/HCPCS: 99212 ==